=== PATIENT | female | born 1995 | race Caucasian/White ===

== ENCOUNTER 2024-06-21 15:13 | Inpatient (IN) | payer MEDICAID, BC, SELFPAY ==
[2024-06-21] VITALS (7 sets, daily range): BP systolic 105–131; BP diastolic 48–69; PULSE 59–72; RESP 13–20; TEMP 36.6–37.1; O2SAT 97–100; BMI 36.5
--- NOTE | ~2024-06-21 | US_ITS ---
EXAMINATION: US OB <= 14 weeks fetus DATE: 06/21/2024 18:09 INDICATION: Abdominal cramping. . TECHNIQUE: Real-time transabdominal pelvic ultrasound was performed. COMPARISON: None. FINDINGS: The uterus measures 10.5 x 7.1 x 9.5 cm. There is an intrauterine gestational sac. A yolk sac is iden tified. The crown rump length measures 3.3 cm, which correlates with an estimated gestational age of 10 weeks and 1 day(s) (+/-) 6 day(s). heart motion is identified measuring 153 beats per minute (bpm) by M-mode Doppler. The right ovary is not visualized. The left ovary measures 4.4 x 3.1 x 2.6 cm. There is a 3.3 cm cyst in left ovary, likely a follicular cyst. There is no free fluid in the pelvis. IMPRESSION: 1. Single living intrauterine gestation with estimated date of delivery of 01/16/2025. 2. 3.3 cm cyst in left ovary, likely a follicular cyst. Reviewed, dictated and finalized at location A. [employer] SERVICE AND SALES CONSULTANT IMPRESSION: 1. Single living intrauterine gestation with estimated date of delivery of 01/01. 2. 3.3 cm cyst in left ovary, likely a follicular cyst.
--- NOTE | ~2024-06-21 | US_ITS ---
EXAMINATION: US abdomen limited DATE: 06/21/2024 18:09 INDICATION: Right upper quadrant abdominal pain. Nausea and vomiting. TECHNIQUE: Multiple grayscale and Doppler ultrasound images of the abdomen were obtained. COMPARISON: None FINDINGS: The visualized portions of the head and body of the pancreas are normal. The liver is dwain l without focal lesion. There is normal flow in main portal vein. The gallbladder is distended and co ntains stones. No gallbladder wall thickening. There is a positive sonographic Dobson sign. The commo n duct is normal and measures 5 mm. IMPRESSION: 1. Distended gallbladder with gallstones and positive sonographic Dobson's sign suspicious for acute cholecystitis. Reviewed, dictated and finalized at location A. CY OWNER
--- NOTE | 2024-06-21 15:28 | ED.ABDPAIN ---
HPI - Abdominal Pain General Chief Complaint: Abdominal Pain Stated Complaint: abdominal pain, n/v Time Seen by Provider: 06/21/24 15:19 Source: patient Mode of arrival: ambulatory Limitations: no limitations History of Present Illness HPI narrative: This is a 29-year-old female who is approximately 11 weeks presents to the ED for chief complaint of right upper quadrant/right flank pain beginning just prior to arrival. Patient reports associated nausea and vomiting as well. States that yesterday she was feeling fine. Denies urinary symptoms, vaginal bleeding, diarrhea. Does endorse some generalized abdominal cramping. Denies fevers, chills. Related Data Home Medications Medication Instructions Recorded Confirmed vit no.95-ferrous 1 tablet PO DAILY 06/21/24 06/21/24 fumarate 28 mg-folic acid 800 mcg tablet ( Multivitamins) Allergies Allergy/AdvReac Type Severity Reaction Status Date / Time latex Allergy Rash Verified 06/21/24 19:08 Review of Systems Review of Systems: All systems as dictated in HPI Exam Narrative: GENERAL: Well-appearing, well-nourished, and in no acute distress. HEAD: Normocephalic, atraumatic. EYES: PERRLA and EOMI. ENT: Nares clear, no rhinorrhea or epistaxis. Mucous membranes moist. Oropharynx without tonsillar hypertrophy exudate or other lesions. NECK: Supple. No adenopathy or masses. CHEST: No respiratory distress. Clear to auscultation. No wheezes rales or rhonchi HEART: Regular rate and rhythm. No murmur heard. Normal peripheral pulses. ABDOMEN: Right flank is tender. Negative left flank tenderness. Soft, otherwise nontender, nondistended, normal active bowel sounds. MSK: Normal range of motion. No edema. SKIN: Warm, dry, no rash. NEURO: Alert and oriented x4. No focal deficits. PSYCH: Normal mood and affect. Course Vital Signs Vital signs: Vital Signs Pulse Rate 60 06/21/24 15:15 Respiratory Rate 15 06/21/24 15:15 Blood Pressure 118/66 06/21/24 15:15 Pulse Oximetry 100 06/21/24 15:15 Oxygen Delivery Room Air 06/21/24 15:15 Temperature 97.9 F 06/21/24 17:01 Pulse Rate 64 06/21/24 17:01 Respiratory Rate 15 06/21/24 17:01 Blood Pressure 119/69 06/21/24 17:01 Pulse Oximetry 100 06/21/24 17:01 Oxygen Delivery Room Air 06/21/24 15:15 MDM - Abdominal Pain MDM Narrative Medical decision making narrative: 29-year-old female who is 11 weeks presents to the ED after acute onset of right upper quadrant/right flank abdominal pain with N/V. Vitals are normal. Exam remarkable for the above. Lab work shows normal white count on the CBC. CMP is unremarkable. Beta quant is [id number]. Urinalysis remarkable for nitrite positive urine with 21-50 whites, 4+ bacteria. Culture pending. Rocephin started for this. Right upper quadrant ultrasound remarkable for distended gallbladder with gallstones and positive sonographic Dobson sign suspicious for acute cholecystitis. ultrasound: IMPRESSION: 1. Single living intrauterine gestation with estimated date of delivery of 01/16/2025. 2. 3.3 cm cyst in left ovary, likely a follicular cyst.. Discussed the case with general surgeon, Dr. Elias will consult on the patient. Discussed with hospitalist STERILIZER OPERATOR, Pietro. We will bring her into the hospital for IV rehydration, antibiotics for UTI and for pain control. Patient is understanding and agreeable with plan for admission. Lab Data 06/21/24 15:34 06/21/24 15:34 Labs: Lab Results 06/21/24 06/21/24 Range/Units 15:34 15:38 WBC 9.3 (4.5-10.0) K/mm3 RBC 3.98 L (4.2-5.4) M/mm3 Hgb 12.4 (12.0-15.0) g/dL Hct 36.8 L (37.0-47.0) % MCV 92.5 (80-100) fl MCH 31.2 (26-34) pg MCHC 33.7 (32-36) g/dl RDW 13.7 (11.5-14.5) % Plt Count 229 (150-375) k/mm3 MPV 12.0 H (7.4-10.4) fl Immature Gran % (Auto) 0.6 H (0-0.5) % Neut % (Auto) 69.7 (45.5-73.1) % Lymph % (Auto) 23.5 (18.3-44.2) % [place] % (Auto) 5.0 (2.6-8.5) % Eos % (Auto) 0.9 (0-4.4) % Baso % (Auto) 0.3 (0.2-1.2) % Lymph # (Auto) 2.19 (0.9-3.2) K/mm3 [place] # (Auto) 0.5 (0.1-0.6) K/mm3 Eos # (Auto) 0.1 (0-0.3) K/mm3 Baso # (Auto) 0.0 (0.0-0.1) K/mm3 Abs Immat Gran (auto) 0.06 H (0.00-0.031) K/mm3 Absolute Neuts (auto) 6.5 (1.3-6.7) K/mm3 Absolute Nucleated RBC 0.000 (0.0-0.012) K/mm3 Nucleated RBC % 0.0 (0.0-0.2) % PT 14.0 (11.1-14.7) Seconds INR 1.0 APTT 29.5 (22.3-36.8) Seconds Sodium 137 (137-145) mmol/L Potassium 4.1 (3.4-5.0) mmol/L Chloride 104 (98-107) mmol/L Carbon Dioxide 26 (22-30) mmol/L Anion Gap 7 (4-12) mmol/L BUN 12 (7-17) mg/dL Creatinine 0.50 L (0.7-1.0) mg/dL Estim Creat Clear Calc 142 ml/min Estimated GFR > 60 (59 - ) Glucose 77 (65-110) mg/dL Lactic Acid 1.0 (0.7-2.0) mmol/L Calcium 9.0 (8.4-10.2) mg/dL Total Bilirubin 0.2 (0.2-1.3) mg/dL Direct Bilirubin 0.0 (0-0.3) mg/dL AST 19 (14-36) U/L ALT 10 (6-35) U/L Alkaline Phosphatase 49 (38-126) U/L Total Protein 7.0 (6.3-8.2) g/dL Albumin 3.8 (3.5-5.1) g/dL Lipase 71 (23-300) U/L Beta HCG, Quant 964705.00 mIU/ML Urine Color Yellow (Yellow) Urine Appearance Cloudy H (Clear) Urine pH 5.5 (5.0-9.0) Ur Specific [place] 1.028 (1.001-1.035) Urine Protein Negative (Negative) mg/dL Urine Glucose (UA) Negative (Negative) mg/dL Urine Ketones Trace H (Negative) mg/dL Ur Blood (Man) Negative (Negative) Urine Nitrate Positive H (Negative) Urine Bilirubin Negative (Negative) Urine Urobilinogen 1.0 (<2.0) mg/dL Leukocyte Esterase Rfl 2+ H (Negative) SHASHI/UL Urine RBC 3-5 H (0-2) /hpf Urine WBC 21-50 H (0-3) /hpf Ur Squamous Epith Cells Moderate (Few) /hpf Urine Bacteria 4+ H /hpf Urine Casts 0-2 Imaging Data Radiologist's impression: ITS Impressions Ultrasound 06/21/24 18:17 IMPRESSION: 1. Single living intrauterine gestation with estimated date of delivery of 01/16/2025. 2. 3.3 cm cyst in left ovary, likely a follicular cyst. Abdomen Ultrasound 06/21/24 18:19 IMPRESSION: 1. Distended gallbladder with gallstones and positive sonographic Dobson's sign suspicious for acute cholecystitis. Discharge Plan Discharge Clinical Impression: UTI (urinary tract infection), Currently , Acute cholecystitis Patient Disposition: Still a Patient Condition: Stable Instructions: Antibiotic Form Prescriptions: No Action PNV cmb#95-ferrous fumarate-FA [ Multivitamins] 28 mg iron- 800 mcg Tablet 1 tablet PO DAILY Follow-up/Referrals: PHYSICIAN NOT ON STAFF,NONSTAFF [Non-Staff] -
[2024-06-21 15:49] LABS: Add Urine Microscopic? YES; Appearance Urine Cloudy (Clear); Bacteria Urine 4+ /hpf; Bilirubin Urine Negative (Negative); Blood Urine Negative (Negative); Color Urine Yellow (Yellow); Glucose Urine UA Negative (Negative); Ketones Urine Trace mg/dL (Negative); Leukocyte Esterase Ur 2+ LEU/UL (Negative); Nitrate Urine Positive (Negative); Non Pathogenic Casts 0-2; Protein Urine Negative (Negative); Specific Grav Ur 1.028 (1.001-1.035); Squamous Epithelial Cell Urine Moderate /hpf (Few); WBC Urine 21-50 /hpf (0-3); pH Urine 5.5 (5.0-9.0)
[2024-06-21 15:57] LABS: Partial Thromboplastin Time 29.5 Seconds (22.3-36.8)
[2024-06-21] MEDS: SODIUM CHLORIDE 0.9% IV 1,000 ML 999 ML IV CONT (16:22)
[2024-06-21] MEDS: ONDANSETRON INJ 4 MG/2 ML VIAL IV PUSH (16:22)
[2024-06-21] MEDS: MORPHINE SULFATE (*CRX) 4 MG/ML INJ IV PUSH ×3 (16:22→23:34)
[2024-06-21 16:39] LABS: Alanine Aminotransferase 10 U/L (6-35); Albumin Level 3.8 g/dL (3.5-5.1); Alkaline Phosphatase 49 U/L (38-126); Anion Gap 7 mmol/L (4-12); Aspartate Amino Transferase 19 U/L (14-36); Bilirubin,Total 0.2 mg/dL (0.2-1.3); Blood Urea Nitrogen 12 mg/dL (7-17); Carbon Dioxide 26 mmol/L (22-30); Chloride 104 mmol/L (98-107); Estimated CRCL calculation 142 ml/min; Estimated Glomerular Filt Rate > 60; Glucose 77 mg/dL (65-110); Lipase 71 U/L (23-300); Potassium 4.1 mmol/L (3.4-5.0); Sodium 137 mmol/L (137-145)
--- NOTE | 2024-06-21 17:31 | PC.NURSE ---
lab notified CBC ordered, lavender top specimen tube sent to lab
[2024-06-21 17:33] LABS: Basophils Percent Auto 0.3 % (0.2-1.2); Eosinophils Absolute Auto 0.1 K/mm3 (0-0.3); Eosinophils Percent Auto 0.9 % (0-4.4); Hematocrit 36.8 % (37.0-47.0); Hemoglobin 12.4 g/dL (12.0-15.0); Immature Granulocyte Absolute 0.06 K/mm3 (0.00-0.031); Immature Granulocyte Percent A 0.6 % (0-0.5); Lymphocytes Absolute Auto 2.19 K/mm3 (0.9-3.2); Lymphocytes Percent Auto 23.5 % (18.3-44.2); Mean Corpuscular HGB Conc 33.7 g/dl (32-36); Mean Corpuscular Hemoglobin 31.2 pg (26-34); Mean Corpuscular Volume 92.5 fl (80-100); Monocytes Absolute Auto 0.5 K/mm3 (0.1-0.6); Neutrophils Absolute Auto 6.5 K/mm3 (1.3-6.7); Neutrophils Percent Auto 69.7 % (45.5-73.1); Platelet Count Result 229 k/mm3 (150-375); Red Blood Count 3.98 M/mm3 (4.2-5.4); Red Cell Distribution Width 13.7 % (11.5-14.5); White Blood Count 9.3 K/mm3 (4.5-10.0)
--- NOTE | 2024-06-21 19:39 | PM.IMHP ---
H&P: HPI History of Present Illness Date/Time: 06/21/24 19:39 Chief Complaint: abdominal pain Narrative: This is a 29-year-old female with no significant past medical history patient presented to the emergency room due to right upper quadrant pain with radiation to epigastric area and scapula, back pain. Patient denies fevers rigors or chills had episode of diarrhea. Preliminary workup was significant for right upper quadrant ultrasound with cholecystitis is currently 14 week . Patient has been admitted for further evaluation management and treatment. EXAMINATION: US OB <= 14 weeks fetus DATE: 06/21/2024 18:09 INDICATION: Abdominal cramping. . TECHNIQUE: Real-time transabdominal pelvic ultrasound was performed. COMPARISON: None. FINDINGS: The uterus measures 10.5 x 7.1 x 9.5 cm. There is an intrauterine gestational sac. A yolk sac is identified. The crown rump length measures 3.3 cm, which correlates with an estimated gestational age of 10 weeks and 1 day(s) (+/-) 6 day(s). heart motion is identified measuring 153 beats per minute (bpm) by M-mode Doppler. The right ovary is not visualized. The left ovary measures 4.4 x 3.1 x 2.6 cm. There is a 3.3 cm cyst in left ovary, likely a follicular cyst. There is no free fluid in the pelvis. IMPRESSION: 1. Single living intrauterine gestation with estimated date of delivery of 01/16/2025. 2. 3.3 cm cyst in left ovary, likely a follicular cyst. EXAMINATION: US abdomen limited DATE: 06/21/2024 18:09 INDICATION: Right upper quadrant abdominal pain. Nausea and vomiting. TECHNIQUE: Multiple grayscale and Doppler ultrasound images of the abdomen were obtained. COMPARISON: None FINDINGS: The visualized portions of the head and body of the pancreas are normal. The liver is normal without focal lesion. There is normal flow in main portal vein. The gallbladder is distended and contains stones. No gallbladder wall thickening. There is a positive sonographic Dobson sign. The common duct is normal and measures 5 mm. IMPRESSION: 1. Distended gallbladder with gallstones and positive sonographic Dobson's sign suspicious for acute cholecystitis. Review of Systems Review of Systems: right upper quadrant pain with radiation to epigastric area diarrhea PMFSH Family History Family History (Updated 06/21/24 @ 19:41 by Alem Stevens RN) Mother Breast cancer Uterine cancer Ovarian cancer Grandparent Breast cancer Uterine cancer Ovarian cancer Other Ovarian cancer Uterine cancer Breast cancer Social History Social History Years smoked: 10 Smoking status: Former smoker Do You Feel Safe in your Home?: Yes Lack of Transportation: No Lack of Food: Never True Current Housing: I Have Housing Concerned About Future Housing: No Difficulty Paying Gas/Electric Bills: No Difficulty Paying for Meds: No Currently Unemployed: No Education: High School Diploma/GED Difficulty w/ Childcare or Family Care: No Spiritual care concerns: No Meds Home Medications and Allergies Home Medications Medication Instructions Recorded Confirmed Type vit no.95-ferrous 1 tablet PO DAILY 06/21/24 06/21/24 History fumarate 28 mg-folic acid 800 mcg tablet ( Multivitamins) Allergies Allergy/AdvReac Type Severity Reaction Status Date / Time latex Allergy Rash Verified 06/21/24 19:08 Vital Signs Vital Signs - 24 hr 06/21/24 15:15 06/21/24 15:19 06/21/24 16:29 Temperature 97.8 F Pulse Rate 60 60 Respiratory Rate 15 20 Blood Pressure 118/66 124/67 Pulse Oximetry 100 100 Oxygen Delivery Room Air 06/21/24 16:30 06/21/24 17:01 06/21/24 19:31 Temperature 97.9 F 97.9 F Pulse Rate 59 L 64 68 Respiratory Rate 13 15 18 Blood Pressure 124/67 119/69 105/48 L Pulse Oximetry 100 100 100 Oxygen Delivery Exam Narrative: laying in bed Const: General: comfortable, no acute distress, well developed, alert, awake and average body habitus Nutritional Appearance: average body habitus Orientation/consciousness: patient oriented x3 HENMT: Head: normal to inspection, normocephalic and atraumatic Ears: hearing grossly normal bilaterally Face/Nose/Sinus: normal facial exam Face and sinus: normal facial exam Eyes: General: appearance normal, both eyes and all related structures Pupils: Equal, round and reactive pupils present EOM: EOMs intact bilaterally Neck: Neck: full ROM, no lymphadenopathy and no JVD Thyroid: thyroid normal Lymphatic: no lymphadenopathy noted Resp: Effort & Inspection: normal respiratory effort and able to speak in complete sentences Auscultation: clear to auscultation bilaterally Cardio: Jugular venous distension: no JVD Rate: regular rate Rhythm: regular rhythm Heart sounds: S1 normal heart sound present and S2 normal heart sound present GI: GI Palp: Yes Soft to palpation and Yes No hepatosplenomegaly present : General: Yes deferred Skin: Rashes: no rashes Wounds: no wounds Neuro: General: patient oriented x3 and CN's II-XI intact bilaterally Cranial nerves: Yes CN's II-XII intact bilaterally and Yes Equal, round and reactive pupils present Cognition (Neuro): normal cognition Speech: normal speech Gait exam (Neuro): Normal gait present Motor exam (neuro): 5/5 motor strength present throughout Extrem: General: normal to inspection, full ROM, no joint enlargement and no pedal edema H&P: Results Labs Labs: Short CBC 06/21/24 Range/Units 15:34 WBC 9.3 (4.5-10.0) K/mm3 Hgb 12.4 (12.0-15.0) g/dL Hct 36.8 L (37.0-47.0) % Plt Count 229 (150-375) k/mm3 BMP 06/21/24 15:34 Sodium 137 Potassium 4.1 Chloride 104 Carbon Dioxide 26 BUN 12 Creatinine 0.50 L Glucose 77 Calcium 9.0 Liver Function 06/21/24 Range/Units 15:34 Total Bilirubin 0.2 (0.2-1.3) mg/dL Direct Bilirubin 0.0 (0-0.3) mg/dL AST 19 (14-36) U/L ALT 10 (6-35) U/L Alkaline Phosphatase 49 (38-126) U/L Albumin 3.8 (3.5-5.1) g/dL Urine 06/21/24 Range/Units 15:34 Urine Color Yellow (Yellow) Urine Appearance Cloudy H (Clear) Urine pH 5.5 (5.0-9.0) Ur Specific [place] 1.028 (1.001-1.035) Urine Protein Negative (Negative) mg/dL Urine Glucose (UA) Negative (Negative) mg/dL Assessment and Plan Assessment and plan (1) UTI (urinary tract infection): Code(s): N39.0 - Urinary tract infection, site not specified Status: Acute Assessment and Plan: On Rocephin await cultures supportive care (2) Currently : Code(s): Z34.90 - Encounter for supervision of normal , unspecified, unspecified trimester Status: Acute Assessment and Plan: follow-up in outpatient setting (3) Acute cholecystitis: Code(s): K81.0 - Acute cholecystitis Status: Acute Assessment and Plan: general surgery consult supportive care Hospitalist MIPS Advance Care Plan I have confirmed that the patient's Advanced Care Plan is present, code status is documented, or surrogate decision maker is listed in patient medical record.: Yes Medication Reconciliation I have utilized all available resources to obtain, update and review the patients current medications (includes all prescriptions, OTC, herbals, cannabis, and nutritional supplements).: Yes
--- NOTE | 2024-06-21 22:34 | ADMGEN ---
This patient, Morenita Burdick, was admitted to Medical Room 340-01. Patient/family oriented to hospital policies and general routines including ID bracelet, bed and alarms, visiting hours, pain management, procedures, bathroom and other care routines, personal items, smoking policy, room service/diet, and visiting hours. Information on how to activate the Rapid Response Team has been discussed. Patient/Family are encouraged to report perceived risks to care and to ask questions if they do not understand what they are told or what they should do.
[2024-06-22] MEDS: MORPHINE SULFATE (*CRX) 4 MG/ML INJ IV PUSH ×2 (06:40→20:19)
[2024-06-22] MEDS: ONDANSETRON INJ 4 MG/2 ML VIAL IV PUSH (06:40)
--- NOTE | 2024-06-22 08:20 | P.PNIM_ITS ---
Progress Note: A&P Assessment and Plan (1) UTI (urinary tract infection): Code(s): N39.0 - Urinary tract infection, site not specified Status: Acute Assessment and Plan: On Rocephin blood cultures supportive care (2) Currently : Code(s): Z34.90 - Encounter for supervision of normal , unspecified, unspecified trimester Status: Acute Assessment and Plan: follow-up in outpatient setting (3) Acute cholecystitis: Code(s): K81.0 - Acute cholecystitis Status: Acute Assessment and Plan: general surgery consult supportive care Time Spent With Patient Time with patient: Greater than 35 minutes Subjective Date/time seen: 06/22/24 08:20 Interval history: Abdominal pain Narrative retrieved from H/P: This is a 29-year-old female with no significant past medical history patient presented to the emergency room due to right upper quadrant pain with radiation to epigastric area and scapula, back pain. Patient denies fevers rigors or chills had episode of diarrhea. Preliminary workup was significant for right upper quadrant ultrasound with cholecystitis is currently 14 week . Patient has been admitted for further evaluation management and treatment. 06/22- pt is seen and examined. awaiting surgery consult Review of Systems Review of Systems: right upper quadrant pain with radiation to epigastric area diarrhea Exam Narrative: laying in bed Const: General: comfortable, no acute distress, well developed, alert, awake and average body habitus Nutritional Appearance: average body habitus Orientation/consciousness: patient oriented x3 HENMT: Head: normal to inspection, normocephalic and atraumatic Ears: hearing grossly normal bilaterally Face/Nose/Sinus: normal facial exam Face and sinus: normal facial exam Eyes: General: appearance normal, both eyes and all related structures Pupils: Equal, round and reactive pupils present EOM: EOMs intact bilaterally Neck: Neck: full ROM, no lymphadenopathy and no JVD Thyroid: thyroid normal Lymphatic: no lymphadenopathy noted Resp: Effort & Inspection: normal respiratory effort and able to speak in complete sentences Auscultation: clear to auscultation bilaterally Cardio: Jugular venous distension: no JVD Rate: regular rate Rhythm: regular rhythm Heart sounds: S1 normal heart sound present and S2 normal heart sound present : General: Yes deferred Skin: Rashes: no rashes Wounds: no wounds Neuro: General: patient oriented x3 and CN's II-XI intact bilaterally Cranial nerves: Yes CN's II-XII intact bilaterally and Yes Equal, round and reactive pupils present Cognition (Neuro): normal cognition Speech: normal speech Gait exam (Neuro): Normal gait present Motor exam (neuro): 5/5 motor strength present throughout Extrem: General: normal to inspection, full ROM, no joint enlargement and no pedal edema Objective Data Vital Signs Vital Signs: Vital Signs - 24 hr 06/21/24 15:15 06/21/24 15:19 06/21/24 16:29 Temperature 97.8 F Pulse Rate 60 60 Respiratory Rate 15 20 Blood Pressure 118/66 124/67 Pulse Oximetry 100 100 Oxygen Delivery Room Air 06/21/24 16:30 06/21/24 17:01 06/21/24 19:31 Temperature 97.9 F 97.9 F Pulse Rate 59 L 64 68 Respiratory Rate 13 15 18 Blood Pressure 124/67 119/69 105/48 L Pulse Oximetry 100 100 100 Oxygen Delivery 06/21/24 20:51 Temperature 98.8 F Pulse Rate 72 Respiratory Rate 16 Blood Pressure 131/48 L Pulse Oximetry 97 Oxygen Delivery Intake/Output Intake/Output: Intake & Output 06/19/24 06/20/24 06/21/24 06/22/24 23:59 23:59 23:59 23:59 Intake Total 1050 Output Total 200 Balance 850 Meds/Results Medications: Active Medications Generic Name Dose Route Start Last Admin Trade Name Freq PRN Reason Stop Dose Admin Ceftriaxone Sodium 2 gm in 100 mls @ 200 mls/hr 06/22/24 19:00 Rocephin 2 Gm/Ns 100 Ml IVPB Q24H [facility] Morphine Sulfate 4 mg 06/21/24 18:55 06/22/24 06:40 Morphine Sulfate (*Crx) 4 Mg/Ml Inj IV PUSH 4 mg Q4H PRN Administration Pain Rated 7-10 Ondansetron HCl 4 mg 06/21/24 18:55 06/22/24 06:40 Ondansetron Inj 4 Mg/2 Ml Vial IV PUSH 4 mg Q4H PRN Administration Nausea Radiology Results: ITS Impressions Ultrasound 06/21/24 18:17 IMPRESSION: 1. Single living intrauterine gestation with estimated date of delivery of 01/16/2025. 2. 3.3 cm cyst in left ovary, likely a follicular cyst. Abdomen Ultrasound 06/21/24 18:19 IMPRESSION: 1. Distended gallbladder with gallstones and positive sonographic Dobson's sign suspicious for acute cholecystitis. Labs Labs: Laboratory Results - last 24 hr 06/21/24 06/21/24 15:34 15:38 WBC 9.3 RBC 3.98 L Hgb 12.4 Hct 36.8 L MCV 92.5 MCH 31.2 MCHC 33.7 RDW 13.7 Plt Count 229 MPV 12.0 H Immature Gran % (Auto) 0.6 H Neut % (Auto) 69.7 Lymph % (Auto) 23.5 [place] % (Auto) 5.0 Eos % (Auto) 0.9 Baso % (Auto) 0.3 Lymph # (Auto) 2.19 [place] # (Auto) 0.5 Eos # (Auto) 0.1 Baso # (Auto) 0.0 Abs Immat Gran (auto) 0.06 H Absolute Neuts (auto) 6.5 Absolute Nucleated RBC 0.000 Nucleated RBC % 0.0 PT 14.0 INR 1.0 APTT 29.5 Sodium 137 Potassium 4.1 Chloride 104 Carbon Dioxide 26 Anion Gap 7 BUN 12 Creatinine 0.50 L Estim Creat Clear Calc 142 Estimated GFR > 60 Glucose 77 Lactic Acid 1.0 Calcium 9.0 Total Bilirubin 0.2 Direct Bilirubin 0.0 AST 19 ALT 10 Alkaline Phosphatase 49 Total Protein 7.0 Albumin 3.8 Lipase 71 Beta HCG, Quant 215825.00 Urine Color Yellow Urine Appearance Cloudy H Urine pH 5.5 Ur Specific [place] 1.028 Urine Protein Negative Urine Glucose (UA) Negative Urine Ketones Trace H Ur Blood (Man) Negative Urine Nitrate Positive H Urine Bilirubin Negative Urine Urobilinogen 1.0 Leukocyte Esterase Rfl 2+ H Urine RBC 3-5 H Urine WBC 21-50 H Ur Squamous Epith Cells Moderate Urine Bacteria 4+ H Urine Casts 0-2 Quality VTE Prophylaxis VTE prophylaxis: mechanical ordered
--- NOTE | 2024-06-22 12:02 | PM.CNGS ---
Assessment and Plan Assessment and plan (1) Acute cholecystitis: Code(s): K81.0 - Acute cholecystitis Status: Acute Assessment and Plan: RUQ ultrasound shows evidence of acute calculous cholecystitis, which is consistent with her presentation and exam. Her abdominal pain has persisted but with slight improvement since admission. With her being in the first trimester of her , we will try treating this conservatively and let her try a clear liquid diet today. Although it is ideal to be in the 2nd trimester when considering cholecystectomy, intervention may be unavoidable given her persistent symptoms. We discussed other treatment options as well, including the possibility of proceeding with a laparoscopic cholecystectomy under general anesthesia and the increased risks of delivery or miscarriage with her . We also discussed the option of attempting percutaneous cholecystostomy tube placement, which would be less invasive, and could potentially help decompress the gallbladder and allow her to get into her second trimester prior to having an interval cholecystectomy. All of her questions were answered. She is agreeable to trying a diet today and monitoring her closely. We will repeat labs again tomorrow and reassess. I will make her NPO after midnight in case intervention is needed. (2) UTI (urinary tract infection): Code(s): N39.0 - Urinary tract infection, site not specified Status: Acute Assessment and Plan: UA suggests UTI. Urine cx pending. Currently on IV Rocephin. This could have been contributing to her recent pelvic cramping. She denies any other urinary complaints. Management per Hospitalist. (3) Currently : Code(s): Z34.90 - Encounter for supervision of normal , unspecified, unspecified trimester Status: Acute Assessment and Plan: ultrasound estimates gestational age of 10 weeks, 1 day. Plan I have discussed the patient's case and plan of care with Dr. Elias. History of Present Illness Consult details Consult date: 06/22/24 Reason for consult: other (Acute cholecystitis) Requesting physician: Drew Hernandez PA-C Narrative: This is a 29-year-old woman who we have been asked to see in surgical consultation for acute cholecystitis. She reports being 11 weeks with her third . She has a history of gestational diabetes and cholestasis with her last , but has not been evaluated by her OBGYN yet for this . She reports having cramping pelvic abdominal pain intermittently over the past few weeks that she related to her . She has also had some mild nausea that she attributed to morning sickness. Yesterday, she ate a croissant sandwich and potato chips for lunch. Shortly after eating, she developed RUQ abdominal pain that radiated across her entire upper abdomen in a band-like pain and also into her mid back. She reports associated nausea and vomiting. The pain was persistent and eventually she went to the ER for evaluation. Labs were unremarkable with a normal WBC count and normal LFTs. UA suggests UTI. RUQ abdominal ultrasound showed cholelithiasis with gallbladder distention and positive sonographic Dobson's sign consistent with acute cholecystitis. Her pain persisted despite analgesics in the ER and she was admitted in this setting for surgical evaluation. She is now seen with her at the bedside. Her ultrasound estimates gestational age of 10 weeks and 1 day. She does endorse a similar episode of pain that occurred a few weeks ago and she went to [facility] for evaluation. She waited in the ED for 5 hours and left without being seen due to the long wait time. She also reports a history of laparoscopic gastric sleeve last year with approximately a 100 lb weight loss. Review of Systems Review of Systems: All systems reviewed & are unremarkable except as noted in HPI and below PMFSH Past Medical History Medical History Cholestasis during Gestational diabetes Surgical History Surgical History History of sleeve gastrectomy Family History Family History Mother Breast cancer Uterine cancer Ovarian cancer Grandparent Breast cancer Uterine cancer Ovarian cancer Other Ovarian cancer Uterine cancer Breast cancer Social History Social History Years smoked: 10 Smoking status: Former smoker Do You Feel Safe in your Home?: Yes Lack of Transportation: No Lack of Food: Never True Current Housing: I Have Housing Concerned About Future Housing: No Difficulty Paying Gas/Electric Bills: No Difficulty Paying for Meds: No Currently Unemployed: No Education: High School Diploma/GED Difficulty w/ Childcare or Family Care: No Spiritual care concerns: No Meds Home Medications and Allergies Home Medications Medication Instructions Recorded Confirmed Type vit no.95-ferrous 1 tablet PO DAILY 06/21/24 06/21/24 History fumarate 28 mg-folic acid 800 mcg tablet ( Multivitamins) Allergies Allergy/AdvReac Type Severity Reaction Status Date / Time latex Allergy Rash Verified 06/21/24 19:08 Vital Signs Vital Signs - 24 hr 06/21/24 15:15 06/21/24 15:19 06/21/24 16:29 Temperature 97.8 F Pulse Rate 60 60 Respiratory Rate 15 20 Blood Pressure 118/66 124/67 Pulse Oximetry 100 100 Oxygen Delivery Room Air 06/21/24 16:30 06/21/24 17:01 06/21/24 19:31 Temperature 97.9 F 97.9 F Pulse Rate 59 L 64 68 Respiratory Rate 13 15 18 Blood Pressure 124/67 119/69 105/48 L Pulse Oximetry 100 100 100 Oxygen Delivery 06/21/24 20:51 06/22/24 09:00 Temperature 98.8 F Pulse Rate 72 Respiratory Rate 16 Blood Pressure 131/48 L Pulse Oximetry 97 Oxygen Delivery Room Air Exam Const: General: comfortable and no acute distress Nutritional Appearance: average body habitus Orientation/consciousness: patient oriented x3 HENMT: Head: normocephalic and atraumatic Ears: hearing grossly normal bilaterally Mouth: Yes moist mucous membranes Eyes: General: appearance normal, both eyes and all related structures Pupils: Equal, round and reactive pupils present Neck: Neck: normal visual inspection and full ROM Resp: Effort & Inspection: no respiratory distress Auscultation: clear to auscultation bilaterally Cardio: Rate: regular rate Rhythm: regular rhythm Heart sounds: S1 normal heart sound present and S2 normal heart sound present Peripheral pulses: Peripheral pulses 2+ throughout GI: Inspection: non-distended, striae and no visible herniation GI Palp: Yes Soft to palpation, Yes Tenderness to palpation present (GI) (tenderness in the upper abdomen most focally in RUQ), No Guarding due to palpation present (GI), Yes No hepatosplenomegaly present, No Rebound tenderness present and Yes Other GI palpation findings present (+Dobson's on inspiration) Auscultation: normal bowel sounds Skin: General skin exam: normal color Neuro: General: moves all extremities and no focal motor deficits Speech: normal speech Motor exam (neuro): 5/5 motor strength present throughout Extrem: General: normal to inspection and no edema Psych: Mental Status: mental status grossly normal Attitude: cooperative Insight: Good insight present (Psych) Judgement: Good judgement present (Psych) Results Labs 06/21/24 15:34 06/21/24 15:34 Labs: Abnormal lab results 06/21/24 Range/Units 15:34 RBC 3.98 L (4.2-5.4) M/mm3 Hct 36.8 L (37.0-47.0) % MPV 12.0 H (7.4-10.4) fl Immature Gran % (Auto) 0.6 H (0-0.5) % Abs Immat Gran (auto) 0.06 H (0.00-0.031) K/mm3 Creatinine 0.50 L (0.7-1.0) mg/dL Urine Appearance Cloudy H (Clear) Urine Ketones Trace H (Negative) mg/dL Urine Nitrate Positive H (Negative) Leukocyte Esterase Rfl 2+ H (Negative) SHASHI/UL Urine RBC 3-5 H (0-2) /hpf Urine WBC 21-50 H (0-3) /hpf Urine Bacteria 4+ H /hpf Diabetes panel 06/21/24 Range/Units 15:34 Sodium 137 (137-145) mmol/L Potassium 4.1 (3.4-5.0) mmol/L Chloride 104 (98-107) mmol/L Carbon Dioxide 26 (22-30) mmol/L BUN 12 (7-17) mg/dL Creatinine 0.50 L (0.7-1.0) mg/dL Glucose 77 (65-110) mg/dL Calcium 9.0 (8.4-10.2) mg/dL AST 19 (14-36) U/L ALT 10 (6-35) U/L Alkaline Phosphatase 49 (38-126) U/L Total Protein 7.0 (6.3-8.2) g/dL Albumin 3.8 (3.5-5.1) g/dL Calcium panel 06/21/24 Range/Units 15:34 Calcium 9.0 (8.4-10.2) mg/dL Albumin 3.8 (3.5-5.1) g/dL Pituitary panel 06/21/24 Range/Units 15:34 Sodium 137 (137-145) mmol/L Potassium 4.1 (3.4-5.0) mmol/L Chloride 104 (98-107) mmol/L Carbon Dioxide 26 (22-30) mmol/L BUN 12 (7-17) mg/dL Creatinine 0.50 L (0.7-1.0) mg/dL Glucose 77 (65-110) mg/dL Calcium 9.0 (8.4-10.2) mg/dL Adrenal panel 06/21/24 Range/Units 15:34 Sodium 137 (137-145) mmol/L Potassium 4.1 (3.4-5.0) mmol/L Chloride 104 (98-107) mmol/L Carbon Dioxide 26 (22-30) mmol/L BUN 12 (7-17) mg/dL Creatinine 0.50 L (0.7-1.0) mg/dL Glucose 77 (65-110) mg/dL Calcium 9.0 (8.4-10.2) mg/dL Total Bilirubin 0.2 (0.2-1.3) mg/dL AST 19 (14-36) U/L ALT 10 (6-35) U/L Alkaline Phosphatase 49 (38-126) U/L Total Protein 7.0 (6.3-8.2) g/dL Albumin 3.8 (3.5-5.1) g/dL All other labs normal. Imaging Additional studies: ITS Impressions Ultrasound 06/21/24 18:17 IMPRESSION: 1. Single living intrauterine gestation with estimated date of delivery of 01/16/2025. 2. 3.3 cm cyst in left ovary, likely a follicular cyst. Abdomen Ultrasound 06/21/24 18:19 IMPRESSION: 1. Distended gallbladder with gallstones and positive sonographic Dobson's sign suspicious for acute cholecystitis.
[2024-06-22 14:00] VITALS: BP 130/60; PULSE 78; RESP 16; TEMP 36.6; O2SAT 96
[2024-06-22] MEDS: ACETAMINOPHEN 500 MG TABLET 1000 MG PO (17:45)
[2024-06-22] MEDS: cefTRIAXone 2 GM/NS 100 ML 2 GM/100 ML BAG IVPB (19:28)
[2024-06-22 22:10] VITALS: BP 106/57; PULSE 60; RESP 20; TEMP 36.7; O2SAT 98
[2024-06-23] MEDS: ACETAMINOPHEN 500 MG TABLET 1000 MG PO (01:28)
[2024-06-23 05:51] VITALS: BP 105/56; PULSE 56; RESP 20; TEMP 36.7; O2SAT 99
--- NOTE | 2024-06-23 07:35 | PM.IMPN ---
Progress Note: A&P Assessment and Plan (1) UTI (urinary tract infection): Code(s): N39.0 - Urinary tract infection, site not specified Status: Acute Assessment and Plan: On Rocephin blood cultures supportive care (2) Currently : Code(s): Z34.90 - Encounter for supervision of normal , unspecified, unspecified trimester Status: Acute Assessment and Plan: follow-up in outpatient setting (3) Acute cholecystitis: Code(s): K81.0 - Acute cholecystitis Status: Acute Assessment and Plan: general surgery consult supportive care try diet 06/22 if continues to be symptomatic- possible surgical intervention today, 06/23 Time Spent With Patient Time with patient: Greater than 35 minutes Subjective Date/time seen: 06/23/24 07:35 Interval history: Abdominal pain Narrative retrieved from H/P: This is a 29-year-old female with no significant past medical history patient presented to the emergency room due to right upper quadrant pain with radiation to epigastric area and scapula, back pain. Patient denies fevers rigors or chills had episode of diarrhea. Preliminary workup was significant for right upper quadrant ultrasound with cholecystitis is currently 14 week . Patient has been admitted for further evaluation management and treatment. 06/22- pt is seen and examined. awaiting surgery consult 06/23- surgery saw her yesterday. Ideally interventions are postponed until second trimester but given the severity of her pain could be done sooner. She was going to try diet yesterday and made NPO at midnight in case intervention is needed today. Review of Systems Review of Systems: right upper quadrant pain with radiation to epigastric area Exam Narrative: laying in bed Const: General: comfortable, no acute distress, well developed, alert, awake and average body habitus Nutritional Appearance: average body habitus Orientation/consciousness: patient oriented x3 HENMT: Head: normal to inspection, normocephalic and atraumatic Ears: hearing grossly normal bilaterally Face/Nose/Sinus: normal facial exam Face and sinus: normal facial exam Eyes: General: appearance normal, both eyes and all related structures Pupils: Equal, round and reactive pupils present EOM: EOMs intact bilaterally Neck: Neck: full ROM, no lymphadenopathy and no JVD Thyroid: thyroid normal Lymphatic: no lymphadenopathy noted Resp: Effort & Inspection: normal respiratory effort and able to speak in complete sentences Auscultation: clear to auscultation bilaterally Cardio: Jugular venous distension: no JVD Rate: regular rate Rhythm: regular rhythm Heart sounds: S1 normal heart sound present and S2 normal heart sound present : General: Yes deferred Skin: Rashes: no rashes Wounds: no wounds Neuro: General: patient oriented x3 and CN's II-XI intact bilaterally Cranial nerves: Yes CN's II-XII intact bilaterally and Yes Equal, round and reactive pupils present Cognition (Neuro): normal cognition Speech: normal speech Gait exam (Neuro): Normal gait present Motor exam (neuro): 5/5 motor strength present throughout Extrem: General: normal to inspection, full ROM, no joint enlargement and no pedal edema Objective Data Vital Signs Vital Signs: Vital Signs - 24 hr 06/22/24 09:00 06/22/24 14:00 06/22/24 22:10 Temperature 97.9 F 98.1 F Pulse Rate 78 60 Respiratory Rate 16 20 Blood Pressure 130/60 106/57 L Pulse Oximetry 96 98 Oxygen Delivery Room Air 06/23/24 05:51 Temperature 98.0 F Pulse Rate 56 L Respiratory Rate 20 Blood Pressure 105/56 L Pulse Oximetry 99 Oxygen Delivery Intake/Output Intake/Output: Intake & Output 06/20/24 06/21/24 06/22/24 06/23/24 23:59 23:59 23:59 23:59 Intake Total 1050 637 Output Total 200 850 300 Balance 850 -213 -300 Meds/Results Medications: Active Medications Generic Name Dose Route Start Last Admin Trade Name Freq PRN Reason Stop Dose Admin Acetaminophen 1,000 mg 06/22/24 16:22 06/23/24 01:28 Acetaminophen 500 Mg Tablet PO 1,000 mg Q6H PRN Administration Mild Pain (1-6) Or Fever Ceftriaxone Sodium 2 gm in 100 mls @ 200 mls/hr 06/22/24 19:00 06/22/24 19:58 Rocephin 2 Gm/Ns 100 Ml IVPB Infused Q24H PERFECTO Infusion Morphine Sulfate 4 mg 06/21/24 18:55 06/22/24 20:19 Morphine Sulfate (*Crx) 4 Mg/Ml Inj IV PUSH 4 mg Q4H PRN Administration Pain Rated 7-10 Ondansetron HCl 4 mg 06/21/24 18:55 06/22/24 06:40 Ondansetron Inj 4 Mg/2 Ml Vial IV PUSH 4 mg Q4H PRN Administration Nausea Radiology Results: ITS Impressions Ultrasound 06/21/24 18:17 IMPRESSION: 1. Single living intrauterine gestation with estimated date of delivery of 01/16/2025. 2. 3.3 cm cyst in left ovary, likely a follicular cyst. Abdomen Ultrasound 06/21/24 18:19 IMPRESSION: 1. Distended gallbladder with gallstones and positive sonographic Dobson's sign suspicious for acute cholecystitis. Quality VTE Prophylaxis VTE prophylaxis: mechanical ordered
[2024-06-23 09:49] LABS: Hematocrit 34.6 % (37.0-47.0); Hemoglobin 11.4 g/dL (12.0-15.0); Mean Corpuscular HGB Conc 32.9 g/dl (32-36); Mean Corpuscular Hemoglobin 30.9 pg (26-34); Mean Corpuscular Volume 93.8 fl (80-100); Mean Platelet Volume 11.6 fl (7.4-10.4); Platelet Count Result 191 k/mm3 (150-375); Red Blood Count 3.69 M/mm3 (4.2-5.4); Red Cell Distribution Width 13.6 % (11.5-14.5); White Blood Count 8.1 K/mm3 (4.5-10.0)
[2024-06-23 09:59] LABS: Alanine Aminotransferase 81 U/L (6-35); Albumin Level 3.7 g/dL (3.5-5.1); Alkaline Phosphatase 69 U/L (38-126); Anion Gap 6 mmol/L (4-12); Aspartate Amino Transferase 47 U/L (14-36); Bilirubin,Total 0.6 mg/dL (0.2-1.3); Blood Urea Nitrogen 7 mg/dL (7-17); Calcium 8.9 mg/dL (8.4-10.2); Carbon Dioxide 24 mmol/L (22-30); Chloride 106 mmol/L (98-107); Estimated CRCL calculation 147 ml/min; Estimated Glomerular Filt Rate > 60; Glucose 82 mg/dL (65-110); Potassium 4.3 mmol/L (3.4-5.0); Sodium 136 mmol/L (137-145)
[2024-06-23] MEDS: MICONAZOLE NITRATE 2% VAGINAL CREAM 45 GM TUBE 1 APPFUL VAGINAL (11:14)
--- NOTE | 2024-06-23 12:41 | PM.PNGS ---
Progress Note: A&P Assessment and Plan (1) Acute cholecystitis: Code(s): K81.0 - Acute cholecystitis Status: Acute Assessment and Plan: Abdominal pain has significantly improved. WBC remains normal and only slight bump in AST/ALT. She was able to tolerate a low fat diet with only mild RUQ pain. Options were again discussed this morning regarding dietary modifications/monitoring vs surgical intervention. The patient wishes to discharge home and monitor. Okay to d/c on low fat diet. Will have her f/u with Dr. Elias in 1-2 weeks in our office. Would recommend another 5-7 days of oral antibiotics that would cover for both cholecystitis and the UTI on discharge. (2) UTI (urinary tract infection): Code(s): N39.0 - Urinary tract infection, site not specified Status: Acute Assessment and Plan: Plan discussed with Hospitalist, who is going to get recommendations for antibiotics from ID pharmacist (3) Currently : Code(s): Z34.90 - Encounter for supervision of normal , unspecified, unspecified trimester Status: Acute Plan I have discussed the patient's case and plan of care with Dr. Elias. Subjective Subjective Date/Time Seen: 06/23/24 12:41 Patient reports: no new complaints and feels better Interval history: patient was having no pain this morning. She had significant improvement night. No nausea or vomiting. She still has a mild headache, but better. She did try a low-fat diet with very mild recurrent RUQ pain. No other complaints at this time. Exam Const: General: comfortable and no acute distress GI: Inspection: non-distended GI Palp: Yes Soft to palpation, Yes Tenderness to palpation present (GI) ( Right upper quadrant, improved), No Guarding due to palpation present (GI) and No Rebound tenderness present Auscultation: normal bowel sounds Objective Data Vital Signs Vital Signs: Vital Signs - 24 hr 06/22/24 14:00 06/22/24 22:10 06/23/24 05:51 Temperature 97.9 F 98.1 F 98.0 F Pulse Rate 78 60 56 L Respiratory Rate 16 20 20 Blood Pressure 130/60 106/57 L 105/56 L Pulse Oximetry 96 98 99 Intake/Output Intake/Output: Intake & Output 06/20/24 06/21/24 06/22/24 06/23/24 23:59 23:59 23:59 23:59 Intake Total 1050 637 240 Output Total 200 850 300 Balance 793 -213 -60 Meds/Results Medications: Active Medications Generic Name Dose Route Start Last Admin Trade Name Freq PRN Reason Stop Dose Admin Acetaminophen 1,000 mg 06/22/24 16:22 06/23/24 01:28 Acetaminophen 500 Mg Tablet PO 1,000 mg Q6H PRN Administration Mild Pain (1-6) Or Fever Ceftriaxone Sodium 2 gm in 100 mls @ 200 mls/hr 06/22/24 19:00 06/22/24 19:58 Rocephin 2 Gm/Ns 100 Ml IVPB Infused Q24H PERFECTO Infusion Sodium Chloride 1,000 mls @ 150 mls/hr 06/23/24 11:25 Normal Saline Iv IV CONT .Q6H40M PERFECTO Miconazole Nitrate 1 appful 06/23/24 10:20 06/23/24 11:14 Miconazole Nitrate 2% Vaginal Cream 45 Gm Tube VAGINAL 1 appful HS PERFECTO Administration Morphine Sulfate 4 mg 06/21/24 18:55 06/22/24 20:19 Morphine Sulfate (*Crx) 4 Mg/Ml Inj IV PUSH 4 mg Q4H PRN Administration Pain Rated 7-10 Ondansetron HCl 4 mg 06/21/24 18:55 06/22/24 06:40 Ondansetron Inj 4 Mg/2 Ml Vial IV PUSH 4 mg Q4H PRN Administration Nausea Radiology Results: ITS Impressions Ultrasound 06/21/24 18:17 IMPRESSION: 1. Single living intrauterine gestation with estimated date of delivery of 01/16/2025. 2. 3.3 cm cyst in left ovary, likely a follicular cyst. Abdomen Ultrasound 06/21/24 18:19 IMPRESSION: 1. Distended gallbladder with gallstones and positive sonographic Dobson's sign suspicious for acute cholecystitis. Labs Labs: Laboratory Results - last 24 hr 06/23/24 09:41 WBC 8.1 RBC 3.69 L Hgb 11.4 L Hct 34.6 L MCV 93.8 MCH 30.9 MCHC 32.9 RDW 13.6 Plt Count 191 MPV 11.6 H Sodium 136 L Potassium 4.3 Chloride 106 Carbon Dioxide 24 Anion Gap 6 BUN 7 D Creatinine 0.50 L Estim Creat Clear Calc 147 Estimated GFR > 60 Glucose 82 Calcium 8.9 Total Bilirubin 0.6 AST 47 H ALT 81 H Alkaline Phosphatase 69 Total Protein 7.0 Albumin 3.7
--- NOTE | 2024-06-23 13:40 | P.DS_ITS ---
DS: Admitting Diagnosis Discharge Date 06/23 Admitting Diagnosis abd pain DS: Discharge Diagnosis Discharge Diagnosis (1) UTI (urinary tract infection): Code(s): N39.0 - Urinary tract infection, site not specified Status: Acute Assessment and Plan: (2) Currently : Code(s): Z34.90 - Encounter for supervision of normal , unspecified, unspecified trimester Status: Acute Assessment and Plan: (3) Acute cholecystitis: Code(s): K81.0 - Acute cholecystitis Status: Acute DS: Summary Hospital Course Hospital Course: This is a 29-year-old female with no significant past medical history patient presented to the emergency room due to right upper quadrant pain with radiation to epigastric area and scapula, back pain. Patient denies fevers rigors or chills had episode of diarrhea. Preliminary workup was significant for right upper quadrant ultrasound with cholecystitis is currently 14 week . Patient has been admitted for further evaluation management and treatment. # Acute cholecystitis * Abdominal pain has significantly improved. WBC remains normal and only slight bump in AST/ALT. She was able to tolerate a low fat diet with only mild RUQ pain. Options were again discussed this morning regarding dietary modifications/monitoring vs surgical intervention. The patient wishes to discharge home and monitor. * Okay to d/c on low fat diet. Will have her f/u with Dr. Elias in 1-2 weeks in our office. Would recommend another 5-7 days of oral antibiotics that would cover for both cholecystitis and the UTI on discharge. # UTI - was on iv rocephin - will be discharged on Augmentin -ua culture is not back- will be monitoring for culture results and if there is any antibiotics adjustments needed, will reach out to pt # yeast infection -please continue monistat vag cream -f/u with OBGYN if symptoms do not get better Status at Discharge Functional status at discharge: independent ambulation Overall status at discharge: patient is progressing back to baseline Time Spent with Patient Time attestation: Total time spent providing and/or coordinating discharge services: Exam Const: General: comfortable, no acute distress, well developed, alert, awake and average body habitus Nutritional Appearance: average body habitus Orientation/consciousness: patient oriented x3 HENMT: Head: normal to inspection, normocephalic and atraumatic Ears: hearing grossly normal bilaterally Face/Nose/Sinus: normal facial exam Face and sinus: normal facial exam Eyes: General: appearance normal, both eyes and all related structures Pupils: Equal, round and reactive pupils present EOM: EOMs intact bilaterally Neck: Neck: full ROM, no lymphadenopathy and no JVD Thyroid: thyroid normal Lymphatic: no lymphadenopathy noted Resp: Effort & Inspection: normal respiratory effort and able to speak in complete sentences Auscultation: clear to auscultation bilaterally Cardio: Jugular venous distension: no JVD Rate: regular rate Rhythm: regular rhythm Heart sounds: S1 normal heart sound present and S2 normal heart sound present : General: Yes deferred Skin: Rashes: no rashes Wounds: no wounds Neuro: General: patient oriented x3 and CN's II-XI intact bilaterally Cranial nerves: Yes CN's II-XII intact bilaterally and Yes Equal, round and reactive pupils present Cognition (Neuro): normal cognition Speech: normal speech Gait exam (Neuro): Normal gait present Motor exam (neuro): 5/5 motor strength present throughout Extrem: General: normal to inspection, full ROM, no joint enlargement and no pedal edema DS: Data Data Completed and Pending Labs on day of discharge: Labs from last 24 hours 06/23/24 09:41 WBC 8.1 RBC 3.69 L Hgb 11.4 L Hct 34.6 L MCV 93.8 MCH 30.9 MCHC 32.9 RDW 13.6 Plt Count 191 MPV 11.6 H Sodium 136 L Potassium 4.3 Chloride 106 Carbon Dioxide 24 Anion Gap 6 BUN 7 D Creatinine 0.50 L Estim Creat Clear Calc 147 Estimated GFR > 60 Glucose 82 Calcium 8.9 Total Bilirubin 0.6 AST 47 H ALT 81 H Alkaline Phosphatase 69 Total Protein 7.0 Albumin 3.7 Preliminary micro results at discharge 06/21/24 15:34 Urine Culture - Preliminary Unspecified Gram negative bacilli isolated Discharge Plan Discharge Attending physician on discharge: Pierre Garcia Consulting providers: Yandel Elias Discharging Clinician: Venessa Ashley Patient Disposition: Home, Self-Care Activity: may shower Diet: low fat Discharge Instructions: * Continue a low fat diet to avoid gallbladder issues * Follow-up with Dr. Elias in our office in 1-2 weeks. We will schedule an appointment and let you know the time and date. * If you have abdominal pain, fevers, or vomiting, return to the ER. * We will send you home with Augmentin. We are limited with antibiotics choices due to . IT will cover cholecystitis and the UTI. WE will be watching urine culture and if it results in some bacteria growth that augmenti doesnot cover- we will call you and let you know. Patient Instructions: Antibiotic Form, Cholecystitis (GEN), Urinary Tract Infection in Women (DC), Pain Management (DC) Stand Alone Forms: General Discharge Information Follow-up/Referrals: Yandel Elias DO [Physician] - 2 Weeks Discharge Medications: New miconazole nitrate [Monistat 7] 2 % cream 1 appful vaginal HS 7 Days Qty: 45 0RF amoxicillin-pot clavulanate 875-125 mg tablet 1 tablet PO Q12H Qty: 14 0RF Continued PNV cmb#95-ferrous fumarate-FA [ Multivitamins] 28 mg iron- 800 mcg Tablet 1 tablet PO DAILY Date of admission: 06/22/24 09:32 Primary Care Provider: UNKNOWN,DOCTOR Admitting Provider: Evelia Muro Attending physician on admission: Evelia Muro Condition: Stable Quality VTE Prophylaxis VTE prophylaxis: mechanical ordered Hospitalist MIPS Heart Failure (Exclusion) Patient has history of Heart Transplant or Left Ventricular Assistive Device?: No IF YES, STOP HERE Heart Failure (Qualifier) Patient has current or prior documentation of LVEF less than or equal to 40%, or mod/servere depressed LVSF?: No IF NO, STOP HERE
--- NOTE | 2024-06-24 08:55 | PC.NURSE ---
Spoke with pt regarding antibiotic need for her UTI. Concetta Ashley NP sent order for Phosphamycin into [facility] in [place]. PT will take one pill today to complete treatment. Results of Ureince cx faxed to Dr. Maida Deng, OB. Pt to see her OB next week to have repeat urine. Pt. states understanding and agreement.
== END 2024-06-23 14:39 | disposition home or self-care (01) | DRG 566 ==
LOC: ANHED 19:21 → ANH3MED 19:35
PROVIDERS: Surgery; Admitting Provider Family Medicine; Emergency Provider Physician Assistant; Visit Provider Nurse Practitioner
DX: O99.612 Diseases of the digestive system complicating pregnancy, second trimester (principal); K80.00 Calculus of gallbladder with acute cholecystitis without obstruction; O24.419 Gestational diabetes mellitus in pregnancy, unspecified control; O98.812 Other maternal infectious and parasitic diseases complicating pregnancy, second trimester; O23.42 Unspecified infection of urinary tract in pregnancy, second trimester; N39.0 Urinary tract infection, site not specified; B37.9 Candidiasis, unspecified; B96.1 Klebsiella pneumoniae [K. pneumoniae] as the cause of diseases classified elsewhere; O99.842 Bariatric surgery status complicating pregnancy, second trimester; Z3A.14 14 weeks gestation of pregnancy; Z87.891 Personal history of nicotine dependence
CPT/HCPCS: 36415; 76705; 76801; 80053; 81001; 82248; 83605; 83690; 84702; 85025; 85027; 85610; 85730; 87086; 87186; 96365; 96374; 96375; 96376; 99285; A9270; G0378; G0379; J0696; J2270; J2405; J7030

== ENCOUNTER 2024-07-02 19:35 | Inpatient (IN) | payer MEDICAID, SELFPAY ==
--- NOTE | ~2024-07-02 | US_ITS ---
EXAMINATION: US OB <= 14 weeks fetus DATE: 07/03/2024 01:19 INDICATION: Suprapubic pain. . TECHNIQUE: Real-time transabdominal pelvic ultrasound was performed. COMPARISON: Ultrasound 06/21/2024 FINDINGS: The uterus measures 13.1 x 8.6 x 9.1 cm. There is an intrauterine gestational sac. The crown ru mp length measures 5.2 cm, which correlates with an estimated gestational age of 11 weeks and 6 day(s ) (+/-) 1 week(s) and 0 day(s). heart motion is identified measuring 156 beats per minute (bpm) by M-mode Doppler. The right ovary is not visualized. The left ovary measures 4.2 x 2.8 x 3.3 cm. Th ere is no free fluid in the pelvis. IMPRESSION: 1. Single living intrauterine gestation with estimated date of delivery of 01/16/2025 based on the ul trasound from 06/21/2024. Reviewed, dictated and finalized at location A. [employer] IMPRESSION: 1. Single living intrauterine gestation with estimated date of delivery of 01/01 based on the ultrasound from 06/21/2024.
[2024-07-02 19:36] VITALS: BP 107/75; PULSE 83; RESP 16; TEMP 36.3; O2SAT 99
[2024-07-02 21:13] LABS: BEDSIDEPREGUCG Positive (Negative)
--- NOTE | 2024-07-02 21:17 | ED_ITS ---
HPI - Abdominal Pain General Chief Complaint: Abdominal Pain <Ute Thompson PA-C - Last Filed: 07/03/24 03:04> Stated Complaint: with lower abd pain - admitted here last <Ute Thompson PA-C - Last Filed: 07/03/24 03:04> Time Seen by Provider: 07/02/24 21:08 <Ute Thompson PA-C - Last Filed: 07/03/24 03:04> History of Present Illness HPI narrative: 29-year-old G 7, P 2, A 4 with history of cholestasis during and gestational diabetes presents to the ED for suprapubic abdominal pain. Patient presented to our emergency department on 06/21/2024 for right upper quadrant and right flank pain with associated nausea and vomiting. Patient was found to have pyelonephritis and ultrasound findings concerning for acute cholecystitis. She was admitted to hospital for further evaluation and was discharged home after a few days of IV antibiotics with improvement. She was discharged home with Augmentin her urine culture sensitivities. The patient admits to not taking the Augmentin because she was developing yeast infections f rom IV antibiotics on admission. She states she has been using topical antifungals and her yeast infection has resolved. She states that she was discharged she has had persistent suprapubic cramping and right flank pain. She states the right upper quadrant abdominal pain is significantly improved. She denies fever, nausea vomiting, dysuria hematuria, vaginal discharge or concern for STDs, vaginal bleeding. States she has been listening to heart tones at home, however today she was having difficulty finding heart tones which concerned her. Her OBGYN is Jazzy Deng at [facility]. LMP April 15, 2024. <Ute Thompson PA-C - Last Filed: 07/03/24 03:04> Related Data Home Medications: Home Medications Medication Instructions Recorded Confirmed vit no.95-ferrous 1 tablet PO DAILY 06/21/24 07/03/24 fumarate 28 mg-folic acid 800 mcg tablet ( Multivitamins) <Ute Thompson PA-C - Last Filed: 07/03/24 03:04> Allergies/Adverse Reactions: Allergies Allergy/AdvReac Type Severity Reaction Status Date / Time latex Allergy Rash Verified 07/03/24 04:01 <Ute Thompson PA-C - Last Filed: 07/03/24 03:04> Review of Systems Review of Systems: All systems reviewed & are unremarkable except as noted in HPI and below <CRUZITO Ortega Last Filed: 07/03/24 03:04> PMFSH Past Medical History Medical History: Medical History Cholestasis during Gestational diabetes <CRUZITO Ortega Last Filed: 07/03/24 03:04> Surgical History Surgical History: Surgical History History of sleeve gastrectomy <CRUZITO Ortega Last Filed: 07/03/24 03:04> Family History Family History: Family History Mother Breast cancer Uterine cancer Ovarian cancer Grandparent Breast cancer Uterine cancer Ovarian cancer Other Ovarian cancer Uterine cancer Breast cancer <CRUZITO Ortega Last Filed: 07/03/24 03:04> Social History Social History: Social History Smoking packs per day: 0.2 Smoking cigarettes per day: 4.0 Years smoked: 10 Smoking pack-years: 2.00 Smoking status: Former smoker Tobacco type: cigarettes Smoking end date: 04/03/24 Alcohol intake: former Substance use: never Do You Feel Safe in your Home?: Yes Lack of Transportation: No Lack of Food: Never True Current Housing: I Have Housing Concerned About Future Housing: No Difficulty Paying Gas/Electric Bills: No Difficulty Paying for Meds: No Currently Unemployed: No Education: High School Diploma/GED Difficulty w/ Childcare or Family Care: No Spiritual care concerns: No <CRUZITO Ortega Last Filed: 07/03/24 03:04> Exam Narrative: GENERAL: Well-appearing, well-nourished, and in no acute distress. HEAD: Normocephalic, atraumatic. EYES: EOMI. ENT: Nares clear, no rhinorrhea or epistaxis. Mucous membranes moist. NECK: Supple. CHEST: Clear to auscultation. No respiratory distress. HEART: Regular rate and rhythm. No murmur heard. Normal peripheral pulses. ABDOMEN: Normoactive bowel sounds. Abdomen soft with tenderness and guarding in the suprapubic region. Minimal tenderness to the right upper quadrant with negative Dobson sign. Right-sided CVA tenderness. No rebound or rigidity EXTREMITIES: Normal range of motion. No edema. SKIN: Warm, dry, no rash. NEURO: No focal deficits. Alert and oriented x3 <Ute Thompson PA-C - Last Filed: 07/03/24 03:04> Procedures Other Procedure Procedure 1: Other Procedure: Bedside ultrasound: Patient is approximately 13 weeks by last ultrasonography dating. Patient is here for suprapubic pain and tenderness as well as urinary complaints. Bedside transabdominal ultrasound conducted to evaluate for heart tones. M-mode Doppler was used to identify heart tones and fetus has a heart rate of approximately 160 beats per minute on my interpretation. Fetus is moving appropriately and no appreciable free fluid in the pelvis. Appears appropriate size for estimated gestational age. <Baljinder Rivera MD - Last Filed: 07/03/24 07:23> Course COMPLIANCE PROFESSIONAL/PA Physician Supervision I agree with midlevel documentation; I performed the majority of the m edical decision making component of this evaluation. I had independent [id number] time with the patient and performed my own independent evaluation and assessment. I independently performed patient's bedside ultrasound to confirm the live IUP with good heart tones of 160. Patient remained hemodynamically stable here in the emergency department but given her continued symptoms and previous admission here and lack of outpatient compliance with antibiotics I believe he does need admission for IV antibiotics at this time. Patient agreeable with this plan of care. Please refer to [facility] dictation for remaining care here in the ED and admission. <Baljinder Rivera MD - Last Filed: 07/03/24 07:23> Vital Signs Vital signs: Vital Signs Temperature 36.3 C L 07/02/24 19:36 Pulse Rate 83 07/02/24 19:36 Respiratory Rate 16 07/02/24 19:36 Blood Pressure 107/75 07/02/24 19:36 Pulse Oximetry 99 07/02/24 19:36 Oxygen Delivery Room Air 07/02/24 19:36 Temperature 37.0 C 07/03/24 03:54 Pulse Rate 67 07/03/24 05:38 Respiratory Rate 18 07/03/24 05:38 Blood Pressure 102/68 07/03/24 05:38 Pulse Oximetry 100 07/03/24 05:38 Oxygen Delivery Room Air 07/03/24 04:36 <Ute Thompson PA-C - Last Filed: 07/03/24 03:04> Vital Signs Temperature 36.3 C L 07/02/24 19:36 Pulse Rate 83 07/02/24 19:36 Respiratory Rate 16 07/02/24 19:36 Blood Pressure 107/75 07/02/24 19:36 Pulse Oximetry 99 07/02/24 19:36 Oxygen Delivery Room Air 07/02/24 19:36 Temperature 37.0 C 07/03/24 03:54 Pulse Rate 67 07/03/24 05:38 Respiratory Rate 18 07/03/24 05:38 Blood Pressure 102/68 07/03/24 05:38 Pulse Oximetry 100 07/03/24 05:38 Oxygen Delivery Room Air 07/03/24 04:36 <Baljinder Rivera MD - Last Filed: 07/03/24 07:23> MDM - Abdominal Pain MDM Narrative Medical decision making narrative: 29-year-old female who is G7, P2, A5 currently 13 weeks presents to the emergency department for suprapubic abdominal pain and right flank pain for 11 days. Patient admitted to hospital and discharged home several days ago for the same symptoms. Unfortunately she did not complete the course of antibiotics that were given to her at discharge due to concerns for worsening yeast vaginitis. Her vitals are stable. She is afebrile nontoxic appearing. Exam is significant for tenderness to the suprapubic region and right flank. Patient also notes concern with inability to identify heart tones today at home. Bedside ultrasound reveals good activity and heart rate at 160 beats per minute. lab work shows no leukocytosis and stable hemoglobin. Chemistries with an elevated BUN of 18 and normal creatinine of 0.5. Patient was given a L of fluids for dehydration. UA reveals trace ketonuria, 1+ leuk esterase, 11-20 wbc's and 2+ bacteria. Urine culture pending. Lipase is normal. Beta hCG today is that 77,311. eleven days ago was at 121,630. Given this, will obtain official OB ultrasound. Ultrasound shows a single live intrauterine gestation with estimated gestational age of 11 weeks and 6 days. There are no acute findings. There is a suspected left corpus luteal cyst. No torsion left ovary. Right ovary visualized. Patient updated on workup. Suspect symptoms are secondary to persistent pyelonephritis. Prior culture and sensitivities reviewed. Patient was given a dose of IV Rocephin in the ED, fluids and Tylenol. I discussed the case with OBGYN on-call, Dr. Tolbert, who agrees for admission for continuation of IV antibiotics. Patient is amenable to this. <Ute Thompson PA-C - Last Filed: 07/03/24 03:04> Lab Data Result diagrams: 07/02/24 21:12 07/02/24 21:11 <Ute Thompson PA-C - Last Filed: 07/03/24 03:04> Labs: Lab Results 07/02/24 07/02/24 07/02/24 Range/Units 21:11 21:12 21:13 WBC 9.0 (4.5-10.0) K/mm3 RBC 3.79 L (4.2-5.4) M/mm3 Hgb 11.7 L (12.0-15.0) g/dL Hct 35.3 L (37.0-47.0) % MCV 93.1 (80-100) fl MCH 30.9 (26-34) pg MCHC 33.1 (32-36) g/dl RDW 13.7 (11.5-14.5) % Plt Count 214 (150-375) k/mm3 MPV 11.4 H (7.4-10.4) fl Immature Gran % (Auto) 0.4 (0-0.5) % Neut % (Auto) 64.0 (45.5-73.1) % Lymph % (Auto) 29.2 (18.3-44.2) % [place] % (Auto) 5.1 (2.6-8.5) % Eos % (Auto) 0.9 (0-4.4) % Baso % (Auto) 0.4 (0.2-1.2) % Lymph # (Auto) 2.62 (0.9-3.2) K/mm3 [place] # (Auto) 0.5 (0.1-0.6) K/mm3 Eos # (Auto) 0.1 (0-0.3) K/mm3 Baso # (Auto) 0.0 (0.0-0.1) K/mm3 Abs Immat Gran (auto) 0.04 H (0.00-0.031) K/mm3 Absolute Neuts (auto) 5.7 (1.3-6.7) K/mm3 Absolute Nucleated RBC 0.000 (0.0-0.012) K/mm3 Nucleated RBC % 0.0 (0.0-0.2) % Sodium 134 L (137-145) mmol/L Potassium 3.5 (3.4-5.0) mmol/L Chloride 106 (98-107) mmol/L Carbon Dioxide 22 (22-30) mmol/L Anion Gap 6 (4-12) mmol/L BUN 18 H D (7-17) mg/dL Creatinine 0.50 L (0.7-1.0) mg/dL Estim Creat Clear Calc 143 ml/min Estimated GFR > 60 (59 - ) Glucose 79 (65-110) mg/dL Calcium 9.0 (8.4-10.2) mg/dL Total Bilirubin 0.3 (0.2-1.3) mg/dL AST 17 (14-36) U/L ALT 13 (6-35) U/L Alkaline Phosphatase 61 (38-126) U/L Total Protein 6.0 L (6.3-8.2) g/dL Albumin 3.8 (3.5-5.1) g/dL Lipase 107 (23-300) U/L Beta HCG, Quant 19447.00 mIU/ML Urine Color Yellow (Yellow) Urine Appearance Cloudy H (Clear) Urine pH 6.0 (5.0-9.0) Ur Specific [place] 1.029 (1.001-1.035) Urine Protein Negative (Negative) mg/dL Urine Glucose (UA) Negative (Negative) mg/dL Urine Ketones Trace H (Negative) mg/dL Ur Blood (Man) Negative (Negative) Urine Nitrate Negative (Negative) Urine Bilirubin Negative (Negative) Urine Urobilinogen 1.0 (<2.0) mg/dL Leukocyte Esterase Rfl 1+ H (Negative) SHASHI/UL Urine RBC 0-2 (0-2) /hpf Urine WBC 11-20 H (0-3) /hpf Ur Squamous Epith Cells Moderate (Few) /hpf Urine Bacteria 2+ H /hpf Urine Casts 0-2 POC Urine HCG, Qual Positive (Negative) <Ute Thompson PA-C - Last Filed: 07/03/24 03:04> Lab Results 07/02/24 07/02/24 07/02/24 Range/Units 21:11 21:12 21:13 WBC 9.0 (4.5-10.0) K/mm3 RBC 3.79 L (4.2-5.4) M/mm3 Hgb 11.7 L (12.0-15.0) g/dL Hct 35.3 L (37.0-47.0) % MCV 93.1 (80-100) fl MCH 30.9 (26-34) pg MCHC 33.1 (32-36) g/dl RDW 13.7 (11.5-14.5) % Plt Count 214 (150-375) k/mm3 MPV 11.4 H (7.4-10.4) fl Immature Gran % (Auto) 0.4 (0-0.5) % Neut % (Auto) 64.0 (45.5-73.1) % Lymph % (Auto) 29.2 (18.3-44.2) % [place] % (Auto) 5.1 (2.6-8.5) % Eos % (Auto) 0.9 (0-4.4) % Baso % (Auto) 0.4 (0.2-1.2) % Lymph # (Auto) 2.62 (0.9-3.2) K/mm3 [place] # (Auto) 0.5 (0.1-0.6) K/mm3 Eos # (Auto) 0.1 (0-0.3) K/mm3 Baso # (Auto) 0.0 (0.0-0.1) K/mm3 Abs Immat Gran (auto) 0.04 H (0.00-0.031) K/mm3 Absolute Neuts (auto) 5.7 (1.3-6.7) K/mm3 Absolute Nucleated RBC 0.000 (0.0-0.012) K/mm3 Nucleated RBC % 0.0 (0.0-0.2) % Sodium 134 L (137-145) mmol/L Potassium 3.5 (3.4-5.0) mmol/L Chloride 106 (98-107) mmol/L Carbon Dioxide 22 (22-30) mmol/L Anion Gap 6 (4-12) mmol/L BUN 18 H D (7-17) mg/dL Creatinine 0.50 L (0.7-1.0) mg/dL Estim Creat Clear Calc 143 ml/min Estimated GFR > 60 (59 - ) Glucose 79 (65-110) mg/dL Calcium 9.0 (8.4-10.2) mg/dL Total Bilirubin 0.3 (0.2-1.3) mg/dL AST 17 (14-36) U/L ALT 13 (6-35) U/L Alkaline Phosphatase 61 (38-126) U/L Total Protein 6.0 L (6.3-8.2) g/dL Albumin 3.8 (3.5-5.1) g/dL Lipase 107 (23-300) U/L Beta HCG, Quant 90506.00 mIU/ML Urine Color Yellow (Yellow) Urine Appearance Cloudy H (Clear) Urine pH 6.0 (5.0-9.0) Ur Specific [place] 1.029 (1.001-1.035) Urine Protein Negative (Negative) mg/dL Urine Glucose (UA) Negative (Negative) mg/dL Urine Ketones Trace H (Negative) mg/dL Ur Blood (Man) Negative (Negative) Urine Nitrate Negative (Negative) Urine Bilirubin Negative (Negative) Urine Urobilinogen 1.0 (<2.0) mg/dL Leukocyte Esterase Rfl 1+ H (Negative) SHASHI/UL Urine RBC 0-2 (0-2) /hpf Urine WBC 11-20 H (0-3) /hpf Ur Squamous Epith Cells Moderate (Few) /hpf Urine Bacteria 2+ H /hpf Urine Casts 0-2 POC Urine HCG, Qual Positive (Negative) <Baljinder Rivera MD - Last Filed: 07/03/24 07:23> Discharge Plan Discharge Clinical Impression: Pyelonephritis during <Ute Thompson PA-C - Last Filed: 07/03/24 03:04> Patient Disposition: Still a Patient <CRUZITO Ortega Last Filed: 07/03/24 03:04> Condition: Stable <Ute Thompson PA-C - Last Filed: 07/03/24 03:04>
[2024-07-02 21:21] LABS: Basophils Percent Auto 0.4 % (0.2-1.2); Eosinophils Absolute Auto 0.1 K/mm3 (0-0.3); Eosinophils Percent Auto 0.9 % (0-4.4); Hematocrit 35.3 % (37.0-47.0); Hemoglobin 11.7 g/dL (12.0-15.0); Immature Granulocyte Absolute 0.04 K/mm3 (0.00-0.031); Immature Granulocyte Percent A 0.4 % (0-0.5); Lymphocytes Absolute Auto 2.62 K/mm3 (0.9-3.2); Lymphocytes Percent Auto 29.2 % (18.3-44.2); Mean Corpuscular HGB Conc 33.1 g/dl (32-36); Mean Corpuscular Hemoglobin 30.9 pg (26-34); Mean Corpuscular Volume 93.1 fl (80-100); Mean Platelet Volume 11.4 fl (7.4-10.4); Monocytes Absolute Auto 0.5 K/mm3 (0.1-0.6); Monocytes Percent Auto 5.1 % (2.6-8.5); Neutrophils Absolute Auto 5.7 K/mm3 (1.3-6.7); Platelet Count Result 214 k/mm3 (150-375); Red Blood Count 3.79 M/mm3 (4.2-5.4); Red Cell Distribution Width 13.7 % (11.5-14.5)
[2024-07-02 21:26] LABS: Add Urine Microscopic? YES; Appearance Urine Cloudy (Clear); Bacteria Urine 2+ /hpf; Bilirubin Urine Negative (Negative); Blood Urine Negative (Negative); Color Urine Yellow (Yellow); Glucose Urine UA Negative (Negative); Ketones Urine Trace mg/dL (Negative); Leukocyte Esterase Ur 1+ LEU/UL (Negative); Nitrate Urine Negative (Negative); Non Pathogenic Casts 0-2; Protein Urine Negative (Negative); RBC Urine 0-2 /hpf (0-2); Specific Grav Ur 1.029 (1.001-1.035); Squamous Epithelial Cell Urine Moderate /hpf (Few)
[2024-07-02 21:30] LABS: Alanine Aminotransferase 13 U/L (6-35); Albumin Level 3.8 g/dL (3.5-5.1); Alkaline Phosphatase 61 U/L (38-126); Anion Gap 6 mmol/L (4-12); Aspartate Amino Transferase 17 U/L (14-36); Bilirubin,Total 0.3 mg/dL (0.2-1.3); Blood Urea Nitrogen 18 mg/dL (7-17); Carbon Dioxide 22 mmol/L (22-30); Chloride 106 mmol/L (98-107); Estimated CRCL calculation 143 ml/min; Estimated Glomerular Filt Rate > 60; Glucose 79 mg/dL (65-110); Lipase 107 U/L (23-300); Potassium 3.5 mmol/L (3.4-5.0); Sodium 134 mmol/L (137-145)
[2024-07-02] MEDS: ACETAMINOPHEN 325 MG TABLET 650 MG PO (21:53)
[2024-07-02] MEDS: SODIUM CHLORIDE 0.9% IV 1,000 ML 999 ML IV CONT (21:54)
[2024-07-02 21:58] VITALS: BP 114/73; PULSE 82; RESP 16; O2SAT 100
--- NOTE | 2024-07-02 22:31 | PC.NURSE ---
this rn was unable to obtain heart tones on patient. this rn notified regi castro.
--- NOTE | 2024-07-02 22:35 | PC.NURSE ---
bedside ultrasound obtained by pac- matthew with heart tones between 160-172
[2024-07-03 03:54] VITALS: BP 103/77; PULSE 71; RESP 16; TEMP 37; O2SAT 100
[2024-07-03 03:59] VITALS: BMI 38.9
[2024-07-03 05:38] VITALS: BP 102/68; PULSE 67; RESP 18; O2SAT 100
--- NOTE | 2024-07-03 06:52 | PM.IMHP ---
H&P: HPI History of Present Illness Date/Time: 07/03/24 06:52 Chief Complaint: Pelvic pain in early with pyelonephritis Narrative: 29-year-old 7 para 2 but 11 weeks gestation with pyelonephritis. She was seen a couple weeks ago with similar complaints and had cholecystitis and lb fragments which showed resolved. The bacteria that grew out was complicated and she did not take all of her medicine. She is admitted for IV antibiotics Review of Systems Review of Systems: All systems reviewed & are unremarkable except as noted in HPI and below PMFSH Past Medical History Medical History Cholestasis during Gestational diabetes Surgical History Surgical History History of sleeve gastrectomy Family History Family History Mother Breast cancer Uterine cancer Ovarian cancer Grandparent Breast cancer Uterine cancer Ovarian cancer Other Ovarian cancer Uterine cancer Breast cancer Social History Social History Smoking packs per day: 0.2 Smoking cigarettes per day: 4.0 Years smoked: 10 Smoking pack-years: 2.00 Smoking status: Former smoker Tobacco type: cigarettes Smoking end date: 04/03/24 Alcohol intake: former Substance use: never Do You Feel Safe in your Home?: Yes Lack of Transportation: No Lack of Food: Never True Current Housing: I Have Housing Concerned About Future Housing: No Difficulty Paying Gas/Electric Bills: No Difficulty Paying for Meds: No Currently Unemployed: No Education: High School Diploma/GED Difficulty w/ Childcare or Family Care: No Spiritual care concerns: No Meds Home Medications and Allergies Home Medications Medication Instructions Recorded Confirmed Type vit no.95-ferrous 1 tablet PO DAILY 06/21/24 07/03/24 History fumarate 28 mg-folic acid 800 mcg tablet ( Multivitamins) miconazole nitrate 2 % vaginal 1 appful vaginal HS 7 days #45 06/23/24 07/03/24 Rx cream (Monistat 7) grams Allergies Allergy/AdvReac Type Severity Reaction Status Date / Time latex Allergy Rash Verified 07/03/24 04:01 Vital Signs Vital Signs - 24 hr 07/02/24 19:36 07/02/24 21:58 07/03/24 03:54 Temperature 97.3 F L 98.6 F Pulse Rate 83 82 71 Respiratory Rate 16 16 16 Blood Pressure 107/75 114/73 103/77 Pulse Oximetry 99 100 100 Oxygen Delivery Room Air 07/03/24 04:36 07/03/24 05:38 Temperature Pulse Rate 67 Respiratory Rate 18 Blood Pressure 102/68 Pulse Oximetry 100 Oxygen Delivery Room Air Exam Const: General: cooperative, healthy appearing and comfortable Nutritional Appearance: average body habitus Orientation/consciousness: oriented to person, oriented to place and oriented to time HENMT: Head: normal to inspection Resp: Effort & Inspection: normal respiratory effort Cardio: Rate: regular rate Rhythm: regular rhythm Heart sounds: S1 normal heart sound present and S2 normal heart sound present GI: Inspection: normal to inspection : External Female Exam: normal external appearance Speculum Exam - Vagina: normal appearance of the vagina H&P: Results Labs Labs: Short CBC 07/02/24 Range/Units 21:12 WBC 9.0 (4.5-10.0) K/mm3 Hgb 11.7 L (12.0-15.0) g/dL Hct 35.3 L (37.0-47.0) % Plt Count 214 (150-375) k/mm3 BMP 07/02/24 21:11 Sodium 134 L Potassium 3.5 Chloride 106 Carbon Dioxide 22 BUN 18 H D Creatinine 0.50 L Glucose 79 Calcium 9.0 Liver Function 07/02/24 Range/Units 21:11 Total Bilirubin 0.3 (0.2-1.3) mg/dL AST 17 (14-36) U/L ALT 13 (6-35) U/L Alkaline Phosphatase 61 (38-126) U/L Albumin 3.8 (3.5-5.1) g/dL Urine 07/02/24 Range/Units 21:11 Urine Color Yellow (Yellow) Urine Appearance Cloudy H (Clear) Urine pH 6.0 (5.0-9.0) Ur Specific [place] 1.029 (1.001-1.035) Urine Protein Negative (Negative) mg/dL Urine Glucose (UA) Negative (Negative) mg/dL Assessment and Plan Assessment and plan (1) Pyelonephritis during : Code(s): O23.00 - Infections of kidney in , unspecified trimester Status: Acute (2) Currently : Code(s): Z34.90 - Encounter for supervision of normal , unspecified, unspecified trimester Status: Acute Plan admitted for IV antibiotics and fluids
[2024-07-03] MEDS: FLUCONAZOLE 150 MG TABLET PO (08:47)
[2024-07-03] MEDS: BETAMETHASONE/CLOTRIMAZOLE CREAM 45 GM TUBE 1 APPLIC TOPICAL (08:48)
[2024-07-03 14:57] VITALS: BP 110/53; PULSE 81; RESP 17; TEMP 36.6; O2SAT 100
[2024-07-03 22:51] VITALS: BP 113/56; PULSE 73; RESP 20; TEMP 36.9; O2SAT 100
[2024-07-04 06:00] VITALS: BP 113/52; PULSE 63; RESP 20; TEMP 36.3; O2SAT 100
--- NOTE | 2024-07-04 07:07 | P.PNOB_ITS ---
OB - PN: Subj Subjective Date/time seen: 07/04/24 07:07 Interval history: feeling much better Patient comments: pain well controlled OB - PN: Obj Data Labs 07/02/24 21:12 07/02/24 21:11 Imaging Radiologist's impression: Impressions Ultrasound 07/03/24 08:12 IMPRESSION: 1. Single living intrauterine gestation with estimated date of delivery of 01/16/2025 based on the ultrasound from 06/21/2024. OB - PN A/P Assessment and Plan (1) Pyelonephritis during : Code(s): O23.00 - Infections of kidney in , unspecified trimester Status: Acute (2) Currently : Code(s): Z34.90 - Encounter for supervision of normal , unspecified, unspecified trimester Status: Acute Plan await urine culture . get next hernandez rocephin. iraheta to po when bug identifiedw Plan Plan: routine care Time Spent With Patient Time: Total time spent is greater than 50% in coordination of care (as documented) at patient's floor/unit and/or counseling patient: Time with patient: less than 15 minutes Review of Systems Review of Systems: All systems reviewed & are unremarkable except as noted in HPI and below Exam Const: General: cooperative, healthy appearing and comfortable Orientation/consciousness: oriented to person, oriented to place and oriented to time Resp: Effort & Inspection: normal respiratory effort Cardio: Rate: regular rate Rhythm: regular rhythm Heart sounds: S1 n ormal heart sound present and S2 normal heart sound present GI: Inspection: normal to inspection
[2024-07-04 09:45] VITALS: O2SAT 100
[2024-07-04] MEDS: FLUCONAZOLE 150 MG TABLET PO (10:04)
[2024-07-04] MEDS: BETAMETHASONE/CLOTRIMAZOLE CREAM 45 GM TUBE 1 APPLIC TOPICAL (10:05)
--- NOTE | 2024-07-04 11:59 | PC.NURSE ---
RN called Dr. Riya Lott and updated him that OB RN could not find heart tones during her assessment. Dr. Riya Lott stated he would come up to unit and check himself. RN put doppler and ultrasound on counter.
[2024-07-04 14:00] VITALS: BP 120/72; PULSE 79; RESP 18; TEMP 36.8; O2SAT 99
[2024-07-04] MEDS: ACETAMINOPHEN 325 MG TABLET 650 MG PO (20:33)
[2024-07-04 22:17] VITALS: BP 111/47; PULSE 73; RESP 20; TEMP 36.5; O2SAT 99
[2024-07-05 06:00] VITALS: BP 101/47; PULSE 58; RESP 20; TEMP 37.1; O2SAT 99
--- NOTE | 2024-07-05 07:12 | PM.DS ---
DS: Admitting Diagnosis Discharge Date 07/05/2024 Admitting Diagnosis Pyelonephritis DS: Discharge Diagnosis Discharge Diagnosis (1) Pyelonephritis during : Code(s): O23.00 - Infections of kidney in , unspecified trimester Status: Acute (2) Currently : Code(s): Z34.90 - Encounter for supervision of normal , unspecified, unspecified trimester Status: Acute DS: Summary Hospital Course Reason for hospitalization: Patient was admitted through the for a 2nd pyelonephritis. She was seen 2 weeks before her OB is and all 10 she has decided to come here twice. She received IV antibiotics for pyelonephritis Hospital Course: Hospital course. White count normalized. She remained afebrile. She was up, voiding without difficulty, eating regular diet, ambulating, and heart tones were present reassuring. Time Spent with Patient Time attestation: Total time spent providing and/or coordinating discharge services: Exam Const: General: cooperative, healthy appearing, comfortable and overweight Orientation/consciousness: oriented to person, oriented to place and oriented to time Resp: Effort & Inspection: normal respiratory effort Cardio: Rate: regular rate Rhythm: regular rhythm Heart sounds: S1 normal heart sound present and S2 normal heart sound present GI: Inspection: normal to inspection Discharge Plan Discharge Attending physician on discharge: Chencho Poe Discharging Clinician: Chencho Poe Patient Disposition: Home, Self-Care Activity: may shower, no straining and pelvic rest Diet: heart healthy Patient Instructions: Antibiotic Form, How to Stop Smoking (DC) Stand Alone Forms: General Discharge Information Follow-up/Referrals: UNKNOWN,DOCTOR [Primary Care Provider] - 1 Week (dr tyler) Discharge Medications: New cephalexin 500 mg tablet 500 mg PO Q8H Qty: 30 0RF Continued PNV cmb#95-ferrous fumarate-FA [ Multivitamins] 28 mg iron- 800 mcg Tablet 1 tablet PO DAILY miconazole nitrate [Monistat 7] 2 % cream 1 appful vaginal HS 7 Days Qty: 45 0RF Date of admission: 07/03/24 07:06 Primary Care Provider: UNKNOWN,DOCTOR Admitting Provider: Dion Ansari Attending physician on admission: Dion Ansari Condition: Stable
--- NOTE | 2024-07-05 07:31 | PM.GYNPNOP ---
SHOWER SCREEN INSTALLER - A/P Postoperative Postoperative day: 2 Postoperative status: doing well Postoperative plan: see orders Time Spent With Patient Time: Total time spent is greater than 50% in coordination of care (as documented) at patient's floor/unit and/or counseling patient: Time with patient: less than 15 minutes SHOWER SCREEN INSTALLER- PN:Subj Post-Op Subjective Date/time seen: 07/05/24 07:31 Interval history: feeling much better Review of Systems Review of Systems: feeling well All systems reviewed & are unremarkable except as noted in HPI and below Exam Const: General: cooperative, healthy appearing and comfortable Nutritional Appearance: overweight Orientation/consciousness: oriented to person, oriented to place and oriented to time Resp: Effort & Inspection: normal respiratory effort Cardio: Rate: regular rate Rhythm: regular rhythm Heart sounds: S1 normal heart sound present and S2 normal heart sound present GI: Inspection: normal to inspection SHOWER SCREEN INSTALLER - PN: Obj Data Vital Signs Vital Signs: Vital Signs - 24 hr 07/04/24 09:45 07/04/24 10:04 07/04/24 14:00 Temperature 98.2 F Pulse Rate 79 Respiratory Rate 18 Blood Pressure 120/72 Pulse Oximetry 100 99 Oxygen Delivery Room Air Room Air Fraction of Inspired Oxygen 21 07/04/24 20:00 07/04/24 22:17 Temperature 97.7 F Pulse Rate 73 Respiratory Rate 20 Blood Pressure 111/47 L Pulse Oximetry 99 Oxygen Delivery Room Air Fraction of Inspired Oxygen Intake/Output Intake/Output: Intake & Output 07/02/24 07/03/24 07/04/24 07/05/24 23:59 23:59 23:59 23:59 Intake Total 1000 1440 1580 Output Total 350 Balance 1000 1090 1580 Meds/Results Medications: Active Medications Generic Name Dose Route Start Last Admin Trade Name Freq PRN Reason Stop Dose Admin Acetaminophen 650 mg 07/03/24 02:53 07/04/24 20:33 Acetaminophen 325 Mg Tablet PO 650 mg Q4H PRN Administration Mild Pain (1-3) or Fever Clotrimazole 1 applic 07/03/24 09:00 07/04/24 20:29 Betamethasone/Clotrimazole Cream 45 Gm Tube TOPICAL Not Given Q12HR PERFECTO Ceftriaxone Sodium 1 gm in 50 mls @ 100 mls/hr 07/03/24 22:00 07/04/24 20:29 Rocephin 1 Gm/Ns 50 Ml IVPB 100 mls/hr Q24H PERFECTO Administration Radiology Results: ITS Impressions Ultrasound 07/03/24 08:12 IMPRESSION: 1. Single living intrauterine gestation with estimated date of delivery of 01/16/2025 based on the ultrasound from 06/21/2024. Labs 07/02/24 21:12 07/02/24 21:11
[2024-07-05] MEDS: BETAMETHASONE/CLOTRIMAZOLE CREAM 45 GM TUBE 1 APPLIC TOPICAL (08:56)
[2024-07-05] MEDS: ONDANSETRON INJ 4 MG/2 ML VIAL IV PUSH (10:44)
== END 2024-07-05 12:10 | disposition home or self-care (01) | DRG 566 ==
LOC: ANHED 07-03 02:53 → ANH3MED 07-03 03:41
PROVIDERS: Student in an Organized Health Care Education/Training Program; Admitting Provider Obstetrics & Gynecology; Emergency Provider Physician Assistant; Visit Provider Obstetrics & Gynecology
DX: O23.01 Infections of kidney in pregnancy, first trimester (principal); O99.611 Diseases of the digestive system complicating pregnancy, first trimester; K81.9 Cholecystitis, unspecified; Z87.891 Personal history of nicotine dependence; Z3A.13 13 weeks gestation of pregnancy
CPT/HCPCS: 36415; 76801; 80053; 81001; 81025; 83690; 84702; 85025; 87086; 96365; 99285; A9270; G0378; J0696; J2405; J7030

== ENCOUNTER 2024-07-29 00:20 | Day surgery (SDC) | payer MEDICAID, SELFPAY ==
[2024-07-20 12:46] VITALS: BMI 36.6
--- NOTE | 2024-07-20 13:05 | PC.NURSE ---
Report to the Outpatient Waiting Room, entrance under the green pavilion located off [facility], at time __11:00am on date __07/29/24 . Planned Procedure Time: ___1:00pm .? Time changes happen often and if your time is changed the preop area will call you the afternoon before. - You and your visitor will be asked to self-screen and do not enter if you have any COVID symptoms. Please call surgeon if you need to reschedule. - A mask is optional within the hospital at this time. Patients may have clear liquids (water, carbonated beverages, clear teas, apple juice) until 3 hours prior to surgery with a maximum of 20 ounces. - No food from midnight until time of surgery and no smoking. This includes no chewing gum, candy or mints. (1000am) Take only the following medications with a SIP of water on the morning of surgery: None DO NOT STOP ANY OF YOUR OTHER PRESCRIPTION MEDICATIONS PRIOR TO SURGERY EXCEPT THE FOLLOWING Medications to discontinue per physician Hold all vitamins and supplements for 3 days prior per Anesthesia Date to take last dose___07/25/24 Please no make-up, nail [place], hairspray, perfume, deodorant, or body powder the day of surgery.? No jewelry (including any body piercings) or valuables the day of surgery, leave them at home.? Please take a shower or bath the night before, or the morning of, surgery with an antibacterial soap.? Wear comfortable, loose fitting clothing.? Children are encouraged to wear pajamas. - Jewelry must be removed prior to entering the operating room.? Rings and piercings that are not removed may be cut off. - The hospital will not accept responsibility for valuables.? - Please leave all valuables, including medications, at home the day of surgery. If you are going home after surgery, a licensed tractor trailer driver must drive you home.? - NO public transportation without another adult if you receive anesthesia. - We recommend that an adult stay with you for 24 hours following discharge. - We also recommend that you do not drive, make important decision, drink alcoholic beverages, or take any drugs that were not prescribed by your health care provider for at least 24 hours after your discharge time. Follow any additional instructions given to you from your surgeon. Telephone instructions given to _Patient and asked if any additional questions and then verbalized understanding. Patient advised to call surgeon office or pre surgery nurse liaison [phone] if any additional questions.
[2024-07-29] VITALS (9 sets, daily range): BP systolic 101–131; BP diastolic 50–63; PULSE 53–73; RESP 14–18; TEMP 35.7–36.6; O2SAT 95–100
--- NOTE | 2024-07-29 11:24 | WPDHPUPDATE1 ---
History and Physical Update Update Date/Time: 07/29/24 11:24 History and Physical has been reviewed, including an updated exam of the patient. There are NO changes in the patient's condition. Risks, benefits, and alternatives have been discussed and questions answered. Patient agrees to proceed with procedure.
[2024-07-29] MEDS: KETOROLAC 15 MG/ML VIAL (*BKC) IV PUSH (11:55)
[2024-07-29] MEDS: ACETAMINOPHEN 500 MG TABLET 1000 MG PO (11:55)
[2024-07-29] MEDS: LACTATED RINGERS 1,000 ML 30 ML IV CONT (11:55)
--- NOTE | 2024-07-29 11:55 | WPDANESEPPF ---
Anes - Initial Pre Proc Eval Procedure: Operation Date: 07/29/24 13:00 Proposed Procedures p Laparoscopic Cholecystectomy Possible Open - Yandel Elias DO Date/Time: 07/29/24 11:55 Surgeon: Yandel Elias DO Pre Op Diagnosis: acute cholecystitis Patient Data Age: 29 Gender: F Height: 1.57 m Weight: 91 kg Allergies Allergy/AdvReac Type Severity Reaction Status Date / Time latex Allergy Rash Verified 07/20/24 12:44 Home Medications ?Medication ?Instructions ?Recorded ?Confirmed ?Type vit no.95-ferrous 1 tablet PO DAILY 06/21/24 07/20/24 History fumarate 28 mg-folic acid 800 mcg tablet ( Multivitamins) cholecalciferol (vitamin D3) 50 50 mcg PO DAILY 07/20/24 07/20/24 History mcg (2,000 unit) capsule (Vitamin D3) Patient hx anesthesia problems: post op nausea/vomiting Family hx anesthesia problems: none Results Review: All pre-operative results and documents have been reviewed as part of the pre-operative evaluation. [facility] Past Medical History Medical History Cholestasis during Gestational diabetes Surgical History Surgical History History of sleeve gastrectomy Family History Family History Mother Breast cancer Uterine cancer Ovarian cancer Grandparent Breast cancer Uterine cancer Ovarian cancer Other Ovarian cancer Uterine cancer Breast cancer Social History Social History Smoking packs per day: 4 Smoking cigarettes per day: 80.0 Years smoked: 10 Smoking pack-years: 40.00 Smoking status: Former smoker Tobacco type: cigarettes Smoking end date: 04/03/24 Additional smoking assessment comments: Denies nicotine Alcohol intake: never Substance use: never Do You Feel Safe in your Home?: Yes Lack of Transportation: No Lack of Food: Never True Current Housing: I Have Housing Concerned About Future Housing: No Difficulty Paying Gas/Electric Bills: No Difficulty Paying for Meds: No Currently Unemployed: No Education: High School Diploma/GED Difficulty w/ Childcare or Family Care: No Living arrangements: with family Additional living arrangements comments: Spiritual care concerns: No Anes - Eval Final PreProcedure Day of Procedure 07/29/24 11:55 Patient weight: obese Heart: regular rate and rhythm Lungs: clear to auscultation Airway: Mallampati scale class II Neurological: alert and oriented Last oral intake: >/= 8 hours ASA classification: III Emergent: no Anesthetic plan: proceed Anesthesia type and monitoring: general ETT and standard monitoring Results Review: All pre-operative results and documents have been reviewed as part of the pre-operative evaluation. Informed Consent: The patient's anesthetic plan and its attendant risks and benefits were discussed with the patient/family/POA. Questions were solicited and answers provided to the satisfaction of the patient/family/POA.
[2024-07-29 12:12] LABS: Amylase 49 U/L (30-110)
[2024-07-29] MEDS: ceFAZolin 2 GM/D5W 50 ML 2 GM/50 ML BAG IVPB (12:24)
[2024-07-29] MEDS: BUPIVACAINE/EPINEPHRINE 0.5% 30 ML VIAL INFILTRATE (12:45)
--- NOTE | 2024-07-29 13:05 | P.OP_ITS ---
Procedure Note - Detailed Date of Procedure 07/29/24 Pre-op Diagnosis acute cholecystitis, 16 weeks Post-op Diagnosis Same Procedure Performed Laparoscopic cholecystectomy Surgeon Yandel Elias DO Anesthesia General and Local (0.5% bupivacaine) Indications This is a 29-year-old woman who had recently presented to the emergency department with right upper quadrant pain with nausea and vomiting. She was about 10 weeks at that time. Her imaging in the hospital showed evidence of acute calculous cholecystitis. She was able to be treated with low- fat diet and pain meds. The patient continued to have intermittent abdominal pain and was concerned about another severe attack of pain. She followed up in the office after her 1st trimester and decision was made to proceed with laparoscopic cholecystectomy, possible open. Findings Laparoscopic cholecystectomy was performed. The patient had a few pericholecystic adhesions but no further signs of acute cholecystitis. She did have several gallstones and gallbladder. The cystic duct appeared normal in size. No other abnormalities were noted. The gallbladder was removed sent to lab for pathology. Description of Procedure Procedure as well as risks, benefits, and alternatives were discussed with patient. Written consent was obtained and placed in chart prior to procedure. The patient was brought back to surgical suite. Patient was placed in supine position on operating table. Time-out was done to confirm patient and procedure. Patient was then intubated by the anesthesia department. Abdomen was prepped and draped in sterile fashion using chlorhexidine prep. 0.5% bupivacaine with epinephrine was infiltrated at each site of incision. A 5 millimeter incision was made near the umbilicus, and a 5 millimeter Optiview trocar was advanced through the abdominal layers under direct visualization. Once inside the abdominal cavity, carbon dioxide was insufflated to create a pneumoperitoneum. The camera was inserted and the abdomen was inspected. No immediate abnormalities were identified. The patient was placed in reverse Trendelenburg position and rotated slightly to the left. An 11 millimeter incision was made in the subxiphoid region, and an 11 millimeter trocar was inserted under direct visualization. Two 5 millimeter incisions were made in the right upper quadrant, and two 5 millimeter trocars were inserted under direct visualization. The gallbladder was identified and grasped at the fundus and retracted superiorly. It was then grasped at the infundibulum retracted laterally. Careful dissection around the neck of the gallbladder was performed using blunt dissection with a [place] grasper and hook electrocautery. The cystic duct was identified, and a window was created behind it. The cystic artery was also identified and a window was created behind it. The critical view of safety was identified, visualizing the cystic duct running directly into the neck of the gallbladder, and the cystic artery running directly into the wall of the gallbladder. A 5 millimeter clip bottom hoop driver was then used to place 2 clips proximally and 1 clip distally on both the cystic duct and cystic artery. They were then both transected using endoscopic scissors. Once safely away from the anai hepatitis, the gallbladder was dissected free from the liver bed using hook electrocautery. Hemostasis was achieved along the way. The gallbladder was removed completely and then removed through the subxiphoid port. The liver bed was then inspected. Hemostasis appeared adequate, and our clips appeared secure. The area was gently irrigated with sterile saline. No other abnormalities were seen. The patient was flattened out in bed, and 1 final inspection was made around the abdominal cavity. The subxiphoid port was removed, and a Javier Mitali cone was used to approximate the fascia with an 0-Vicryl simple interrupted suture. The remaining ports were then removed under direct visualization, the camera was removed, and the pneumoperitoneum was released. The skin of the incisions was approximated using 4-0 Monocryl subcuticular sutures. Exofin glue was applied on top. The patient was then awakened from anesthesia, extubated, and transferred to recovery. Estimated Blood Loss 5 Pathology Yes (Gallbladder) Complications No immediate complications Condition Stable Disposition Same day [facility] Billing Surgery - Charge Forward: Surgery Billing
[2024-07-29] MEDS: ONDANSETRON INJ 4 MG/2 ML VIAL IV PUSH (14:03)
[2024-07-29] MEDS: oxyCODONE HCL (*CRX) 5 MG TAB IR PO (15:08)
--- OUTSIDE RECORDS SUMMARY | 2024-08-05 00:57 | XMS_ITS | Referral Summary ---
Author Organization [facility] Address [address] [place] [address] Care Team Providers Care Stiff Leg Operator Name Role Phone Leonard Hunter MD Unavailable Graciela Antoine Primary Care Provider Encounters Date Type Department Care Team Description 07/12/2024 2:46 PM CASE BRIEFER - 07/12/2024 11:59 PM CASE BRIEFER Hospital Encounter [place] [phone] Encounter for supervision of other normal in first trimester Discharge Disposition: Discharge to home or self care 07/12/2024 2:46 PM CASE BRIEFER - 07/12/2024 11:59 PM CASE BRIEFER Hospital Encounter [address] [address] Encounter for supervision of other normal in first trimester; Vaginal discharge Discharge Disposition: Discharge to home or self care 07/12/2024 2:45 PM CASE BRIEFER Lab [address] Encounter for supervision of other normal in first trimester 07/12/2024 1:00 PM CASE BRIEFER [facility] [address], [place] [address] Jazzy Deng MD Encounter for supervision of other normal in first trimester (Primary Dx); Acute cystitis without hematuria; Cholecystitis; Mild intermittent asthma without complication; Family history of cancer; Vaginal discharge; Pyelonephritis affecting in first trimester 07/07/2024 Telephone [facility] [address] [place] [address] [address], [place] [address] Jazzy Deng MD 06/23/2024 Telephone [facility] [address] [facility] [address] [place] [address] Jazzy Deng MD Test Results 06/17/2024 1:22 PM CASE BRIEFER - 06/17/2024 11:59 PM CASE BRIEFER Hospital Encounter [address] [address] Dizziness Discharge Disposition: Discharge to home or self care 06/17/2024 9:45 AM CASE BRIEFER Lab [facility] at [address] [phone] Morbid obesity (HCC) (Primary Dx); Bipolar II disorder (CMS/HCC) (HCC) 06/17/2024 10:00 AM CASE BRIEFER Clinical Support [facility] at [address] [address] Encounter for supervision of other normal in first trimester (Primary Dx) 06/14/2024 Telephone [facility] [address] [facility] [address] [place] [address] Jazyz Deng MD 05/31/2024 8:30 AM CDT Ancillary Procedure [facility] [address] [place] [address] Encounter to establish gestational age using ultrasound 05/23/2024 Telephone [facility] [address] [place] [address] Litzy Moser NP Test Results 05/20/2024 2:06 PM CDT - 05/20/2024 11:59 PM CDT Hospital Encounter [address] [address] Vaginal discharge; Vaginal itching Discharge Disposition: Discharge to home or self care 05/20/2024 1:00 PM CDT Office Visit [facility] at [address] [phone] Litzy Moser NP Vaginal discharge (Primary Dx); Vaginal itching 05/19/2024 Telephone [facility] [address] [facility] [address], [place] [phone] Jazzy Deng MD Vaginal Discharge 05/16/2024 Telephone [facility] at [address] [address] Jazzy Deng MD Test Results 05/14/2024 11:50 AM CDT Lab [facility] [address] [place] [address] Missed period 05/12/2024 Telephone [facility] [address] [place] [address] [address], [place] [phone] Jazzy Deng MD Test Results 05/12/2024 9:30 AM CDT Lab [address] Missed period 05/12/2024 9:00 AM CDT Clinical Support [facility], [place] [phone] Missed period (Primary Dx) 05/11/2024 Telephone [facility] [phone] Mena Sullivan, RN [place] Orders from Last 3 Months Allergies Active Allergy Reactions Criticality Noted Date Comments Latex Swelling,Hives Medium 07/11/2019 Medications vit 05-[id number]-dh a 27mg iron- 800 mcg-250 mg capsule Take by mouth Active cephalexin (KEFTAB) 500 mg tablet Take 1 tablet (500 mg total) by mouth every 8 (eight) hours 4 Active albuterol HFA (PROVENTIL HFA,VENTOLIN HFA,PROAIR HFA) 90 mcg/actuation inhaler INHALE 2 PUFFS VIA SPACER EVERY 6 HRS FOR 1 WEEK, NEEDED UNTIL SYMPTOMS IMPROVE 3 07/12/20 24 Discontinu ed(Therapy completed) Advair Diskus 100-50 mcg/dose diskus inhaler Inhale 1 puff 2 (two) times a day 3 07/12/20 24 Discontinu ed(Therapy completed) docusate sodium (COLACE) 100 mg capsuleIndicatio ns:constipation Take 1 capsule (100 mg total) by mouth 2 (two) times a day for 14 days 28 capsule 3 07/12/20 Discontinu ed(Therapy completed) hyoscyamine (OSCIMIN) 0.125 mgIndications:Ur inary Incontinence Take 1 tablet (125 mcg total) by mouth every 6 (six) hours as needed (hiccups. stomach spasm) for up to 7 days 25 tablet 3 07/12/20 24 Discontinu ed(Therapy completed) famotidine (PEPCID) 20 mg tablet Take 1 tablet (20 mg total) by mouth 2 (two) times a day 60 tablet 3 07/12/20 Discontinu ed(Therapy completed) calcium carbonate (CALCIUM 500 ORAL) Take by mouth 07/12/20 Discontinu ed(Therapy completed) cholecalciferol (Vitamin D3) 1,000 unit capsule Take 1 capsule (1,000 Units total) by mouth daily 07/12/20 Discontinu ed(Therapy completed) progesterone (PROMETRIUM) 200 mg capsule Take 1 capsule (200 mg total) by mouth daily 30 capsule 11 4 07/12/20 Discontinu ed(Therapy completed) clindamycin (CLEOCIN) 300 mg capsule Take 1 capsule (300 mg total) by mouth 2 (two) times a day 14 capsule 4 07/12/20 Discontinu ed(Therapy completed) Active Problems Problem Noted Date Diagnosed Date Pyelonephritis affecting in first trim luis alberto 07/22/2024 Overview (07/22/2024): 7 weeks Treated with iv antibotics at [place]-fosfomycin as she was resistant to ampicillin, Augmentin and intermediate to Macrobid Assessment & Plan (07/22/2024 3:43 PM CASE BRIEFER): Will need to stay on prophylactic antibiotics throughout her once her urine culture is clear Acute cystitis 07/12/2024 Assessment & Plan (07/12/2024 1:38 PM CASE BRIEFER): Will need ruba when she finishes her antibiotics Cholecystitis 07/12/2024 Overview (07/22/2024): She was told she needs gall bladder out When she was at [facility] she was diagnosed with cholecystitis. 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 Will arrange. RTO 6 weeks for the results. We discussed that she will get the results through email prior to this, but we will wait to discuss them at her scheduled appointment. The limitations and implications of the test reviewed. She voices understanding and would like to proceed. Pricing and instructions for declining if it cost too much were reviewed by the staff. Asthma 03/31/2023 Assessment & Plan (07/12/2024 1:45 PM CASE BRIEFER): Better since she lost weight. No inhaler now. We discussed that asthma improves in 1/3 of pregnancies and worsens in 1/3. To let me know if she is needing to use her rescue inhaler more than prescribed. Bipolar II disorder ([facility]) 03/26/2016 Overview (07/12/2024): She was dx at age 17 in a psych rivera Off meds since her first Assessment & Plan (07/12/2024 1:46 PM CASE BRIEFER): She does not take meds. Attention deficit disorder without hyperactivity 09/06/2011 Overview (05/20/2021): Note: Unchanged Estimated Date of Delivery Comme nts Yes 01/16/2025 Based on Ultraso und Resolved Problems Problem Noted Date Diagnosed Date Resolved Date S/P gastrectomy 04/29/2023 07/12/2024 Assessment & Plan (06/04/2023 10:58 AM CDT): The patient continues to really do well after surgery. She is really focusing on her fluid intake. Patient can return to activities unrestricted. Continue small frequent meals. Continue to work with the dietitian and attend the monthly support groups. We will see her back next month. She will call sooner if anything changes in her postoperative course Assessment & Plan (05/07/2023 10:34 AM CDT): Continue to advance diet as laid out in post bariatric handout. Avoid heavy lifting for another few weeks. Encourage protein and fluid intake. Bowel regimen as needed to avoid straining. We will see her back at 1 month. She will call sooner if anything changes Morbid obesity 04/14/2023 07/12/2024 Heartburn 02/25/2023 07/12/2024 PCOS (polycystic ovarian syndrome) 01/28/2017 07/12/2024 Infertility, anovulation 01/28/201705/2024 Mild persistent asthma with acute exacerbation 01/11/2017 07/12/2024 Chronic tension headache 03/29/201605/2024 BMI 45.0-49.9, adult 11/01/2015 024 Overview (11/06/2016): BMI 40+ severely obese Assessment & Plan (04/10/2023 12:47 PM CDT): Continue small frequent meals. Continue exercise as tolerates. The patient has an upcoming EGD as well as pulmonary function testing given her asthma in preparation for surgery. We will see her back next month for hopefully her final visit. Until that time she should continue cardiovascular exercise 3 times a week shooting for 30 minutes. Continue small frequent meals with goal calorie intake of around 1600. Continue to work with the dietitian and attend the monthly support group meetings. Prior to surgery will also counselor aide her on avoiding in the 18 months to follow surgery. Assessment & Plan (10/30/2022 9:52 AM CDT): Given their past success the patient would be a good candidate for weight loss surgery. We have gone over options such as the bypass and sleeve gastrectomy. We have also discussed risks and benefits such as blood clots, staple line leak as well as new or worsening reflux symptoms. They are in understanding. During this time will have them seen by the dietitian and psych. As we get closer to the time of surgery we will set him up for an EGD to look for hiatal hernia, H pylori or other gastric pathology. We will see them back in 4 weeks. They are in understanding of the plan. We have gone over small frequent meals shooting for a goal calorie intake of around 1600 spread throughout 4-5 meals. We have discussed not eating late at night. We have discussed cardiovascular exercise. Greater than 15 minutes was spent in counseling the patient on diet and exercise with regards to her morbid obesity. Immunizations Name Administration Dates Next Due DTaP 5 Pertussis 04/20/2003, 3,01/17/1999,04/19,1997,1997 HPV, Quadrivalent 08/14/2011,06/05/2011 Hep A, Pediatric 06/05/2011 Hep B, Adolescent or Pediatric 04/19/1998,1997,1997 Hib (PRP-OMP) 01/17/1999,1997,1997 IPV 04/20/2003, 3,1997,06/08 Influenza LAIV (Nasal) 06/05/2011 Influenza, Quadrivalent, Spl it, Preservative Free, Intramuscular 09/20/2018 MMR 09/20/2018, 3,04/13/2003,04/19 OPV 01/17/1999 PPD TEST 04/19/1998 Tdap 04/20/2012 Social History Tobacco Use Types Packs/Day Years Used Date Smoking Tobacco: Some Days Vaping Smokeless Tobacco: Never Tobacco Cessation:Ready to Q uit: Not Asked; Counseling Given: Not Answered Comments:Smoking History Packs/day: 0.25 Packs Alcohol Use Standard Drinks/Week Comments Yes 0 (1 standard drink = 0.6 oz pur e alcohol) rarely Humiliation, Afraid, Rape, and Kick questionnair e Answer Date Recorded Within the last year, have y ou been afraid of your partner or ex-partner? No 07/12/2024 Within the last year, have y ou been humiliated or emotionally abused in other ways by your partner or ex-partner? No Within the last year, have y ou been kicked, hit, slapped, or otherwise physically hurt by your partner or ex-partner? No 07/12/2024 Within the last year, have y ou been raped or forced to have any kind of sexual activity by your partner or ex-partner? No 07/12/2024 AUDIT-C Answer Date Recorded Q1: How often do you have a drink containing alcohol? Never 05/20/2024 Q2: How many drinks containi ng alcohol do you have on a typical day when you are drinking? Patient does not drink Q3: How often do you have si x or more drinks on one occasion? Never 05/20/2024 PHQ-2 Answer Date Recorded PHQ-2 Total Score (If total score is 3 or more points, staff should administer the PHQ-9) 0 04/29/2023 Personal Safety Answer Date Recorded Have you ever been in or are you currently in a harmful physical or emotional relationship or is someone making you feel afraid or unsafe? 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 on file Not on file Not on file Last Filed Vital Signs Vital Sign Reading Time Taken Comments Blood Pressure 104/64 07/12/2024 1:10 PM CASE BRIEFER Pulse 67 04/25/2024 8:10 PM CDT Temperature 36.9 ??C (98.4 ??F) 04/25/2024 8:07 PM CD T Respiratory Rate 22 04/25/2024 8:10 PM CDT Oxygen Saturation 100% 04/25/2024 8:10 PM CDT Inhaled Oxygen Concentration - - Weight 89.8 kg (198 lb) 07/12/2024 1:10 PM CASE BRIEFER Height 154.9 cm (5' 1 ) 07/12/2024 1:10 PM CASE BRIEFER Body Mass Index 37.41 07/12/2024 1:10 PM CASE BRIEFER Plan of Treatment Not on file Procedures Procedure Name Priority Date/Time Associated Diagnosis Comments DIFFERENTIAL AUTO Routine 07/12/2024 2:4 1 PM CASE BRIEFER Encounter for supervision of other normal in first trimester ANTIBODY SCREEN Routine 07/12/2024 2:41 PM CASE BRIEFER Encounter for supervision of other normal in first trimester ABO/RH Routine 07/12/2024 2:41 PM CASE BRIEFER Encounter for supervision of other normal in first trimester VITAMIN D 25 HYDROXY Routine 07/12/2024 2:41 PM CASE BRIEFER Encounter for supervision of other normal in first trimester TYPE AND SCREEN Routine 07/12/2024 2:41 PM CASE BRIEFER Encounter for supervision of other normal in first trimester DRUGS OF ABUSE SCREEN, URINE WITHOUT CONFIRMATION Routine 07/12/2024 2:41 PM CASE BRIEFER Encounter for supervision of other normal in first trimester CBC WITH AUTO DIFFERENTIAL Routine 07/12/2024 2:41 PM CASE BRIEFER Encounter for supervision of other normal in first trimester HEMOGLOBIN A1C Routine 07/12/2024 2:41 PM CASE BRIEFER Encounter for supervision of other normal in first trimester URINE CULTURE Routine 07/12/2024 2:41 PM CASE BRIEFER Encounter for supervision of other normal in first trimester VARICELLA ZOSTER ANTIBODY, IGG Routine 07/12/2024 2:41 PM CASE BRIEFER Encounter for supervision of other normal in first trimester RUBELLA IGG Routine 07/12/2024 2:41 PM CASE BRIEFER Encounter for supervision of other normal in first trimester RPR Routine 07/12/2024 2:41 PM CASE BRIEFER Encounter for supervision of other normal in first trimester HIV 1/2 ANTIBODY PLUS P24 ANTIGEN Routine 07/12/2024 2:41 PM CASE BRIEFER Encounter for supervision of other normal in first trimester HEPATITIS C ANTIBODY Routine 07/12/2024 2:41 PM CASE BRIEFER Encounter for supervision of other normal in first trimester HEPATITIS B SURFACE ANTIGEN Routine 07/12/2024 2:41 PM CASE BRIEFER Encounter for supervision of other normal in first trimester PAP WITH REFLEX TO HIGH RISK HPV Routine 07/12/2024 10:07 AM CASE BRIEFER Encounter for supervision of other normal in first trimester THINPREP PROCESSING (MOLECULAR COMPONENT) Routine 07/12/2024 10:00 AM CASE BRIEFER Encounter for supervision of other normal in first trimester N. GONORRHOEAE/C. TRACHOMATIS AMPLIFICATION Routine 07/12/2024 10:00 AM CASE BRIEFER Encounter for supervision of other normal in first trimester VAGINITIS PANEL Routine 07/12/2024 10:00 AM CASE BRIEFER Encounter for supervision of other normal in first trimester Vaginal discharge POCT OB URINE SHORT DIP (GLUCOSE, PROTEIN, KETONES) Routine 06/17/2024 10:31 AM CASE BRIEFER Encounter for supervision of other normal in first trimester HEMOGLOBIN A1C Routine 06/17/2024 9:40 AM CASE BRIEFER Dizziness PROGESTERONE Routine 06/17/2024 9:40 AM CASE BRIEFER Dizziness US OB UNDER 14 WEEKS Schedule Routine, Read Routine (OP Routine) 05/31/2024 8:34 AM CDT Encounter to establish gestational age using ultrasound VAGINITIS PANEL Routine 05/20/2024 2:06 PM CDT Vaginal discharge Vaginal itching HCG, BLOOD, QUANTITATIVE Routine 05/14/2024 11:54 AM CDT Missed period POCT HCG, URINE Routine 05/12/2024 9:31 AM CDT Missed period HCG, BLOOD, QUANTITATIVE Routine 05/12/2024 9:29 AM CDT Missed period PROGESTERONE Routine 05/12/2024 9:29 AM CDT Missed period from Last 3 Months Results * Differential, auto (07/12/2024 2:41 PM CASE BRIEFER) Neutrophil abs 3.4 1.5 - 6.5 K/cumm Imm gran abs 0.0 0.0 - 0.1 K/cumm [facility] ([facility]) Lymphocyte abs 1.4 0.8 - 3.3 K/cumm [facility] ([facility]) Monocyte abs 0.5 0.2 - 0.8 K/cumm [facility] ([facility]) Eosinophil abs 0.0 0.0 - 0.5 K/cumm [facility] ([place]) Basophil abs 0.0 0.0 - 0.1 K/cumm [facility] ([facility]) Neutrophil pct 63.2 % [facility] ([facility]) Comment: Interpretive Data Percent cell count reference ranges are not reported, since discordance with absolute values may lead to misinterpretation of CBC data. Current Interpretive Data was last revised on 2017. Imm gran pct 0.6 % [facility] ([facility]) Comment: Interpretive Data Percent cell count reference ranges are not reported, since discordance with absolute values may lead to misinterpretation of CBC data. Current Interpretive Data was last revised on 2017. Lymphocyte pct 26.5 % [facility] ([facility]) Comment: Interpretive Data Percent cell count reference ranges are not reported, since discordance with absolute values may lead to misinterpretation of CBC data. Current Interpretive Data was last revised on 2017. Monocyte pct 8.6 % [facility] ([facility]) Comment: Interpretive Data Percent cell count reference ranges are not reported, since discordance with absolute values may lead to misinterpretation of CBC data. Current Interpretive Data was last revised on 2017. Eosinophil pct 0.7 % [facility] ([facility]) Comment: Interpretive Data Percent cell count reference ranges are not reported, since discordance with absolute values may lead to misinterpretation of CBC data. Current Interpretive Data was last revised on 2017. Basophil pct 0.4 % [facility] ([place]) Comment: Interpretive Data Percent cell count reference ranges are not reported, since discordance with absolute values may lead to misinterpretation of CBC data. Current Interpretive Data was last revised on 2017. Blood 07/12/2024 2:41 PM CASE BRIEFER 07/12/2024 3:53 PM CASE BRIEFER us Jazzy Deng MD LAB BLOOD ORDERABLE S Final Result Performing Organization Address City/[facility]/ZIP Co de Phone Number [facility] ([place]) [address] [facility] [place] [place] [address] * HIV 1/2 Antibody plus p24 Antigen Blood (07/12/2024 2:41 PM CASE BRIEFER) Pathologist [facility] HIV 1/2 ab + p24 ag Nonreactive Nonreactive Comment: Nonreactive for HIV-1 antigen and HIV-1/HIV-2 antibodies. No laboratory evidence of HIV infection. If acute HIV infection is suspected, consider testing for HIV-1 RNA. Testing performed by: [facility], [address] [place] [address]., [id number] Blood 07/12/2024 2:41 PM CASE BRIEFER 07/12/2024 9:22 PM CASE BRIEFER us Jazzy Deng MD LAB MICROBIOLOGY - GENERAL ORDERABLES Final Result [facility] ([place]) 1 [facility] [place] [place] [address] * CBC with auto differential (07/12/2024 2:41 PM CASE BRIEFER) Pathologist [facility] WBC 5.4 3.8 - 9.9 K/cumm Hgb 12.3 11.9 - 15.5 g/dL [facility] ([place]) Hct 36.8 35.6 - 45.5 % [facility] ([place]) Plt 205 150 - 400 K/cumm [facility] ([place]) MPV 11.7 9.1 - 12.3 fL [facility] ([place]) RBC 4.01 3.90 - 5.20 M/cumm [facility] ([place]) MCV 91.8 81.3 - 96.4 fL [facility] ([place]) MCH 30.7 27.1 - 33.3 pg [facility] ([place]) MCHC 33.4 32.3 - 35.7 g/dL [facility] ([place]) RDW CV 13.6 11.1 - 14.9 % [facility] ([place]) RDW SD 45.9 35.7 - 48.1 fL [facility] ([place]) NRBC abs 0.00 0.00 - 0.01 K/cumm [facility] ([place]) Blood 07/12/2024 2:41 PM CASE BRIEFER 07/12/2024 3:53 PM CASE BRIEFER us Jazzy Deng MD LAB BLOOD ORDERABLE S Final Result [facility] ([place]) 1 [facility] [place] [address] * Hepatitis C antibody Blood (07/12/2024 2:41 PM CASE BRIEFER) Hep C Ab Nonreactive Nonreactive Comment: Interpretive Data Nonreactive: Antibodies to HCV not detected. Does NOT exclude the possibility of recent exposure to HCV. Equivocal: Equivocal for HCV antibodies. Supplemental molecular testing will be automatically performed to determine infection status in accordance with current CDC screening recommendations. ?? Reactive: Positive for HCV antibodies. ??This may represent current or past HCV infection. Supplemental molecular testing will be automatically performed to determine ??current infection status in accordance with current CDC screening recommendations. Interpretive data was last revised on 2019. Testing performed by: [facility], [address] [place] [address], [place]., [address] Blood 07/12/2024 2:41 PM CASE BRIEFER 07/12/2024 9:22 PM CASE BRIEFER us Jazzy Deng MD LAB MICROBIOLOGY - GENERAL ORDERABLES Final Result [facility] ([place]) 1 [facility] [place] [address] * Drugs of Abuse Screen, Urine without Confirmation (07/12/2024 2:41 PM CASE BRIEFER) Pathologist [facility] Amphetamine, ur Not Detected CutOff 500ng/mL Comment: Interpretive Data - Amphetamines: ??Samples containing greater than 500 ng/mL d-methamphetamine ??or other cross-reacting amphetamine compounds are reported as positive. ??Amphetamine immunoassays are subject to significant false positive rates due to cross-reactivity of non-amphetamine drugs. Confirmatory testing required for definitive results. Current Interpretive Data was last reviewed 2023. Barbiturates, ur Not Detected CutOff 200ng/mL [facility] ([facility]) Comment: Interpretive Data - Barbiturates: ??Samples containing greater than 200 ng/mL secobarbital or other cross-reacting barbiturate compounds are reported as positive. ??False positive and false negative results are possible. Confirmatory testing required for definitive results. Current Interpretive Data was last reviewed 2023. Benzodiazepines, ur Not Detected CutOff 100ng/mL [facility] ([place]) Comment: Interpretive Data - Benzodiazepines: ??Samples containing greater than 100 ng/mL nordiazepam or other cross-reacting compounds are reported as positive. False positive and false negative results are possible. Confirmatory testing required for definitive results. Current Interpretive Data was last reviewed 2023. Cannabinoids, ur Not Detected CutOff 50 ng/mL [facility] ([place]) Comment: Interpretive Data - Cannabinoids: ??Samples containing greater than 50 ng/mL delta-9 THC -COOH or other cross-reacting compounds are reported as positive. ??False positive and false negative results are possible. ??Confirmatory testing required for definitive results. Current Interpretive Data was last reviewed 2023. Cocaine, ur Not Detected CutOff 150ng/mL [facility] ([facility]) Comment: Interpretive Data - Cocaine: ??Samples containing greater than 150 ng/mL benzoylecgonine or other cross-reacting compounds are reported as positive. False positive and false negative results are possible. Confirmatory testing required for definitive results. Current Interpretive Data was last reviewed 2023. Fentanyl, Ur Not Detected CutOff 5 ng/mL [facility] ([facility]) Comment: Interpretive Data - Fentanyl: ??Samples containing greater than 5 ng/mL norfentanyl, fentanyl, or other cross-reacting fentanyl compounds are reported as positive. False positive and false negative results are possible. Confirmatory testing required for definitive results. Current Interpretive Data was last reviewed 2023. Methadone, ur Not Detected CutOff 300ng/mL [facility] ([place]) Comment: Interpretive Data - Methadone: ??Samples containing greater than 300 ng/mL d,l-methadone or other cross-reacting compounds are reported as positive. ??False positive and false negative results are possible. Confirmatory testing required for definitive results. Current Interpretive Data was last reviewed 2023. Opiates, ur Not Detected CutOff 300ng/mL [facility] ([place]) Comment: Interpretive Data - Opiates: ??Samples containing greater than 300 ng/mL morphine or other cross-reacting compounds are reported as positive. ??False positive and false negative results are possible. Confirmatory testing required for definitive results. Current Interpretive Data was last reviewed 2023. Oxycodone, ur Not Detected CutOff 100ng/mL [facility] ([place]) Comment: Interpretive Data - Oxycodone: ??Samples containing greater than 100 ng/mL oxycodone or other cross-reacting compounds are reported as ??positive. ??False positive and false negative results are possible. Confirmatory testing required for definitive results. Current Interpretive Data was last reviewed 2023. Phencyclidine, ur Not Detected CutOff 25 ng/mL [facility] ([place]) Comment: Interpretive Data - Phencyclidine: ??Samples containing greater than 25 ng/mL phencyclidine or other cross-reacting compounds are reported as positive. ??False positive and false negative results are possible. Confirmatory testing required for definitive results. Current Interpretive Data was last reviewed 2023. Urine Creatinine 252 mg/dL [facility] ([facility]) Comment: Interpretive Data Urine Creatinine: < 10 mg/dL is extremely dilute = or > 10 but < 20 mg/dL is dilute = or > 20 mg/dL is normal Current Interpretive Data was last revised on 2017. Urine 07/12/2024 2:41 PM CASE BRIEFER 07/12/2024 3:54 PM CASE BRIEFER Narrative ATA FERNÁNDEZ ([place]) - 07/12/2024 4:35 PM CASE BRIEFER Drug of Abuse screening is performed by immunoassay for medical purposes only. ??This is not to be used for Pain Management purposes. us Jazzy Deng MD LAB URINE ORDERABLE S Final Result Performing Organization Address City/[facility]/ZIP Co de Phone Number ATA FERNÁNDEZ ([place]) 1 [facility] [place] [address] * ABO/Rh (07/12/2024 2:41 PM CASE BRIEFER) ABO/Rh O Positive Blood 07/12/2024 2:41 PM CASE BRIEFER 07/12/2024 3:53 PM CASE BRIEFER Narrative ATA FERNÁNDEZ ([place]) - 07/12/2024 4:42 PM CASE BRIEFER Has the patient had Daratumumab or Isatuximab in the past 6 months?->Unknown us Jazzy Deng MD LAB BLOOD BANK TEST ORDERABLES Final Result Performing Organization Address [facility] Co de Phone Number ATA FERNÁNDEZ ([place]) 1 [facility] [place] [address] * (ABNORMAL) Vitamin D 25 hydroxy (07/12/2024 2:41 PM CASE BRIEFER) Vitamin D 25-OH 23(L) 30 - 80 ng/mL Blood 07/12/2024 2:41 PM CASE BRIEFER 07/12/2024 3:53 PM CASE BRIEFER Jazzy Deng MD LAB BLOOD ORDERABLE S Final Result Performing Organization Address City/[facility] Co de Phone Number ATA FERNÁNDEZ ([place]) 1 [facility] [place] [address] * Rubella IgG antibody Blood (07/12/2024 2:41 PM CASE BRIEFER) Rubella IgG Reactive Comment: Reactive: Results suggest response to immunization or prior exposure to the virus. Testing performed by: [facility], [address] [place]., [address] Blood 07/12/2024 2:41 PM CASE BRIEFER 07/12/2024 6:23 PM CASE BRIEFER us Jazzy Deng MD LAB MICROBIOLOGY - GENERAL ORDERABLES Final Result ATA FERNÁNDEZ ([place]) 1 [facility] [place] [address] * RPR Blood (07/12/2024 2:41 PM CASE BRIEFER) Pathologist [facility] RPR Nonreactive Nonreactive Comment:Testing performed by : [facility], [address] [place] [address], [id number] Blood 07/12/2024 2:41 PM CASE BRIEFER 07/12/2024 9:22 PM CASE BRIEFER us Jazzy Deng MD LAB MICROBIOLOGY - GENERAL ORDERABLES Final Result Performing Organization Address City/[facility]/ZIP Co de Phone Number ATA FERNÁNDEZ ([place]) 1 [facility] [place] [address] * Hepatitis B Surface Antigen Blood (07/12/2024 2:41 PM CASE BRIEFER) Pathologist [facility] HepBsAg Nonreactive Nonreactive Comment:Testing performed by : [facility], [address] [place] [address]., [id number] Blood 07/12/2024 2:41 PM CASE BRIEFER 07/12/2024 9:22 PM CASE BRIEFER us Jazzy Deng MD LAB MICROBIOLOGY - GENERAL ORDERABLES Final Result ATA FERNÁNDEZ ([place]) 1 [facility] [place] [address] * Antibody screen (07/12/2024 2:41 PM CASE BRIEFER) William, indirect, Gel Interpretation Negative ABSC Blood 07/12/2024 2:41 PM CASE BRIEFER 07/12/2024 3:53 PM CASE BRIEFER Narrative ATA LENZ) - 07/12/2024 4:42 PM CASE BRIEFER Has the patient had Daratumumab or Isatuximab in the past 6 months?->Unknown Jazzy Deng MD LAB BLOOD BANK TEST ORDERABLES Final Result ATA LENZ) 1 [facility] [place] [address] * Urine culture Urine, clean voided (07/12/2024 2:41 PM CASE BRIEFER) Report Final Report: Less than 100,000 colonies/mL (clinically insignificant growth based on current clinical standards) Comment:Testing performed by : [facility], [address] [place] [address]., [id number] Organism (CLINICALLY INSIGNIFICANT GROWTH ATA FERNÁNDEZ ([place]) Urine, clean voided 07/12/2024 2:41 PM CASE BRIEFER 07/12/2024 6:39 PM CASE BRIEFER Narrative ATA LENZ) - 07/14/2024 7:49 AM CASE BRIEFER Testing performed by [facility] Laboratory ([phone]) Jazzy Deng MD LAB MICROBIOLOGY - GENERAL ORDERABLES Final Result ATA LENZ) 1 [facility] [place] [address] * Varicella Zoster IgG antibody Blood (07/12/2024 2:41 PM CASE BRIEFER) VZV IgG Reactive Reactive Comment: Reactive: Results suggest response to immunization or prior exposure to the virus. Testing performed by: [facility], [address] [place] [address]., [id number] Blood 07/12/2024 2:41 PM CASE BRIEFER 07/12/2024 6:23 PM CASE BRIEFER Jazzy Deng MD LAB MICROBIOLOGY - GENERAL ORDERABLES Final Result Performing Organization Address City/[facility] Co de Phone Number ATA FERNÁNDEZ [place]) 1 [facility] [place] [address] * Hemoglobin A1c (07/12/2024 2:41 PM CASE BRIEFER) Hgb A1C 4.4 4.0 - 5.6 % Estimated Average Glucose 80 mg/dL ATA FERNÁNDEZ ([place]) Comment: The ADA recommends reporting an estimated Average Glucose (eAG) with all Hemoglobin A1c results using the equation derived from a study of 507 normal and diabetic adults. ??Minority populations were underrepresented and children were not included. ?? (Diabetes Care 31:8320-2618, 2008). ??The eAG is not equivalent to a fasting glucose. Blood 07/12/2024 2:41 PM CASE BRIEFER 07/12/2024 3:53 PM CASE BRIEFER Jazzy Deng MD LAB BLOOD ORDERABLE S Final Result Performing Organization Address [facility] Co de Phone Number ATA FERNÁNDEZ [place]) 1 [facility] [place] [address] * Pap with reflex to High Risk HPV and Genotyping (Cytology Component) (07/12/2024 10:07 AM CASE BRIEFER) Thin prep (Pap test) 07/12/2024 10:07 AM CASE BRIEFER 07/13/2024 10:07 AM CASE BRIEFER Narrative PATHOLOGY CH - 07/15/2024 1:43 PM CASE BRIEFER [facility] Department of Pathology [address] [place] [address] Final Report Note to Patients: This report may contain a detailed description of human tissue sent by a health care provider to the laboratory for pathologic evaluation. The content of this report is essential for diagnosis and may provide important critical findings. This information may be unfamiliar to patients to review without a medical professional present. It is advised that the patient review this report in the presence of a health care provider who can answer questions and explain the details. Patient Name: ??REED HENDERSON Address: ??[address] [facility], ?? [place], [place] ??[address] Gender: ??F : ??1995 (Age: 29) Service: ?? Location: ?? Hospital #: ??[id number] Patient Type: ?? SPECIMEN Taken: ??07/12/2024 Received: ??07/13/2024 Accessioned:: ??07/14/2024 Reported: ??07/15/2024 Physician(s): Shirley Staples M.D. Diagnosis: SOURCE OF SPECIMEN ? Imaged Thinprep Pap Test w/ Reflex HPV - Gaming Investigator Cytologic Material: STATEMENT OF ADEQUACY ?- Specimen satisfactory for interpretation; endocervical/transformation zone component absent or ?insufficient ? GENERAL CATEGORIZATION: ?- Negative for intraepithelial lesion or malignancy ? PRIETO Duffy(ASCP) Report Electronically Reviewed and Signed Out By ??PRIETO Duffy(ASCP) ??07/15/2024 13:43:31Specimen(s) Received: A: Imaged Thinprep Pap Test w/ Reflex HPV - Gaming Investigator Cytologic Material Clinical History: Last Menstrual Period: 04/15/2024 Menstrual History: The Pap test is a screening test used to aid in the detection of cervical cancer and its precursors. ??It should not be the sole means by which malignant and premalignant lesions are diagnosed. ??Both false negative and false positive results may occur. ?? It also has poor sensitivity for the detection of endometrial lesions and should not be used to evaluate suspected endometrial abnormalities. ??For these reasons it is most important to obtain Pap tests at regular intervals. The performance characteristics of some immunohistochemical stains, fluorescence in-situ hybridization tests and immunophenotyping by flow cytometry cited in this report (if any) were determined by the Surgical Pathology Department at [facility] as part of an ongoing supervisor type disk quality control program and in compliance with federally mandated regulations drawn from the Clinical Laboratory Improvement Act of 1988 (CLIA '88). ??Some of these tests rely on the use of analyte specific reagents and are subject to specific labeling requirements by the US Food and Drug Administration. ??Such diagnostic tests may only be performed in a facility that is certified by the Department of Health and Human Services as a high complexity laboratory under CLIA '88. The FDA has determined that such clearance or approval is not necessary. ??This test is used for clinical purposes. ??It should not be regarded as investigational or for research. ??Nevertheless, federal rules concerning the medical use of analyte specific reagents require that the following disclaimer be attached to the report: This test was developed and its performance characteristics determined by the Surgical Pathology Department [facility]. ??It has not been cleared or approved by the U. S. Food and Drug Administration. Jazzy Deng MD LAB CYTOLOGY ORDERA BLES Final Result Performing Organization Address City/[facility] Co de Phone Number [facility] [address] [place] [address] * ThinPrep processing (Molecular component) (07/12/2024 10:00 AM CASE BRIEFER) Pathologist [facility] ThinPrep processing (Molecular component) Specimen received for processing. [facility] Comment: Collection date/time has been modified to: 10:00:00. ??Previous collection date/time: 10:00:00. Testing performed by: [facility], [address] [place]., [address] Endocervical 07/12/2024 10:0 0 AM CASE BRIEFER 07/14/2024 2:41 PM CASE BRIEFER Jazzy Deng MD LAB BODY FL UIDS AND STOOLS ORDERABLES Edited Result - Final CERNER [address] Department [place] [address] [facility] * N. gonorrhoeae/C. trachomatis Amplification Thin prep-Endocervical (07/12/2024 10:00 AM CASE BRIEFER) C. trachomatis Not Detected [facility] Comment: Collection date/time has been modified to: 10:00:00. ??Previous collection date/time: 10:00:00. Testing performed by: [facility], [address] [place] [address]., [id number] N. gonorrhoeae Not Detected ATA BURRELL Comment: Collection date/time has been modified to: 10:00:00. ??Previous collection date/time: 10:00:00. Interpretive Data This assay detects Chlamydia trachomatis and Neisseria gonorrhoeae by nucleic acid amplification testing (NAAT). This assay has been cleared by the [place] Food and Drug administration. The performance characteristics of this test have been verified by the [facility] Molecular Infectious Disease laboratory. The performance characteristics of this test have not been evaluated in individuals less than 14 years of age. Current Interpretive Data was last revised on 2023. Testing performed by: [facility], [address] [place] [address]., [id number] Thin prep-Endocervica l (None) 07/12/2024 10:00 AM CASE BRIEFER 07/14/2024 2:41 PM CASE BRIEFER us aJzzy Deng MD LAB MICROBI OLOGY - GENERAL ORDERABLES Edited Result - Final ATA BURRELL [address] Department [place] [address] [facility] * Vaginitis panel Vaginal (07/12/2024 10:00 AM CASE BRIEFER) Mitali DNA probe Not Detected Not Detected Comment: Collection date/time has been modified to: 10:00:00. ??Previous collection date/time: 14:46:00. Testing performed by: [facility], [facility], [place]., [address] Gardnerella DNA probe Not Detected Not Detected ATA BURRELL Comment: Collection date/time has been modified to: 10:00:00. ??Previous collection date/time: 14:46:00. Testing performed by: [facility], [address] [place] [address]., [id number] Trichomonas DNA probe Not Detected Not Detected ATA BURRELL Comment: Collection date/time has been modified to: 10:00:00. ??Previous collection date/time: 14:46:00. Interpretive Data Testing performed by [facility] via Affirm VPIII Microbial Identification Test, a DNA probe test for use in the detection and identification of Mitali species, Gardnerella vaginalis and Trichomonas vaginalis nucleic acid in vaginal fluid specimens from patients with symptoms of vaginitis/vaginosis. Negative results for these tests suggest the patient does not have candidiasis, bacterial vaginosis and/or trichomoniasis when consistent with clinical signs and symptoms. Current interpretive data was last revised on 2020. Testing performed by: [facility], [address] [place] [address]., [id number] Vaginal 07/12/2024 10:0 0 AM CASE BRIEFER 07/14/2024 2:33 PM CASE BRIEFER Jazzy Deng MD LAB MICROBI OLOGY - GENERAL ORDERABLES Edited Result - Final ATA BURRELL [address] [address] Department [place] [address] * POCT OB urine short dip (glucose, protein, ketones) (06/17/2024 10:31 AM CASE BRIEFER) Glucose, ur, POC Negative Negative MG/DL Protein, ur, POC Negative Negative Ketones, ur, POC Negative Negative Lot Number 0 Urine 06/17/2024 10:3 1 AM CASE BRIEFER Jazzy Deng MD POINT OF CARE TEST ORDERABLES Final Result * Progesterone (06/17/2024 9:40 AM CASE BRIEFER) Progesterone 14.60 ng/mL Comment: Interpretive Data Males: ?<0.15 ng/mL Females: ??Follicular ?<0.20 ng/mL ??Ovulation ? <4.1 ng/mL ??Luteal ?4.1 - ??14.5 ng/mL ??1st Trimester ?? 11.0 - ??44.0 ng/mL ??2nd Trimester ?? 25.0 - ??83.0 ng/mL ??3rd Trimester ?? 59.0 - 214.0 ng/mL ??Postmenopausal ??<0.13 ng/mL Current interpretive data was last revised 2021. Testing performed by: [facility], [address] [place]., [address] Blood 06/17/2024 9:40 AM CASE BRIEFER 06/20/2024 9:32 AM CASE BRIEFER Jazzy Deng MD LAB BLOOD ORDERABLE S Final Result Performing Organization Address City/State/[facility] Phone Number ATA [address] Department [place] [address] * Hemoglobin A1c (06/17/2024 9:40 AM CASE BRIEFER) Hgb A1C 5.0 4.0 - 5.6 % Estimated Average Glucose 97 mg/dL ATA BURRELL Comment: The ADA recommends reporting an estimated Average Glucose (eAG) with all Hemoglobin A1c results using the equation derived from a study of 507 normal and diabetic adults. ??Minority populations were underrepresented and children were not included. ?? (Diabetes Care 31:5529-7049, 2008). ??The eAG is not equivalent to a fasting glucose. Blood 06/17/2024 9:40 AM CASE BRIEFER 06/17/2024 7:18 PM CASE BRIEFER Jazzy Deng MD LAB BLOOD ORDERABLE S Final Result ATA [address] Department [place] [address] * US Ob Under 14 Weeks (05/31/2024 8:34 AM CDT) Anatomical Region Laterality Modality Abdomen N/A Ultrasound 05/31/2024 8:40 AM CDT Impressions 06/06/2024 4:57 PM CASE BRIEFER 1. ?? There is a single intrauterine gestation at 7 weeks 1 day with EDC of 01/16/25.2. Normal pelvic anatomy. Narrative Procedure Note Jazzy Deng MD - 06/06/2024 IMPRESSION: 1. There is a single intrauterine gestation at 7 weeks 1 day with EDC of01/16/25.2. Normal pelvic anatomy. us Rogelio Cornelius MD IMG OB US PROCEDURES Final Result * (ABNORMAL) Vaginitis panel Vaginal (05/20/2024 2:06 PM CDT) Mitali DNA probe Detected(A) Not Detected Comment:Testing performed by : [facility], [address] [place] [address]., [id number] Gardnerella DNA probe Detected(A) Not Detected ATA BURRELL Comment:Testing performed by : [facility], [address] [place] [address]., [id number] Trichomonas DNA probe Not Detected Not Detected ATA BURRELL Comment: Interpretive Data Testing performed by [facility] via Affirm VPIII Microbial Identification Test, a DNA probe test for use in the detection and identification of Mitali species, Gardnerella vaginalis and Trichomonas vaginalis nucleic acid in vaginal fluid specimens from patients with symptoms of vaginitis/vaginosis. Negative results for these tests suggest the patient does not have candidiasis, bacterial vaginosis and/or trichomoniasis when consistent with clinical signs and symptoms. Current interpretive data was last revised on 2020. Testing performed by: [facility], [address] [place] [address]., [address] Vaginal 05/20/2024 2:06 PM CDT 05/21/2024 1:55 PM CDT us Litzy Moser PUBLIC SAFETY TEACHER LAB MICROBIOLOGY - GENERAL ORDERABLES Final Result Performing Organization Address [facility] Co de Phone Number ATA BURRELL [address] [facility] Department [place] [address] * (ABNORMAL) hCG, blood, quantitative (05/14/2024 11:54 AM CDT) hCG, quant 431.0(H) 0.0 - 5.0 IUnits/L Comment: Interpretive Data Male: < 5 IU/L Non- premenopausal Female: <5 IU/L The [employer] hCG Beta Quant assay procedure was used. Results from different manufacturers or methods may not be comparable. ??Serial testing should be performed using the same method. Interpretive Data was last revised on 2023 Blood 05/14/2024 11:5 4 AM CDT 05/14/2024 11:58 AM CDT us Jazzy Deng MD LAB BLOOD ORDERABLE S Edited Result - Final Performing Organization Address City/[facility] Co de Phone Number [facility] ([place]) 1 [facility] [place] [address] * POCT hCG, urine (05/12/2024 9:31 AM CDT) HCG, ur, POC Negative Negative Lot Number [id number] QC Backgroud Clear Acceptable QC Control Line Acceptable Urine 05/12/2024 9:31 AM CDT us Jazzy Deng MD POINT OF CARE TEST ORDERABLES Final Result * Progesterone (05/12/2024 9:29 AM CDT) Progesterone 7.34 ng/mL Comment: Interpretive Data Males: ?<0.15 ng/mL Females: ??Follicular ?<0.20 ng/mL ??Ovulation ? <4.1 ng/mL ??Luteal ?4.1 - ??14.5 ng/mL ??1st Trimester ?? 11.0 - ??44.0 ng/mL ??2nd Trimester ?? 25.0 - ??83.0 ng/mL ??3rd Trimester ?? 59.0 - 214.0 ng/mL ??Postmenopausal ??<0.13 ng/mL Current interpretive data was last revised 2021. Testing performed by: [facility], [address] [place]., [address] Blood 05/12/2024 9:29 AM CDT 05/12/2024 2:11 PM CDT Jazzy Deng MD LAB BLOOD ORDERABLE S Final Result Performing Organization Address City/[facility] Co de Phone Number [facility] ([place]) 1 [facility] [place] [address] * (ABNORMAL) hCG, blood, quantitative (05/12/2024 9:29 AM CDT) [facility] Signature hCG, quant 150.0(H) 0.0 - 5.0 IUnits/L Comment: Interpretive Data Male: < 5 IU/L Non- premenopausal Female: <5 IU/L The [place] hCG Beta Quant assay procedure was used. Results from different manufacturers or methods may not be comparable. ??Serial testing should be performed using the same method. Interpretive Data was last revised on 2023 Blood 05/12/2024 9:29 AM CDT 05/12/2024 10:38 AM CDT Jazzy Deng MD LAB BLOOD ORDERABLE S Edited Result - Final [facility] ([place]) 1 [facility] [place] [address] from Last 3 Months Insurance [employer] [facility] [employer] [facility] [employer] Advance Directives For more information, please contact: [phone] * Full Code (Latest Code Status on File) Date Activated Date Inactivated Comments 04/29/2023 5:31 PM 04/30/2023 8:07 PM * Full Code Date Activated Date Inactivated Comments 03/24/2023 12:36 PM 03/24/2023 7:18 PM * Full Code Date Activated Date Inactivated Comments 09/18/2018 6:58 AM 09/20/2018 6:43 PM * Full Code Date Activated Date Inactivated Comments 09/17/2018 2:44 PM 09/18/2018 6:58 AM Full CPR in case of cardiopulmonary arrest Care Teams Stiff Leg Operator Relationship Specialty Start Date End Date Graciela Antoine PA [address] [place] [address] PCP - General Physician Cotton Grader 11/07/22 Leonard Hunter MD [address] [facility] [address] DO B [address] [address] Software Specialist Obstetrics and Gynecology 01/12/20
--- OUTSIDE RECORDS SUMMARY | 2024-08-05 00:57 | XMS_ITS | Clinical Summary ---
Author Organization [facility] Address [address] [place] [address] Care Team Providers Care Formal Waiter/Waitress Name Role Phone Leonard Hunter MD Unavailable [phone] Graciela Antoine Primary Care Provider Allergies Active Allergy Reactions Criticality Noted Date Comments Latex Swelling,Hives Medium 07/11/2019 Medications vit [id number]-[id number]-dh a 27mg iron- 800 mcg-250 mg capsule [...] for 14 days 28 capsule 3 07/12/20 24 Discontinu ed(Therapy completed) hyoscyamine (OSCIMIN) 0.125 mgIndications:Ur [...] times a day 14 capsule 4 07/12/20 24 Discontinu ed(Therapy completed) Active Problems Problem Noted Date Diagnosed Date Pyelonephritis affecting in first trim luis alberto 07/22/2024 Overview (07/22/2024): 7 weeks Treated with iv antibotics at [facility] as she was resistant to ampicillin, Augmentin and intermediate to Macrobid Assessment & Plan (07/22/2024 3:43 PM PROBLEM MANAGER): Will need to stay on prophylactic antibiotics throughout her once her urine culture is clear Acute cystitis 07/12/2024 Assessment & Plan (07/12/2024 1:38 PM PROBLEM MANAGER): Will need ruba when she finishes her antibiotics Cholecystitis 07/12/2024 Overview (07/22/2024): She was told she needs gall bladder out When she was at [facility] she was diagnosed with cholecystitis. 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 Will arrange. [...] 03/31/2023 Assessment & Plan (07/12/2024 1:45 PM PROBLEM MANAGER): Better since she lost weight. No inhaler now. We discussed that asthma improves in 1/3 of pregnancies and worsens in 1/3. To let me know if she is needing to use her rescue inhaler more than prescribed. Bipolar II disorder ([facility] 03/26/2016 Overview (07/12/2024): She was dx at age 17 in a psych rivera Off meds since her first Assessment & Plan (07/12/2024 1:46 PM PROBLEM MANAGER): She does not take meds. Attention deficit [...] group meetings. Prior to surgery will also public relations counselor her on avoiding in the 18 months [...] exercise with regards to her morbid obesity. Encounters Date Type Department Care Team Description 07/12/2024 2:46 PM PROBLEM MANAGER - 07/12/2024 11:59 PM PROBLEM MANAGER Hospital Encounter [address] [address] Encounter for supervision of other normal in first trimester Discharge Disposition: Discharge to home or self care 07/12/2024 2:46 PM PROBLEM MANAGER - 07/12/2024 11:59 PM PROBLEM MANAGER Hospital Encounter [address] [address] Encounter for supervision of other normal in first trimester; Vaginal discharge Discharge Disposition: Discharge to home or self care 07/12/2024 2:45 PM PROBLEM MANAGER Lab [address] Encounter for supervision of other normal in first trimester 07/12/2024 1:00 PM PROBLEM MANAGER Office Visit [facility] [address] [phone] Jazzy Deng MD Encounter for supervision of other normal in first trimester (Primary Dx); Acute cystitis without hematuria; Cholecystitis; Mild intermittent asthma without complication; Family history of cancer; Vaginal discharge; Pyelonephritis affecting in first trimester 07/07/2024 Telephone [place] [address] [place] [phone] Jazzy Deng MD 06/23/2024 Telephone [facility] [address] [phone] Jazzy Deng MD Test Results 06/17/2024 1:22 PM PROBLEM MANAGER - 06/17/2024 11:59 PM PROBLEM MANAGER Hospital Encounter [address] [address] Dizziness Discharge Disposition: Discharge to home or self care 06/17/2024 10:00 AM PROBLEM MANAGER Clinical Support [facility] at [address] [phone] Encounter for supervision of other normal in first trimester (Primary Dx) 06/17/2024 9:45 AM PROBLEM MANAGER Lab [facility] at [address] [phone] Morbid obesity (HCC) (Primary Dx); Bipolar II disorder (CMS/HCC) (HCC) 06/14/2024 Telephone [place] [facility] [address] [place] [address] [address] [place] [address] Jazzy Deng MD 05/31/2024 8:30 AM CDT Ancillary Procedure [place] [facility] [address] [place] [phone] Encounter to establish gestational age using ultrasound 05/23/2024 Telephone [place] [facility] [address] [place] [address] Litzy Moser NP Test Results 05/20/2024 2:06 PM CDT - 05/20/2024 11:59 PM CDT Hospital Encounter [address] [address] Vaginal discharge; Vaginal itching Discharge Disposition: Discharge to home or self care 05/20/2024 1:00 PM CDT Office Visit [facility] at [address] [phone] Litzy Moser BLACKSMITH HAMMER OPERATOR Vaginal discharge (Primary Dx); Vaginal itching 05/19/2024 Telephone [place] [facility] [employer] [address] [place] [address] [address] [place] [phone] Jazzy Deng MD Vaginal Discharge 05/16/2024 Telephone [facility] at [address] [phone] Jazzy Deng MD Test Results 05/14/2024 11:50 AM CDT Lab [facility] [address] [place] [address] Missed period 05/12/2024 9:30 AM CDT Lab [facility] [address] [place], [place] Missed period 05/12/2024 9:00 AM CDT Clinical Support [address], [place] [address] Missed period (Primary Dx) 05/12/[address] [phone] Jazzy Deng MD Test Results 05/11/[address] [phone] Mena Sullivan, ABHI US Orders from Last 3 Months Immunizations Name Administration Dates Next Due DTaP 5 Pertussis 04/20/2003, 3,01/17/1999,04/19,1997,1997 HPV, Quadrivalent 08/14/2011,06/05/2011 Hep A, Pediatric 06/05/2011 Hep B, Adolescent or Pediatric 04/19/1998,1997,1997 Hib (PRP-OMP) 01/17/1999,1997,1997 IPV 04/20/2003, 3,1997,06/08 Influenza LAIV (Nasal) 06/05/2011 Influenza, Quadrivalent, Spl it, Preservative Free, Intramuscular 09/20/2018 MMR 09/20/2018, 3,04/13/2003,04/19 OPV 01/17/1999 PPD TEST 04/19/1998 Tdap 04/20/2012 Surgical History Surgery Date Site/Laterality Comments COLONOSCOPY 08/03/2014 - 08/02/2015 OTHER SURGICAL HISTORY removal of cyst from buttocks in December DILATION AND CURETTAGE OF UTERUS 08/03/2020 - 08/02/2021 SLEEVE GASTROPLASTY 04/29/2023 Medical History Medical History Date Comments Depression Female infertility Polycystic ovary syndrome Motion sickness History of adverse effect of anesthesia freaking out pulling at IV, crying, anxious, scared GERD (gastroesophageal reflux disease) ADHD (attention deficit hype ractivity disorder) Anemia Obesity Miscarriage Asthma Urinary tract infection Chronic tension headache 03/29/2016 S/P gastrectomy 04/29/2023 Family History Medical History Relation Name Comments Hypertension Father Hypertension; Heart disease Maternal Grandfather Heart disease; Hyperlipidemia Maternal Grandfather Hyper lipidemia; Hypertension Maternal Grandfather Hyperte nsion; Breast cancer Maternal Grandmother her mo m also Hyperlipidemia Maternal Grandmother Hyper lipidemia; Hypertension Maternal Grandmother Hyperte nsion; Asthma Mother Asthma; Breast cancer Mother Cancer, breast ; /Cancer, breast; Diabetes type II Mother Diabetes me llitus type 2; Uterine cancer Mother Cancer, uteri ne; Cancer Neg Hx no colon cmt Relation Name Status Comments Father Maternal Grandfather Maternal Grandmother Mother Alive Social History Tobacco Use Types Packs/Day Years [...] on file Legal Sex Female 3:31 AM PROBLEM MANAGER Gender Identity Not on file Sexual Orientation Not on file 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 Not on file Not on file Not on file Obstetrics History Para Term AB IAB SAB Ectopic Multiple Livin g Live Births 7 2 2 0 4 4 0 1 1 Date Outcome GA Total Labor Labor/2nd/3rd Weight Sex Type Anes PTL Moni A1 A5 Name Clin SAB SAB SAB 2018 Term 37w 2d 5h 57m 3h 31m/2h 15m/0h 11m 3.037 kg (6 lb 11.1 oz) F Vag-Sp ont Epidur al,Loc al N Livin g 8 9 KLAAS ,GIRL BOBBI NAH Jackelyn Negro MD Complications:Premature Rupt ure of Membranes Delivery Location:This Facil ity ([facility]) 2021 Term 38w 1d M Vagina l Epidur al N Complications:Cholestasis du ring ,White classification A2 gestational diabetes mellitus Delivery Location:[facility] Comments:9lbs 6 oz 2022 SAB Current Comments No htn or dm with the first. Summary Episode Dates Number of Fetuses Estimated Date of Delivery 07/12/2024 - Present (08/05/2024) 1 01/16/2025 (set by Jazzy Deng MD on 07/12/2024 based on Ultrasound on 05/31/2024) Dating Summary Based On JUNIOR GA Diff Last Menstrual Period on 04/15/2024 (Approximate ) 01/20/2025 -4d Ultrasound on 05/31/2024 01/16/2025 Working GA:7w1d Ultrasound on 06/21/2024 01/16/2025 Same GA:10w1d Overview and Plan :Wang Support person:Gennaro Klaas Delivery Plans Post-Delivery Plans Planned delivery method:Vaginal Feeding intentions:Breast Milk Acceptable blood products:All Overview ACP- Gennaro Gennaro The pt was asked if she had her Advance Care Planning in place as she is at the beginning of her . She does not. She is here today with She wants to make decisions for her. She was encouraged to go to the My Chart portal and find the ACP site. She was encouraged to appoint the person she would want to make decisions for her if she can not. She was asked to appoint a second person in case the first is not available. We discussed that there are questions that they can go through to make sure the person knows what her wishes would be. I spent <15 minutes in this conversation with her. Jazzy Deng MD 07/12/24 Vitals Pregravid Weight Height TWG (As of 08/05/2024) Pregrav id BMI 154.9 cm (5' 1 ) Notes Progress Notes - Office Visi t - 07/12/2024 - GA:13w1d 07/12/2024 - w - Jazzy Deng MD Images from the original note were not included. Initial OB Visit Initial Visit (12.4 weeks/Hx. Of miscarriages x 3/Records are in chart from [facility] admissions for UTI's and gallbladder issues. Patient started cephalexin 3 times a day on 07/06 and is for 10 days. Patient was to go see a doctor for the gallbladder removal. Patient didn't go due to diarrhea,but better now. Patient now will go this Thursday) Subjective: Reed Henderson is a 29 y.o., at 13 w 1 day , based on 1st trimester U/S and who presents for initial visit. Morning sickness is gone. She is worried about her recurring yeast as she is tired of using the cream. She stated that she has had diflucan all while she was in the hospital. She saw a surgeon at [place] who says she needs to have her gall bladder out. She missed her appt yesterday as she was sick and will go back on Thursday. She is not sure if she had stones on her usg. Menstrual History: Patient's last menstrual period was 04/15/2024 (approximate). Sexual History: OB History 7 Para 2 Term 2 0 AB 4 Living 1 SAB 4 IAB Ectopic Multiple 0 Live Births 1 # Outcome Date GA Labor/2nd Weight Sex Type Anes PTL Lv A1 A5 1 SAB 2 SAB 3 SAB 4 Term 09/18/18 37w2d 3h 31m / 2h 15m 3.037 kg (6 lb 11.1 oz) F Vag-Spont Epidural, Local N Living 8 9 Name: DANIELITO HENDERSON Complications: Premature Rupture of Membranes Location: This Facility Delivering Clinician: Shawna Kapoor MD 5 Term 08/18/21 38w1d M Vaginal Epidural N Complications: Cholestasis during , White classification A2 gestational diabetes mellitus 6 SAB 01/01/23 7 Current Obstetric Comments No htn or dm with the first. Objective: BP 104/64 (BP Location: Left arm, Patient Position: Sitting) Ht 154.9 cm (5' 1 ) Wt 198 lb (89.8 kg) LMP 04/15/2024 (Approximate) BMI 37.41 kg/m?? Physical OB Exam: Last filed by Jazzy Deng MD on 07/22/2024 3:47 PM General Physical Exam HEENT: normal Heart: normal Skin: normal Thyroid: normal Lungs: normal Extremities: normal Lymph Nodes: normal Breasts: normal Neurological: normal Grossly Abdomen: normal Pelvic Exam Vulva: normal Vagina: normal Cervix: normal Uterus: 12-14 weeks Adnexa: normal Rectum: normal Spines: average Subpubic Arch: normal See flow sheet for gestation -specific examination and vitals. Assessment: Patient is a 29 y.o., at 12w4d, size = dates. Diagnoses and all orders for this visit: Encounter for supervision of other normal in first trimester (Primary) - Pap with reflex to High Risk HPV and Genotyping (Cytology Component); Future - Urine culture Urine, clean voided; Future - Vitamin D 25 hydroxy; Future - Varicella Zoster IgG antibody Blood; Future - Type and screen; Future - Rubella IgG antibody Blood; Future - RPR Blood; Future - HIV 1/2 Antibody plus p24 Antigen Blood; Future - Hepatitis C antibody Blood; Future - Hepatitis B Surface Antigen Blood; Future - Drugs of Abuse Screen, Urine without Confirmation; Future - CBC with auto differential; Future - Hemoglobin A1c; Future - Vaginitis panel Vaginal; Future - ThinPrep processing (Molecular component); Future - N. gonorrhoeae/C. trachomatis Amplification Thin prep-Endocervical; Future Acute cystitis without hematuria Assessment & Plan: Will need ruba when she finishes her antibiotics Cholecystitis Assessment & Plan: Has an appt with surgeon at [place] for Thursday to discuss removal Mild intermittent asthma without complication Assessment & Plan: Better since she lost weight. No inhaler now. We discussed that asthma improves in 1/3 of pregnancies and worsens in 1/3. To let me know if she is needing to use her rescue inhaler more than prescribed. Family history of cancer Assessment & Plan: She qualifies for genetic testing. Will arrange. [...] too much were reviewed by the staff. Vaginal discharge - Vaginitis panel Vaginal; Future Pyelonephritis affecting in first trimester Assessment & Plan: Will need to stay on prophylactic antibiotics throughout her once her urine culture is clear Plan: -dating US completed previously -PNL ordered. We will discuss at her next visit. -To start BASA- she doesn't take NSAIDS -pap and std testing done today. The results will go to the portal. If she doesn't see them in a week, to call the office. -NOB packet reviewed with the pt and her questions were answered. They would like to do cell free dna testing and carrier screening. To gain between 10-15 pounds for the Diet and exercise discussed. Call schedule reviewed. Visits with Litzy discussed. Follow up in 4 weeks. Jazzy Deng MD 07/12/2024 LEM MANAGER Last Filed Vital Signs Vital Sign Reading Time Taken Comments Blood Pressure 104/64 07/12/2024 1:10 PM PROBLEM MANAGER Pulse 67 04/25/2024 8:10 PM CDT Temperature 36.9 ??C (98.4 ??F) 04/25/2024 8:07 PM CD T Respiratory Rate 22 04/25/2024 8:10 PM CDT Oxygen Saturation 100% 04/25/2024 8:10 PM CDT Inhaled Oxygen Concentration - - Weight 89.8 kg (198 lb) 07/12/2024 1:10 PM PROBLEM MANAGER Height 154.9 cm (5' 1 ) 07/12/2024 1:10 PM PROBLEM MANAGER Body Mass Index 37.41 07/12/2024 1:10 PM PROBLEM MANAGER Plan of Treatment Health Maintenance Due Date Last Done Comments Pneumococcal vaccine <65 (1 of 2 - PCV) 2003 Varicella Vaccines (1 of 2 - 13+ 2-dose series) 07/03/2011 HPV Vaccines (3 - 2-dose series) 12/04/2011 08/14/19 12, 06/05/2011 Regular Well Visit/Exam 18-64 2015 DTaP/Tdap/Td Vaccine (7 - Td or Tdap) 04/20/2022 04/20/2012, 04/20/2003, 04/13/2003, Additional history exists Covid-19 Vaccine (3 - 2023-2 5 season) 2024 04/24/2021, 04/03/2021 Influenza Vaccine (#1) 2024 09/20/2018, 2010 Depression Screening 04/14/2024 04/14/2023 Cervical Cancer Screening 07/12/2025 07/12/2024 Hepatitis C Screening Completed 07/12/2024, 016 Procedures Procedure Name Priority Date/Time Associated Diagnosis Comments DIFFERENTIAL AUTO Routine 07/12/2024 2:4 1 PM PROBLEM MANAGER Encounter for supervision of other normal in first trimester ANTIBODY SCREEN Routine 07/12/2024 2:41 PM PROBLEM MANAGER Encounter for supervision of other normal in first trimester ABO/RH Routine 07/12/2024 2:41 PM PROBLEM MANAGER Encounter for supervision of other normal in first trimester VITAMIN D 25 HYDROXY Routine 07/12/2024 2:41 PM PROBLEM MANAGER Encounter for supervision of other normal in first trimester TYPE AND SCREEN Routine 07/12/2024 2:41 PM PROBLEM MANAGER Encounter for supervision of other normal in first trimester DRUGS OF ABUSE SCREEN, URINE WITHOUT CONFIRMATION Routine 07/12/2024 2:41 PM PROBLEM MANAGER Encounter for supervision of other normal in first trimester CBC WITH AUTO DIFFERENTIAL Routine 07/12/2024 2:41 PM PROBLEM MANAGER Encounter for supervision of other normal in first trimester HEMOGLOBIN A1C Routine 07/12/2024 2:41 PM PROBLEM MANAGER Encounter for supervision of other normal in first trimester URINE CULTURE Routine 07/12/2024 2:41 PM PROBLEM MANAGER Encounter for supervision of other normal in first trimester VARICELLA ZOSTER ANTIBODY, IGG Routine 07/12/2024 2:41 PM PROBLEM MANAGER Encounter for supervision of other normal in first trimester RUBELLA IGG Routine 07/12/2024 2:41 PM PROBLEM MANAGER Encounter for supervision of other normal in first trimester RPR Routine 07/12/2024 2:41 PM PROBLEM MANAGER Encounter for supervision of other normal in first trimester HIV 1/2 ANTIBODY PLUS P24 ANTIGEN Routine 07/12/2024 2:41 PM PROBLEM MANAGER Encounter for supervision of other normal in first trimester HEPATITIS C ANTIBODY Routine 07/12/2024 2:41 PM PROBLEM MANAGER Encounter for supervision of other normal in first trimester HEPATITIS B SURFACE ANTIGEN Routine 07/12/2024 2:41 PM PROBLEM MANAGER Encounter for supervision of other normal in first trimester PAP WITH REFLEX TO HIGH RISK HPV Routine 07/12/2024 10:07 AM PROBLEM MANAGER Encounter for supervision of other normal in first trimester THINPREP PROCESSING (MOLECULAR COMPONENT) Routine 07/12/2024 10:00 AM PROBLEM MANAGER Encounter for supervision of other normal in first trimester N. GONORRHOEAE/C. TRACHOMATIS AMPLIFICATION Routine 07/12/2024 10:00 AM PROBLEM MANAGER Encounter for supervision of other normal in first trimester VAGINITIS PANEL Routine 07/12/2024 10:00 AM PROBLEM MANAGER Encounter for supervision of other normal in first trimester Vaginal discharge POCT OB URINE SHORT DIP (GLUCOSE, PROTEIN, KETONES) Routine 06/17/2024 10:31 AM PROBLEM MANAGER Encounter for supervision of other normal in first trimester HEMOGLOBIN A1C Routine 06/17/2024 9:40 AM PROBLEM MANAGER Dizziness PROGESTERONE Routine 06/17/2024 9:40 AM PROBLEM MANAGER Dizziness US OB UNDER 14 WEEKS Schedule [...] Results * Differential, auto (07/12/2024 2:41 PM PROBLEM MANAGER) Neutrophil abs 3.4 1.5 - 6.5 K/cumm [...] revised on 2017. Basophil pct 0.4 % [facility] ([facility]) Comment: Interpretive Data Percent cell count reference ranges are not reported, since discordance with absolute values may lead to misinterpretation of CBC data. Current Interpretive Data was last revised on 2017. Blood 07/12/2024 2:41 PM PROBLEM MANAGER 07/12/2024 3:53 PM PROBLEM MANAGER us Jazzy Deng MD LAB BLOOD ORDERABLE S Final Result [facility] ([place]) 1 [facility] Department [place] [address] * HIV 1/2 Antibody plus p24 Antigen Blood (07/12/2024 2:41 PM PROBLEM MANAGER) Pathologist [facility] HIV 1/2 ab + p24 ag Nonreactive Nonreactive Comment: Nonreactive for HIV-1 antigen and HIV-1/HIV-2 antibodies. No laboratory evidence of HIV infection. If acute HIV infection is suspected, consider testing for HIV-1 RNA. Testing performed by: [facility], [address] [place] [address]., [id number] Blood 07/12/2024 2:41 PM PROBLEM MANAGER 07/12/2024 9:22 PM PROBLEM MANAGER us Jazzy Deng MD LAB MICROBIOLOGY - GENERAL ORDERABLES Final Result [facility] ([facility]) 1 [facility] Department [place] [address] * CBC with auto differential (07/12/2024 2:41 PM PROBLEM MANAGER) Pathologist [facility] WBC 5.4 3.8 - 9.9 K/cumm Hgb 12.3 11.9 - 15.5 g/dL [facility] ([facility]) Hct 36.8 35.6 - 45.5 % [facility] ([facility]) Plt 205 150 - 400 K/cumm [facility] ([facility]) MPV 11.7 9.1 - 12.3 [facility]L [facility] RBC 4.01 3.90 - 5.20 M/cumm [facility] ([facility]) MCV 91.8 81.3 - 96.4 fL [facility] ([facility]) MCH 30.7 27.1 - 33.3 pg [facility] ([facility]) MCHC 33.4 32.3 - 35.7 g/dL [facility] ([facility]) RDW CV 13.6 11.1 - 14.9 % [facility] ([facility]) RDW SD 45.9 35.7 - 48.1 fL [facility] ([facility]) NRBC abs 0.00 0.00 - 0.01 K/cumm [facility] Blood 07/12/2024 2:41 PM PROBLEM MANAGER 07/12/2024 3:53 PM PROBLEM MANAGER us Jazzy Deng MD LAB BLOOD ORDERABLE S Final Result Performing Organization Address City/[facility]/ZIP Co de Phone Number [facility] ([place]) [address] [place] [address] * Hepatitis C antibody Blood (07/12/2024 2:41 PM PROBLEM MANAGER) Hep C Ab Nonreactive Nonreactive Comment: Interpretive [...] last revised on 2019. Testing performed by: [facility], [address] [place] [address]., [id number] Blood 07/12/2024 2:41 PM PROBLEM MANAGER 07/12/2024 9:22 PM PROBLEM MANAGER Jazzy Deng MD LAB MICROBIOLOGY - GENERAL ORDERABLES Final Result Performing Organization Address [facility] Co de Phone Number [facility] ([place]) 1 [facility] [place] [address] * Drugs of Abuse Screen, Urine without Confirmation (07/12/2024 2:41 PM PROBLEM MANAGER) Amphetamine, ur Not Detected CutOff 500ng/mL Comment: Interpretive Data - Amphetamines: ??Samples containing greater than 500 ng/mL d-methamphetamine ??or other cross-reacting amphetamine compounds are reported as positive. ??Amphetamine immunoassays are subject to significant false positive rates due to cross-reactivity of non-amphetamine drugs. Confirmatory testing required for definitive results. Current Interpretive Data was last reviewed 2023. Barbiturates, ur Not Detected CutOff 200ng/mL [facility] ([place]) Comment: Interpretive Data - Barbiturates: ??Samples containing greater than 200 ng/mL secobarbital or other cross-reacting barbiturate compounds are reported as positive. ??False positive and false negative results are possible. Confirmatory testing required for definitive results. Current Interpretive Data was last reviewed 2023. Benzodiazepines, ur Not Detected CutOff 100ng/mL [facility] ([facility]) Comment: Interpretive Data - Benzodiazepines: ??Samples containing greater than 100 ng/mL nordiazepam or other cross-reacting compounds are reported as positive. False positive and false negative results are possible. Confirmatory testing required for definitive results. Current Interpretive Data was last reviewed 2023. Cannabinoids, ur Not Detected CutOff 50 ng/mL [facility] ([facility]) Comment: Interpretive Data - Cannabinoids: ??Samples containing greater than 50 ng/mL delta-9 THC -COOH or other cross-reacting compounds are reported as positive. ??False positive and false negative results are possible. ??Confirmatory testing required for definitive results. Current Interpretive Data was last reviewed 2023. Cocaine, ur Not Detected CutOff 150ng/mL [facility] ([facility]) Comment: Interpretive Data - Cocaine: [...] 2023. Oxycodone, ur Not Detected CutOff 100ng/mL [facility] ([place]) Comment: Interpretive Data - Oxycodone: ??Samples containing greater than 100 ng/mL oxycodone or other cross-reacting compounds are reported as ??positive. ??False positive and false negative results are possible. Confirmatory testing required for definitive results. Current Interpretive Data was last reviewed 2023. Phencyclidine, ur Not Detected CutOff 25 ng/mL [facility] ([facility]) Comment: Interpretive Data - Phencyclidine: ??Samples containing greater than 25 ng/mL phencyclidine or other cross-reacting compounds are reported as positive. ??False positive and false negative results are possible. Confirmatory testing required for definitive results. Current Interpretive Data was last reviewed 2023. Urine Creatinine 252 mg/dL RAQUEL FERNÁNDEZ (FRANCIS) Comment: Interpretive Data Urine Creatinine: < 10 mg/dL is extremely dilute = or > 10 but < 20 mg/dL is dilute = or > 20 mg/dL is normal Current Interpretive Data was last revised on 2017. Urine 07/12/2024 2:41 PM PROBLEM MANAGER 07/12/2024 3:54 PM PROBLEM MANAGER Narrative ATA FERNÁNDEZ ([place]) - 07/12/2024 4:35 PM PROBLEM MANAGER Drug of Abuse screening is performed by immunoassay for medical purposes only. ??This is not to be used for Pain Management purposes. us Jazzy Deng MD LAB URINE ORDERABLE S Final Result ATA FERNÁNDEZ ([place]) 1 [facility] Department of Laboratories [place], [place] [address] * ABO/Rh (07/12/2024 2:41 PM PROBLEM MANAGER) ABO/Rh O Positive Blood 07/12/2024 2:41 PM PROBLEM MANAGER 07/12/2024 3:53 PM PROBLEM MANAGER Narrative ATA FERNÁNDEZ ([place]) - 07/12/2024 4:42 PM PROBLEM MANAGER Has the patient had Daratumumab or Isatuximab in the past 6 months?->Unknown Jazzy Deng MD LAB BLOOD BANK TEST ORDERABLES Final Result ATA FERNÁNDEZ ([place]) 1 [place] [address] * (ABNORMAL) Vitamin D 25 hydroxy (07/12/2024 2:41 PM PROBLEM MANAGER) Vitamin D 25-OH 23(L) 30 - 80 ng/mL Blood 07/12/2024 2:41 PM PROBLEM MANAGER 07/12/2024 3:53 PM PROBLEM MANAGER us Jazzy Deng MD LAB BLOOD ORDERABLE S Final Result Performing Organization Address [facility]/ZIP Co de Phone Number ATA FERNÁNDEZ ([place]) 1 [place] [address] * Rubella IgG antibody Blood (07/12/2024 2:41 PM PROBLEM MANAGER) Pathologist [facility] Rubella IgG Reactive Comment: Reactive: Results suggest response to immunization or prior exposure to the virus. Testing performed by: [facility], [address] [place] [address], [place]., [address] Blood 07/12/2024 2:41 PM PROBLEM MANAGER 07/12/2024 6:23 PM PROBLEM MANAGER us Jazzy Deng MD LAB MICROBIOLOGY - GENERAL ORDERABLES Final Result ATA FERNÁNDEZ ([place]) 1 [place] [address] * RPR Blood (07/12/2024 2:41 PM PROBLEM MANAGER) Pathologist [facility] RPR Nonreactive Nonreactive Comment:Testing performed by : [facility], [address] [place] [address], [place]., [address] Blood 07/12/2024 2:41 PM PROBLEM MANAGER 07/12/2024 9:22 PM PROBLEM MANAGER us Jazzy Deng MD LAB MICROBIOLOGY - GENERAL ORDERABLES Final Result ATA FERNÁNDEZ ([place]) 1 [place] [address] * Hepatitis B Surface Antigen Blood (07/12/2024 2:41 PM PROBLEM MANAGER) HepBsAg Nonreactive Nonreactive Comment:Testing performed by : [facility], [address] [place] [address], [place]., [address] Blood 07/12/2024 2:41 PM PROBLEM MANAGER 07/12/2024 9:22 PM PROBLEM MANAGER us Jazzy Deng MD LAB MICROBIOLOGY - GENERAL ORDERABLES Final Result Performing Organization Address [facility]/ZIP Co de Phone Number ATA FERNÁNDEZ ([place]) 1 [facility] [place] [address] * Antibody screen (07/12/2024 2:41 PM PROBLEM MANAGER) William, indirect, Gel Interpretation Negative ABSC Blood 07/12/2024 2:41 PM PROBLEM MANAGER 07/12/2024 3:53 PM PROBLEM MANAGER Narrative ATA PRADEEP ([place]) - 07/12/2024 4:42 PM PROBLEM MANAGER Has the patient had Daratumumab or Isatuximab in the past 6 months?->Unknown us Jazzy Deng MD LAB BLOOD BANK TEST ORDERABLES Final Result ATA FERNÁNDEZ ([place]) 1 [facility] [place] [address] * Urine culture Urine, clean voided (07/12/2024 2:41 PM PROBLEM MANAGER) Report Final Report: Less than 100,000 colonies/mL (clinically insignificant growth based on current clinical standards) Comment:Testing performed by : [facility], [address] [place]., [address] Organism (CLINICALLY INSIGNIFICANT GROWTH ATA [facility] (FRANCIS) Urine, clean voided 07/12/2024 2:41 PM PROBLEM MANAGER 07/12/2024 6:39 PM PROBLEM MANAGER Narrative ATA FERNÁNDEZ ([place]IS) - 07/14/2024 7:49 AM PROBLEM MANAGER Testing performed by [facility] Microbiology Laboratory ([phone]) Jazzy Deng MD LAB MICROBIOLOGY - GENERAL ORDERABLES Final Result Performing Organization Address City/[facility]/ZIP Co de Phone Number [facility] ([place]ANCIS) 1 [facility] [place] [address] * Varicella Zoster IgG antibody Blood (07/12/2024 2:41 PM PROBLEM MANAGER) Pathologist [facility] VZV IgG Reactive Reactive Comment: Reactive: Results suggest response to immunization or prior exposure to the virus. Testing performed by: [facility], [address] [place]., [address] Blood 07/12/2024 2:41 PM PROBLEM MANAGER 07/12/2024 6:23 PM PROBLEM MANAGER Jazzy Deng MD LAB MICROBIOLOGY - GENERAL ORDERABLES Final Result Performing Organization Address City/[facility] Co de Phone Number [facility] ([place]IS) 1 [facility] [place] [address] * Hemoglobin A1c (07/12/2024 2:41 PM PROBLEM MANAGER) Pathologist [facility] Hgb A1C 4.4 4.0 - 5.6 % Estimated Average Glucose 80 mg/dL ATA [facility] ([place]IS) Comment: The ADA recommends reporting an estimated Average Glucose (eAG) with all Hemoglobin A1c results using the equation derived from a study of 507 normal and diabetic adults. ??Minority populations were underrepresented and children were not included. ?? (Diabetes Care 31:5602-2991, 2008). ??The eAG is not equivalent to a fasting glucose. Blood 07/12/2024 2:41 PM PROBLEM MANAGER 07/12/2024 3:53 PM PROBLEM MANAGER us Jazzy Deng MD LAB BLOOD ORDERABLE S Final Result ATA FERNÁNDEZ ([place]) 1 [facility] Department [place] [address] * Pap with reflex to High Risk HPV and Genotyping (Cytology Component) (07/12/2024 10:07 AM PROBLEM MANAGER) Thin prep (Pap test) 07/12/2024 10:07 AM PROBLEM MANAGER 07/13/2024 10:07 AM PROBLEM MANAGER Narrative PATHOLOGY CH - 07/15/2024 1:43 PM PROBLEM MANAGER [facility] Department of Pathology [address] [place] [address] Final Report Note to Patients: This report [...] the details. Patient Name: ??REED HENDERSON Address: ??[address] [place] [address], ?? [place], [place] ??[address] Gender: ??F : ??1995 (Age: 29) Service: ?? Location: ?? Hospital #: ??[id number] Patient Type: ?? SPECIMEN Taken: ??07/12/2024 Received: ??07/13/2024 Accessioned:: ??07/14/2024 Reported: ??07/15/2024 Physician(s): Jazzy Deng M.D. Jazzy Deng M.D. Diagnosis: SOURCE OF SPECIMEN ? Imaged Thinprep Pap Test w/ Reflex HPV - Health Education Coordinator Cytologic Material: STATEMENT OF ADEQUACY ?- Specimen satisfactory for interpretation; endocervical/transformation zone component absent or ?insufficient ? GENERAL CATEGORIZATION: ?- Negative for intraepithelial lesion or malignancy ? PRIETO Duffy(ASCP) Report Electronically Reviewed and Signed Out By ??PRIETO Duffy(ASCP) ??07/15/2024 13:43:31Specimen(s) Received: A: Imaged Thinprep Pap Test w/ Reflex HPV - Health Education Coordinator Cytologic Material Clinical History: Last Menstrual Period: [...] determined by the Surgical Pathology Department at [facility] as part of an ongoing quality engineering manager program and in compliance with federally mandated [...] characteristics determined by the Surgical Pathology Department [facility]. ??It has not been cleared or approved by the U. [place]. Food and Drug Administration. Jazzy Deng MD LAB CYTOLOGY ORDERA LIANET Final Result PATHOLOGY [address] [place] [address] * ThinPrep processing (Molecular component) (07/12/2024 10:00 AM PROBLEM MANAGER) Pathologist [facility] ThinPrep processing (Molecular component) Specimen received for processing. [facility] Comment: Collection date/time has been modified to: 10:00:00. ??Previous collection date/time: 10:00:00. Testing performed by: [facility], [address] [place]., [address] Endocervical 07/12/2024 10:0 0 AM PROBLEM MANAGER 07/14/2024 2:41 PM PROBLEM MANAGER Jazzy Deng MD LAB BODY FL UIDS AND STOOLS ORDERABLES Edited Result - Final [facility] [address] Department [place] [address] [facility] * N. gonorrhoeae/C. trachomatis Amplification Thin prep-Endocervical (07/12/2024 10:00 AM PROBLEM MANAGER) Pathologist [facility] C. trachomatis Not Detected [facility] Comment: Collection date/time has been modified to: 10:00:00. ??Previous collection date/time: 10:00:00. Testing performed by: [facility], [address] [place]., [address] N. gonorrhoeae Not Detected ATA BURRELL Comment: Collection date/time has been modified to: 10:00:00. ??Previous collection date/time: 10:00:00. Interpretive Data This assay detects Chlamydia trachomatis and Neisseria gonorrhoeae by nucleic acid amplification testing (NAAT). This assay has been cleared by the [place] Food and Drug administration. The performance characteristics of this test have been verified by the [facility] Molecular Infectious Disease laboratory. The performance characteristics of this test have not been evaluated in individuals less than 14 years of age. Current Interpretive Data was last revised on 2023. Testing performed by: [facility], [address] [place]., [address] Thin prep-Endocervica l (None) 07/12/2024 10:00 AM PROBLEM MANAGER 07/14/2024 2:41 PM PROBLEM MANAGER us Jazzy Deng MD LAB MICROBI OLOGY - GENERAL ORDERABLES Edited Result - Final ATA BURRELL [address] Department [place] [address] [facility] * Vaginitis panel Vaginal (07/12/2024 10:00 AM PROBLEM MANAGER) Mitali DNA probe Not Detected Not Detected Comment: Collection date/time has been modified to: 10:00:00. ??Previous collection date/time: 14:46:00. Testing performed by: [facility], [address] [place] [address]., [address] Gardnerella DNA probe Not Detected Not Detected ATA BURRELL Comment: Collection date/time has been modified to: 10:00:00. ??Previous collection date/time: 14:46:00. Testing performed by: [facility], [address] [place] [address]., [address] Trichomonas DNA probe Not Detected Not Detected ATA BURRELL Comment: Collection date/time has been modified to: 10:00:00. ??Previous collection date/time: 14:46:00. Interpretive Data Testing performed by [facility] via Affirm VPIII Microbial Identification Test, a [...] last revised on 2020. Testing performed by: [facility], [address] [facility], [place]., [address] Vaginal 07/12/2024 10:0 0 AM PROBLEM MANAGER 07/14/2024 2:33 PM PROBLEM MANAGER Jazzy Deng MD LAB MICROBI OLOGY - GENERAL ORDERABLES Edited Result - Final ATA BURRELL [address] Department [place] [address] * POCT OB urine short dip (glucose, protein, ketones) (06/17/2024 10:31 AM PROBLEM MANAGER) Glucose, ur, POC Negative Negative MG/DL Protein, ur, POC Negative Negative Ketones, ur, POC Negative Negative Lot Number 0 Urine 06/17/2024 10:3 1 AM PROBLEM MANAGER us Jazzy Deng MD POINT OF CARE TEST ORDERABLES Final Result * Progesterone (06/17/2024 9:40 AM PROBLEM MANAGER) Progesterone 14.60 ng/mL Comment: Interpretive Data Males: ?<0.15 ng/mL Females: ??Follicular ?<0.20 ng/mL ??Ovulation ? <4.1 ng/mL ??Luteal ?4.1 - ??14.5 ng/mL ??1st Trimester ?? 11.0 - ??44.0 ng/mL ??2nd Trimester ?? 25.0 - ??83.0 ng/mL ??3rd Trimester ?? 59.0 - 214.0 ng/mL ??Postmenopausal ??<0.13 ng/mL Current interpretive data was last revised 2021. Testing performed by: [facility], [address] [place]., [address] Blood 06/17/2024 9:40 AM PROBLEM MANAGER 06/20/2024 9:32 AM PROBLEM MANAGER Result [facility] Jazzy Deng MD LAB BLOOD ORDERABLE S Final Result Performing Organization Address [facility] Co de Phone Number ATA BURRELL [address] [facility] [place] [address] * Hemoglobin A1c (06/17/2024 9:40 AM PROBLEM MANAGER) Hgb A1C 5.0 4.0 - 5.6 % Estimated Average Glucose 97 mg/dL ATA BURRELL Comment: The ADA recommends reporting an estimated Average Glucose (eAG) with all Hemoglobin A1c results using the equation derived from a study of 507 normal and diabetic adults. ??Minority populations were underrepresented and children were not included. ?? (Diabetes Care 31:9810-5599, 2008). ??The eAG is not equivalent to a fasting glucose. Blood 06/17/2024 9:40 AM PROBLEM MANAGER 06/17/2024 7:18 PM PROBLEM MANAGER Result [facility] Jazzy Deng MD LAB BLOOD ORDERABLE S Final Result Performing Organization Address [facility] Co de Phone Number ATA BURRELL [address] [facility] [place] [address] * US Ob Under 14 Weeks (05/31/2024 8:34 AM CDT) Anatomical Region Laterality Modality Abdomen N/A Ultrasound 05/31/2024 8:40 AM CDT Impressions 06/06/2024 4:57 PM PROBLEM MANAGER 1. ?? There is a single intrauterine gestation at 7 weeks 1 day with EDC of 01/16/25.2. Normal pelvic anatomy. Narrative Procedure Note Jazzy Deng MD - 06/06/2024 IMPRESSION: 1. There is a single intrauterine gestation at 7 weeks 1 day with EDC of01/16/25.2. Normal pelvic anatomy. Rogelio Cornelius MD IMG OB US PROCEDURES Final Result * (ABNORMAL) Vaginitis panel Vaginal (05/20/2024 2:06 PM CDT) [facility] Mitali DNA probe Detected(A) Not Detected Comment:Testing performed by : [facility], [address] [place] [address]., [address] Gardnerella DNA probe Detected(A) Not Detected ATA BURRELL Comment:Testing performed by : [facility], [address] [place] [address]., [address] Trichomonas DNA probe Not Detected Not Detected ATA BURRELL Comment: Interpretive Data Testing performed by [facility] via Affirm VPIII Microbial Identification Test, a [...] last revised on 2020. Testing performed by: [facility], [address] [place] [address]., [address] Vaginal 05/20/2024 2:06 PM CDT 05/21/2024 1:55 PM CDT Litzy Moser NP LAB MICROBIOLOGY - GENERAL ORDERABLES Final Result ATA [address] Department [place] [address] * (ABNORMAL) hCG, blood, quantitative (05/14/2024 11:54 AM CDT) [facility] hCG, quant 431.0(H) 0.0 - 5.0 IUnits/L [...] 4 AM CDT 05/14/2024 11:58 AM CDT Jazzy Deng MD LAB BLOOD ORDERABLE S Edited Result - Final ATA FERNÁNDEZ ([place]) 1 [facility] Department [place] [address] * POCT hCG, urine (05/12/2024 9:31 AM CDT) HCG, ur, POC Negative Negative Lot Number [id number] QC Backgroud Clear Acceptable QC Control Line Acceptable Urine 05/12/2024 9:31 AM CDT Jazzy Deng MD POINT OF CARE TEST [...] was last revised 2021. Testing performed by: [facility], [address] [place]., [address] Blood 05/12/2024 9:29 AM CDT 05/12/2024 2:11 PM CDT Jazzy Deng MD LAB BLOOD ORDERABLE S Final Result Performing Organization Address City/[facility] Co de Phone Number [facility] ([place]) 1 [facility] [place] [address] * (ABNORMAL) hCG, blood, quantitative (05/12/2024 9:29 AM CDT) hCG, quant 150.0(H) 0.0 - 5.0 IUnits/L [...] Edited Result - Final Performing Organization Address [facility] Co de Phone Number [facility]A [facility] (FRANCIS) 1 [facility] [place] [address] from Last 3 Months Insurance [employer] [facility] [place] [employer] ID[place] Advance Directives For more information, please contact: [phone] * Full Code (Latest Code Status on [...] in case of cardiopulmonary arrest Care Teams Formal Waiter/Waitress Relationship Specialty Start Date End Date Graciela Antoine PA [address] [place] [id number] PCP - General Physician [employer] Crewmember 11/07/22 Leonard Hunter MD [address] [place] [address] DR DO [address] [address] Horse Riding Coach Or Instructor Obstetrics and Gynecology 01/12/20
--- OUTSIDE RECORDS SUMMARY | 2024-08-05 00:57 | XMS_ITS | Encounter Summary ---
Author Organization [facility] Healthcare Address [address] [place] [address] Care Team Providers Care Packaging Design Engineer Name Role Phone Leonard Hunter MD Unavailable + [phone] Graciela Antoine Primary Care Provider Reason for Visit * Reason Onset Date Comments Vaginal Discharge 05/19/2024 Encounter Details Date Type Department Care Team (Late st Contact Info) Description 05/19/2024 Telephone [employer] [address] [place] [address] [address] [place] [address] Jazzy Deng MD [address] [place] [address] Vaginal Discharge Social History Tobacco Use Types Packs/Day Years Used Date Smoking Tobacco: Some Days Cigarettes 0.5 9.5 Started: 2013; Last attempted to quit: 02/05/2023 Vaping Smokeless Tobacco: Never Comments:Smoking History Pac ks/day: 0.25 Packs Alcohol Use Standard Drinks/Week Comments Yes 0 (1 standard drink = 0.6 oz pur e alcohol) rarely AUDIT-C Answer Date Recorded Q1: How often [...] you feel afraid or unsafe? 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 Patient is newly , with LMP 04/23/24 per patient. confirmed with Beta HCG and new OB appt. Scheduled with CT 07/12/24. Dr. Deng started patient on progesterone 200 mg daily at bedtime for history of miscarriage. Patient states today she started noticing vaginal itching and discharge. Patient will come for appointment Tomorrow at 1 pm at the [place] office to see MALCOLM Mcghee for a vaginal swab. Ok to schedule per MALCOLM Mcghee. Patient is aware that this appointment is for the swab only and will then see Dr. Deng is July. DAVONTE Berg, RN documented in this encounter Plan of Treatment Not on file documented as of this encounter Visit Diagnoses Not on filedocumented in this encounter Care Teams Packaging Design Engineer Relationship Specialty Start Date End Date Graciela Antoine PA [address] [place] [address] PCP - General Physician Emergency Veterinary Assistant 11/07/22 Leonard Hunter MD [address] [place] [address] DR ERNESTINA Jose [address] [address] Livestock Brands Inspector Obstetrics and Gynecology 01/12/20 documented as of this encounter
--- OUTSIDE RECORDS SUMMARY | 2024-08-05 00:57 | XMS_ITS | Encounter Summary ---
Author Organization [facility] Healthcare Address [address] [place] [address] Care Team Providers Care General Farmer Name Role Phone Leonard Hunter MD Unavailable + [phone] Graciela Antoine Primary Care Provider Reason for Visit * Reason Comments Vaginal complaints Encounter Details Date Type Department Care Team (Late st Contact Info) Description 05/20/2024 1:00 PM CDT Office Visit [facility] at [address] [phone] Litzy Moser NP [address] [place] [id number] Vaginal discharge (Primary Dx); Vaginal itching Social History Tobacco Use Types Packs/Day Years [...] on file Legal Sex Female 3:31 AM THREAD WINDER AUTOMATIC Gender Identity Not on file Sexual Orientation Not on file 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 file Not on file Not on file documented as of this encounter Last Filed Vital Signs Vital Sign Reading Time Taken Comments Blood Pressure 112/60 05/20/2024 1:06 PM CDT Pulse - - Temperature - - Respiratory Rate - - Oxygen Saturation - - Inhaled Oxygen Concentration - - Weight 86.2 kg (190 lb) 05/20/2024 1:06 PM CDT Height 154.9 cm (5' 1 ) 05/20/2024 1:06 PM CDT Body Mass Index 35.9 05/20/2024 1:06 PM CDT documented in this encounter Ordered Prescriptions Prescription Sig Dispense Quantity Refills Last Filled Start Date End Date terconazole (TERAZOL 3) 0.8 % vaginal creamIndications:V ulvovaginal Candidiasis Insert 1 applicator into the vagina nightly for 3 days 20 g 05/20/2024 4 documented in this encounter Progress Notes * Litzy Moser, CDL FLATBED TRUCK DRIVER - 05/20/2024 1:00 PM CDT Images from the original note were not included. CUSTOMS CONSULTANT visit History of Presenting Illness Pateint presents for: Vaginal complaints Morenita Burdick is a 29 y.o. year old female who presents for evaluation of vaginal burning and clumpy white discharge. She is approximately 4 weeks . Contraception:None. Menstrual History: Menarche Age: 10 years Patient's last menstrual period was 04/15/2024 (approximate). Period Duration (Days): 5 Period Pattern: Regular Sexual History: OB History 5 Para 1 Term 1 0 AB 3 Living 1 SAB 3 IAB Ectopic Multiple 0 Live Births 1 # Outcome Date GA Labor/2nd Weight Sex Type Anes PTL Lv A1 A5 1 SAB 2 SAB 3 SAB 4 Term 09/18/18 37w2d 3h 31m / 2h 15m 3.037 kg (6 lb 11.1 oz) F Vag-Spont Epidural, Local N Living 8 9 Name: DANIELITO BURDICK Complications: Premature Rupture of Membranes Location: This Facility Delivering Clinician: Shawna Kapoor MD 5 ROS Review of Systems Genitourinary: Positive for vaginal discharge and vaginal pain. Negative for dyspareunia, pelvic pain and vaginal bleeding. Objective BP 112/60 (BP Location: Right arm, Patient Position: Sitting) Ht 154.9 cm (5' 1 ) Wt 190 lb (86.2 kg) LMP 04/15/2024 (Approximate) BMI 35.90 kg/m?? Physical Exam Genitourinary: Vaginal discharge present. Genitourinary Comments: Copious amount of thick, white, vaginal discharge clinically consistent with yeast Bilateral labia erythremic Assessment and Plan Diagnoses and all orders for this visit: Vaginal discharge (Primary) Comments: Plan to treat clinically for yeast. Call if symptoms do not improve. Orders: - Vaginitis panel Vaginal; Future Vaginal itching - Vaginitis panel Vaginal; Future Other orders - terconazole (TERAZOL 3) 0.8 % vaginal cream; Insert 1 applicator into the vagina nightly for 3 days Recommended screenings and preventive care discussed: Breast cancer: Breast Self Exam encouraged. Pap deferred. MVI daily recommended Return for NOB as scheduled. . Litzy Moser NP 05/20/2024 documented in this encounter Plan of Treatment Not on file documented as of this encounter Results * (ABNORMAL) Vaginitis panel Vaginal (05/20/2024 2:06 PM CDT) Mitali DNA probe Detected(A) Not Detected Comment:Testing performed by : [facility], [address] [place] [address], [place]., [address] Gardnerella DNA probe Detected(A) Not Detected CERNER CH Comment:Testing performed by : [facility], [address] [place] [address]., [id number] Trichomonas DNA probe Not Detected Not Detected CERNER CH Comment: Interpretive Data Testing performed by [facility] via Affirm VPIII Microbial Identification Test, a [...] last revised on 2020. Testing performed by: [facility], [facility], [place]., [address] Vaginal 05/20/2024 2:06 PM CDT 05/21/2024 1:55 PM CDT us Litzy Moser NP LAB MICROBIOLOGY - GENERAL ORDERABLES Final Result [facility] [address] [address] Department [place] [address] documented in this encounter Visit Diagnoses Diagnosis Vaginal discharge- Primary Leukorrhea, not specified as infective Vaginal itching Pruritus of genital organs documented in this encounter Historical Medications * This list may reflect changes made after this encounter. vit 32-nmum-lajcp-dha 27mg iron- 800 mcg-250 mg capsule Take by mouth added in this encounter Care Teams General Farmer Relationship Specialty Start Date End Date Graciela Antoine PA [address] [place] [address] PCP - General Physician Ramp Jockey 11/07/22 Leonard Hunter MD [address] [place] [address] DR DO [address] [address] Loan Adviser Obstetrics and Gynecology 01/12/20 documented as of this encounter
--- OUTSIDE RECORDS SUMMARY | 2024-08-05 00:57 | XMS_ITS | Encounter Summary ---
Author Organization [facility] Healthcare Address [address] [place] [address] Care Team Providers Care Emissions Testing And Repair Technician Name Role Phone Leonard Hunter MD Unavailable + [phone] Graciela Antoine Primary Care Provider Reason for Visit * Reason Onset Date Comments Test Results 05/12/2024 Encounter Details Date Type Department Care Team (Late st Contact Info) Description 05/12/2024 [address] [place] [address] [address] [place] [address] Jazzy Deng MD [address] [place] [address] Test Results Social History Tobacco Use Types Packs/Day Years [...] you have a drink containing alcohol? Never 04/29/2023 Q2: How many drinks containi ng alcohol do you have on a typical day when you are drinking? Patient does not drink Q3: How often do you have si x or more drinks on one occasion? 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 Dr. Deng reviewed and wants to repeat the level on Thursday. I made patient aware that I will place and order online for that repeat blood work and that she will need to go to the [facility] lab by noon on Thursday for that. I stated once that is back, Dr. Deng will review and we will notify her with that on Thursday. Patient verbalized understanding. documented in this encounter Plan of Treatment Not on file documented as of this encounter Results * (ABNORMAL) hCG, blood, quantitative (05/14/2024 11:54 [...] BLOOD ORDERABLE S Edited Result - Final [facility] ([facility]) [facility] Department [place] [address] documented in this encounter Visit Diagnoses Diagnosis Missed period- Primary documented in this encounter Care Teams Emissions Testing And Repair Technician Relationship Specialty Start Date End Date Graciela Antoine PA [address] [place] [address] PCP - General Physician Inside Sales Account Executive 11/07/22 Leonard Hunter MD [address] [place] [address] DR DO B MICHAEL [address] [place] [address] Accounting Machine Operator Obstetrics and Gynecology 01/12/20 documented as of this encounter
--- OUTSIDE RECORDS SUMMARY | 2024-08-05 00:57 | XMS_ITS | Encounter Summary ---
Author Organization [facility] Healthcare Address [address] [place] [address] Care Team Providers Care Nightman Name Role Phone Leonard Hunter MD Unavailable + [phone] Garciela Antoine Primary Care Provider Encounter Details Date Type Department Care Team (Latest Contact Info) Description 05/20/2024 2:06 PM CDT - 05/20/2024 11:59 PM CDT Hospital Encounter [facility] [address] [place] [address] Vaginal discharge; Vaginal itching Discharge Disposition: Discharge to home or self care Social History Tobacco Use Types Packs/Day Years Used Date Smoking Tobacco: Some Days Vaping Smokeless Tobacco: Never Comments:Smoking History Pac [...] on file Legal Sex Female 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 Gender Identity Not on file Sexual Orientation Not on file 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 Not on file Not on file documented as of this encounter Medications at Time of Discharge vit 90-yuol-vvnxj-dha 27mg iron- 800 mcg-250 mg capsule Take by mouth terconazole (TERAZOL 3) 0.8 % vaginal creamIndications:V ulvovaginal Candidiasis Insert 1 applicator into the vagina nightly for 3 days 20 g 05/20/2024 4 Advair Diskus 100-50 mcg/dose diskus inhaler Inhale 1 puff 2 (two) times a day 11/07/2022 4 albuterol HFA (PROVENTIL HFA,VENTOLIN HFA,PROAIR HFA) 90 mcg/actuation inhaler INHALE 2 PUFFS VIA SPACER EVERY 6 HRS FOR 1 WEEK, NEEDED UNTIL SYMPTOMS IMPROVE 10/15/2022 4 calcium carbonate (CALCIUM 500 ORAL) Take by mouth 4 cholecalciferol (Vitamin D3) 1,000 unit capsule Take 1 capsule (1,000 Units total) by mouth daily 4 docusate sodium (COLACE) 100 mg capsuleIndications :constipation Take 1 capsule (100 mg total) by mouth 2 (two) times a day for 14 days 28 capsule 04/30/2023 4 famotidine (PEPCID) 20 mg tablet Take 1 tablet (20 mg total) by mouth 2 (two) times a day 60 tablet 04/30/2023 4 hyoscyamine (OSCIMIN) 0.125 mgIndications:Urin olga Incontinence Take 1 tablet (125 mcg total) by mouth every 6 (six) hours as needed (hiccups. stomach spasm) for up to 7 days 25 tablet 04/30/2023 4 progesterone (PROMETRIUM) 200 mg capsule Take 1 capsule (200 mg total) by mouth daily 30 capsule 11 05/16/2024 4 documented as of this encounter Discharge Disposition Disposition Code Departure Means Destination Discharge to home or self care documented in this encounter Plan of Treatment Not on file documented as of this encounter Procedures Procedure Name Priority Date/Time Associated Diagnosis Comments VAGINITIS PANEL Routine 05/20/2024 2:06 PM CDT Vaginal discharge Vaginal itching documented in this encounter Results * (ABNORMAL) Vaginitis panel Vaginal (05/20/2024 2:06 PM CDT) Mitali DNA probe Detected(A) Not Detected Comment:Testing performed by : [facility], [address] [place] [address]., [id number] Gardnerella DNA probe Detected(A) Not Detected ATA [facility]RELL Comment:Testing performed by : [facility], [address] [place] [address]., [id number] Trichomonas DNA probe Not Detected Not Detected AT[facility]RE[facility] Comment: Interpretive Data Testing performed by [facility] via Affirm VPIII Microbial Identification Test, a [...] last revised on 2020. Testing performed by: [facility], [address] [place] [address]., [id number] Vaginal 05/20/2024 2:06 PM CDT 05/21/2024 1:55 PM CDT us Litzy Moser JANITOR LAB MICROBIOLOGY - GENERAL ORDERABLES Final Result [facility] [address] [address] Department of Laboratories [place], [place] [id number] documented in this encounter Visit Diagnoses Diagnosis Vaginal discharge Leukorrhea, not specified as infective Vaginal itching Pruritus of genital organs documented in this encounter Care Teams Nightman Relationship Specialty Start Date End Date Graciela Antoine PA [address] [place] [address] PCP - General Physician Report Programmer 11/07/22 Leonard Hunter MD [address] [place] [address] [address] [address] Assisted Living Administrator Obstetrics and Gynecology 01/12/20 documented as of this encounter
--- OUTSIDE RECORDS SUMMARY | 2024-08-05 00:57 | XMS_ITS | Encounter Summary ---
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 Not on file Not on file documented as of this encounter Plan of Treatment Not on file documented as of this encounter Procedures Procedure Name Priority Date/Time Associated Diagnosis Comments DIFFERENTIAL AUTO Routine 07/12/2024 2:4 1 PM FLORIST DESIGNER Encounter for supervision of other normal in first trimester HIV 1/2 ANTIBODY PLUS P24 ANTIGEN Routine 07/12/2024 2:41 PM FLORIST DESIGNER Encounter for supervision of other normal in first trimester CBC WITH AUTO DIFFERENTIAL Routine 07/12/2024 2:41 PM FLORIST DESIGNER Encounter for supervision of other normal in first trimester HEPATITIS C ANTIBODY Routine 07/12/2024 2:41 PM FLORIST DESIGNER Encounter for supervision of other normal in first trimester DRUGS OF ABUSE SCREEN, URINE WITHOUT CONFIRMATION Routine 07/12/2024 2:41 PM FLORIST DESIGNER Encounter for supervision of other normal in first trimester ABO/RH Routine 07/12/2024 2:41 PM FLORIST DESIGNER Encounter for supervision of other normal in first trimester VITAMIN D 25 HYDROXY Routine 07/12/2024 2:41 PM FLORIST DESIGNER Encounter for supervision of other normal in first trimester RUBELLA IGG Routine 07/12/2024 2:41 PM FLORIST DESIGNER Encounter for supervision of other normal in first trimester RPR Routine 07/12/2024 2:41 PM FLORIST DESIGNER Encounter for supervision of other normal in first trimester HEPATITIS B SURFACE ANTIGEN Routine 07/12/2024 2:41 PM FLORIST DESIGNER Encounter for supervision of other normal in first trimester ANTIBODY SCREEN Routine 07/12/2024 2:41 PM FLORIST DESIGNER Encounter for supervision of other normal in first trimester TYPE AND SCREEN Routine 07/12/2024 2:41 PM FLORIST DESIGNER Encounter for supervision of other normal in first trimester URINE CULTURE Routine 07/12/2024 2:41 PM FLORIST DESIGNER Encounter for supervision of other normal in first trimester VARICELLA ZOSTER ANTIBODY, IGG Routine 07/12/2024 2:41 PM FLORIST DESIGNER Encounter for supervision of other normal in first trimester HEMOGLOBIN A1C Routine 07/12/2024 2:41 PM FLORIST DESIGNER Encounter for supervision of other normal in first trimester documented in this encounter Results * Differential, auto (07/12/2024 2:41 PM FLORIST DESIGNER) Neutrophil abs 3.4 1.5 - 6.5 K/cumm [...] revised on 2017. Blood 07/12/2024 2:41 PM FLORIST DESIGNER 07/12/2024 3:53 PM FLORIST DESIGNER us Jazzy Deng MD LAB BLOOD ORDERABLE S Final Result [facility] ([place]) 1 [facility] Department [place] [address] * Antibody screen (07/12/2024 2:41 PM FLORIST DESIGNER) William, indirect, Gel Interpretation Negative ABSC Blood 07/12/2024 2:41 PM FLORIST DESIGNER 07/12/2024 3:53 PM FLORIST DESIGNER Narrative [facility] ([place]) - 07/12/2024 4:42 PM FLORIST DESIGNER Has the patient had Daratumumab or Isatuximab in the past 6 months?->Unknown us Jazzy Deng MD LAB BLOOD BANK TEST ORDERABLES Final Result [facility] ([place]) 1 [facility] [employer] [place] [address] * ABO/Rh (07/12/2024 2:41 PM FLORIST DESIGNER) ABO/Rh O Positive Blood 07/12/2024 2:41 PM FLORIST DESIGNER 07/12/2024 3:53 PM FLORIST DESIGNER Narrative [facility] ([place]) - 07/12/2024 4:42 PM FLORIST DESIGNER Has the patient had Daratumumab or Isatuximab in the past 6 months?->Unknown us Jazzy Deng MD LAB BLOOD BANK TEST ORDERABLES Final Result Performing Organization Address [facility] Co de Phone Number [facility] ([place]) 1 [facility] [place] [address] * Urine culture Urine, clean voided (07/12/2024 2:41 PM FLORIST DESIGNER) Report Final Report: Less than 100,000 colonies/mL (clinically insignificant growth based on current clinical standards) Comment:Testing performed by : [facility], [address] [facility] [place]., [address] Organism (CLINICALLY INSIGNIFICANT GROWTH RAQUELBESSY PRADEEP ([place]) Urine, clean voided 07/12/2024 2:41 PM FLORIST DESIGNER 07/12/2024 6:39 PM FLORIST DESIGNER Narrative [facility] ([place]) - 07/14/2024 7:49 AM FLORIST DESIGNER Testing performed by [facility] Microbiology Laboratory ([phone]) Jazzy Deng MD LAB MICROBIOLOGY - GENERAL ORDERABLES Final Result [facility] ([place]) 1 [facility] Department [place] [address] * (ABNORMAL) Vitamin D 25 hydroxy (07/12/2024 2:41 PM FLORIST DESIGNER) Vitamin D 25-OH 23(L) 30 - 80 ng/mL Blood 07/12/2024 2:41 PM FLORIST DESIGNER 07/12/2024 3:53 PM FLORIST DESIGNER Jazzy Deng MD LAB BLOOD ORDERABLE S Final Result Performing Organization Address City/[facility]/ZIP Co de Phone Number [facility] ([place]) 1 [facility] [place] [address] * Varicella Zoster IgG antibody Blood (07/12/2024 2:41 PM FLORIST DESIGNER) Pathologist [facility] VZV IgG Reactive Reactive Comment: Reactive: Results suggest response to immunization or prior exposure to the virus. Testing performed by: [facility], [address] [place] [address]., [address] Blood 07/12/2024 2:41 PM FLORIST DESIGNER 07/12/2024 6:23 PM FLORIST DESIGNER Result [facility] Jazzy Deng MD LAB MICROBIOLOGY - GENERAL ORDERABLES Final Result Performing Organization Address [facility] Co de Phone Number [facility] ([place]) 1 [facility] [place] [address] * Rubella IgG antibody Blood (07/12/2024 2:41 PM FLORIST DESIGNER) Pathologist [facility] Rubella IgG Reactive Comment: Reactive: Results suggest response to immunization or prior exposure to the virus. Testing performed by: [facility], [address] [place] [address]., [id number] Blood 07/12/2024 2:41 PM FLORIST DESIGNER 07/12/2024 6:23 PM FLORIST DESIGNER Jazzy Deng MD LAB MICROBIOLOGY - GENERAL ORDERABLES Final Result [facility] ([place]) 1 [facility] [place] [address] * RPR Blood (07/12/2024 2:41 PM FLORIST DESIGNER) RPR Nonreactive Nonreactive Comment:Testing performed by : [facility], [address] [place] [address]., [id number] Blood 07/12/2024 2:41 PM FLORIST DESIGNER 07/12/2024 9:22 PM FLORIST DESIGNER Jazzy Deng MD LAB MICROBIOLOGY - GENERAL ORDERABLES Final Result Performing Organization Address [facility] Co de Phone Number [facility] ([place]) 1 [facility] [place] [address] * HIV 1/2 Antibody plus p24 Antigen Blood (07/12/2024 2:41 PM FLORIST DESIGNER) HIV 1/2 ab + p24 ag Nonreactive Nonreactive Comment: Nonreactive for HIV-1 antigen and HIV-1/HIV-2 antibodies. No laboratory evidence of HIV infection. If acute HIV infection is suspected, consider testing for HIV-1 RNA. Testing performed by: [facility], [address] [place] [address]., [id number] Blood 07/12/2024 2:41 PM FLORIST DESIGNER 07/12/2024 9:22 PM FLORIST DESIGNER us Jazzy Deng MD LAB MICROBIOLOGY - GENERAL ORDERABLES Final Result Performing Organization Address [facility] Co de Phone Number [facility] ([place]) 1 [facility] [place] [address] * Hepatitis C antibody Blood (07/12/2024 2:41 PM FLORIST DESIGNER) Hep C Ab Nonreactive Nonreactive Comment: Interpretive [...] last revised on 2019. Testing performed by: [facility], [address] [place] [address]., [id number] Blood 07/12/2024 2:41 PM FLORIST DESIGNER 07/12/2024 9:22 PM FLORIST DESIGNER Jazzy Deng MD LAB MICROBIOLOGY - GENERAL ORDERABLES Final Result Performing Organization Address City/[facility]/ZIP Co de Phone Number [facility] ([place]) 1 [facility] [place] [address] * Hepatitis B Surface Antigen Blood (07/12/2024 2:41 PM FLORIST DESIGNER) HepBsAg Nonreactive Nonreactive Comment:Testing performed by : [facility], [address] [place] [address]., [address] Blood 07/12/2024 2:41 PM FLORIST DESIGNER 07/12/2024 9:22 PM FLORIST DESIGNER Jazzy Deng MD LAB MICROBIOLOGY - GENERAL ORDERABLES Final Result Performing Organization Address City/[facility] de Phone Number [facility] ([place]) 1 [facility] [place] [address] * Drugs of Abuse Screen, Urine without Confirmation (07/12/2024 2:41 PM FLORIST DESIGNER) Amphetamine, ur Not Detected CutOff 500ng/mL Comment: Interpretive Data - Amphetamines: ??Samples containing greater than 500 ng/mL d-methamphetamine ??or other cross-reacting amphetamine compounds are reported as positive. ??Amphetamine immunoassays are subject to significant false positive rates due to cross-reactivity of non-amphetamine drugs. Confirmatory testing required for definitive results. Current Interpretive Data was last reviewed 2023. Barbiturates, ur Not Detected CutOff 200ng/mL [facility] ([place]) Comment: Interpretive Data - Barbiturates: ??Samples [...] Oxycodone, ur Not Detected CutOff 100ng/mL [facility] ([place]) Comment: Interpretive Data - Oxycodone: ??Samples containing greater than 100 ng/mL oxycodone or other cross-reacting compounds are reported as ??positive. ??False positive and false negative results are possible. Confirmatory testing required for definitive results. Current Interpretive Data was last reviewed 2023. Phencyclidine, ur Not Detected CutOff 25 ng/mL [facility] ([place]) Comment: Interpretive Data - Phencyclidine: ??Samples containing greater than 25 ng/mL phencyclidine or other cross-reacting compounds are reported as positive. ??False positive and false negative results are possible. Confirmatory testing required for definitive results. Current Interpretive Data was last reviewed 2023. Urine Creatinine 252 mg/dL [facility] ([place]) Comment: Interpretive Data Urine Creatinine: < 10 mg/dL is extremely dilute = or > 10 but < 20 mg/dL is dilute = or > 20 mg/dL is normal Current Interpretive Data was last revised on 2017. Urine 07/12/2024 2:41 PM FLORIST DESIGNER 07/12/2024 3:54 PM FLORIST DESIGNER Narrative [facility] ([place]) - 07/12/2024 4:35 PM FLORIST DESIGNER Drug of Abuse screening is performed by immunoassay for medical purposes only. ??This is not to be used for Pain Management purposes. us Jazzy Deng MD LAB URINE ORDERABLE S Final Result [facility] ([place]) 1 [facility] Department [place] [address] * CBC with auto differential (07/12/2024 2:41 PM FLORIST DESIGNER) WBC 5.4 3.8 - 9.9 K/cumm Hgb 12.3 11.9 - 15.5 g/dL [facility] ([place]) Hct 36.8 35.6 - 45.5 % [facility] ([place]) Plt 205 150 - 400 K/cumm [facility] ([place]) MPV 11.7 9.1 - 12.3 fL [facility] ([place]) RBC 4.01 3.90 - 5.20 M/cumm [facility] ([place]) MCV 91.8 81.3 - 96.4 fL [facility] ([place]) MCH 30.7 27.1 - 33.3 pg [facility] ([place]) MCHC 33.4 32.3 - 35.7 g/dL [facility] ([place]) RDW CV 13.6 11.1 - 14.9 % [facility] ([place]) RDW SD 45.9 35.7 - 48.1 fL [facility] ([place]) NRBC abs 0.00 0.00 - 0.01 K/cumm [facility] ([place]) Blood 07/12/2024 2:41 PM FLORIST DESIGNER 07/12/2024 3:53 PM FLORIST DESIGNER Jazzy Deng MD LAB BLOOD ORDERABLE S Final Result Performing Organization Address City/[facility]/ZIP Co de Phone Number [facility] ([place]) 1 [facility] [place] [address] * Hemoglobin A1c (07/12/2024 2:41 PM FLORIST DESIGNER) Hgb A1C 4.4 4.0 - 5.6 % Estimated Average Glucose 80 mg/dL [facility] ([place]) Comment: The ADA recommends reporting an estimated Average Glucose (eAG) with all Hemoglobin A1c results using the equation derived from a study of 507 normal and diabetic adults. ??Minority populations were underrepresented and children were not included. ?? (Diabetes Care 31:2506-7378, 2008). ??The eAG is not equivalent to a fasting glucose. Blood 07/12/2024 2:41 PM FLORIST DESIGNER 07/12/2024 3:53 PM FLORIST DESIGNER Jazzy Deng MD LAB BLOOD ORDERABLE S Final Result Performing Organization Address City/[facility]/ZIP Co de Phone Number [facility] ([place]) 1 [facility] [place] [address] documented in this encounter Visit Diagnoses Diagnosis Encounter for supervision of other normal in first trimester documented in this encounter Care Teams Roll Line Operator Relationship Specialty Start Date End Date Graciela Antoine PA [address] [place] [address] PCP - General Physician Food Beverage Attendant 11/07/22 Leonard Hunter MD [address] [place] [address] DR DO [address] [address] Electronics Scale Tester Obstetrics and Gynecology 01/12/20 documented as of this encounter
--- OUTSIDE RECORDS SUMMARY | 2024-08-05 00:57 | XMS_ITS | Encounter Summary ---
Author Organization [facility] Healthcare Address [address] [place] [address] Care Team Providers Care Digital Director Name Role Phone Leonard Hunter MD Unavailable [phone] Graciela Antoine Primary Care Provider Encounter Details Date Type Department Care Team (Late st Contact Info) Description 06/17/2024 9:45 AM RN FACULTY Lab [facility] Medical Group Outpatient Lab at [address] [address] Morbid obesity (HCC) (Primary Dx); Bipolar II disorder (CMS/HCC) (HCC) Social History Tobacco Use Types Packs/Day Years [...] on file Legal Sex Female 3:31 AM RN FACULTY Gender Identity Not on file Sexual Orientation Not on file 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 Not on file Not on file documented as of this encounter Plan of Treatment Not on file documented as of this encounter Visit Diagnoses Diagnosis Morbid obesity (HCC)- Primary Morbid obesity Bipolar II disorder (CMS/HCC) (HCC) Other bipolar disorders documented in this encounter Care Teams Digital Director Relationship Specialty Start Date End Date Graciela Antoine PA [address] [place] [address] PCP - General Physician Income Tax Consultant 11/07/22 Leonard Hunter MD [address] [place] [address] [address] [address] Hose Mender Obstetrics and Gynecology 01/12/20 documented as of this encounter
--- OUTSIDE RECORDS SUMMARY | 2024-08-05 00:57 | XMS_ITS | Encounter Summary ---
Author Organization [facility] Healthcare Address [address] [place] [address] Care Team Providers Care Residential Door Installer Name Role Phone Leonard Hunter MD Unavailable + [phone] Graciela Antoine Primary Care Provider Reason for Visit * Reason Onset Date Comments Test Results 05/16/2024 Encounter Details Date Type Department Care Team (Late st Contact Info) Description 05/16/2024 Telephone [facility] Medical Group [facility] Care at [address] [address] Jazzy Deng MD [address] [place] [address] Test Results Social History Tobacco Use [...] on file Legal Sex Female 3:31 AM GRAIN TRADER Gender Identity Not on file Sexual Orientation Not on file 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 Deng will have her start taking Prometrium 200 mg tablet daily at night til 12 weeks. That has been called into patient pharmacy. Patient verbalized understanding. * Telephone Encounter - Rebecca Uirbe RN - 05/16/2024 2:02 PM CDT [phone] Spoke with patient making her aware that her blood work is looking good and that Dr. Deng is wanting to get an ultrasound in 2 weeks. I stated we would get her set up for that as well as her initial OB appt. With Dr. Deng. Patient did ask on her progesterone level and did make me aware that she has had 4 SAB's in the past. 2 of those were before 6 weeks and the other 2 were around 8 weeks . Patient states that with one of the losses around 8 weeks she did need to have a D&C. Patient has 2 living children at home and states one of them was conceived naturally and one was conceived with clomid and metformin. With the clomid she was on IM progesterone til 15 weeks per patient.With the other , where she naturally conceived, she took progesterone pills until 9 weeks . Patient states she is nervous with this as well, because she did have weight loss surgery back in Apr 2023 and isn't sure how that could affect her . She is not on any meds currently, but also is wondering if there is a specific vitamin she should be taking. I stated I thought any would be fine, but that I would send all of this to Dr. Deng for her to review. DAVONTE Berg RN * Telephone Encounter - Rebecca Uribe RN - 05/16/2024 2:02 PM CDT ----- Message from Jazzy Deng MD sent at 05/16/2024 7:32 AM CDT ----- These numbers are looking good. What is her history? I think she needs to have ultrasoundin 2 weeks to given of time for us to see a baby. * Telephone Encounter - Rebecca Uribe RN - 05/16/2024 12:01 PM CDT [phone] Called and left voicemail for patient making her aware that I was calling to review a lab result. Asked patient to call back at her convenience. ABHI Fernandez * Telephone Encounter - Rebecca Uribe RN - 05/16/2024 12:01 PM CDT ----- Message from Jazzy Deng MD sent at 05/16/2024 7:32 AM CDT ----- These numbers are looking good. What is her history? I think she needs to have ultrasoundin 2 weeks to given of time for us to see a baby. documented in this encounter Plan of Treatment Not on file documented as of this encounter Visit Diagnoses Not on filedocumented in this encounter Discontinued Medications Medication Sig Discontinue Reason Start Date End Da te levonorgestreL (MIRENA) IUD 1 each by intrauterine route once Patient Reported 05/16/2024 documented as of this encounter Care Teams Residential Door Installer Relationship Specialty Start Date End Date Graciela Antoine PA [address] [place] [address] PCP - General Physician Chemical Economist 11/07/22 Leonard Hunter MD [address] [place] [address] DR DO [address] [address] Regional Account Executive Obstetrics and Gynecology 01/12/20 documented as of this encounter
--- OUTSIDE RECORDS SUMMARY | 2024-08-05 00:57 | XMS_ITS | Encounter Summary ---
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 Not on file Not on file documented as of this encounter Plan of Treatment Not on file documented as of this encounter Procedures Procedure Name Priority Date/Time Associated Diagnosis Comments HCG, BLOOD, QUANTITATIVE Routine 05/14/2024 11:54 AM CDT Missed period documented in this encounter Results * (ABNORMAL) hCG, blood, [...] S Edited Result - Final [facility] ([place]) 1 [facility] Department [place] [address] documented in this encounter Visit Diagnoses Diagnosis Missed period documented in this encounter Care Teams Box Gluer Relationship Specialty Start Date End Date Graciela Antoine PA [address] [place] [address] PCP - General Physician Nicu Rn 11/07/22 Leonard Hunter MD [address] [place] [address] DR ERNESTINA Jose MICHAEL [address] [place] [address] Top Steep Tender Obstetrics and Gynecology 01/12/20 documented as of this encounter
--- OUTSIDE RECORDS SUMMARY | 2024-08-05 00:57 | XMS_ITS | Encounter Summary ---
Author Organization [facility] Healthcare Address [address] [place] [address] Care Team Providers Care Chief Digital Media Officer Name Role Phone Leonard Hunter MD Unavailable + [phone] Graciela Antoine Primary Care Provider Reason for Visit * Reason Comments Ultrasound * Diagnostic Imaging (Routine) - Closed Specialty Diagnoses / Procedures Referred By Amada ro Referred To Contact Diagnoses Encounter to establish gestational age using ultrasound Procedures US Ob Under 14 Weeks Rogelio Cornelius MD [address] [place] [address] [address], [place] [address] Phone: tel: fax: Ancelmo PATEL [address], [place] [address] Phone: tel: fax: Referral ID Status Reason Start Date Expiration Date Visits Re quested Visits Authorized [id number] Closed 05/11/2024 06/10/2025 1 1 Encounter Details Date Type Department Care Team (Latest Contact Info) Description 05/31/2024 8:30 AM CDT Ancillary Procedure Ancelmo Lopez [address] [place] [address], [place] [address] Encounter to establish gestational age using ultrasound Social History Tobacco Use Types Packs/Day Years [...] on file Legal 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 Gender Identity Not on file Sexual Orientation Not on file Occupation Industry Job Start Date Job End Date [employer] Not on file Not on file Not on file documented as of this encounter Plan of Treatment Not on file documented as of this encounter Procedures Procedure Name Priority Date/Time Associated Diagnosis Comments US OB UNDER 14 WEEKS Schedule Routine, Read Routine (OP Routine) 05/31/2024 8:34 AM CDT Encounter to establish gestational age using ultrasound documented in this encounter Results * US Ob Under 14 Weeks (05/31/2024 8:34 AM CDT) Anatomical Region Laterality Modality Abdomen N/A Ultrasound 05/31/2024 8:40 AM CDT Impressions 06/06/2024 4:57 PM WHEEL MILL OPERATOR 1. ?? There is a single intrauterine gestation at 7 weeks 1 day with EDC of 01/16/25.2. Normal pelvic anatomy. Narrative Procedure Note Jazzy Deng MD - 06/06/2024 IMPRESSION: 1. There is a single intrauterine gestation at 7 weeks 1 day with EDC of01/16/25.2. Normal pelvic anatomy. us Rogelio Cornelius MD IMG OB US PROCEDURES Final Result documented in this encounter Visit Diagnoses Diagnosis Encounter to establish gestational age using ultrasound Encounter for routine screening for malformation using ultrasonics documented in this encounter Care Teams Chief Digital Media Officer Relationship Specialty Start Date End Date Graciela Antoine PA [address] [place] [address] PCP - General Physician Physician Vice President 11/07/22 Leonard Hunter MD [address] [place] [address] DR DO [address] [address] Recycle Worker Obstetrics and Gynecology 01/12/20 documented as of this encounter
--- OUTSIDE RECORDS SUMMARY | 2024-08-05 00:57 | XMS_ITS | Encounter Summary ---
Author Organization [facility] Healthcare Address [address] [place] [address] Care Team Providers Care Soils Technician Name Role Phone Leonard Hunter MD Unavailable + [phone] Graciela Antoine Primary Care Provider Encounter Details Date Type Department Care Team (Late st Contact Info) Description 06/14/2024 Telephone [employer] [address] [place] [address] [address] [place] [address] Jazzy Deng MD [address] [place] [address] Social History Tobacco Use Types Packs/Day Years [...] on file Legal Sex Female 3:31 AM RESTAURANT TEAM MEMBER Gender Identity Not on file Sexual Orientation Not on file 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 - 06/17/2024 9:40 AM CSTAddended by: KATERINE CASIANO on: 06/17/2024 09:40 AM Modules accepted: Orders AURANT TEAM MEMBER * Telephone Encounter - Rebecca Uribe RN - 06/14/2024 1:22 PM RESTAURANT TEAM MEMBER Called and spoke with patient making her aware that Dr. Deng would like to send her for a progesterone and Hem A1C level. She will go Karen to the [place] office for the labs and then will have a nurse visit for ketones to be dipped. ABHI Fernandez AURANT TEAM MEMBER * Telephone Encounter - Rebecca Uribe RN - 06/14/2024 12:38 PM RESTAURANT TEAM MEMBER Called and spoke with patient again and she said she has been eating well and having snacks. Patient says her urine is dark even with drinking well. Patient says she has a 40 oz tumbler and drinks 2.5 of those a day,with ice. She says if she is just sitting or laying down she doesn't get dizzy, it is more of a motion sickness feeling when she sits down, getting up or even if she turns her head. I stated that for the prometrium that Dr. Deng advised she can do it vaginally instead or orally. Patient states that she doesn't really want to do it vaginally as she doesn't like that, but wants toknow if the progesterone injection is an option for her. She states she did that with a in the past and had no issues. I stated I would send all of this back to Dr. Deng and then let her know. DAVONTE Berg AURANT TEAM MEMBER * Telephone Encounter - Rebecca Uribe RN - 06/14/2024 11:32 AM RESTAURANT TEAM MEMBER [phone] Patient called and stated for the last 3 days she has been feeling dizzy constantly and has had stomach cramps like she is going to start her period but no bleeding. Patient was on Prometrium daily, but states she stopped that on because of the way it was making her feel. She said it wouldmake her feel car sick. Patient was started on that due to loss history. She says sometimes when she is laying flat or standing up, she will get a sharp pain. Patient says she is drinking and eating well. Patient is 9.1 weeks today. 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 She also stated she had gestational diabetes with her last and wanted us to be aware. I stated we would check that again with this . Patient is scheduled to come for new OB appointment 07/12/2024. I stated I would forward to Dr. Deng to get her thoughts and then get back with her. DAVONTE Berg RN AURANT TEAM MEMBER documented in this encounter Plan of Treatment Not on file documented as of this encounter Results * Progesterone (06/17/2024 9:40 AM RESTAURANT TEAM MEMBER) [facility] Progesterone 14.60 ng/mL Comment: Interpretive Data Males: ?<0.15 ng/mL Females: ??Follicular ?<0.20 ng/mL ??Ovulation ? <4.1 ng/mL ??Luteal ?4.1 - ??14.5 ng/mL ??1st Trimester ?? 11.0 - ??44.0 ng/mL ??2nd Trimester ?? 25.0 - ??83.0 ng/mL ??3rd Trimester ?? 59.0 - 214.0 ng/mL ??Postmenopausal ??<0.13 ng/mL Current interpretive data was last revised 2021. Testing performed by: [facility], [address] [place]., [address] Blood 06/17/2024 9:40 AM RESTAURANT TEAM MEMBER 06/20/2024 9:32 AM RESTAURANT TEAM MEMBER Jazzy Deng MD LAB BLOOD ORDERABLE S Final Result Performing Organization Address [facility] de Phone Number ATA [address] [address] Department [employer] [place], [place] [id number] * Hemoglobin A1c (06/17/2024 9:40 AM RESTAURANT TEAM MEMBER) Hgb A1C 5.0 4.0 - 5.6 % Estimated Average Glucose 97 mg/dL ATA BURRELL Comment: The ADA recommends reporting an estimated Average Glucose (eAG) with all Hemoglobin A1c results using the equation derived from a study of 507 normal and diabetic adults. ??Minority populations were underrepresented and children were not included. ?? (Diabetes Care 31:4818-7225, 2008). ??The eAG is not equivalent to a fasting glucose. Blood 06/17/2024 9:40 AM RESTAURANT TEAM MEMBER 06/17/2024 7:18 PM RESTAURANT TEAM MEMBER Jazzy Deng MD LAB BLOOD ORDERABLE S Final Result Performing Organization Address [facility] de Phone Number RAQUELBESSY [address] [address] Department [employer] [place] [address] documented in this encounter Visit Diagnoses Diagnosis Dizziness- Primary Dizziness and giddiness documented in this encounter Care Teams Soils Technician Relationship Specialty Start Date End Date Graciela Antoine PA [address] [place] [id number] PCP - General Physician Tribunal Member 11/07/22 Leonard Hunter MD [address] [facility] [address] DO B MICHAEL [address] [place] [address] Dialysis Equipment Technician Obstetrics and Gynecology 01/12/20 documented as of this encounter
--- OUTSIDE RECORDS SUMMARY | 2024-08-05 00:57 | XMS_ITS | Encounter Summary ---
Author Organization [facility] Healthcare Address [address] [place] [address] Care Team Providers Care Automatic Paint Sprayer Operator Name Role Phone Leonard Hunter MD Unavailable + [phone] Graciela Antoine Primary Care Provider Reason for Visit * Reason Onset Date Comments Test Results 06/23/2024 Encounter Details Date Type Department Care Team (Late st Contact Info) Description 06/23/2024 Telephone [facility] [address] [place] [address] [address] [place] [address] Jazzy Deng MD [address] [place] [address] Test Results Social History Tobacco Use [...] on file Legal 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 Deng reviewed her progesterone level and thinks it looks good. I assked patient how she was doing and patient states she was admitted to [facility] on Thursday with a kidney infection and they now think something is going on with her gallbladder and are deciding if she will need surgery or not with being early . Patient statedshe would keep us posted on what was decided and I stated I would update Dr. Deng. DAVONTE Berg, RN IS CAMP INSTRUCTOR documented in this encounter Plan of Treatment Not on file documented as of this encounter Visit Diagnoses Not on filedocumented in this encounter Care Teams Automatic Paint Sprayer Operator Relationship Specialty Start Date End Date Graciela Antoine PA [address] [place] [address] PCP - General Physician Security Project Manager 11/07/22 Leonard Hunter MD [address] [place] [address] DR DO B [address] [address] Lead Press Operator Obstetrics and Gynecology 01/12/20 documented as of this encounter
--- OUTSIDE RECORDS SUMMARY | 2024-08-05 00:57 | XMS_ITS | Encounter Summary ---
Author Organization [facility] Healthcare Address [address] [place] [address] Care Team Providers Care Towboat Engineer Name Role Phone Leonard Hunter MD Unavailable + [phone] Graciela Antoine Primary Care Provider Encounter Details Date Type Department Care Team (Latest Contact Info) Description 07/12/2024 2:46 PM STAMPING PRESS OPERATOR - 07/12/2024 11:59 PM STAMPING PRESS OPERATOR Hospital Encounter [address] [address] Encounter for supervision of other normal in [...] on file Legal Sex Female 3:31 AM STAMPING PRESS OPERATOR Gender Identity Not on file Sexual Orientation Not on file 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 Not on file Not on file documented as of this encounter Medications at Time of Discharge cephalexin (KEFTAB) 500 mg tablet Take 1 tablet (500 mg total) by mouth every 8 (eight) hours 07/05/2024 vit [id number] 27mg iron- 800 mcg-250 mg capsule Take by mouth documented as of this encounter Discharge Disposition Disposition Code Departure Means Destination Discharge to home or self care documented in this encounter Plan of Treatment Not on file documented as of this encounter Procedures Procedure Name Priority Date/Time Associated Diagnosis Comments VAGINITIS PANEL Routine 07/12/2024 10:00 AM STAMPING PRESS OPERATOR Encounter for supervision of other normal in first trimester Vaginal discharge documented in this encounter Results * Vaginitis panel Vaginal (07/12/2024 10:00 AM STAMPING PRESS OPERATOR) Mitali DNA probe Not Detected Not Detected Comment: Collection date/time has been modified to: 10:00:00. ??Previous collection date/time: 14:46:00. Testing performed by: [facility], [address] [place] [address]., [id number] Gardnerella DNA probe Not Detected Not Detected ATA BURRELL Comment: Collection date/time has been modified to: 10:00:00. ??Previous collection date/time: 14:46:00. Testing performed by: [facility], [address] [place] [address]., [id number] Trichomonas DNA probe Not Detected Not Detected ATA BURRELL Comment: Collection date/time has been modified to: 10:00:00. ??Previous collection date/time: 14:46:00. Interpretive Data Testing performed by [facility] via [facility] VPIII Microbial Identification Test, a [...] last revised on 2020. Testing performed by: [facility], [address] [place] [address]., [id number] Vaginal 07/12/2024 10:0 0 AM STAMPING PRESS OPERATOR 07/14/2024 2:33 PM STAMPING PRESS OPERATOR us Jazzy Deng MD LAB MICROBI OLOGY - GENERAL ORDERABLES Edited Result - Final ATA [address] [address] Department [place] [address] documented in this encounter Visit Diagnoses Diagnosis Encounter for supervision of other normal in first trimester Vaginal discharge Leukorrhea, not specified as infective documented in this encounter Care Teams Towboat Engineer Relationship Specialty Start Date End Date Graciela Antoine PA [address] [place] [address] PCP - General Physician Nurse Practitioner Adult 11/07/22 Leonard Hunter MD [address] DO B [address] [address] Industrial Illuminating Engineer Obstetrics and Gynecology 01/12/20 documented as of this encounter
--- OUTSIDE RECORDS SUMMARY | 2024-08-05 00:57 | XMS_ITS | Encounter Summary ---
Author Organization [facility] Healthcare Address [address] [place] [address] Care Team Providers Care Traffic Maintenance Officer Name Role Phone Leonard Hunter MD Unavailable + [phone] Graciela Antoine Primary Care Provider Reason for Visit * Reason Comments Initial Visit 12.4 weeksHx. Of miscarriages x 3Records are in chart from [facility] admissions for UTI's and gallbladder issues. Patient started cephalexin 3 times a day on 07/06 and is for 10 days. Patient was to go see a doctor for the gallbladder removal. Patient didn't go due to diarrhea,but better now. Patient now will go this Thursday Encounter Details Date Type Department Care Team (Late st Contact Info) Description 07/12/2024 1:00 PM YARD MOTOR OPERATOR Office Visit [address] [place] [address] Jazzy Deng MD [address] [place] [address] Encounter for supervision of other normal in first trimester (Primary Dx); Acute cystitis without hematuria; Cholecystitis; Mild intermittent asthma without complication; Family history of cancer; Vaginal discharge; Pyelonephritis affecting in first trimester Social History Tobacco Use [...] on file Legal Sex Female 3:31 AM YARD MOTOR OPERATOR Gender Identity Not on file Sexual Orientation Not on file 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 Not on file Not on file Not on file documented as of this encounter Last Filed Vital Signs Vital Sign Reading Time Taken Comments Blood Pressure 104/64 07/12/2024 1:10 PM YARD MOTOR OPERATOR Pulse - - Temperature - - Respiratory Rate - - Oxygen Saturation - - Inhaled Oxygen Concentration - - Weight 89.8 kg (198 lb) 07/12/2024 1:10 PM YARD MOTOR OPERATOR Height 154.9 cm (5' 1 ) 07/12/2024 1:10 PM YARD MOTOR OPERATOR Body Mass Index 37.41 07/12/2024 1:10 PM YARD MOTOR OPERATOR documented in this encounter Progress Notes * Jazzy Deng MD - 07/12/2024 1:00 PM CST Images from the original note were not included. Initial OB Visit Initial Visit (12.4 weeks/Hx. Of miscarriages x 3/Records are in chart from [facility] admissions for UTI's and gallbladder issues. Patient started cephalexin 3 times a day on 07/06 and is for 10 days. Patient was to go see a doctor for the gallbladder removal. Patient didn't go due to diarrhea,but better now. Patient now will go this Thursday) Subjective: Reed Burdick is a 29 y.o., at 13 w 1 day , based on 1st trimester U/S and who presents for initial visit. Morning sickness is gone. She is worried about her recurring yeast as she is tired of using the cream. She stated that she has had diflucan all while she was in the hospital. She saw a surgeon at [place] who says she needs to have her [...] Plan: Has an appt with surgeon at [place] for Thursday to discuss removal Mild intermittent [...] to this, but we will wait to discussthem at her scheduled appointment. The limitations and [...] in 4 weeks. Jazzy Deng MD 07/12/2024 MOTOR OPERATOR documented in this encounter Miscellaneous Notes * Assessment & Plan Note - Jazzy Deng MD - 07/22/2024 3:43 PM CSTAssociated Problem(s): Pyelonephritis affecting in first trimester Will need to stay on prophylactic antibiotics throughout her once her urine culture is clear MOTOR OPERATOR * Assessment & Plan Note - Jazzy Deng MD - 07/12/2024 1:49 PM CSTAssociated Problem(s): Family history of cancer She qualifies for genetic testing. Will arrange. RTO 6 weeks for the results. We discussed that she will get the results through email prior to this, but we will wait to discussthem at her scheduled appointment. The limitations and implications of the test reviewed. She voices understanding and would like to proceed. Pricing and instructions for declining if it cost too much were reviewed by the staff. MOTOR OPERATOR * Assessment & Plan Note - Jazzy Deng MD - 07/12/2024 1:46 PM CSTAssociated Problem(s): Bipolar II disorder (CMS/HCC) (HCC) She does not take meds. MOTOR OPERATOR * Assessment & Plan Note - Jazzy Deng MD - 07/12/2024 1:45 PM CSTAssociated Problem(s): Asthma Better since she lost weight. No inhaler now. We discussed that asthma improves in 1/3 of pregnancies and worsens in 1/3. To let me know if she is needing to use her rescue inhaler more than prescribed. MOTOR OPERATOR * Assessment & Plan Note - Jazzy Deng MD - 07/12/2024 1:40 PM CSTAssociated Problem(s): Cholecystitis Has an appt with surgeon at [place] for Thursday to discuss removal MOTOR OPERATOR * Assessment & Plan Note - Jazzy Deng MD - 07/12/2024 1:38 PM CSTAssociated Problem(s): Acute cystitis Will need ruba when she finishes her antibiotics MOTOR OPERATOR documented in this encounter Plan of Treatment Not on file documented as of this encounter Results * Hemoglobin A1c (07/12/2024 2:41 PM YARD MOTOR OPERATOR) Hgb A1C 4.4 4.0 - 5.6 % Estimated Average Glucose 80 mg/dL [facility] (FRANCIS) Comment: The ADA recommends reporting an estimated Average Glucose (eAG) with all Hemoglobin A1c results using the equation derived from a study of 507 normal and diabetic adults. ??Minority populations were underrepresented and children were not included. ?? (Diabetes Care 31:4783-2840, 2008). ??The eAG is not equivalent to a fasting glucose. Blood 07/12/2024 2:41 PM YARD MOTOR OPERATOR 07/12/2024 3:53 PM YARD MOTOR OPERATOR us Jazzy Deng MD LAB BLOOD ORDERABLE S Final Result [facility] (FRANCIS) 1 [facility] [employer] [place] [address] * CBC with auto differential (07/12/2024 2:41 PM YARD MOTOR OPERATOR) WBC 5.4 3.8 - 9.9 K/cumm Hgb 12.3 11.9 - 15.5 g/dL [facility] (FRANCIS) Hct 36.8 35.6 - 45.5 % [facility] (FRANCIS) Plt 205 150 - 400 K/cumm [facility] (FRANCIS) MPV 11.7 9.1 - 12.3 fL [facility] (FRANCIS) RBC 4.01 3.90 - 5.20 [...] NRBC abs 0.00 0.00 - 0.01 K/cumm [facility] (FRANCIS) Blood 07/12/2024 2:41 PM YARD MOTOR OPERATOR 07/12/2024 3:53 PM YARD MOTOR OPERATOR us Jazzy Deng MD LAB BLOOD ORDERABLE S Final Result [facility] (FRANCIS) 1 [facility] [place] [address] * Drugs of Abuse Screen, Urine without Confirmation (07/12/2024 2:41 PM YARD MOTOR OPERATOR) Amphetamine, ur Not Detected CutOff 500ng/mL Comment: Interpretive Data - Amphetamines: ??Samples containing greater than 500 ng/mL d-methamphetamine ??or other cross-reacting amphetamine compounds are reported as positive. ??Amphetamine immunoassays are subject to significant false positive rates due to cross-reactivity of non-amphetamine drugs. Confirmatory testing required for definitive results. Current Interpretive Data was last reviewed 2023. Barbiturates, ur Not Detected CutOff 200ng/mL [facility] (FRANCIS) Comment: Interpretive Data - Barbiturates: [...] 2023. Opiates, ur Not Detected CutOff 300ng/mL [facility] (FRANCIS) Comment: Interpretive Data - Opiates: ??Samples [...] revised on 2017. Urine 07/12/2024 2:41 PM YARD MOTOR OPERATOR 07/12/2024 3:54 PM YARD MOTOR OPERATOR Narrative [facility] (FRANCIS) - 07/12/2024 4:35 PM YARD MOTOR OPERATOR Drug of Abuse screening is performed by immunoassay for medical purposes only. ??This is not to be used for Pain Management purposes. us Jazzy Deng MD LAB URINE ORDERABLE S Final Result [facility] (FRANCIS) 1 [facility] Department of [employer] [place] [address] * Hepatitis B Surface Antigen Blood (07/12/2024 2:41 PM YARD MOTOR OPERATOR) [facility] HepBsAg Nonreactive Nonreactive Comment:Testing performed by : [facility], [address] [place] [address]., [id number] Blood 07/12/2024 2:41 PM YARD MOTOR OPERATOR 07/12/2024 9:22 PM YARD MOTOR OPERATOR Jazzy Deng MD LAB MICROBIOLOGY - GENERAL ORDERABLES Final Result Performing Organization Address [facility] Co de Phone Number [facility] (INTERLOCHEN) [address] [facility] [place] [place] [address] * Hepatitis C antibody Blood (07/12/2024 2:41 PM YARD MOTOR OPERATOR) [facility] Hep C Ab Nonreactive Nonreactive Comment: Interpretive [...] last revised on 2019. Testing performed by: [facility], [address] [place] [address]., [id number] Blood 07/12/2024 2:41 PM YARD MOTOR OPERATOR 07/12/2024 9:22 PM YARD MOTOR OPERATOR us Jazzy Deng MD LAB MICROBIOLOGY - GENERAL ORDERABLES Final Result Performing Organization Address City/[facility] Co de Phone Number [facility] (FRANCIS) 1 [facility] [place] [employer] [place] [address] * HIV 1/2 Antibody plus p24 Antigen Blood (07/12/2024 2:41 PM YARD MOTOR OPERATOR) [facility] HIV 1/2 ab + p24 ag Nonreactive Nonreactive Comment: Nonreactive for HIV-1 antigen and HIV-1/HIV-2 antibodies. No laboratory evidence of HIV infection. If acute HIV infection is suspected, consider testing for HIV-1 RNA. Testing performed by: [facility], [address] [place] [address]., [address] Blood 07/12/2024 2:41 PM YARD MOTOR OPERATOR 07/12/2024 9:22 PM YARD MOTOR OPERATOR Jazzy Deng MD LAB MICROBIOLOGY - GENERAL ORDERABLES Final Result [facility] (FRANCIS) [address] [facility] [employer] [place] [address] * RPR Blood (07/12/2024 2:41 PM YARD MOTOR OPERATOR) [facility] RPR Nonreactive Nonreactive Comment:Testing performed by : [facility], [address] [place] [address], [address] Blood 07/12/2024 2:41 PM YARD MOTOR OPERATOR 07/12/2024 9:22 PM YARD MOTOR OPERATOR Jazzy Deng MD LAB MICROBIOLOGY - GENERAL ORDERABLES Final Result Performing Organization Address City/[facility]/ZIP Co de Phone Number [facility] (FRANCIS) 1 [facility] [place] [address] * Rubella IgG antibody Blood (07/12/2024 2:41 PM YARD MOTOR OPERATOR) Pathologist [facility] Rubella IgG Reactive Comment: Reactive: Results suggest response to immunization or prior exposure to the virus. Testing performed by: [facility], [address] [place]., [address] Blood 07/12/2024 2:41 PM YARD MOTOR OPERATOR 07/12/2024 6:23 PM YARD MOTOR OPERATOR Jazzy Deng MD LAB MICROBIOLOGY - GENERAL ORDERABLES Final Result [facility] (FRANCIS) [address] [place] [address] * Varicella Zoster IgG antibody Blood (07/12/2024 2:41 PM YARD MOTOR OPERATOR) VZV IgG Reactive Reactive Comment: Reactive: Results suggest response to immunization or prior exposure to the virus. Testing performed by: [facility], [address] [place]., [address] Blood 07/12/2024 2:41 PM YARD MOTOR OPERATOR 07/12/2024 6:23 PM YARD MOTOR OPERATOR Jazzy Deng MD LAB MICROBIOLOGY - GENERAL ORDERABLES Final Result [facility] (INTERLOCHEN) 1 [place] [address] * (ABNORMAL) Vitamin D 25 hydroxy (07/12/2024 2:41 PM YARD MOTOR OPERATOR) Pathologist [facility] Vitamin D 25-OH 23(L) 30 - 80 ng/mL Blood 07/12/2024 2:41 PM YARD MOTOR OPERATOR 07/12/2024 3:53 PM YARD MOTOR OPERATOR Jazzy Deng MD LAB BLOOD ORDERABLE S Final Result [facility] (INTERLOCHEN) [address] [place] [address] * Urine culture Urine, clean voided (07/12/2024 2:41 PM YARD MOTOR OPERATOR) Pathologist [facility] Report Final Report: Less than 100,000 colonies/mL (clinically insignificant growth based on current clinical standards) Comment:Testing performed by : [facility], [address] [place]., [address] Organism (CLINICALLY INSIGNIFICANT GROWTH [facility] (FRANCIS) Urine, clean voided 07/12/2024 2:41 PM YARD MOTOR OPERATOR 07/12/2024 6:39 PM YARD MOTOR OPERATOR Narrative [facility] (FRANCIS) - 07/14/2024 7:49 AM YARD MOTOR OPERATOR Testing performed by [facility] Microbiology Laboratory ([phone]) Jazzy Deng MD LAB MICROBIOLOGY - GENERAL ORDERABLES Final Result [facility] (INTERLOCHEN) 1 [facility] Department [place] [address] * Pap with reflex to High Risk HPV and Genotyping (Cytology Component) (07/12/2024 10:07 AM YARD MOTOR OPERATOR) Thin prep (Pap test) 07/12/2024 10:07 AM YARD MOTOR OPERATOR 07/13/2024 10:07 AM YARD MOTOR OPERATOR Narrative PATHOLOGY CH - 07/15/2024 1:43 PM YARD MOTOR OPERATOR [facility] Department of Pathology [address] [place] [address] Final Report Note to Patients: This report [...] and explain the details. Patient Name: ??REED BURDICK Address: ??[address] [facility], ?? [place], [place] ??[address] Gender: ??F : ??1995 (Age: 29) Service: ?? Location: ?? Hospital #: ??[id number] Patient Type: ?? SPECIMEN Taken: ??07/12/2024 Received: ??07/13/2024 Accessioned:: ??07/14/2024 Reported: ??07/15/2024 Physician(s): Jazzy Deng M.D. Jazzy Deng M.D. Diagnosis: SOURCE OF SPECIMEN ? Imaged Thinprep Pap Test w/ Reflex HPV - Battery Service Technician Cytologic Material: STATEMENT OF ADEQUACY ?- Specimen satisfactory for interpretation; endocervical/transformation zone component absent or ?insufficient ? GENERAL CATEGORIZATION: ?- Negative for intraepithelial lesion or malignancy ? PRIETO Duffy(ASCP) Report Electronically Reviewed and Signed Out By ??PRIETO Duffy(ASCP) ??07/15/2024 13:43:31Specimen(s) Received: A: Imaged Thinprep Pap Test w/ Reflex HPV - Battery Service Technician Cytologic Material Clinical History: Last Menstrual Period: [...] determined by the Surgical Pathology Department at [facility] as part of an ongoing senior quality assurance engineer program and in compliance with federally mandated [...] characteristics determined by the Surgical Pathology Department [facility]. ??It has not been cleared or approved by the U. S. Food and Drug Administration. Jazzy Deng MD LAB CYTOLOGY [place] [address] [place] [address] * N. gonorrhoeae/C. trachomatis Amplification Thin prep-Endocervical (07/12/2024 10:00 AM YARD MOTOR OPERATOR) C. trachomatis Not Detected [facility] Comment: Collection date/time has been modified to: 10:00:00. ??Previous collection date/time: 10:00:00. Testing performed by: [facility], [address] [place] [address]., [address] N. gonorrhoeae Not Detected [facility] Comment: Collection date/time has been modified to: 10:00:00. ??Previous collection date/time: 10:00:00. Interpretive Data This assay detects Chlamydia trachomatis and Neisseria gonorrhoeae by nucleic acid amplification testing (NAAT). This assay has been cleared by the [place] Food and Drug administration. The performance characteristics of this test have been verified by the [facility] Molecular Infectious Disease laboratory. The performance characteristics of this test have not been evaluated in individuals less than 14 years of age. Current Interpretive Data was last revised on 2023. Testing performed by: [facility], [address] [place] [address]., [address] Thin prep-Endocervica l (None) 07/12/2024 10:00 AM YARD MOTOR OPERATOR 07/14/2024 2:41 PM YARD MOTOR OPERATOR us Jazzy Deng MD LAB MICROBI OLOGY - GENERAL ORDERABLES Edited Result - Final [facility] [address] [address] Department [place] [address] [facility] * ThinPrep processing (Molecular component) (07/12/2024 10:00 AM YARD MOTOR OPERATOR) ThinPrep processing (Molecular component) Specimen received for processing. [facility] Comment: Collection date/time has been modified to: 10:00:00. ??Previous collection date/time: 10:00:00. Testing performed by: [facility], [address] [place]., [address] Endocervical 07/12/2024 10:0 0 AM YARD MOTOR OPERATOR 07/14/2024 2:41 PM YARD MOTOR OPERATOR us Jazzy Deng MD LAB BODY FL UIDS AND STOOLS ORDERABLES Edited Result - Final ATA [address] [address] Department [place] [address] [facility] * Vaginitis panel Vaginal (07/12/2024 10:00 AM YARD MOTOR OPERATOR) Mitali DNA probe Not Detected Not Detected Comment: Collection date/time has been modified to: 10:00:00. ??Previous collection date/time: 14:46:00. Testing performed by: [facility], [address] [place] [address]., [address] Gardnerella DNA probe Not Detected Not Detected [facility] Comment: Collection date/time has been modified to: 10:00:00. ??Previous collection date/time: 14:46:00. Testing performed by: [facility], [address] [place] [address]., [address] Trichomonas DNA probe Not Detected Not Detected [facility] Comment: Collection date/time has been modified to: 10:00:00. ??Previous collection date/time: 14:46:00. Interpretive Data Testing performed by [facility] via Affirm VPIII Microbial Identification Test, a [...] last revised on 2020. Testing performed by: [facility], [address] [facility], [place]., [address] Vaginal 07/12/2024 10:0 0 AM YARD MOTOR OPERATOR 07/14/2024 2:33 PM YARD MOTOR OPERATOR us Jazzy Deng MD LAB MICROBI OLOGY - GENERAL ORDERABLES Edited Result - Final [facility] [address] [address] Department of Laboratories [place], [place] [id number] documented in this encounter Visit Diagnoses Diagnosis Encounter for supervision of other normal in first trimester- Primary Acute cystitis without hematuria Cholecystitis Cholecystitis, unspecified Mild intermittent asthma without complication Family history of cancer Family history of unspecified malignant neoplasm Vaginal discharge Leukorrhea, not specified as infective Pyelonephritis affecting in first trimester Encounter for supervision of other normal in first trimester Encounter for supervision of other normal in first trimester documented in this encounter Discontinued Medications Medication Sig Discontinue Reason Start Date End Da te Advair Diskus 100-50 mcg/dose diskus inhaler Inhale 1 puff 2 (two) times a day Therapy completed 11/07/2022 07/12/2024 albuterol HFA (PROVENTIL HFA,VENTOLIN HFA,PROAIR HFA) 90 mcg/actuation inhaler INHALE 2 PUFFS VIA SPACER EVERY 6 HRS FOR 1 WEEK, NEEDED UNTIL SYMPTOMS IMPROVE Therapy completed 10/15/2022 07/12/2024 calcium carbonate (CALCIUM 500 ORAL) Take by mouth Therapy completed 07/12/2024 cholecalciferol (Vitamin D3) 1,000 unit capsule Take 1 capsule (1,000 Units total) by mouth daily Therapy completed 07/12/2024 clindamycin (CLEOCIN) 300 mg capsule Take 1 capsule (300 mg total) by mouth 2 (two) times a day Therapy completed 05/23/2024 07/12/2024 docusate sodium (COLACE) 100 mg capsuleIndications:const ipation Take 1 capsule (100 mg total) by mouth 2 (two) times a day for 14 days Therapy completed 04/30/2023 07/12/2024 famotidine (PEPCID) 20 mg tablet Take 1 tablet (20 mg total) by mouth 2 (two) times a day Therapy completed 04/30/2023 07/12/2024 hyoscyamine (OSCIMIN) 0.125 mgIndications:Urinary Incontinence Take 1 tablet (125 mcg total) by mouth every 6 (six) hours as needed (hiccups. stomach spasm) for up to 7 days Therapy completed 04/30/2023 07/12/2024 progesterone (PROMETRIUM) 200 mg capsule Take 1 capsule (200 mg total) by mouth daily Therapy completed 05/16/2024 07/12/2024 documented as of this encounter Historical Medications * This list may reflect changes made after this encounter. cephalexin (KEFTAB) 500 mg tablet Take 1 tablet (500 mg total) by mouth every 8 (eight) hours 07/05/2024 added in this encounter Care Teams Traffic Maintenance Officer Relationship Specialty Start Date End Date Graciela Antoine PA [address] [place] [address] PCP - General Physician Document Management Specialist 11/07/22 Leonard Hunter MD [address] [place] [address] DR DO [address] [address] Director Of Marketing Obstetrics and Gynecology 01/12/20 documented as of this encounter
--- OUTSIDE RECORDS SUMMARY | 2024-08-05 00:57 | XMS_ITS | Encounter Summary ---
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 Patient is currently on an oral antibiotic for the UTI and an oral antibiotic that she takes on day 1, 3 and 7 for a yeast infection that is caused from the IV antibiotics she had while in the hospital. Patient states that urinalysis results showed she had a UTI, bu t both urine cultures were negative. She is also being told that she will need to have her gallbladder removed at some point due to gallstones and goes for an appointment 07/11/24 and is told they will tell her when that will need to be at that time. Patient states they did 2 ultrasounds of the baby while there and that everything looked good with the . I asked if patient was still taking the oral progesterone due to her history of loss and she said she stopped that back when the cramping for the UTI started, thinking it was from the progesterone. She stated the Hospital told here her levels looked fine though. Patient's [place] records have been scanned into patients chart and I will make Dr. Deng aware as patient has her initial OB appt. With Dr. Deng on Thursday07/12/2024 at [address] pm[address] Patient prefers tosee Dr. Deng for her initial visit due to her history. DAVONTE Berg, RN S REPRESENTATIVE GAS SERVICE documented in this encounter Plan of Treatment Not on file documented as of this encounter Visit Diagnoses Not on filedocumented in this encounter Care Teams Glass Beveller Relationship Specialty Start Date End Date Graciela Antoine PA [address] [place] [id number] PCP - General Physician Wage And Salary Administrator 11/07/22 Leonard Hunter MD [address] [place] [address] DR DO [address] [address] Airline Lounge Receptionist Obstetrics and Gynecology 01/12/20 documented as of this encounter
--- OUTSIDE RECORDS SUMMARY | 2024-08-05 00:57 | XMS_ITS | Encounter Summary ---
Author Organization [facility] Healthcare Address [address] [place] [address] Care Team Providers Care Banking Services Clerk Name Role Phone Leonard Hunter MD Unavailable + [phone] Graciela Antoine Primary Care Provider Reason for Visit * Reason Comments Ketone check Encounter Details Date Type Department Care Team (Latest Contact Info) Description 06/17/2024 10:00 AM SURGICAL INSTRUMENT MECHANIC Clinical Support [facility] Medical Group [facility]'s [facility] Care at [address] [phone] Encounter for supervision of other normal in first trimester (Primary Dx) Social History Tobacco Use Types Packs/Day Years [...] on file Legal Sex Female 3:31 AM SURGICAL INSTRUMENT MECHANIC Gender Identity Not on file Sexual Orientation Not on file 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 file Not on file Not on file documented as of this encounter Last Filed Vital Signs Vital Sign Reading Time Taken Comments Blood Pressure 110/62 06/17/2024 10:30 AM SURGICAL INSTRUMENT MECHANIC Pulse - - Temperature - - Respiratory Rate - - Oxygen Saturation - - Inhaled Oxygen Concentration - - Weight 90.3 kg (199 lb) 06/17/2024 10:30 AM SURGICAL INSTRUMENT MECHANIC Height 154.9 cm (5' 1 ) 06/17/2024 10:30 AM SURGICAL INSTRUMENT MECHANIC Body Mass Index 37.6 06/17/2024 10:30 AM SURGICAL INSTRUMENT MECHANIC documented in this encounter Progress Notes * Tea Shore MA - 06/17/2024 10:00 AM CST Pt here for urine dip to check ketones-Negative. She states she is feeling fine, but tired. She states she stopped taking her Progesterone last because she thought it was causing dizziness and nausea. ICAL INSTRUMENT MECHANIC documented in this encounter Plan of Treatment Not on file documented as of this encounter Procedures Procedure Name Priority Date/Time Associated Diagnosis Comments POCT OB URINE SHORT DIP (GLUCOSE, PROTEIN, KETONES) Routine 06/17/2024 10:31 AM SURGICAL INSTRUMENT MECHANIC Encounter for supervision of other normal in first trimester documented in this encounter Results * POCT OB urine short dip (glucose, protein, ketones) (06/17/2024 10:31 AM SURGICAL INSTRUMENT MECHANIC) Glucose, ur, POC Negative Negative MG/DL Protein, ur, POC Negative Negative Ketones, ur, POC Negative Negative Lot Number 0 Urine 06/17/2024 10:3 1 AM SURGICAL INSTRUMENT MECHANIC Jazzy Deng MD POINT OF CARE TEST ORDERABLES Final Result documented in this encounter Visit Diagnoses Diagnosis Encounter for supervision of other normal in first trimester- Primary documented in this encounter Care Teams Banking Services Clerk Relationship Specialty Start Date End Date Graciela Antoine PA [address] [place] [address] PCP - General Physician Transfer Agent 11/07/22 Leonard Hunter MD [address] [place] [address] DR DO [address] [address] Carton Stapler Obstetrics and Gynecology 01/12/20 documented as of this encounter
--- OUTSIDE RECORDS SUMMARY | 2024-08-05 00:57 | XMS_ITS | Encounter Summary ---
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 Not on file Not on file documented as of this encounter Medications at Time of Discharge cephalexin (KEFTAB) 500 mg tablet Take 1 tablet (500 mg total) by mouth every 8 (eight) hours 07/05/2024 vit 13-ygnv-wcshx-dha 27mg iron- 800 mcg-250 mg capsule Take by mouth documented as of this encounter Discharge Disposition Disposition Code Departure Means Destination Discharge to home or self care documented in this encounter Plan of Treatment Not on file documented as of this encounter Procedures Procedure Name Priority Date/Time Associated Diagnosis Comments PAP WITH REFLEX TO HIGH RISK HPV Routine 07/12/2024 10:07 AM ROLL SETTER Encounter for supervision of other normal in first trimester THINPREP PROCESSING (MOLECULAR COMPONENT) Routine 07/12/2024 10:00 AM ROLL SETTER Encounter for supervision of other normal in first trimester N. GONORRHOEAE/C. TRACHOMATIS AMPLIFICATION Routine 07/12/2024 10:00 AM ROLL SETTER Encounter for supervision of other normal in first trimester documented in this encounter Results * Pap with reflex to High Risk HPV and Genotyping (Cytology Component) (07/12/2024 10:07 AM ROLL SETTER) Thin prep (Pap test) 07/12/2024 10:07 AM ROLL SETTER 07/13/2024 10:07 AM ROLL SETTER Narrative PATHOLOGY - 07/15/2024 1:43 PM ROLL SETTER [facility] Department of Pathology [address] [place] [address] Final Report Note to Patients: This report [...] the details. Patient Name: ??REED BURDICK Address: ??[address] [place] [address], ?? [place], [place] ??[address] Gender: ??F : ??1995 (Age: 29) Service: ?? Location: ?? Hospital #: ??[id number] Patient Type: ?? SPECIMEN Taken: ??07/12/2024 Received: ??07/13/2024 Accessioned:: ??07/14/2024 Reported: ??07/15/2024 Physician(s): Jazzy Deng M.D. Jazzy Deng M.D. Diagnosis: SOURCE OF SPECIMEN ? Imaged Thinprep Pap Test w/ Reflex HPV - Special Education Classroom Aide Cytologic Material: STATEMENT OF ADEQUACY ?- Specimen satisfactory for interpretation; endocervical/transformation zone component absent or ?insufficient ? GENERAL CATEGORIZATION: ?- Negative for intraepithelial lesion or malignancy ? PRIETO Duffy(ASCP) Report Electronically Reviewed and Signed Out By ??PRIETO Duffy(ASCP) ??07/15/2024 13:43:31Specimen(s) Received: A: Imaged Thinprep Pap Test w/ Reflex HPV - Special Education Classroom Aide Cytologic Material Clinical History: Last Menstrual Period: [...] determined by the Surgical Pathology Department at [facility] as part of an ongoing quality improvement engineer program and in compliance with federally [...] characteristics determined by the Surgical Pathology Department [facility]. ??It has not been cleared or approved by the U. S. Food and Drug Administration. Jazzy Deng MD LAB CYTOLOGY ORDERA LIANET Final Result PATHOLOGY [address] [place] [address] * ThinPrep processing (Molecular component) (07/12/2024 10:00 AM ROLL SETTER) ThinPrep processing (Molecular component) Specimen received for processing. [facility] Comment: Collection date/time has been modified to: 10:00:00. ??Previous collection date/time: 10:00:00. Testing performed by: [facility], [address] [place]., [address] Endocervical 07/12/2024 10:0 0 AM ROLL SETTER 07/14/2024 2:41 PM ROLL SETTER Jazzy Dneg MD LAB BODY FL UIDS AND STOOLS ORDERABLES Edited Result - Final ATA [address] [address] Department [place] [address] [facility] * N. gonorrhoeae/C. trachomatis Amplification Thin prep-Endocervical (07/12/2024 10:00 AM ROLL SETTER) C. trachomatis Not Detected [facility] Comment: Collection date/time has been modified to: 10:00:00. ??Previous collection date/time: 10:00:00. Testing performed by: [facility], [address] [place] [address]., [address] N. gonorrhoeae Not Detected [facility] Comment: Collection date/time has been modified to: 10:00:00. ??Previous collection date/time: 10:00:00. Interpretive Data This assay detects Chlamydia trachomatis and Neisseria gonorrhoeae by nucleic acid amplification testing (NAAT). This assay has been cleared by the [place] Food and Drug administration. The performance characteristics of this test have been verified by the [facility] Molecular Infectious Disease laboratory. The performance characteristics of this test have not been evaluated in individuals less than 14 years of age. Current Interpretive Data was last revised on 2023. Testing performed by: [facility], [address] [place]., [address] Thin prep-Endocervica l (None) 07/12/2024 10:00 AM ROLL SETTER 07/14/2024 2:41 PM ROLL SETTER us Jazzy Deng MD LAB MICROBI OLOGY - GENERAL ORDERABLES Edited Result - Final [facility] [address] [address] Department of Laboratories [place], [place] [id number] [facility] documented in this encounter Visit Diagnoses Diagnosis Encounter for supervision of other normal in first trimester documented in this encounter Care Teams License Inspector Relationship Specialty Start Date End Date Graciela Antoine PA [address] [place] [address] PCP - General Physician Emergency Department Rn 11/07/22 Leonard Hunter MD [address] [place] [address] DR DO [address] [address] Web Consultant Obstetrics and Gynecology 01/12/20 documented as of this encounter
--- OUTSIDE RECORDS SUMMARY | 2024-08-05 00:57 | XMS_ITS | Encounter Summary ---
Author Organization [facility] Healthcare Address [address] [place] [address] Care Team Providers Care Waiter/Waitress Formal Name Role Phone Leonard Hunter MD Unavailable + [phone] Graciela Antoine Primary Care Provider Reason for Visit * Reason Onset Date Comments Test Results 05/23/2024 Encounter Details Date Type Department Care Team (Late st Contact Info) Description 05/23/2024 Telephone [facility] [address] [place] [address] [address] [place] [address] Litzy Moser NP [address] [place] [address] Test Results Social History Tobacco Use [...] on file Legal Sex Female 3:31 AM TRANSPLANTER ORCHID Gender Identity Not on file Sexual Orientation Not on file 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 States she finished the cream last night. RX pend/send. * Telephone Encounter - Tea Shore MA - 05/23/2024 2:15 PM CDT ----- Message from Litzy Moser NP sent at 05/23/2024 1:40 PM CDT ----- Please let Morenita know swab is positive for yeast and bacterial vaginosis. She should be finishing up terazol cream for the yeast. Let's please send in clindamycin 300 po bid x 7 days. Thanks! [facility] documented in this encounter Plan of Treatment Not on file documented as of this encounter Visit Diagnoses Not on filedocumented in this encounter Care Teams Waiter/Waitress Formal Relationship Specialty Start Date End Date Graciela Antoine PA [address] [place] [address] PCP - General Physician Android Software Engineer 11/07/22 Leonard Hunter MD [address] [facility] [address] DO B [facility] [address] [place] [address] Vacuum Worker Obstetrics and Gynecology 01/12/20 documented as of this encounter
--- OUTSIDE RECORDS SUMMARY | 2024-08-05 00:57 | XMS_ITS | Encounter Summary ---
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 Not on file Not on file documented as of this encounter Plan of Treatment Not on file documented as of this encounter Procedures Procedure Name Priority Date/Time Associated Diagnosis Comments PROGESTERONE Routine 05/12/2024 9:29 AM CDT Missed period HCG, BLOOD, QUANTITATIVE Routine 05/12/2024 9:29 AM CDT Missed period documented in this encounter Results * (ABNORMAL) hCG, blood, quantitative (05/12/2024 9:29 [...] 9:29 AM CDT 05/12/2024 10:38 AM CDT us Jazzy Deng MD LAB BLOOD ORDERABLE S Edited Result - Final [facility] [place]) 1 [facility] Department [place] [address] * Progesterone (05/12/2024 9:29 AM CDT) Progesterone 7.34 ng/mL Comment: Interpretive Data Males: ?<0.15 ng/mL Females: ??Follicular ?<0.20 ng/mL ??Ovulation ? <4.1 ng/mL ??Luteal ?4.1 - ??14.5 ng/mL ??1st Trimester ?? 11.0 - ??44.0 ng/mL ??2nd Trimester ?? 25.0 - ??83.0 ng/mL ??3rd Trimester ?? 59.0 - 214.0 ng/mL ??Postmenopausal ??<0.13 ng/mL Current interpretive data was last revised 2021. Testing performed by: [facility], [address] [place] [address] Blood 05/12/2024 9:29 AM CDT 05/12/2024 2:11 PM CDT us Jazzy Deng MD LAB BLOOD ORDERABLE S Final Result [facility] 1 [facility] Department [place] [address] documented in this encounter Visit Diagnoses Diagnosis Missed period documented in this encounter Care Teams Salvage Machine Operator Relationship Specialty Start Date End Date Graciela Antoine PA [address] [place] [address] PCP - General Physician Drop Board Man 11/07/22 Leonard Hunter MD [address] [place] [address] DR DO B [address] [address] Carpenter Mate Obstetrics and Gynecology 01/12/20 documented as of this encounter
--- OUTSIDE RECORDS SUMMARY | 2024-08-05 00:57 | XMS_ITS | Encounter Summary ---
Author Organization [facility] Healthcare Address [address] [place] [address] Care Team Providers Care Electric Range Assembler Name Role Phone Leonard Hunter MD Unavailable + [phone] Graciela Antoine Primary Care Provider Encounter Details Date Type Department Care Team (Latest Contact Info) Description 06/17/2024 1:22 PM PRINTED CIRCUIT BOARD ASSEMBLY REPAIRER - 06/17/2024 11:59 PM PRINTED CIRCUIT BOARD ASSEMBLY REPAIRER Hospital Encounter [facility] [address] [place] [address] Dizziness Discharge Disposition: Discharge to home or [...] on file Legal Sex Female 3:31 AM PRINTED CIRCUIT BOARD ASSEMBLY REPAIRER Gender Identity Not on file Sexual Orientation Not on file 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 Not on file Not on file documented as of this encounter Medications at Time of Discharge vit 38-liqx-ezwkh-dha 27mg iron- 800 mcg-250 mg capsule Take by mouth Advair Diskus 100-50 mcg/dose diskus inhaler Inhale [...] (1,000 Units total) by mouth daily 4 clindamycin (CLEOCIN) 300 mg capsule Take 1 capsule (300 mg total) by mouth 2 (two) times a day 14 capsule 05/23/2024 4 docusate sodium (COLACE) 100 mg capsuleIndications [...] Priority Date/Time Associated Diagnosis Comments PROGESTERONE Routine 06/17/2024 9:40 AM PRINTED CIRCUIT BOARD ASSEMBLY REPAIRER Dizziness HEMOGLOBIN A1C Routine 06/17/2024 9:40 AM PRINTED CIRCUIT BOARD ASSEMBLY REPAIRER Dizziness documented in this encounter Results * Hemoglobin A1c (06/17/2024 9:40 AM PRINTED CIRCUIT BOARD ASSEMBLY REPAIRER) Hgb A1C 5.0 4.0 - 5.6 % Estimated Average Glucose 97 mg/dL [facility] Comment: The ADA recommends reporting an estimated Average Glucose (eAG) with all Hemoglobin A1c results using the equation derived from a study of 507 normal and diabetic adults. ??Minority populations were underrepresented and children were not included. ?? (Diabetes Care 31:2370-5109, 2008). ??The eAG is not equivalent to a fasting glucose. Blood 06/17/2024 9:40 AM PRINTED CIRCUIT BOARD ASSEMBLY REPAIRER 06/17/2024 7:18 PM PRINTED CIRCUIT BOARD ASSEMBLY REPAIRER us Jazzy Deng MD LAB BLOOD ORDERABLE S Final Result [facility] [address] [address] Department [place] [address] * Progesterone (06/17/2024 9:40 AM PRINTED CIRCUIT BOARD ASSEMBLY REPAIRER) Progesterone 14.60 ng/mL Comment: Interpretive Data Males: ?<0.15 ng/mL Females: ??Follicular ?<0.20 ng/mL ??Ovulation ? <4.1 ng/mL ??Luteal ?4.1 - ??14.5 ng/mL ??1st Trimester ?? 11.0 - ??44.0 ng/mL ??2nd Trimester ?? 25.0 - ??83.0 ng/mL ??3rd Trimester ?? 59.0 - 214.0 ng/mL ??Postmenopausal ??<0.13 ng/mL Current interpretive data was last revised 2021. Testing performed by: [facility], 1 [facility], [place]., [address] Blood 06/17/2024 9:4 0 AM PRINTED CIRCUIT BOARD ASSEMBLY REPAIRER 06/20/2024 9:32 AM PRINTED CIRCUIT BOARD ASSEMBLY REPAIRER us Jazzy Deng MD LAB BLOOD ORDERABLE S Final Result Performing Organization Address City/State/[facility] [place] Phone Number ATA [address] [address] Department [place] [address] documented in this encounter Visit Diagnoses Diagnosis Dizziness Dizziness and giddiness documented in this encounter Care Teams Electric Range Assembler Relationship Specialty Start Date End Date Graciela Antoine PA [address] [place] [address] PCP - General Physician Photo Equipment Technician 11/07/22 Leonard Hunter MD [address] [place] [address] [address] [address] Business Services Associate Obstetrics and Gynecology 01/12/20 documented as of this encounter
--- OUTSIDE RECORDS SUMMARY | 2024-08-05 00:58 | XMS_ITS | Encounter Summary ---
Author Organization [facility] Healthcare Address [address] [place] [address] Care Team Providers Care Land Commissioner Name Role Phone Leonard Hunter MD Unavailable + [phone] Graciela Antoine Primary Care Provider Reason for Visit * Reason Comments Nurse Visit Confirmati on Encounter Details Date Type Department Care Team (Latest Contact Info) Description 05/12/2024 9:00 AM CDT Clinical Support [address] [address] Missed period (Primary Dx) Social History Tobacco Use Types [...] on file Legal Sex Female 3:31 AM LEARNING AND DEVELOPMENT DIRECTOR Gender Identity Not on file Sexual Orientation Not on file 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 POCT HCG Negative. Pt has hx is recurrent SAB. Order sent for blood work, HCG and Progesterone levels. Will await results. documented in this encounter Plan of Treatment Not on file documented as of this encounter Procedures Procedure Name Priority Date/Time Associated Diagnosis Comments POCT HCG, URINE Routine 05/12/2024 9:31 AM CDT Missed period documented in this encounter Results * POCT hCG, urine (05/12/2024 9:31 AM [...] was last revised 2021. Testing performed by: [facility], 1 [facility], [place]., [address] Blood 05/12/2024 9:29 AM CDT 05/12/2024 2:11 PM CDT Jazzy Deng MD LAB BLOOD ORDERABLE S Final Result Performing Organization Address [facility] Co [place] Phone Number [facility]) 1 [facility] [place] [address] * (ABNORMAL) hCG, blood, quantitative (05/12/2024 9:29 [...] ORDERABLE S Edited Result - Final [facility] 1 [facility] [place] [address] documented in this encounter Visit Diagnoses Diagnosis Missed period- Primary documented in this encounter Care Teams Land Commissioner Relationship Specialty Start Date End Date Graciela Antoine PA [address] [place] [address] PCP - General Physician Data Sme 11/07/22 Leonard Hunter MD [address] [facility] [place] [address] High School Academic Coach Obstetrics and Gynecology 01/12/20 documented as of this encounter
--- OUTSIDE RECORDS SUMMARY | 2024-08-05 00:58 | XMS_ITS | Encounter Summary ---
Author Organization [facility] Healthcare Address [address] [place] [address] Care Team Providers Care General Internal Medicine Doctor Name Role Phone Leonard Hunter MD Unavailable [phone] Graciela Antoine Primary Care Provider Encounter Details Date Type Department Care Team (Late st Contact Info) Description 04/30/2023 Documentation [facility] Warm Hand Off Program [address] [place], [place] [phone] Zena Gottlieb LCSW Social History Tobacco Use Types Packs/Day Years Used Date Smoking Tobacco: Former Cigarettes 0.5 9.5 2 014 - 02/05/2023 Smokeless Tobacco: Never Comments:Smoking History Pac ks/day: [...] making you feel afraid or unsafe? 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 Pt was sleeping and SW did not want to disturb her. documented in this encounter Plan of Treatment Not on file documented as of this encounter Visit Diagnoses Not on filedocumented in this encounter Care Teams General Internal Medicine Doctor Relationship Specialty Start Date End Date Graciela Antoine PA [address] [place] [address] PCP - General Physician Glycerin Operator 11/07/22 Leonard Hunter MD [address] [place] [address] DR DO [address] [address] Back Sewer Obstetrics and Gynecology 01/12/20 documented as of this encounter
--- OUTSIDE RECORDS SUMMARY | 2024-08-05 00:58 | XMS_ITS | Encounter Summary ---
Author Organization [facility] Healthcare Address [address] [place] [address] Care Team Providers Care Staff Physician Name Role Phone Leonard Hunter MD Unavailable [phone] Graciela Antoine Primary Care Provider Encounter Details Date Type Department Care Team (Late st Contact Info) Description 09/15/2023 Telephone [facility] [address] [facility] [address] [place] [address] Luis Foster, RN Social History Tobacco Use Types Packs/Day Years [...] on file Legal Sex Female 3:31 AM DIRECTOR PRIVATE Gender Identity Not on file Sexual Orientation Not on file 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 So she would be unable to come in at all until October. She states she will call closer to the time to schedule an appointment. CTOR PRIVATE * Telephone Encounter - Luis Foster RN - 09/15/2023 8:29 AM DIRECTOR PRIVATE ----- Message from Tirso Toledo MD sent at 09/14/2023 10:29 AM DIRECTOR PRIVATE ----- Regarding: RE: Issues I will order some labs and see if Susan can maybe swing by on a Thursday ----- Message ----- From: Luis Foster RN Sent: 09/14/2023 9:26 AM DIRECTOR PRIVATE To: Tirso Toledo MD Subject: Issues Pt called today insisting she needs to be seen because she is having issues but states she can onlytake off work on Fridays and that is the only day she can come in. Explained to her that we do not have clinic hours on Fridays but she says she started a [place] and she cannot request leave while she is on her probationary period. She again insists Thursday is the only day she can come in. Probationary period apparently lasts until approx 10/13. She states her hair is falling out, she keeps feeling like she is going to pass out and her visiongoes white . She states her current weight is 224 lb. Her last weight with us in June was 276 lb. She insists she is getting enough fluids and eating all the things she is supposed to eat. What would you like me to tell her? CTOR PRIVATE documented in this encounter Plan of Treatment Not on file documented as of this encounter Visit Diagnoses Not on filedocumented in this encounter Care Teams Staff Physician Relationship Specialty Start Date End Date Graciela Antoine PA [address] [place] [address] PCP - General Physician Irrigation Equipment Remover 11/07/22 Leonard Hunter MD [address] [place] [address] DR DO [address] [address] Respiratory Manager Obstetrics and Gynecology 01/12/20 documented as of this encounter
--- OUTSIDE RECORDS SUMMARY | 2024-08-05 00:58 | XMS_ITS | Encounter Summary ---
Author Organization [facility] Healthcare Address [address] [place] [address] Care Team Providers Care Cook Frozen Dessert Name Role Phone Leonard Hunter MD Unavailable [phone] Graciela Antoine Primary Care Provider Reason for Visit * Reason Comments Post-op PO - Sleeve 04/29 Encounter Details Date Type Department Care Team (Late st Contact Info) Description 05/07/2023 9:50 AM CDT Office Visit [address] [place] [phone] Tirso Toledo MD [address] [place] [address] [address] [place] [address] S/P gastrectomy (Primary Dx) Social History Tobacco Use Types Packs/Day Years Used Date Smoking Tobacco: Former Cigarettes 0.5 9.5 2 014 - 02/05/2023 Smokeless Tobacco: Never Tobacco Cessation:Counseling Given: Not Answered Comments:Smoking History Packs/day: 0.25 [...] on file Legal 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 Gender Identity Not on file Sexual Orientation Not on file 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 file Not on file Not on file documented as of this encounter Last Filed Vital Signs Vital Sign Reading Time Taken Comments Blood Pressure 101/66 05/07/2023 10:14 AM CDT Pulse 95 05/07/2023 10:14 AM CDT Temperature 36.1 ??C (96.9 ??F) 05/07/2023 1 0:14 AM CDT Respiratory Rate - - Oxygen Saturation 97% 05/07/2023 10: 14 AM CDT Inhaled Oxygen Concentration - - Weight 129.8 kg (286 lb 3.2 oz) 023 10:14 AM CDT Height 157.5 cm (5' 2 ) 05/07/2023 10:1 4 AM CDT Body Mass Index 52.35 05/07/2023 10:14 AM CDT documented in this encounter Progress Notes * Tirso Toledo MD - 05/07/2023 9:50 AM CDT Images from the original note were not included. Post Op Note Subjective: Patient Name: Morenita Burdick Date of Visit: 05/07/23 HPI: No complaints since discharge. Denies any significant abdominal pain. Tolerating her diet. Doing well with bowel function Chief Complaint: Post-op (PO - Sleeve 04/29) Objective: Vitals BP 101/66 (BP Location: Right arm, Patient Position: Sitting) Pulse 95 Temp 36.1 ??C (96.9 ??F) Ht 157.5 cm (5' 2 ) Wt 129.8 kg (286 lb 3.2 oz) SpO2 97% BMI 52.35 kg/m?? Physical Exam Incisions clean, dry and intact Assessment/Plan Diagnoses and all orders for this visit: S/P gastrectomy (Primary) Assessment & Plan: Continue to advance diet as laid out in post bariatric handout. Avoid heavy lifting for another fewweeks. Encourage protein and fluid intake. Bowel regimen as needed to avoid straining. We will see her back at 1 month. She will call sooner if anything changes 10:34 AM 05/07/2023 documented in this encounter Miscellaneous Notes * Assessment & Plan Note - Tirso Toledo MD - 05/07/2023 10:34 AM CDTAssociated Problem(s): S/P gastrectomy (Resolved 07/12/2024) Continue to advance diet as laid out in post bariatric handout. Avoid heavy lifting for another fewweeks. Encourage protein and fluid intake. Bowel regimen as needed to avoid straining. We will see her back at 1 month. She will call sooner if anything changes documented in this encounter Plan of Treatment Not on file documented as of this encounter Visit Diagnoses Diagnosis S/P gastrectomy- Primary Other postprocedural status documented in this encounter Care Teams Cook Frozen Dessert Relationship Specialty Start Date End Date Graciela Antoine PA [address] [place] [address] PCP - General Physician Maintenance Job Titles 11/07/22 Leonard Hunter MD [address] [place] [address] DR DO [address] [address] Scientist Engineer Obstetrics and Gynecology 01/12/20 documented as of this encounter
--- OUTSIDE RECORDS SUMMARY | 2024-08-05 00:58 | XMS_ITS | Encounter Summary ---
Author Organization [facility] Address [address] [facility] [address] [place] [address] Care Team Providers Care Assembly Line Upholsterer Name Role Phone Leonard Hunter MD Unavailable [phone] Graciela Antoine Primary Care Provider Encounter Details Date Type Department Care Team (Late st Contact Info) Description 04/22/2023 Telephone [facility] [address] [facility] [address] [place] [address] Tirso Toledo MD [address] [place] [address] [address] [place] [address] Social History Tobacco Use Types Packs/Day Years Used Date Smoking Tobacco: Former Cigarettes 0.5 9.5 2 014 - 02/05/2023 Smokeless Tobacco: Never Comments:Smoking History Pac ks/day: 0.25 Packs Alcohol Use Standard Drinks/Week Comments Yes 0 (1 standard drink = 0.6 oz pur e alcohol) rarely AUDIT-C Answer Date Recorded Q1: How often do you have a drink containing alcohol? Monthly or less 04/21/2023 Q2: How many drinks containi ng alcohol do you have on a typical day when you are drinking? Patient does not drink Q3: How often do you have si x or more drinks on one occasion? 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 She is saying that if the medication is going to delay her surgery she will hold off on taken it but would like to know if she could use oral gel. documented in this encounter Plan of Treatment Not on file documented as of this encounter Visit Diagnoses Not on filedocumented in this encounter Care Teams Assembly Line Upholsterer Relationship Specialty Start Date End Date Graciela Antoine PA [address] [place] [address] PCP - General Physician Lock Master 11/07/22 Leonard Hunter MD [address] [place] [address] DR DO [address] [address] Lightning Rod Erector Obstetrics and Gynecology 01/12/20 documented as of this encounter
--- OUTSIDE RECORDS SUMMARY | 2024-08-05 00:58 | XMS_ITS | Encounter Summary ---
Author Organization [facility] Healthcare Address [address] [place] [address] Care Team Providers Care Race Steward Name Role Phone Leonard Hunter MD Unavailable [phone] Graciela Antoine Primary Care Provider Encounter Details Date Type Department Care Team (Late st Contact Info) Description 04/09/2023 9:40 AM CDT [address] [address] Morbid obesity (HCC) Social History Tobacco Use Types Packs/Day Years Used Date Smoking Tobacco: Former Cigarettes 0.5 9.5 2 014 - 02/05/2023 Smokeless Tobacco: Never Comments:Smoking History Pac ks/day: 0.25 Packs Alcohol Use Standard Drinks/Week Comments Yes 0 (1 standard drink = 0.6 oz pur e alcohol) rarely AUDIT-C Answer Date Recorded Q1: How often do you have a drink containing alc ohol? Monthly or less 03/23/2023 Q2: How many drinks containi ng alcohol do you have on a typical day when you are drinking? 1 or 2 03/23/2023 Q3: How often do you have si x or more drinks on one occasion? 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 Not on file Not on file documented as of this encounter Plan of Treatment Not on file documented as of this encounter Procedures Procedure Name Priority Date/Time Associated Diagnosis Comments THYROID FUNCTION CASCADE Routine 04/09/2023 9:50 AM CDT Morbid obesity (HCC) VITAMIN D 25 HYDROXY Routine 04/09/2023 9:50 AM CDT Morbid obesity (HCC) HEMOGLOBIN A1C Routine 04/09/2023 9:50 AM CDT Morbid obesity (HCC) FOLATE Routine 04/09/2023 9:50 AM CDT Morbid obesity (HCC) FERRITIN Routine 04/09/2023 9:50 AM CDT Morbid obesity (HCC) VITAMIN B12 Routine 04/09/2023 9:50 AM CDT Morbid obesity (HCC) LIPID PANEL Routine 04/09/2023 9:50 AM CDT Morbid obesity (HCC) documented in this encounter Results * Ferritin (04/09/2023 9:50 AM CDT) Ferritin 115 15 - 150 ng/mL [facility] ([place]) Blood 04/09/2023 9:50 AM CDT 04/09/2023 10:24 AM CDT us Tirso Toledo MD LAB BLOOD ORDERA BLES Final Result [facility] ([place]) 1 [facility] Department [place] [address] * TSH reflex to free T4 (04/09/2023 9:50 AM CDT) TSH 2.27 0.30 - 4.20 mcIUnit/mL [facility] ([place]) Blood 04/09/2023 9:50 AM CDT 04/09/2023 10:24 AM CDT Tirso Toledo MD LAB BLOOD ORDERA BLES Final Result Performing Organization Address City/[facility] Co de Phone Number [facility] ([place]) [address] [place] [address] * Folate (04/09/2023 9:50 AM CDT) Folic acid 12.4 >=5.0 ng/mL [facility]) Comment:Slightly Hemolyzed S pecimen. Results may be affected. Blood 04/09/2023 9:50 AM CDT 04/09/2023 10:24 AM CDT Tirso Toledo MD LAB BLOOD ORDERA BLES Final Result Performing Organization Address [facility] de Phone Number [facility] ([place]) [address] [place] [address] * Hemoglobin A1c (04/09/2023 9:50 AM CDT) Pathologist [facility] Hgb A1C 5.2 4.0 - 5.6 % [facility] Estimated Average Glucose 103 mg/dL [facility] ([place]) Comment: The ADA recommends reporting an estimated Average Glucose (eAG) with all Hemoglobin A1c results using the equation derived from a study of 507 normal and diabetic adults. ??Minority populations were underrepresented and children were not included. ?? (Diabetes Care 31:4093-2350, 2008). ??The eAG is not equivalent to a fasting glucose. Blood 04/09/2023 9:50 AM CDT 04/09/2023 10:24 AM CDT Tirso Toledo MD LAB BLOOD ORDERA BLES Final Result Performing Organization Address [facility] Co de Phone Number [facility] ([place]) 1 [place] [address] * (ABNORMAL) Lipid panel (04/09/2023 9:50 AM CDT) Pathologist [facility] Cholesterol 141 30 - 199 mg/dL [facility] ([place]) Comment: Interpretive Data Ages < or = 19 years ??Acceptable: ? <170 mg/dL ??Borderline high: ??170-199 mg/dL ??High: ? >or= 200 mg/dL Ages > or = 20 years ??Desirable: ?<200 mg/dL ??Borderline high: ??200-239 mg/dL ??High: ? >or= 240 mg/dL Literature References: 1. Expert Panel on Integrated Guidelines for Cardiovascular Health and Risk Reduction in Children and Adolescents. Pediatrics 2011;128:S213 2. NCEP Expert Panel. Circulation 2004;110:227 Current Interpretive Data was last revised on 2018. Triglycerides 183(H) <=149 mg/dL [facility] ([place]) Comment: Interpretive Data Ages < or = 9 years ??Acceptable: ? <75 mg/dL ??Borderline high: ??75-99 mg/dL ??High: ? >or= 100 mg/dL Ages 10 to 20 years ??Acceptable: ? <90 mg/dL ??Borderline high: ??90-129 mg/dL ??High: ? >or= 130 mg/dL Ages > or = 20 years ??Desirable: ?<150 mg/dL ??Borderline high: ??150-199 mg/dL ??High: ? 200-499 mg/dL ?Very high: ?? >or= 499 mg/dL Literature References: 1. Expert Panel on Integrated Guidelines for Cardiovascular Health and Risk Reduction in Children and Adolescents. Pediatrics 2011;128:S213 2. NCEP Expert Panel. Circulation 2004;110:227 Current Interpretive Data was last revised on 2018. HDL 35(L) >=40 mg/dL [facility] ([place]) Comment: Interpretive Data Ages < or = 19 years ??Acceptable: ? >45 mg/dL ??Borderline low: ?? 40-45 mg/dL ??Low: ? <40 mg/dL Ages > or = 20 years ??Desirable: ?>or= 60 mg/dL ??Low: ? <40 mg/dL Literature References: 1. Expert Panel on Integrated Guidelines for Cardiovascular Health and Risk Reduction in Children and Adolescents. Pediatrics 2011;128:S213 2. NCEP Expert Panel. Circulation 2004;110:227 Current Interpretive Data was last revised on 2018. LDL, calculated 69 <=129 mg/dL [facility] ([place]) Comment: Interpretive Data Ages < or = 19 years ??Acceptable: ? <110 mg/dL ??Borderline high: ??110-129 mg/dL ??High: ?>or= 130 mg/dL Ages > or = 20 years ??Optimal: ? <100 mg/dL ??Near optimal: ?100-129 mg/dL ??Borderline high: ?? 130-159 mg/dL ??High: ?>160 mg/dL Literature References: 1. Expert Panel on Integrated Guidelines for Cardiovascular Health and Risk Reduction in Children and Adolescents. Pediatrics 2011;128:S213 2. NCEP Expert Panel. Circulation 2004;110:227 Current Interpretive Data was last revised on 2018. Non-HDL Cholesterol 106 mg/dL [facility] ([place]) Comment: Interpretive Data Ages < or = 19 years ??Acceptable: ?<120 mg/dL ??Borderline high: ??120-144 mg/dL ??High: ?>145 mg/dL Ages > or = 20 years ??When triglycerides are >200 mg/dL, Non-HDL cholesterol is a secondary target of ? therapy with treatment goals that are 30 mg/dL greater than the LDL cholesterol target. ? Literature References: 1. Expert Panel on Integrated Guidelines for Cardiovascular Health and Risk Reduction in Children and Adolescents. Pediatrics 2011;128:S213 2. NCEP Expert Panel. Circulation 2004;110:227 Current Interpretive Data was last revised on 2018. Chol/HDL ratio 4 [facility] ([place]) Blood 04/09/2023 9:50 AM CDT 04/09/2023 10:24 AM CDT us Tirso Toledo MD LAB BLOOD ORDERA BLES Final Result [facility] ([place]) 1 [facility] [place] [address] * Vitamin B12 (04/09/2023 9:50 AM CDT) Vitamin B12 341 230 - 1,250 pg/mL [facility] ([place]) Blood 04/09/2023 9:50 AM CDT 04/09/2023 10:24 AM CDT us Tirso Toledo MD LAB BLOOD ORDERA BLES Final Result Performing Organization Address City/[facility]/ZIP Co de Phone Number [facility] ([place]) 1 [facility] [place] [address] * (ABNORMAL) Vitamin D 25 hydroxy (04/09/2023 9:50 AM CDT) Vitamin D 25-OH 26(L) 30 - 80 ng/mL [facility] ([place]) Blood 04/09/2023 9:50 AM CDT 04/09/2023 10:24 AM CDT us Tirso Toledo MD LAB BLOOD ORDERA BLES Final Result [facility] ([place]) 1 [facility] [place] [address] documented in this encounter Visit Diagnoses Diagnosis Morbid obesity (HCC) Morbid obesity documented in this encounter Care Teams Race Steward Relationship Specialty Start Date End Date Graciela Antoine PA [address] [place] [address] PCP - General Physician Emergency Physician 11/07/22 Leonard Hunter MD [address] [place] [address] DR DO [address] [address] Pantograph Machine Set Up Operator Obstetrics and Gynecology 01/12/20 documented as of this encounter
--- OUTSIDE RECORDS SUMMARY | 2024-08-05 00:58 | XMS_ITS | Encounter Summary ---
Author Organization [facility] Address [address] [place] [address] Care Team Providers Care Turkish Rubber Name Role Phone Leonard Hunter MD Unavailable + [phone] Graciela Antoine Primary Care Provider Encounter Details Date Type Department Care Team (Late st Contact Info) Description 03/19/2023 Orders Only [facility] [address] [facility] [address] [place] [phone] Tirso Toledo MD [address] [facility] [address] [place] [address] Morbid obesity (HCC) (Primary Dx) Social History Tobacco Use Types [...] drink containing alc ohol? Monthly or less 10/30/2022 Average Number of Drinks Not on file 023 Q3: How often do you have si x or more drinks on one occasion? 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 Not on file Not on file documented as of this encounter Plan of Treatment Not on file documented as of this encounter Results * Ferritin (04/09/2023 9:50 AM CDT) Ferritin 115 15 - 150 ng/mL [facility] ([place]) Blood 04/09/2023 9:50 AM CDT 04/09/2023 10:24 AM CDT Tirso Toledo MD LAB BLOOD ORDERA BLES Final Result [facility] ([place]) [address] [facility] [place] [address] * TSH reflex to free T4 (04/09/2023 9:50 AM CDT) Pathologist [facility] TSH 2.27 0.30 - 4.20 mcIUnit/mL [facility] ([place]) Blood 04/09/2023 9:50 AM CDT 04/09/2023 10:24 AM CDT Tirso Toledo MD LAB BLOOD ORDERA BLES Final Result Performing Organization Address [facility] Co de Phone Number [facility] ([place]) 1 [facility] [place] [address] * Folate (04/09/2023 9:50 AM CDT) Pathologist [facility] Folic acid 12.4 >=5.0 ng/mL [facility] ([place]) Comment:Slightly Hemolyzed S pecimen. Results may be affected. Blood 04/09/2023 9:50 AM CDT 04/09/2023 10:24 AM CDT Tirso Toledo MD LAB BLOOD ORDERA BLES Final Result [facility] ([place]) [address] [place] [address] * Hemoglobin A1c (04/09/2023 9:50 AM CDT) Hgb A1C 5.2 4.0 - 5.6 % [facility] ([place]) Estimated Average Glucose 103 mg/dL [facility] ([place]) Comment: The ADA recommends reporting an estimated Average Glucose (eAG) with all Hemoglobin A1c results using the equation derived from a study of 507 normal and diabetic adults. ??Minority populations were underrepresented and children were not included. ?? (Diabetes Care 31:5381-6710, 2008). ??The eAG is not equivalent to a fasting glucose. Blood 04/09/2023 9:50 AM CDT 04/09/2023 10:24 AM CDT Tirso Toledo MD LAB BLOOD ORDERA BLES Final Result [facility] ([place]) [address] [facility] Department [place] [address] * (ABNORMAL) Lipid panel (04/09/2023 9:50 AM CDT) Pathologist [facility] Cholesterol 141 30 - 199 mg/dL [facility] ([place]) Comment: Interpretive Data Ages < or = [...] on 2018. Triglycerides 183(H) <=149 mg/dL [facility] ([place]) Comment: Interpretive Data [...] on 2018. HDL 35(L) >=40 mg/dL [facility] ([place]) Comment: Interpretive Data [...] 2018. LDL, calculated 69 <=129 mg/dL [facility] ([place]) Comment: Interpretive Data [...] last revised on 2018. Chol/HDL ratio 4 [facility] ([place]) Blood 04/09/2023 9:50 AM CDT 04/09/2023 10:24 AM CDT us Tirso Toledo MD LAB BLOOD ORDERA BLES Final Result [facility] ([place]) [address] [facility] [place] [address] * Vitamin B12 (04/09/2023 9:50 AM CDT) Vitamin B12 341 230 - 1,250 pg/mL [facility] ([place]) Blood 04/09/2023 9:50 AM CDT 04/09/2023 10:24 AM CDT us Tirso Toledo MD LAB BLOOD ORDERA BLES Final Result [facility] ([place]) 1 [facility] [place] [address] * (ABNORMAL) Vitamin D 25 hydroxy (04/09/2023 9:50 AM CDT) Vitamin D 25-OH 26(L) 30 - 80 ng/mL [facility] ([place]) Blood 04/09/2023 9:50 AM CDT 04/09/2023 10:24 AM CDT Tirso Toledo MD LAB BLOOD ORDERA BLES Final Result Performing Organization Address City/[facility]/ZIP Co de Phone Number [facility] ([place]) 1 [place] [address] documented in this encounter Visit Diagnoses Diagnosis Morbid obesity (HCC)- Primary Morbid obesity documented in this encounter Care Teams Turkish Rubber Relationship Specialty Start Date End Date Graciela Antoine PA [address] [place] [address] PCP - General Physician Acoustic Warfare Analyst 11/07/22 Leonard Hunter MD [address] [place] [address] DR DO [address] [place] [address] Outboard Technician Obstetrics and Gynecology 01/12/20 documented as of this encounter
--- OUTSIDE RECORDS SUMMARY | 2024-08-05 00:58 | XMS_ITS | Encounter Summary ---
Author Organization [facility] Healthcare Address [address] [place] [address] Care Team Providers Care Traveling Sales Executive Name Role Phone Leonard Hunter MD Unavailable [phone] Graciela Antoine Primary Care Provider Reason for Visit * Auth/Cert (Routine) Specialty Diagnoses / Procedures Referred By Amada t Referred To Contact Diagnoses Morbid obesity (HCC) Morbid obesity (HCC) [E66.01] Procedures AR LAPS GSTRC RSTRICTIV PX LONGITUDINAL GASTRECTOMY LAPAROSCOPIC GASTRECTOMY - SLEEVE Referral ID Status Reason Start Date Expiration Date Visits Re quested Visits Authorized [id number] 1 1 Encounter Details Date Type Department Care Team (Late st Contact Info) Description 04/29/2023 2:54 PM CDT Anesthesia Event [facility] Operating Room [address] [place] [address] Sandro Golden MD [address] [place] [address] Mohan Jimé[place] [id number] [address] Anesthesia Record Procedure Summary Procedure Name Responsible Anesthesiologist Anesthesia Start Time Anesthesia Stop Time LAPAROSCOPIC GASTRECTOMY - SLEEVE (Abdomen) Sandro Golden MD 04/29/23 1454 04/29/23 1616 Events Date Time Event Comment 04/29/2023 1228 1454 An Start 1454 In Room 1454 An Start Data 1459 An Induction The patient was reevaluated immediately before moderate or deep sedation use and before anesthesia induction. 1500 An Intubation 1510 Anesthesia Ready 1519 Proc Start 1519 Incision Start 1604 An Extubation 1605 Proc Fin 1610 Out of Room 1610 an stop data 1616 An Stop 1616 Handoff to RN I completed my handoff to the receiving nurse during which we: 1. Patient identified 2. Responsible provider identified 3. Pertinent medical history reviewed 4. Procedure type and surgical course discussed 5. Intraoperative anesthetic management and any significant issues discussed 6. Expectations and concerns for postop period discussed 7. Questions solicited from receiving nurse 8. Patient disposition at the time of handoff: No value filed. Meds Name Total midazolam 2 mg fentaNYL 100 mcg propofol 250 mg lidocaine (cardiac) syringe 2 % 100 mg rocuronium 50 mg succinylcholine 160 mg ondansetron 4 mg dexamethasone 10 mg glycopyrrolate 0.2 mg ceFAZolin (ANCEF) 1 gram/10 mL in steril e water (premix) 3,000 mg 3,000 mg HYDROmorphone 1 mg/mL 1 mg atropine 0.1 mg/ml 0.2 mg esmolol 10 mg sugammadex 200 mg albuterol inhaler 4 puff Lactated Ringer's (LR) infusion 1,000 mL * Agents Name O2 Air Sevoflurane Inspired Sevoflurane * Blood No blood administrations on file. Lines, Drains, and Airways Type Details Placement Removal Intrauterine Pressure Catheter Placement Date: 09/17/18; Placement Time: 1602; Inserted by: Omar Mijares RN 09/17/18 1602 by Tonia Mijares RN Peripheral IV Placement Date: 04/29/23; Placement Time: 1218; Catheter Size: 20 G; Orientation: Posterior, Right; Location: Hand 04/29/23 1218 by Conrado Mike, ABHI RETIRED Surgical Site 01/12/20; 1347; Vagina; 07/05/24 (Retired LDA, Removed/Completed by Maskless Lithography with LDA Utility); 1213 (Retired LDA, Removed/Completed by Maskless Lithography with LDA Utility) 01/12/20 1347 by Farrah Jansen RN 07/05/24 1213 by Discharge Provider, Automatic Peripheral IV Placement Date: 04/29/23; Placement Time: 1215; Catheter Size: 20 G; Orientation: Anterior, Right; Location: Forearm; Removal Date: 04/30/23; Removal Time: 0900; Removal Reason: Occluded 04/29/23 1215 by Conrado Mike RN 04/30/23 0900 by Jennifer Rand RN ETT Placement Date: 04/29/23; Placement Time: 1513 (created via procedure documentation); Mask Ventilation: 0; Technique: Video laryngoscopy; Type: ETT - single; Single Lumen Tube Size: 7.5 mm; Cuffed: Yes; Laryngoscope: Ellyn; Blade Size: 3; Location: Oral; Grade View: Grade I; Insertion Attempts: 1; Placement Verification: Capnometry; Removal Date: 04/29/23; Removal Time: 1604 04/29/23 1513 by Taiwo Langston CRNA 04/29/23 1604 by Taiwo Langston CRNA RETIRED Surgical Site 04/29/23; 1602; Abdomen; 07/05/24 (Retired LDA, Removed/Completed by Maskless Lithography with LDA Utility); 1213 (Retired LDA, Removed/Completed by Maskless Lithography with LDA Utility) 04/29/23 1602 by Galo Meza RN 07/05/24 1213 by Discharge Provider, Automatic documented in this encounter Social History Tobacco Use Types Packs/Day Years [...] on file Legal 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 Gender Identity Not on file Sexual Orientation Not on file 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 Not on file Not on file Not on file documented as of this encounter OR Notes * Anesthesia Postprocedure Evaluation - Sandro Golden MD - 04/29/2023 4:25 PM CDT Patient: Morenita Burdick Procedure Summary Date: 04/29/23 Room / Location: [facility] OR OPERATING ROOM Anesthesia Start: 1454 Anesthesia Stop: 161 Procedure: LAPAROSCOPIC GASTRECTOMY - SLEEVE (Abdomen) Diagnosis: Morbid obesity (HCC) (Morbid obesity (HCC) [E66.01]) Providers: Tirso Toledo MD Responsible Provider: Sandro Golden MD Anesthesia Type: general ASA Status: 3 Anesthesia Type: general Last vitals BP 144/70 (BP Location: Right arm, Patient Position: Lying) Pulse 59 Temp 36.7 ??C (98.1 ??F) (Temporal) Resp 20 SpO2 95% Anesthesia Post Evaluation Patient location during evaluation: PACU Patient participation: complete - patient participated Level of consciousness: fully awake Pain management: adequate Airway patency: adequate Evidence of recall: no Cardiovascular status: acceptable Respiratory status: acceptable Hydration status: acceptable Pt is: normothermic Nausea/Vomiting status: none No notable events documented. * Anesthesia Procedure Notes - Taiwo Langston CRNA - 04/29/2023 3:12 PM CDT Associated Order(s): Airway Airway Indications for airway management: anesthesia Difficult airway: no Staff: Placed by: GLUING MACHINE OPERATOR ELECTRONIC: Taiwo Langston CRNA Emergent airway documentation: Risks and benefits discussed: yes Consent obtained: yes Consent given by: patient Airway prep: Preoxygenated: yes Patient position: sniffing Mask difficulty assessment: 0 - not attempted Spontaneous ventilation during airway: absent Sedation level during airway: GA Final airway details: Final airway type: endotracheal airway Tube type: ETT ETT size: 7.5 mm Cuffed: yes Technique used for successful ETT placement: video laryngoscopy Insertion site: oral Blade type: Ellyn Video blade type: Daly Blade size: 3 Cormack-Lehane (direct): grade I - full view of glottis Cormack-Lehane (video): grade I - full view of glottis Cuff inflated with: air ETT to gums: 19 cm Placement verified by: CO2 detection Airway secured with: silk tape Number of attempts: 1 Planned trial extubation: yes * Anesthesia Preprocedure Evaluation - Sandro Golden MD - 04/27/2023 9:33 AM CDT Images from the original note were not included. Anesthesia Evaluation Morenita Burdick is a 28 y.o. female Procedure(s): LAPAROSCOPIC GASTRECTOMY - SLEEVE Pre-Op Diagnosis Codes: * Morbid obesity (HCC) [E66.01] HISTORY Past Medical History Information obtained from: patient and chart. Neurological + Psychiatric history - bipolar, depression and anxiety Cardiovascular Cardiac system: negative Respiratory + Asthma Dyspnea frequency: never. Rescue inhaler use: never. Pertinent negatives: non-smoker (quit 01/2023) Hepatic / Heme + History of anemia Gastrointestinal GI system: negative Renal / Renal/ system: negative Musculoskeletal/Pain Musculoskeletal/Pain system: negative Endocrine / Other + Obesity (BMI >30)- morbid obesity (BMI>40). Functional Capacity Functional capacity: 4-6 METs Day of Surgery assessments + Possibility of assessed - HCG negative (see labs). Patient Active Problem List Diagnosis BMI 45.0-49.9, adult (HCC) PCOS (polycystic ovarian syndrome) Infertility, anovulation Mild persistent asthma with acute exacerbation Chronic tension headache Bipolar II disorder (CMS/HCC) (HCC) Attention deficit disorder without hyperactivity Heartburn Asthma Morbid obesity ([facility]) Past Medical History: Diagnosis Date ADHD (attention deficit hyperactivity disorder) Anemia Asthma Depression Female infertility GERD (gastroesophageal reflux disease) History of adverse effect of anesthesia freaking out pulling at IV, crying, anxious, scared Miscarriage Motion sickness Obesity Polycystic ovary syndrome Past Surgical History: Procedure Laterality Date COLONOSCOPY 2014 DILATION AND CURETTAGE OF UTERUS 2020 OTHER SURGICAL HISTORY removal of cyst from buttocks in December OB History 5 Para 1 Term 1 0 AB 3 Living 1 SAB 3 IAB Ectopic Multiple 0 Live Births 1 Allergies Allergen Reactions Latex Swelling and Hives Med List Status: Nurse Complete Set By: Taylor Maya RN at 04/21/2023 3:35 PM Taking? Last Dose Start Date End Date Provider Advair Diskus 100-50 mcg/dose diskus inhaler -- 11/07/22 -- ProviderSneha MD albuterol HFA (PROVENTIL HFA,VENTOLIN HFA,PROAIR HFA) 90 mcg/actuation inhaler -- 10/15/22 -- ProviderSneha MD No current facility-administered medications for this encounter. Current Outpatient Medications: Advair Diskus 100-50 mcg/dose diskus inhaler albuterol HFA (PROVENTIL HFA,VENTOLIN HFA,PROAIR HFA) 90 mcg/actuation inhaler Social History Tobacco Use Smoking Status Former Packs/day: 0.50 Years: 6.00 Additional pack years: 0.00 Total pack years: 3.00 Types: Cigarettes Start date: 2013 Quit date: 02/05/2023 Years since quittin.2 Smokeless Tobacco Never Tobacco Comments Smoking History Packs/day: 0.25 Packs Alcohol Use: Not At Risk (04/21/2023) AUDIT-C Frequency of Alcohol Consumption: Monthly or less Average Number of Drinks: Patient does not drink Frequency of Binge Drinking: Never Substance and Sexual Activity Drug Use No Family History Problem Relation Age of Onset Heart disease Maternal Grandfather Heart disease; Hyperlipidemia Maternal Grandfather Hyperlipidemia; Hypertension Maternal Grandfather Hypertension; Hyperlipidemia Maternal Grandmother Hyperlipidemia; Hypertension Maternal Grandmother Hypertension; Breast cancer Mother 35 Cancer, breast; /Cancer, breast; Uterine cancer Mother Cancer, uterine; Asthma Mother Asthma; Diabetes type II Mother Diabetes mellitus type 2; Hypertension Father Hypertension; There were no vitals filed for this visit. PT: No results found for requested labs within last 30 days. INR: No results found for requested labs within last 30 days. APTT: No results found for requested labs within last 30 days. Hgb A1C: 04/09/2023: 5.2 % CBC RBC: No results found for requested labs within last 30 days. RDW: No results found for requested labs within last 30 days. MCHC: No results found for requested labs within last 30 days. MCH: No results found for requested labs within last 30 days. MCV: No results found for requested labs within last 30 days. Hct: No results found for requested labs within last 30 days. Hgb: No results found for requested labs within last 30 days. WBC: No results found for requested labs within last 30 days. MPV: No results found for requested labs within last 30 days. Platelets: No results found for requested labs within last 30 days. RDW CV: No results found for requested labs within last 30 days. RDW Sd: No results found for requested labs within last 30 days. BMP Glucose: No results found for requested labs within last 30 days. Calcium: No results found for requested labs within last 30 days. Sodium: No results found for requested labs within last 30 days. Potassium: No results found for requested labs within last 30 days. CO2: No results found for requested labs within last 30 days. Chloride: No results found for requested labs within last 30 days. BUN: No results found for requested labs within last 30 days. Creatinine: No results found for requested labs within last 30 days. STOP-Bang Total Score: 1 DOS Physical Exam Medical history, medications, and allergies reviewed. Attestation: I endorse the findings of the anesthesia pre-evaluation assessment dated: 04/29/2023. Airway Exam: Mallampati: II Cervical ROM: FROM TM distance: normal Cardiovascular Exam: Rate: regular Rhythm: regular Pulmonary Exam: LCTA, bilat Dental Exam: Appears intact Current state: Patient's current state is cooperative and interactive. Anesthesia Plan ASA 3 My patient is approved for the Anesthesia Controlled Medication protocol when under care of a GLUING MACHINE OPERATOR ELECTRONIC Planned anesthesia: General Team communication plan: oral ET tube Induction: Induction: intravenous. Postoperative Plan: Postoperative administration opioids intended. No postoperative mechanical ventilation intended. Patient's planned disposition post procedure is Floor. Informed Consent: Discussed plan with attending and GLUING MACHINE OPERATOR ELECTRONIC. Anesthesia plan and risks discussed with patient. Consent and Attending signature: I and/or my designee have discussed the anesthesia plan, benefits, possible alternatives, parental presence at time of induction (if indicated), and clinically relevant risks that may include dental injury, unintentional awareness, and/or other complications. The patient and/or parent/legal guardian understand, and agree to proceed. All questions answered. documented in this encounter Plan of Treatment Not on file documented as of this encounter Procedures Procedure Name Priority Date/Time Associated Diagnosis Comments AR AN ELECTIVE ENDOTRACHEAL AIRWAY Routine 04/29/2023 3:12 PM CDT documented in this encounter Results * AR AN ELECTIVE ENDOTRACHEAL AIRWAY (04/29/2023 3:12 PM CDT) Narrative aTiwo Langston CRNA - 04/29/2023 3:12 PM CDT Taiwo Langston CRNA ? 04/29/2023 ??3:13 PM Airway Indications for airway management: anesthesia Difficult airway: no Staff: Placed by: GLUING MACHINE OPERATOR ELECTRONIC: Taiwo Langston CRNA Emergent airway documentation: Risks and benefits discussed: yes Consent obtained: yes Consent given by: patient Airway prep: Preoxygenated: yes Patient position: sniffing Mask difficulty assessment: 0 - not attempted Spontaneous ventilation during airway: absent Sedation level during airway: GA Final airway details: Final airway type: endotracheal airway Tube type: ETT ETT size: 7.5 mm Cuffed: yes Technique used for successful ETT placement: video laryngoscopy Insertion site: oral Blade type: Ellyn Video blade type: Daly Blade size: 3 Cormack-Lehane (direct): grade I - full view of glottis Cormack-Lehane (video): grade I - full view of glottis Cuff inflated with: air ETT to gums: 19 cm Placement verified by: CO2 detection Airway secured with: silk tape Number of attempts: 1 Planned trial extubation: yes us Sandro Golden MD ANESTHESIA ORDERABLES Final Result documented in this encounter Visit Diagnoses Not on filedocumented in this encounter Administered Medications Inactive Administered Medications - up to 3 most recent administrations Medication Order MAR Action Action Date Dose Rate Site albuterol HFA (PROVENTIL HFA,VENTOLIN HFA,PROAIR HFA) 90 mcg/actuation inhaler inhalation, As needed, Starting on Thu04/29/23 at 1601, Anesthesia Intra-op Given 04/29/2023 4:01 PM CDT 4 puffs atropine injection intravenous, Administer over 1 Minutes, As needed, Starting on Thu04/29/23 at 1525, Anesthesia Intra-op Given 04/29/2023 3:25 PM CDT 0.2 mg ceFAZolin (ANCEF) 1 gram/10 mL in sterile water (premix) 3,000 mg 3,000 mg, intravenous, at 600 mL/hr, Administer over 3 Minutes, Once, On Thu04/29/23 at 1315, For 1 dose, Pre-Op, Indications: Prophylaxis, SurgicalIndications:Prophylaxis, Surgical Given 04/29/2023 3:04 PM CDT 3,000 mg dexAMETHasone (DECADRON) 4 mg/mL injection intravenous, Administer over 2 Minutes, As needed, Starting on Thu04/29/23 at 1514, Anesthesia Intra-op Given 04/29/2023 3:14 PM CDT 10 mg esmoloL (BREVIBLOC) injection intravenous, Administer over 1 Minutes, As needed, Starting on Thu04/29/23 at 1547, Anesthesia Intra-op Given 04/29/2023 3:47 PM CDT 10 mg fentaNYL (SUBLIMAZE) preservative free injection intravenous, As needed, Starting on Thu04/29/23 at 1459, Anesthesia Intra-op Given 04/29/2023 2:59 PM CDT 100 mcg glycopyrrolate (ROBINUL) injection intravenous, Administer over 1 Minutes, As needed, Starting on Thu04/29/23 at 1523, Anesthesia Intra-op Given 04/29/2023 3:23 PM CDT 0.2 mg HYDROmorphone (DILAUDID) injection intravenous, Administer over 2 Minutes, As needed, Starting on Thu04/29/23 at 1519, Anesthesia Intra-op Given 04/29/2023 3:19 PM CDT 1 mg Lactated Ringer's (LR) infusion 30 mL/hr, intravenous, Continuous, Starting on Thu04/29/23 at 1245, Pre-Op New Bag 04/29/2023 3:26 PM CDT Rate/Dose Change 04/29/2023 3:06 PM CDT 30 mL/h r Rate/Dose Verify 04/29/2023 2:54 PM CDT 30 mL/h r lidocaine (XYLOCAINE) 20 mg/mL (2 %) preservative free injection intravenous, As needed, Starting on Thu04/29/23 at 1459, Anesthesia Intra-op Given 04/29/2023 2:59 PM CDT 100 mg midazolam (VERSED) 1 mg/mL preservative free injection intravenous, Administer over 2 Minutes, As needed, Starting on Thu04/29/23 at 1454, Anesthesia Intra-op Given 04/29/2023 2:54 PM CDT 2 mg ondansetron (ZOFRAN) injection intravenous, Administer over 2 Minutes, As needed, Starting on Thu04/29/23 at 1557, Anesthesia Intra-op Given 04/29/2023 3:57 PM CDT 4 mg propofoL (DIPRIVAN) 10 mg/mL IV intravenous, As needed, Starting on Thu04/29/23 at 1459, Anesthesia Intra-op Given 04/29/2023 2:59 PM CDT 250 mg rocuronium (ZEMURON) injection intravenous, As needed, Starting on Thu04/29/23 at 1508, Anesthesia Intra-op Given 04/29/2023 3:08 PM CDT 50 mg succinylcholine (ANECTINE) injection intravenous, As needed, Starting on Thu04/29/23 at 1459, Anesthesia Intra-op Given 04/29/2023 2:59 PM CDT 160 mg sugammadex (BRIDION) 100 mg/mL intravenous solution intravenous, As needed, Starting on Thu04/29/23 at 1600, Anesthesia Intra-op Given 04/29/2023 4:00 PM CDT 200 mg documented in this encounter Care Teams Traveling Sales Executive Relationship Specialty Start Date End Date Graciela Antoine PA [address] [place] [id number] PCP - General Physician Fleet Director 11/07/22 Leonard Hunter MD [address] [place] [address] DR DO [address] [address] Casino Supervisor Obstetrics and Gynecology 01/12/20 documented as of this encounter
--- OUTSIDE RECORDS SUMMARY | 2024-08-05 00:58 | XMS_ITS | Encounter Summary ---
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 Gender Identity Not on file Sexual Orientation Not on file 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 Not on file Not on file documented as of this encounter Plan of Treatment Scheduled Orders Name Type Priority Associated Diagnoses Orde r Schedule CBC with auto differential Lab Routine Dehydration Expected: 01/01/2024, Expires: 09/15/2024 Renal function panel Lab Routine Dehydration Expected: 01/01/2024, Expires: 09/15/2024 Magnesium Lab Routine Dehydration Expected: 01/01/2024, Expires: 09/15/2024 Hepatic function panel Lab Routine Dehydration Expected: 01/01/2024, Expires: 09/15/2024 Ferritin Lab Routine Dehydration Expected: 01/01/2024, Expires: 09/15/2024 Folate Lab Routine Dehydration Expected: 01/01/2024, Expires: 09/15/2024 Vitamin B12 Lab Routine Dehydration Expected: 01/01/2024, Expires: 09/15/2024 documented as of this encounter Visit Diagnoses Diagnosis Dehydration- Primary documented in this encounter Care Teams Maintenance Worker House Trailer Relationship Specialty Start Date End Date Graciela Antoine PA [address] [place] [id number] PCP - General Physician Commercial Finance Manager 11/07/22 Leonard Hunter MD [address] [place] [address] DR DO [address] [address] Machine Cementer Obstetrics and Gynecology 01/12/20 documented as of this encounter
--- OUTSIDE RECORDS SUMMARY | 2024-08-05 00:58 | XMS_ITS | Encounter Summary ---
Author Organization [facility] Healthcare Address [address] [place] [address] Care Team Providers Care Ballaster Name Role Phone Leonard Hunter MD Unavailable + [phone] Graciela Antoine Primary Care Provider Reason for Visit * Auth/Cert (Routine) Specialty Diagnoses / Procedures Referred By Amada ro Referred To Contact Diagnoses Heartburn Heartburn [R12] Procedures IA EGD TRANSORAL BIOPSY SINGLE/MULTIPLE ESOPHAGOGASTRODUODENOSCOPY Referral ID Status Reason Start Date Expiration Date Visits Re quested Visits Authorized [id number] 1 1 Encounter Details Date Type Department Care Team (Late st Contact Info) Description 03/24/2023 2:15 PM CDT Anesthesia Event [address] [address] [place] [id number] [facility] [place] [address] Sandro Golden MD [address] [place] [phone] Anesthesia Record Procedure Summary Procedure Name Responsible Anesthesiologist Anesthesia Start Time Anesthesia Stop Time ESOPHAGOGASTRODUODENOSCOPY BIOPSY (Abdomen) Chidi Peng MD 03/24/23 1415 03/24/23 1431 Events Date Time Event Comment 03/24/2023 1357 1415 In Room 1415 An Start 1415 An Start Data 1415 Start Supplemental O2 1415 Patient Positioned Laterally 1424 An Induction The patient was reevaluated immediately before moderate or deep sedation use and before anesthesia induction. 1425 Anesthesia Ready 1429 an stop data 1431 Handoff to RN I completed my handoff [...] the time of handoff: No value filed. 1431 An Stop 1434 Out of Room Meds Name Total lidocaine (cardiac) syringe 2 % 40 mg propofol 220 mg benzocaine (HURRICAINE ONE) mouth spray 20 % 1 spray NS 0.9% 0 mL * Agents Name O2 * Blood No blood administrations on file. Lines, Drains, and Airways Type Details Placement Removal Intrauterine Pressure Catheter Placement Date: 09/17/18; Placement Time: 1602; Inserted by: Omar Mijares RN 09/17/18 1602 by Tonia Mijares RN RETIRED Surgical Site 01/12/20; 1347; Vagina; 07/05/24 (Retired LDA, Removed/Completed by Geelbe with LDA Utility); 1213 (Retired LDA, Removed/Completed by Geelbe with LDA Utility) 01/12/20 1347 by Farrah Jansen RN 07/05/24 1213 by Discharge Provider, Automatic Peripheral IV Placement Date: 03/24/23; Placement Time: 1313; Catheter Size: 22 G; Orientation: Anterior, Right, Upper; Location: Forearm; Site Prep: Chlorhexidine; Technique: Anatomical landmarks; Inserted by: anthony perea rn; Insertion Attempts: 1; Patient Tolerance: Tolerated well; Removal Date: 03/24/23; Removal Time: 1504 03/24/23 1313 by Izabel Perea RN 03/24/23 1504 by Izabel Perea RN documented in this encounter Social History Tobacco [...] on file Legal 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 Gender Identity Not on file Sexual Orientation Not on file 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 Not on file Not on file Not on file documented as of this encounter OR Notes * Anesthesia Postprocedure Evaluation - Iris Rahman CRNA - 03/24/2023 2:31 PM CDT Patient: Morenita Burdick Procedure Summary Date: 03/24/23 Room / Location: [facility] ROOM 2 / [facility] Anesthesia Start: 1414 Anesthesia Stop: 1430 Procedure: ESOPHAGOGASTRODUODENOSCOPY BIOPSY (Abdomen) Diagnosis: Heartburn (Heartburn [R12]) Providers: Tirso Toledo MD Responsible Provider: Chidi Peng MD Anesthesia Type: general TIVA ASA Status: 3 Anesthesia Type: general TIVA Last vitals BP 118/62 Pulse 60 Temp 37.2 ??C (98.9 ??F) (Temporal) Resp 18 SpO2 97% Anesthesia Post Evaluation Patient location during evaluation: PACU Patient participation: complete - patient participated 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 * Anesthesia Preprocedure Evaluation - Chidi Peng MD - 03/24/2023 1:10 PM CDT Images from the original note were not included. Anesthesia Evaluation Morenita Burdick is a 27 y.o. female Procedure(s): ESOPHAGOGASTRODUODENOSCOPY Pre-Op Diagnosis Codes: * Heartburn [R12] HISTORY Past Medical History Neurological + Psychiatric history - bipolar and depression Cardiovascular Cardiac system: negative Respiratory + Asthma Dyspnea frequency: never. Rescue inhaler use: never. Pertinent negatives: non-smoker (quit 01/2023) Hepatic / Heme + History of anemia Gastrointestinal GI system: negative Renal / Renal/ system: negative Musculoskeletal/Pain + Headaches Endocrine / Other + Obesity (BMI >30)- morbid obesity (BMI>40). Functional Capacity Functional capacity: 4-6 METs Day of Surgery assessments + Possibility of assessed - HCG negative (see labs). Patient Active Problem List Diagnosis BMI 45.0-49.9, adult ([facility]) PCOS (polycystic ovarian syndrome) Infertility, anovulation Mild persistent asthma with acute exacerbation Chronic tension headache Bipolar II disorder (CMS/HCC) ([facility]) Attention deficit disorder without hyperactivity Heartburn Past Medical History: Diagnosis Date ADHD (attention deficit hyperactivity disorder) Anemia Asthma Depression Female infertility GERD (gastroesophageal reflux disease) History of adverse effect of anesthesia freaking out pulling at IV, crying, anxious, scared Miscarriage Motion sickness Obesity Polycystic ovary syndrome Past Surgical History: Procedure Laterality Date COLONOSCOPY 2014 OTHER SURGICAL HISTORY removal of cyst from buttocks in December OB History 5 Para 1 Term 1 0 AB 3 Living 1 SAB 3 IAB Ectopic Multiple 0 Live Births 1 Allergies Allergen Reactions Latex Swelling and Hives Taking? Last Dose Start Date End Date Provider Advair Diskus 100-50 mcg/dose diskus inhaler -- 11/07/22 -- Sneha Tee MD albuterol HFA (PROVENTIL HFA,VENTOLIN HFA,PROAIR HFA) 90 mcg/actuation inhaler -- 10/15/22 -- Sneha Tee MD ARIPiprazole (ABILIFY) 10 mg tablet Not Taking 10/27/22 -- Sneha Tee MD Current Facility-Administered Medications: Lactated Ringer's (LR) infusion, 30 mL/hr, intravenous, Continuous ondansetron (ZOFRAN) injection 4 mg, 4 mg, intravenous, Q30 Min PRN sodium chloride 0.9% infusion, 125 mL/hr, intravenous, Continuous Social History Tobacco Use Smoking Status Former Packs/day: 0.50 Years: 6.00 Additional pack years: 0.00 Total pack years: 3.00 Types: Cigarettes Start date: 2013 Quit date: 02/05/2023 Years since quittin.1 Smokeless Tobacco Never Tobacco Comments Smoking History Packs/day: 0.25 Packs Alcohol Use: Not At Risk (03/23/2023) AUDIT-C Frequency of Alcohol Consumption: Monthly or less Average Number of Drinks: 1 or 2 Frequency of Binge Drinking: Never Substance and [...] Diabetes mellitus type 2; Hypertension Father Hypertension; Vitals: 03/24/23 1240 BP: 118/62 Pulse: 60 Resp: 18 Temp: 37.2 ??C (98.9 ??F) SpO2: 97% PT: No results found for requested labs within last 30 days. INR: No results found for requested labs within last 30 days. APTT: No results found for requested labs within last 30 days. Hgb A1C: No results found for requested labs within last 30 days. CBC RBC: No results found for requested [...] findings of the anesthesia pre-evaluation assessment dated: 03/24/2023. Airway Exam: Mallampati: II Cervical ROM: FROM TM distance: normal Cardiovascular Exam: Rate: regular Rhythm: regular Pulmonary Exam: LCTA, bilat EENT Exam: trachea midline Dental Exam: Appears intact Skin Exam: Skin is warm. Current state: Patient's current state is cooperative and interactive. Anesthesia Plan ASA 3 Planned anesthesia: General TIVA Induction: Induction: intravenous. Postoperative Plan: No plan for postoperative opioid use. No postoperative mechanical ventilation intended. Patient's planned disposition post procedure is Outpatient. Informed Consent: Discussed plan with VOCAL PERFORMER and attending. Anesthesia plan and risks discussed with patient. [...] MAR Action Action Date Dose Rate Site benzocaine (HURRICAINE) 20 % mouth spray mouth/throat, As needed, Starting on Thu03/24/23 at 1415, Anesthesia Intra-op Given 03/24/2023 2:15 PM CDT 1 spray lidocaine (XYLOCAINE) 20 mg/mL (2 %) preservative free injection intravenous, As needed, Starting on Thu03/24/23 at 1424, Anesthesia Intra-op Given 03/24/2023 2:24 PM CDT 40 mg propofoL (DIPRIVAN) 10 mg/mL IV intravenous, As needed, Starting on Thu03/24/23 at 1424, Anesthesia Intra-op Given 03/24/2023 2:28 PM CDT 20 mg Given 03/24/2023 2:27 PM CDT 20 mg Given 03/24/2023 2:25 PM CDT 30 mg sodium chloride 0.9% infusion intravenous, Continuous PRN, Starting on Thu03/24/23 at 1415, Anesthesia Intra-op New Bag 03/24/2023 2:15 PM CDT documented in this encounter Care Teams Ballaster Relationship Specialty Start Date End Date Graciela Antoine PA [address] [place] [address] PCP - General Physician Tape Controlled Machine Stitcher 11/07/22 Leonard Hunter MD [address] [place] [address] DR DO [address] [address] Embedded Software Engineer Obstetrics and Gynecology 01/12/20 documented as of this encounter
--- OUTSIDE RECORDS SUMMARY | 2024-08-05 00:58 | XMS_ITS | Encounter Summary ---
Author Organization [facility] Address [address] [place] [address] Care Team Providers Care Reel Film Inspector Name Role Phone Leonard Hunter MD Unavailable + [phone] Graciela Antoine Primary Care Provider Reason for Referral * Procedure (Routine) - Closed Specialty Diagnoses / Procedures Referred By Contjustice t Referred To Contact Diagnoses Asthma, unspecified asthma severity, unspecified whether complicated, unspecified whether persistent Procedures Pulmonary Function Test -[facility]; Complete PFT with 6 Minute Walk Tirso Toledo MD Phone: tel: fax: Referral ID Status Reason Start Date Expiration Date Visits Re quested Visits Authorized [id number] Closed 03/19/2023 04/17/2024 1 1 Encounter Details Date Type Department Care Team (Late st Contact Info) Description 03/19/2023 Orders Only [facility] [address] [facility] [address] [place] [address] Tirso Toledo MD [address] [facility] [address] [place] [address] Asthma, unspecified asthma severity, unspecified whether complicated, unspecified whether persistent (Primary Dx) Social History Tobacco Use Types [...] on file 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; Complete PFT with 6 Minute Walk PFT Routine Asthma, unspecified asthma severity, unspecified whether complicated, unspecified whether persistent 03/31/2023 2:23 PM CDT Scheduled Orders Name Type Priority Associated Diagnoses Orde r Schedule Pulmonary Function Test -[facility]; Complete PFT with 6 Minute Walk PFT Routine Asthma, unspecified asthma severity, unspecified whether complicated, unspecified whether persistent Expected: 03/19/2023, Expires: 03/19/2024 documented as of this encounter Visit Diagnoses Diagnosis Asthma, unspecified asthma severity, unspecified whether complicated, unspecified whether persistent- Primary documented in this encounter Care Teams Reel Film Inspector Relationship Specialty Start Date End Date Graciela Antoine PA [address] [place] [id number] PCP - General Physician Pulmonary Fellow 11/07/22 Leonard Hunter MD [address] [place] [address] DR DO [address] [address] Attendant [place] Obstetrics and Gynecology 01/12/20 documented as of this encounter
--- OUTSIDE RECORDS SUMMARY | 2024-08-05 00:58 | XMS_ITS | Encounter Summary ---
Author Organization [facility] Address [address] [place] [address] Care Team Providers Care Biodiesel Engineering Manager Name Role Phone Leonard Hunter MD Unavailable [phone] Graciela Antoine Primary Care Provider Reason for Visit * Auth/Cert (Routine) Specialty Diagnoses / Procedures Referred By Amada ro Referred To Contact Diagnoses Heartburn Heartburn [R12] Procedures [place] EGD TRANSORAL BIOPSY SINGLE/MULTIPLE ESOPHAGOGASTRODUODENOSCOPY Referral ID Status Reason Start Date Expiration Date Visits Re quested Visits Authorized [id number] 1 1 Encounter Details Date Type Department Care Team (Latest Contact Info) Description 03/24/2023 12:12 PM CDT - 03/24/2023 3:10 PM CDT Hospital Encounter [facility] [address] [place] [address] Tirso Toledo MD [address] [place] [id number] Discharge Disposition: Discharge to home or self [...] on file Legal Sex Female 3:31 AM [employer] Gender Identity Not on file Sexual Orientation Not on file 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 file Not on file Not on file documented as of this encounter Last Filed Vital Signs Vital Sign Reading Time Taken Comments Blood Pressure 108/77 03/24/2023 3:02 PM CDT Pulse 55 03/24/2023 3:02 PM CDT Temperature 36.7 ??C (98 ??F) 03/24/2023 3:02 PM CDT Respiratory Rate 18 03/24/2023 3:02 PM CDT Oxygen Saturation 95% 03/24/2023 3:02 PM CDT Inhaled Oxygen Concentration - - Weight 143.8 kg (317 lb) 03/24/2023 12:40 PM CDT Height 157.5 cm (5' 2 ) 03/24/2023 12:40 PM CDT Body Mass Index 57.98 03/24/2023 12:40 PM CDT documented in this encounter Medications at Time of Discharge Advair Diskus 100-50 mcg/dose diskus inhaler Inhale 1 puff 2 (two) times a day 11/07/2022 07/12/2024 albuterol HFA (PROVENTIL HFA,VENTOLIN HFA,PROAIR HFA) 90 mcg/actuation inhaler INHALE 2 PUFFS VIA SPACER EVERY 6 HRS FOR 1 WEEK, NEEDED UNTIL SYMPTOMS IMPROVE 10/15/2022 07/12/2024 ARIPiprazole (ABILIFY) 10 mg tablet Take 1 tablet (10 mg total) by mouth daily 10/27/2022 04/21/2023 documented as of this encounter Discharge Disposition Disposition Code Departure Means Destination Comment s Discharge to home or self care documented in this encounter H&P Notes * Tirso Toledo MD - 03/24/2023 1:05 PM CDT I have reviewed the H&P, examined the patient, and endorse the findings as written. Plan of Care : Based on the above findings, I consider Morenita Burdcik to be an acceptable risk for : Procedure(s): ESOPHAGOGASTRODUODENOSCOPY Source Note - Tirso Toledo MD - 03/19/2023 10:30 AM CDT Progress Note Subjective: HPI: The patient has done extremely well having lost 7 lb since last visit. She attributes this to in taking more water and doing smaller portion sizes Chief complaint: Morbid obesity Objective: Vitals BP 134/86 (BP Location: Left arm, Patient Position: Sitting) Pulse 55 Temp (!) 35.8 ??C (96.4 ??F) Ht 157.5 cm (5' 2 ) Wt (!) 144.1 kg (317 lb 11.2 oz) SpO2 98% BMI 58.11 kg/m?? Physical Exam Abdomen: Soft, obese Assessment/Plan Diagnoses and all orders for this visit: BMI 45.0-49.9, adult (HCC) (Primary) Assessment & Plan: Continue small frequent meals. Continue exercise as tolerates. The patient has an upcoming EGD as well as pulmonary function testing given her asthma in preparation for surgery. We will see her back next month for hopefully her final visit. Continue to attend the monthly support group meetings. Tirso Toledo MD 10:19 AM 03/19/2023 documented in this encounter Procedure Notes * Tirso Toledo MD - 03/24/2023 1:55 PM CDTAssociated Order(s): EGD [facility] Patient Name: Morenita Burdick Procedure Date: 03/24/2023 1:55 PM Date of : 1995 Admit Type: Outpatient Age: 27 Gender: Female Attending MD: Tirso Toledo M.D. [facility] 2 Note Status: Finalized Patient Profile: Refer to note in patient chart for documentation of history and physical. Procedure: Upper GI endoscopy Indications: Heartburn Referring MD: Providers: Tirso Toledo M.D. Impression: - Z-line regular, 37 cm from the incisors. - Normal examined duodenum. - Normal stomach. Biopsied. Recommendation: - Discharge patient to home. - Resume previous diet. Medicines: Propofol per Anesthesia Complications: No immediate complications. Estimated Blood Loss: Estimated blood loss was minimal. Procedure: Pre-Anesthesia Assessment: - Prior to the procedure, a History and Physical was performed, and patient medications and allergies were reviewed. The patient's tolerance of previous anesthesia was also reviewed. The risks and benefits of the procedure and the sedation options and risks were discussed with the patient. All questions were answered, and informed consent was obtained. Prior Anticoagulants: The patient has taken no anticoagulant or antiplatelet agents. ASA Grade Assessment: III - A patient with severe systemic disease. After reviewing the risks and benefits, the patient was deemed in satisfactory condition to undergo the procedure. The benefits, risks, and alternatives to the procedure and sedation were discussed and informed consent was obtained. The scope was passed under direct vision. The Endoscope GIF-H190 [id number] was introduced through the mouth, and advanced to the second part of duodenum. The upper GI endoscopy was accomplished without difficulty. The patient tolerated the procedure well. Findings: The Z-line was regular and was found 37 cm from the incisors. The examined duodenum was normal. The entire examined stomach was normal. Biopsies were taken with a cold forceps for Helicobacter pylori testing using CLOtest. Verification of patient identification for the specimen was done by the nurse using the patient's name and date. Estimated blood loss was minimal. Tirso Toledo M.D. 03/24/2023 2:41:20 PM Number of Addenda: 0 Note Initiated On: 03/24/2023 1:55 PM Procedure Code(s): --- Professional --- 21629, Esophagogastroduodenoscopy, flexible, transoral; with biopsy, single or multiple --- Technical --- 69249, Esophagogastroduodenoscopy, flexible, transoral; with biopsy, single or multiple Diagnosis Code(s): --- Professional --- R12, Heartburn --- Technical --- R12, Heartburn CPT copyright 2020 [employer]. All rights reserved. The codes documented in this report are preliminary and upon rehab department manager review may be revised to meet current compliance requirements. Recognized by the [employer] for promoting quality in endoscopy documented in this encounter Miscellaneous Notes * Perioperative Nursing Note - Izabel Perea RN - 03/24/2023 3:11 PM CDT 1510 Verbal discharge instructions given to pt. Pt verbalized understanding. Pt to f/u in office asscheduled. * Perioperative Nursing Note - Izabel Perae RN - 03/24/2023 3:02 PM CDT 1450 at bedside to discuss results to pt and spouse. Pt to f/u in office as scheduled. documented in this encounter Plan of Treatment Not on file documented as of this encounter Procedures Procedure Name Priority Date/Time Associated Diagnosis Comments H. PYLORI UREASE SCREEN (NICOLASA TEST) STAT 03/24/2023 2:25 PM CDT ESOPHAGOGASTRODUODENOSCOPY BIOPSY 03/24/2023 2:10 PM CDT Heartburn EGD 03/24/2023 1:55 PM CDT POCT HCG, URINE Routine 03/24/2023 12:49 PM CDT documented in this encounter Results * H. pylori urease screen (NICOLASA test) Tissue (03/24/2023 2:25 PM CDT) H. pylori, rapid (NICOLASA) Negative Negative [facility] Tissue 03/24/2023 2:25 PM CDT 03/24/2023 5:53 PM CDT us Tirso Toledo MD LAB MICROBIOLOGY - GENERAL ORDERABLES Final Result [facility] Department of Laboratories [place], [place] [id number] * EGD (03/24/2023 1:55 PM CDT) Anatomical Region Laterality Modality Other Narrative Procedure Note Tirso Toledo MD - 03/24/2023 1:55 PM CDT [facility] Patient Name: Morenita Burdick Procedure Date: 03/24/2023 1:55 PM Date of : 1995 Admit Type: Outpatient Age: 27 Gender: Female Attending MD: Tirso Toledo M.D. [facility]: [facility] 2 Note Status: Finalized Patient Profile: Refer to note in patient chart for documentation of history and physical. Procedure: Upper GI endoscopy Indications: Heartburn Referring MD: Providers: Tirso Toledo M.D. Impression: - Z-line regular, 37 cm from the incisors. - Normal examined duodenum. - Normal stomach. Biopsied. Recommendation: - Discharge patient to home. - Resume previous diet. Medicines: Propofol per Anesthesia Complications: No immediate complications. Estimated Blood Loss: Estimated blood loss was minimal. Procedure: Pre-Anesthesia Assessment: - Prior to the procedure, a History and Physicalwas performed, and patient medications and allergieswere reviewed. The patient's tolerance of previous anesthesia was also reviewed. The risks andbenefits of the procedure and the sedation options and risks were discussed with the patient. All questions were answered, and informed consent was obtained. Prior Anticoagulants: The patient has taken noanticoagulant or antiplatelet agents. ASA Grade Assessment: III -A patient with severe systemic disease. Afterreviewing the risks and benefits, the patient was deemed in satisfactory condition to undergo the procedure. The benefits, risks, and alternatives to theprocedure and sedation were discussed and informed consentwas obtained. The scope was passed under direct vision. The Endoscope GIF-H190 [id number] was introduced through the mouth, and advanced to the second partof duodenum. The upper GI endoscopy was accomplished without difficulty. The patient tolerated the procedure well. Findings: The Z-line was regular and was found 37 cm from the incisors. The examined duodenum was normal. The entire examined stomach was normal. Biopsies were taken with acold forceps for Helicobacter pylori testing using CLOtest. Verificationof patient identification for the specimen was done by the nurse usingthe patient's name and date. Estimated blood loss was minimal. Tirso Toledo M.D. 03/24/2023 2:41:20 PM Number of Addenda: 0 Note Initiated On: 03/24/2023 1:55 PM Procedure Code(s): --- Professional --- 69821, Esophagogastroduodenoscopy, flexible, transoral; with biopsy, single or multiple --- Technical --- 22770, Esophagogastroduodenoscopy, flexible, transoral; with biopsy, single or multiple Diagnosis Code(s): --- Professional --- R12, Heartburn --- Technical --- R12, Heartburn CPT copyright 2020 [employer]. All rights reserved. The codes documented in this report are preliminary and upon rehab department manager reviewmay be revised to meet current compliance requirements. Recognized by the [employer] for promoting quality in endoscopy Tirso Toledo MD ENDOSCOPY PROCED URES Final Result * POCT hCG, urine (03/24/2023 12:49 PM CDT) HCG, ur, POC Negative Lot Number [id number] QC Backgroud Clear Acceptable QC Control Line Acceptable Urine 03/24/2023 12:4 9 PM CDT Tirso Toledo MD POINT OF CARE TE ST ORDERABLES Final Result documented in this encounter Visit Diagnoses Diagnosis Heartburn- Primary documented in this encounter Admitting Diagnoses Diagnosis Heartburn documented in this encounter Administered Medications Inactive Administered Medications - up to 3 most recent administrations Medication Order MAR Action Action Date Dose Rate Site Lactated Ringer's (LR) infusion 30 mL/hr, intravenous, Continuous, Starting on Thu03/24/23 at 1315, Pre-Op, ondansetron (ZOFRAN) injection 4 mg 4 mg, intravenous, Administer over 2 Minutes, Every 30 min PRN, nausea, vomiting, Starting on Thu03/24/23 at 1236, For 2 doses, Recovery (GI), Indications: Nausea and VomitingIndications:Nausea and Vomiting sodium chloride 0.9% infusion 125 mL/hr, intravenous, Continuous, Starting on Thu03/24/23 at 1315, Recovery (GI) New Bag 03/24/2023 1:13 PM CDT 125 mL/hr 125 mL/hr documented in this encounter Active and Recently Administered Medications Times are shown in CDT. Continuous Medication Order 03/22/2023 03/23/2023 03/24/2023 Lactated Ringer's (LR) infusion 30 mL/hr, intravenous, Continuous, Starting on Thu03/24/23 at 1315, Pre-Op, 1315 (Due) sodium chloride 0.9% infusion 125 mL/hr, intravenous, Continuous, Starting on Thu03/24/23 at 1315, Recovery (GI) 1313 (New Bag - Prov ider: Izabel Perea RN)1913 (Due: Stopped) PRN Medication Order 03/22/2023 03/23/2023 03/24/2023 ondansetron (ZOFRAN) injection 4 mg 4 mg, intravenous, Administer over 2 Minutes, Every 30 min PRN, nausea, vomiting, Starting on Thu03/24/23 at 1236, For 2 doses, Recovery (GI), Indications: Nausea and Vomiting documented in this encounter Orders Medications Ordered That Juan Carlos ht Not Have Been Administered Count Last Ordered Date First Ordered Date Lactated Ringer's (LR) infusion 1 ondansetron (ZOFRAN) injection 4 mg 1 03/24 documented in this encounter Care Teams Biodiesel Engineering Manager Relationship Specialty Start Date End Date Graciela Antoine PA [address] [place], [place] [id number] PCP - General Physician Label Stitcher 11/07/22 Leonard Hunter MD [address] ERNESTINA Jose [address] [address] Electrical Test Technician Obstetrics and Gynecology 01/12/20 documented as of this encounter
--- OUTSIDE RECORDS SUMMARY | 2024-08-05 00:58 | XMS_ITS | Encounter Summary ---
Author Organization [facility] Healthcare Address [address] [place] [address] Care Team Providers Care Regional Engineer Name Role Phone Leonard Hunter MD Unavailable + [phone] Graciela Antoine Primary Care Provider Reason for Visit * Auth/Cert (Routine) Specialty Diagnoses / Procedures Referred By Amada t Referred To Contact Diagnoses Morbid obesity (HCC) Morbid obesity (HCC) [E66.01] Procedures CO LAPS GSTRC RSTRICTIV PX LONGITUDINAL GASTRECTOMY LAPAROSCOPIC GASTRECTOMY - SLEEVE Referral ID Status Reason Start Date Expiration Date Visits Re quested Visits Authorized [id number] 1 1 Encounter Details Date Type Department Care Team (Late st Contact Info) Description 04/29/2023 1:45 PM CDT - 04/29/2023 4:15 PM CDT Surgery [facility] Operating Room [address] [place] [address] Tirso Toledo MD [address] [place] [id number] LAPAROSCOPIC GASTRECTOMY - SLEEVE Surgery Details Date/Time Status Location OR Service Patient Class Case Class Case Type Trauma Case? 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 Not on file Not on file Not on file documented as of this encounter Last Filed Vital Signs Vital Sign Reading Time Taken Comments Blood Pressure 168/81 04/29/2023 4:15 PM CDT Pulse 108 04/29/2023 4:15 PM CDT Temperature 36.4 ??C (97.5 ??F) 04/29/2023 4:15 PM CD T Respiratory Rate 21 04/29/2023 4:15 PM CDT Oxygen Saturation 97% 04/29/2023 4:15 PM CDT Inhaled Oxygen Concentration - - Weight 143.8 kg (317 lb 0.3 oz) 023 11:53 AM CDT Height 157.5 cm (5' 2 ) 04/29/2023 11:5 3 AM CDT Body Mass Index 57.98 04/29/2023 5:30 PM CDT documented in this encounter Discharge Summaries * Susan Ontiveros NP - 04/30/2023 4:01 PM CDT Inpatient Discharge Summary BRIEF OVERVIEW Admitting Provider: Tirso Toledo MD Discharge Provider: No att. providers found Primary Care Physician at Discharge: Graciela Antoine PA [phone] Admission Date: 04/29/2023 Discharge Date: 04/30/2023 Admission Location: [facility] Problems/Diagnoses: Principal Problem: Morbid obesity (HCC) Active Problems: S/P gastrectomy Resolved Problems: No resolved hospital problems. DETAILS OF HOSPITAL STAY Presenting Problem/History of Present Illness: The patient is a 28-year-old female with longstanding history of issues with weight gain. They wentthrough a 6 month process where they did quite well with persistent weight loss during that time. In their preoperative evaluation an upper endoscopy was performed which did not demonstrate any sign of a hiatal hernia. They were set up for sleeve gastrectomy. Hospital Course: Arrived from home on 04/29/23 for laparoscopic sleeve gastrectomy which was performed without complication. She was able to ambulate independently and she was tolerating po and nausea and pain were controlled. Discharged on 04/30/23 POD # 1 Active Issues Requiring Follow-up: Test Results Pending at Discharge: Pending Labs Order Current Status Surgical pathology In process Operative Procedures Performed: Procedure(s): LAPAROSCOPIC GASTRECTOMY - SLEEVE Other Procedures: Pertinent Test Results: Discharge Details Physical Exam at Discharge: Discharge Condition: good Pulse: 55 Resp: 18 BP: 149/75 Temp: 36.6 ??C (97.8 ??F) Weight: (!) 143.8 kg (317 lb) Pertinent Exam Findings at Discharge: Discharge Disposition: Discharge to home or self care Code Status at Discharge: full code Discharge Instructions: Diet Instructions Start Full Liquid diet ( Weight loss surgery ) progression on discharge home. Increase liquid protein shakes. Call [facility] Outpatient Dietitian's office at [phone] for diet questions. Other Instructions Special Instructions Discharge Instructions: 1. No driving while on narcotics 2. No heavy lifting greater than a milk jug until follow up 3. Ice to operative site, on 15 minutes off 15 minutes as needed for pain 4. May shower starting 05/01/23, No tub baths or soaking of incisions 5. Take stool softner while on narcotics to prevent constipation 6. Call for worsening pain, erythema, drainage or any other concerns about your incisions or post operative course 7. Follow up in 1 week, Please call office for appointment [phone] 8. Diet, until follow up: bariatric post op 9. Abdominal Binder as needed for comfort Bariatric discharge instruction 1. No driving while on narcotics 2. No heavy lifting greater than a milk jug until follow up 3. Ice to operative site, on 15 minutes off 15 minutes as needed for pain 4. May shower starting 05/01/23, No tub baths or soaking of incisions 5. Take stool softner while on narcotics to prevent constipation 6. Call for worsening pain, erythema, drainage or any other concerns about your incisions or post operative course 7. Follow up in 1 week, Please call office for appointment [phone] 8. Diet, until follow up: advance diet as laid out in bariatric handout 9. No straws, chewing gum or carbonated beverages 10. Continue pepcid twice daily 11. Continue Multivitamin, calcium and vit D Discharge Medications: Current Medications TAKE these medications Advair Diskus 100-50 mcg/dose diskus inhaler Inhale 1 puff 2 (two) times a day Generic drug: fluticasone propion-salmeteroL albuterol HFA 90 mcg/actuation inhaler INHALE 2 PUFFS VIA SPACER EVERY 6 HRS FOR 1 WEEK, NEEDED UNTIL SYMPTOMS IMPROVE Commonly known as: PROVENTIL HFA,VENTOLIN HFA,PROAIR HFA docusate sodium 100 mg capsule Take 1 capsule (100 mg total) by mouth 2 (two) times a day for 14 days For: constipation Commonly known as: COLACE Notes to patient: Prevent constipation famotidine 20 mg tablet Take 1 tablet (20 mg total) by mouth 2 (two) times a day Commonly known as: PEPCID Notes to patient: Prevent heartburn/indigestion HYDROcodone-acetaminophen 5-325 mg per tablet Take 1 tablet by mouth every 6 (six) hours as needed for pain for up to 7 days For: pain Commonly known as: NORCO Notes to patient: Pain medication hyoscyamine 0.125 mg Take 1 tablet (125 mcg total) by mouth every 6 (six) hours as needed (hiccups. stomach spasm) for up to 7 days For: involuntary leakage of urine Commonly known as: OSCIMIN Notes to patient: Prevent hiccups/stomach spasms Outpatient Follow-Up: Future Appointments Date Time Provider Department Center 05/29/2023 10:[address] [facility] Main Contact Information for Follow-ups Tirso Toledo MD Specialty: General Surgery [address] [place] [address] [place] [address] Next Steps: Follow up in 1 week(s) Instructions: Please call office to make an appointment. Cosigned by Tirso Toledo MD at 05/01/2023 12:07 PM CDT documented in this encounter Discharge Instructions * Discharge Instructions* Andie Gavin RN - 04/30/2023 2:33 PM CDT THANK YOU for choosing our team to provide your health care. Your HEALTH AND SAFETY are important to us. We hope you feel your care on [facility] is ALWAYS EXCELLENT! Please call [facility] at [phone] if you have any questions regarding your care. Wishing you continued improvement during your recovery. Your Surgical Care Unit Team Shana Valle Dana, Denise, Nancy, Arlin, Tabatha Moy Stacy, Debbie, Sheila, Lamika, Judy, Lindsey, Analia, Angelina Gordillo Simona, Bonnie, Angie, Melanie, Kayla, Devin, Cassie. * Discharge Instr - Diet* Sandra Geiger RD - 04/30/2023 3:43 PM CDT Start Full Liquid diet ( Weight loss surgery ) progression on discharge home. Increase liquid protein shakes. Call [facility] Outpatient Dietitian's office at [phone] for diet questions. * Attachments The following attachments cannot be sent through Care Everywhere. * Laxative, Stool Softeners (By mouth) (Swiss) * Famotidine (By mouth) (Swiss) * Hydrocodone/Acetaminophen (By mouth) (Swiss) * Hyoscyamine (By mouth) (Swiss) documented in this encounter Medications at Time of Discharge HYDROcodone-acetam inophen (NORCO) 5-325 mg per tabletIndications: Pain Take 1 tablet by mouth every 6 (six) hours as needed for pain for up to 7 days 20 tablet 04/30/2023 3 Advair Diskus 100-50 mcg/dose diskus inhaler Inhale 1 puff 2 (two) times a day 11/07/2022 4 albuterol HFA (PROVENTIL HFA,VENTOLIN HFA,PROAIR HFA) 90 mcg/actuation inhaler INHALE 2 PUFFS VIA SPACER EVERY 6 HRS FOR 1 WEEK, NEEDED UNTIL SYMPTOMS IMPROVE 10/15/2022 4 docusate sodium (COLACE) 100 mg capsuleIndications [...] to 7 days 25 tablet 04/30/2023 4 documented as of this encounter Ordered Prescriptions Prescription Sig Dispense Quantity Refills Last Filled Start Date End Date famotidine (PEPCID) 20 mg tablet Take 1 tablet (20 mg total) by mouth 2 (two) times a day 60 tablet 04/30/2023 4 HYDROcodone-acetam inophen (NORCO) 5-325 mg per tabletIndications: Pain Take 1 tablet by mouth every 6 (six) hours as needed for pain for up to 7 days 20 tablet 04/30/2023 3 hyoscyamine (OSCIMIN) 0.125 mgIndications:Urin olga Incontinence Take 1 tablet (125 mcg total) by mouth every 6 (six) hours as needed (hiccups. stomach spasm) for up to 7 days 25 tablet 04/30/2023 4 docusate sodium (COLACE) 100 mg capsuleIndications :constipation Take 1 capsule (100 mg total) by mouth 2 (two) times a day for 14 days 28 capsule 04/30/2023 4 documented in this encounter Discharge Disposition Disposition Code Departure Means Destination Comment s Discharge to home or self care documented in this encounter Progress Notes * Sandra Geiger RD - 04/30/2023 3:35 PM CDT Pt was seen today by this RDN and re-educated on Weight loss surgery diet and it's progression overthe next few weeks. Pt had no questions. Pt was given a follow up visit date with this RDN in approximately one month in outpatients. RDN reminded patient to increase walking to help alleviate gas pain and to continue taking sips of water every 15 minutes to help decrease dehydration. Pt to call RDN if needed. Sandra Geiger RDN, LDN * Susan Ontiveros NP - 04/30/2023 9:00 AM CDT Progress Note Subjective: HPI: 28 y.o. POD # 1 S/P Laparoscopic sleeve gastrectomy. Doing well up walking independent. No nausea or vomiting. Some gas pains she feels rising up when she sits. No events overnight. Denies fever,cp,sob,n/v. Pain is well controlled. Objective: Vitals: 04/30/23 0825 BP: Pulse: Resp: Temp: SpO2: 96% Labs: Lab Results Component Value Date WBC 10.9 (H) 04/30/2023 HGB 13.9 04/30/2023 HCT 45.5 04/30/2023 LABPLAT 221 04/30/2023 RBC 4.86 04/30/2023 Lab Results Component Value Date SODIUM 136 04/30/2023 POTASSIUM 4.4 04/30/2023 CHLORIDE 104 04/30/2023 CO2 18 (L) 04/30/2023 ANIONGAP 13 04/30/2023 BUNSER 8 04/30/2023 CREATININE 0.58 (L) 04/30/2023 GLUCOSE 124 04/30/2023 CALCIUM 8.8 04/30/2023 I/O last 2 completed shifts: In: 2406.7 [P.O.:30; I.V.:2376.7] Out: 20 [Blood:20] No intake/output data recorded. Physical Exam Constitutional: Appearance: Normal appearance. HENT: Head: Normocephalic and atraumatic. Nose: Nose normal. Mouth/Throat: Mouth: Mucous membranes are moist. Eyes: Pupils: Pupils are equal, round, and reactive to light. Cardiovascular: Rate and Rhythm: Normal rate and regular rhythm. Pulses: Normal pulses. Heart sounds: Normal heart sounds. Pulmonary: Effort: Pulmonary effort is normal. Breath sounds: Normal breath sounds. Abdominal: Palpations: Abdomen is soft. Tenderness: There is no abdominal tenderness. Musculoskeletal: General: Normal range of motion. Cervical back: Normal range of motion. Skin: General: Skin is warm and dry. Operative sites well approximated, with no erythema,no drainage Neurological: General: No focal deficit present. Mental Status: She is alert and oriented to person, place, and time. Psychiatric: Mood and Affect: Mood normal. Behavior: Behavior normal. Assessment/Plan POD # 1 S/P Laparoscopic sleeve gastrectomy. Clear liquid diet OOB today with PT/OT IS Bowel regimen Pain control Disposition planning for home 04/30/2023 Cosigned by Tirso Toledo MD at 05/01/2023 3:34 PM CDT * Dianne Zuniga PT - 04/30/2023 8:07 AM CDT Physical Therapy 04/30/23 0806 General Chart Reviewed Yes Session Type Discharge (indep w ambulation. up walking in halls w IV pole. DC PT) Safe Environment Arm band checked;Patient found in supine Subjective Agreeable to Therapy Family/Caregiver Present Yes Physical Therapy-Patient Goal return home documented in this encounter H&P Notes * Tirso Toledo MD - 04/29/2023 12:25 PM CDT Patient seen and examined. No change from prior visit. Acceptable risk to proceed with surgery. Tirso Toledo MD 04/29/2023 Surgery H and P Subjective: Patient Name: Reed Henderson Date of Visit: 02/19/2023 HPI: Reed Henderson is a 27 y.o. female presents for obesity and consideration of laparoscopic sleeve gastrectomy. She lost 3 lbs since last visit and completely quit smoking. She is doing very well. She did attend the last support group. She can't make it in person to the next one but plans to log on. She has all of her clearances. She has a few more visits set up with towel stretcher. She is walking for exercise. Chief Complaint: Obesity (Bariatric 4) Allergies as of 02/19/2023 - Reviewed 02/19/2023 Allergen Reaction Noted Latex Swelling and Hives 07/11/2019 Medical History Past Medical History: Diagnosis Date ADHD (attention deficit hyperactivity disorder) Anemia Asthma Depression Female infertility GERD (gastroesophageal reflux disease) History of adverse effect of anesthesia freaking out pulling at IV, crying, anxious, scared Miscarriage Motion sickness Obesity Polycystic ovary syndrome Surgical History Past Surgical History: Procedure Laterality Date COLONOSCOPY 2014 OTHER SURGICAL HISTORY removal of cyst from buttocks in December Family History Problem Relation Age of Onset Heart disease Maternal Grandfather Heart disease; Hyperlipidemia Maternal Grandfather Hyperlipidemia; Hypertension Maternal Grandfather Hypertension; Hyperlipidemia Maternal Grandmother Hyperlipidemia; Hypertension Maternal Grandmother Hypertension; Breast cancer Mother 35 Cancer, breast; /Cancer, breast; Uterine cancer Mother Cancer, uterine; Asthma Mother Asthma; Diabetes type II Mother Diabetes mellitus type 2; Hypertension Father Hypertension; Social History Social History Tobacco Use Smoking status: Former Packs/day: 0.50 Years: 6.00 Pack years: 3.00 Types: Cigarettes Start date: 2013 Smokeless tobacco: Never Tobacco comments: Smoking History Packs/day: 0.25 Packs Substance and Sexual Activity Drug use: No Sexual activity: Defer Partners: Male Alcohol Use: Unknown (10/30/2022) AUDIT-C Frequency of Alcohol Consumption: Monthly or less Average Number of Drinks: Not on file Frequency of Binge Drinking: Less than monthly Review of Systems Constitutional: Negative for activity change. HENT: Negative for hearing loss and sore throat. Eyes: Negative for visual disturbance. Respiratory: Negative for cough and shortness of breath. Cardiovascular: Negative for chest pain. Gastrointestinal: Negative for abdominal pain, constipation, diarrhea, nausea and vomiting. Genitourinary: Negative for dysuria. Musculoskeletal: Negative for back pain. Objective: Vitals BP 137/77 (BP Location: Right arm, Patient Position: Sitting) Pulse 67 Temp 36.2 ??C (97.1 ??F) Ht 157.5 cm (5' 2 ) Wt (!) 147 kg (324 lb) SpO2 96% BMI 59.26 kg/m?? Physical Exam Constitutional: The patient is oriented to person, place, and time. They appear well-nourished. No distress. HENT: Head: Normocephalic and atraumatic. Eyes: Pupils are equal, round, and reactive to light. Neck: No thyromegaly present. Cardiovascular: Normal rate and regular rhythm. Pulmonary/Chest: Effort normal and breath sounds normal. Abdominal: Soft. non distended. There is no tenderness. No hernia. Genitourinary: Rectum normal. Musculoskeletal: Normal range of motion. Neurological: alert and oriented to person, place, and time. Skin: Skin is warm and dry. Psychiatric: normal mood and affect. Assessment/Plan Diagnoses and all orders for this visit: BMI 45.0-49.9, adult (HCC) (Primary) Continue diet and exercise. Continue support group. Discussed scheduling EGD with H pylori testing.RTC in 1 month documented in this encounter Miscellaneous Notes * Initial Assessments - Jessica Leon RN - 04/30/2023 1:54 PM CDT CM Low Risk Discharge Planning Assessment Note Primary Care Provider: Graciela Antoine PA Preferred Pharmacy: [facility]/pharmacy #[id number] [address] Who does the patient or legal guardian want to receive education instruction and discharge plans for after care assistance?: Decline Living Arrangements: Spouse/significant other Does the patient need discharge transport arranged?: No (04/29/23 887) Additional Information and Discharge Plan: DC plan discussed with patient. Goal is to return home-lives with her /kids and her will be her ride home. Independent. No equipment used formobility. Barrier to dc is recovery after lap gastric sleeve surgery. No home needs noted at this time. Jessica Leon RN Phone Number: * Plan of Care - Samara Lafleur RN - 04/30/2023 3:07 AM CDT Goals: Clinical Goals for the Shift: Patients vitals will remain within normal limits and pain will be addressed with prn meds. Summary: Patients vitals are within normal limits and pain has been addressed with prn meds. * Plan of Care - Gertrude Knapp RN - 04/29/2023 6:46 PM CDT Goals: Clinical Goals for the Shift: control pain , VSS Summary: VSS, adequate pain control, free from falls/injury * Op Note - Tirso Toledo MD - 04/29/2023 3:19 PM CDT Images from the original note were not included. NAME: Reed Henderson DATE OF : 1995 SURGEON: Tirso Toledo MD CAR WASH ATTENDANT AUTOMATIC:Stereoptician: Emely Amaral RN Stereoptician Relief: Galo Meza RN Scrub: Nery Fuentes ST; Susan Ontiveros NP HOUSE WRECKER: Jazzy Hallman RN DATE OF SURGERY: 04/29/2023 PREOP DIAGNOSES: Morbid obesity POSTOP DIAGNOSES: Morbid obesity PROCEDURE: Laparoscopic sleeve gastrectomy INDICATIONS OF PROCEDURE: The patient is a 28-year-old female with longstanding history of issues with weight gain. They went through a 6 month process where they did quite well with persistent weight loss during that time. In their preoperative evaluation an upper endoscopy was performed which didnot demonstrate any sign of a hiatal hernia. They were set up for sleeve gastrectomy. DETAILS OF PROCEDURE: After informed consent was obtained the patient was taken to the operating room and placed supine on the operating table. SCD boots were applied to bilateral lower extremities. General endotracheal intubation was achieved. Perioperative antibiotics were administered and a preoperative time-out completed. The patient was then prepped and draped in standard sterile fashion. Attention was directed towards the abdomen where a 1 cm supraumbilical incision was made. Using Optiview technique a 5 mm trocar and 0 degree scope was inserted into the abdominal cavity under direct visualization. No bowel noted to be in the vicinity of this initial trocar entrance. The abdomen was insufflated to 15 mm ofmercury. At this time a 5 mm trocar was placed in the left upper abdomen. At this time a 15 mm trocar was placed the right mid abdomen and a further 5 mm trocar in the right lateral abdomen. A Mayte liver retractor was inserted to assist in exposure. As the liver was exposed no anterior dimple was seen to suggest hiatal hernia. The patient was placed in reverse Trendelenburg position. At thistime the omentum was grasped and with an ultrasonic device the lesser sac was entered. This was carried up along the greater curvature towards the left allyson of the diaphragm. Careful dissection alongthe short gastrics were taken to ensure no injury to the spleen. The fundus was ensured to be completely mobilized off of the left allyson of the diaphragm. Posterior attachments were also taken down. At this time we continued our dissection along the greater curvature towards the pylorus. This was stopped at a distance roughly 4 cm from the pylorus. A 40 Andorran visit G-tube was then inserted under direct visualization and directed towards the pylorus. At this time using a black loaded with Linette Guard, our 1st firing was done. This was in a more horizontal direction. We then continued with purple loads with Linette Guard following the edge of our bougie. Once we got up to the left allyson our last firing was angled out roughly 1 cm to not encroach on the esophagus. At this time our staple line wasinspected. It was found to be hemostatic. The splenic area was also inspected and again found to behemostatic. Our stomach was then grasped and brought up through the 15 mm trocar site. This site was then closed with a suture Passer device with an interrupted 0 Vicryl stitch. The staple line was inspected 1 further time and again found to be hemostatic. At this time the liver retractor was removed under direct visualization. No bleeding was noted. Remaining trocars were removed and pneumoperitoneum evacuated. The skin of all trocar sites were closed with interrupted 4 0 Monocryl subcuticularstitches. Dermabond was then applied. The patient was awoken from anesthesia and transferred to recovery in stable condition. At the end of the procedure all sponge, needle and instrument counts werereported to be correct x2 at the end of the case. ANESTHESIA: General. Plus 10 cc of 0.5% Marcaine COMPLICATIONS: None BLOOD LOSS: 10 cc SPECIMEN: Stomach Tirso Toledo MD 4:16 PM 04/29/2023 * Pre-Procedure Instructions - Taylor Maya RN - 04/21/2023 3:36 PM CDT We are pleased that you and your doctor have chosen [facility] for your surgery. We hope that the following information will help make your visit a pleasant one. Surgery Date: 04/29/2023 Before your surgery: Notify your doctor of ANY change in your health such as a cold, sore throat, fever, any infection or a change in the problem for which you are having your surgery. Follow any instructions given to you by your doctor or surgeon. Check with your doctor if you need to STOP taking: Aspirin (ordered by your doctor) Plavix Coumadin One week before surgery STOP taking: All herbal supplements Aspirin (not ordered by your doctor) Aleve, Advil, Motrin, Ibuprofen, or other similar medications (Tylenol is okay). 24 hours before your surgery: No smoking or alcoholic drinks. Night before your surgery: Do not eat or drink anything after midnight. Follow surgeon's instructions for anti-bacterial shower night before and morning of surgery. Day of surgery: Do not swallow any water when you brush your teeth. ONLY take these pills with a tiny sip of water. Pre-Surgery Instructions: Medication Instructions Advair Diskus 100-50 mcg/dose diskus inhaler Take morning of surgery albuterol HFA (PROVENTIL HFA,VENTOLIN HFA,PROAIR HFA) 90 mcg/actuation inhaler Take morning of surgery Use no make-up, nail chinese, lotions, oils or powders on your skin. Wear comfortable clothes that will not be tight in the area of your surgery. Leave all valuables and jewelry (including all body piercing jewelry) at home. Please bring your a photo ID and insurance cards with you. After your Outpatient Surgery: You must have a responsible adult to drive you home, you will not be allowed to drive or take a cabhome. We recommend you have someone stay with you for 24 hours after your surgery. What to bring if you are spending the night with us: Bring toiletry items such as: robe, slippers, toothbrush, toothpaste, brush or comb. Bring contact lens, hearing aids, glass cases and denture container if you use any of these items. The hospital will provide you with a gown. Questions or concerns: If you have any questions or concerns regarding your procedure, contact your surgeon as soon as possible. If you have questions regarding your Pre-Admission Testing, please call us. We can be reached at the number posted at the top of the page. documented in this encounter Plan of Treatment Not on file documented as of this encounter Procedures Procedure Name Priority Date/Time Associated Diagnosis Comments EGFR Routine 04/30/2023 5:31 AM CDT PHOSPHORUS Routine 04/30/2023 5:31 AM CDT MAGNESIUM Routine 04/30/2023 5:31 AM CDT BASIC METABOLIC PANEL Routine 04/30/2023 5:31 AM CDT CBC WITHOUT DIFFERENTIAL Routine 04/30/2023 3:18 AM CDT LAPAROSCOPIC GASTRECTOMY - SLEEVE 04/29/2023 2:39 PM CDT Morbid obesity (HCC) Case Notes Akash Kaye Conf 04/24 MG SURGICAL PATHOLOGY Routine 04/29/2023 1: 05 PM CDT Morbid obesity (HCC) EGFR STAT 04/29/2023 12:15 PM CDT ABO/RH STAT 04/29/2023 12:15 PM CDT CBC WITHOUT DIFFERENTIAL STAT 04/29/2023 12:15 PM CDT POCT HCG, URINE Routine 04/29/2023 12:15 PM CDT ANTIBODY SCREEN STAT 04/29/2023 12:15 PM CDT HC ANTIBODY SCREEN RBC STAT 04/29/2023 12:15 PM CDT COMPREHENSIVE METABOLIC PANEL STAT 04/29/2023 12:15 PM CDT documented in this encounter Results * eGFR (04/30/2023 5:31 AM CDT) eGFR 128 mL/min/1. 73 m2 [facility] ([facility]) Comment: Interpretive Data Reference Interval Normal ?>/= 90 mL/min/1.73m2 Mildly decreased* ? 60 - 89 mL/min/1.73m2 Mildly to moderately decreased ?45 - 59 mL/min/1.73m2 Moderately to severely decreased ??30 - 44 mL/min/1.73m2 Severely decreased ?15 - 29 mL/min/1.73m2 Kidney Failure ?< 15 ??mL/min/1.73m2 *Relative to young adult level Estimated glomerular filtration rate is determined by the 2020 CKD-EPI equation recommended by the National Kidney Foundation (A Unifying Approach to GFR Estimation: Recommendations of the NKF-ASK Task Force on Reassessing the Inclusion of Race in Diagnosing Kidney Disease, JASN 2020). The CKD-EPI equation should not be used for patients with unstable renal function and has not been validated in children and those over 70. Current interpretive data was last reviewed 2021. Blood 04/30/2023 5:31 AM CDT 04/30/2023 5:35 AM CDT Tirso Toledo MD LAB BLOOD ORDERA BLES Final Result [facility] ([place]) [address] [place] [address] * Phosphorus (04/30/2023 5:31 AM CDT) Phosphorus, pl 2.8 2.3 - 4.5 mg/dL [facility] ([place]) Blood 04/30/2023 5:31 AM CDT 04/30/2023 5:35 AM CDT Tirso Toledo MD LAB BLOOD ORDERA BLES Final Result [facility] ([place]) [address] [facility] [place] [address] * Magnesium (04/30/2023 5:31 AM CDT) Magnesium 2.0 1.4 - 2.5 mg/dL [facility] ([facility]) Blood 04/30/2023 5:3 1 AM CDT 04/30/2023 5:35 AM CDT Tirso Toledo MD LAB BLOOD ORDERA BLES Final Result [facility] ([facility]) [address] [facility] [place] [address] * (ABNORMAL) Basic metabolic panel (04/30/2023 5:31 AM CDT) Sodium 136 135 - 145 mmol/L [facility] ([facility]) Potassium, pl 4.4 3.3 - 4.9 mmol/L [facility] ([facility]) Chloride 104 97 - 110 mmol/L [facility] ([facility]) CO2 18(L) 22 - 32 mmol/L [facility] ([facility]) Anion gap 13 2 - 15 mmol/L [facility] ([facility]) BUN 8 6 - 25 mg/dL [facility] ([facility]) Creatinine 0.58(L) 0.60 - 1.10 mg/dL [facility] ([facility]) Glucose 124 70 - 199 mg/dL [facility] ([facility]) Comment: Interpretive Data Fasting glucose >/= 126 mg/dl is diagnostic for diabetes. ?? Fasting is defined as no caloric intake for at least 8 hours. Fasting glucose between 100 mg/dl to 125 mg/dl is diagnostic of prediabetes. In a patient with classic symptoms of hyperglycemia or hyperglycemic crisis, a random glucose >/= 200 mg/dl is diagnostic for diabetes. In the absence of unequivocal hyperglycemia, results should be confirmed by repeat testing. The classification and Diagnosis of Diabetes Diabetes Care 2021; 46: S19-S40. Current interpretive data was last revised 2022. Calcium 8.8 8.5 - 10.3 mg/dL [facility] ([facility]) Blood 04/30/2023 5:31 AM CDT 04/30/2023 5:35 AM CDT Tirso Toledo MD LAB BLOOD ORDERA BLES Final Result [facility] ([facility]) [address] [facility] [employer] [place] [address] * (ABNORMAL) CBC without differential (04/30/2023 3:18 AM CDT) WBC 10.9(H) 3.8 - 9.9 K/cumm [facility] ([facility]) Hgb 13.9 11.9 - 15.5 g/dL [facility] ([facility]) Hct 45.5 35.6 - 45.5 % [facility] ([facility]) Plt 221 150 - 400 K/cumm [facility] ([facility]) MPV 12.6(H) 9.1 - 12.3 fL [facility] ([facility]) RBC 4.86 3.90 - 5.20 M/cumm [facility] ([facility]) MCV 93.6 81.3 - 96.4 fL [facility] ([facility]) MCH 28.6 27.1 - 33.3 pg [facility] ([facility]) MCHC 30.5(L) 32.3 - 35.7 g/dL [facility] ([facility]) RDW CV 14.0 11.1 - 14.9 % [facility] ([facility]) RDW SD 48.0 35.7 - 48.1 fL [facility] ([facility]) NRBC abs 0.00 0.00 - 0.01 K/cumm [facility] ([facility]) Blood 04/30/2023 3:18 AM CDT 04/30/2023 4:03 AM CDT us Tirso Toledo MD LAB BLOOD ORDERA BLES Final Result [facility] ([facility]) [address] [facility] [place] [address] * Surgical pathology (04/29/2023 1:05 PM CDT) Tissue (Stomach - Subtotal / Total Resection, non-Tumor) 04/29/2023 3:45 PM CDT Narrative [facility] ([facility]) - 05/04/2023 10:57 AM CDT EPIC results best viewed via link to PDF [facility] Department of Pathology [address] [place], [place] [id number] Note to Patients: This report may contain [...] can answer questions and explain the details. Final Report Patient Name: ??REED HENDERSON Address: ??[address], ??[place], [place] ??[address] Gender: ??F : ??1995 (Age: 28) Service: ??Surgery Location: ??[facility] Hospital #: ??[id number] Patient Type: ??[facility] Accession # ?[id number] Taken: ??04/29/2023 Received: ??04/30/2023 Accessioned: ??04/30/2023 Reported: ??05/04/2023 Physician(s):Tirso Toledo MD Diagnosis: Stomach, laparoscopic sleeve gastrectomy: ? - Gastric tissue with no significant histopathologic abnormalities. Alcides Finney MD Report Electronically Reviewed and Signed Out By ??Alcides Finney MD ??05/04/2023 10:57:46 Specimen(s) Received: A: Gastric sleeve stomach specimen Microscopic Description: Microscopic examination shows gastric tissue with no significant histopathologic abnormalities. There is no evidence of intestinal metaplasia, dysplasia, or malignancy. No definitive Helicobacter organisms are seen on routine H&E staining. Clinical History: Morbid obesity. ??Laparoscopic gastrectomy - sleeve. ?? Gross Description: The specimen is submitted in a single container labeled with REED HENDERSON and stomach . ??It is a portion of stomach that measures 20 x 5 x 4 cm. The serosa is smooth, the muscular wall is intact and the mucosal folds are unremarkable. ??There are no mass lesions. ??Represented in two cassettes. T.A. Calloway, R.N., Cassandra/Audrey Gil M.D. REPORT IMAGES AND SCANNED DOCUMENTS, IF INCLUDED, ONLY VIEWABLE IN PDF VERSION OF REPORT The performance characteristics of some immunohistochemical stains, fluorescence in-situ hybridization tests and immunophenotyping by flow cytometry cited in this report (if any) were determined by the Surgical Pathology Department at [facility] as part of an ongoing senior quality analyst program and in compliance with federally mandated [...] characteristics determined by the Surgical Pathology Department [facility]. ??It has not been cleared or approved by the U. S. Food and Drug Administration. Note for decalcified specimens: This assay has not been validated on decalcified tissues. Results should be interpreted with caution given the possibility of false negativity on decalcified specimens Tirso Toledo MD LAB PATHOLOGY OR DERABLES Final Result PATHOLOGY [facility] ([place]) [address] [place] [address] * eGFR (04/29/2023 12:15 PM CDT) eGFR 114 mL/min/1. 73 m2 [facility] ([place]) Comment: Interpretive Data Reference Interval Normal ?>/= 90 mL/min/1.73m2 Mildly decreased* ? 60 - 89 mL/min/1.73m2 Mildly to moderately decreased ?45 - 59 mL/min/1.73m2 Moderately to severely decreased ??30 - 44 mL/min/1.73m2 Severely decreased ?15 - 29 mL/min/1.73m2 Kidney Failure ?< 15 ??mL/min/1.73m2 *Relative to young adult level Estimated glomerular filtration rate is determined by the 2020 CKD-EPI equation recommended by the National Kidney Foundation (A Unifying Approach to GFR Estimation: Recommendations of the NKF-ASK Task Force on Reassessing the Inclusion of Race in Diagnosing Kidney Disease, JASN 2020). The CKD-EPI equation should not be used for patients with unstable renal function and has not been validated in children and those over 70. Current interpretive data was last reviewed 2021. Blood 04/29/2023 12:1 5 PM CDT 04/29/2023 12:20 PM CDT us Tirso Toledo MD LAB BLOOD ORDERA BLES Final Result [facility] ([place]) [address] [facility] Department of Laboratories [place], [place] [id number] * POCT hCG, urine (04/29/2023 12:15 PM CDT) HCG, ur, POC Negative Negative Lot Number [id number] QC Backgroud Clear Acceptable QC Control Line Acceptable Urine 04/29/2023 12:1 5 PM CDT us Mohan Jiménez MD POINT OF CARE TEST ORDERAB LES Final Result * Antibody screen (04/29/2023 12:15 PM CDT) William, indirect, Gel Interpretation Negative ABSC [facility] ([place]) Blood 04/29/2023 12:1 5 PM CDT 04/29/2023 12:20 PM CDT Narrative [facility] ([facility]) - 04/29/2023 12:55 PM CDT Has the patient had Daratumumab or Isatuximab in the past 6 months?->Unknown Tirso Toledo MD LAB BLOOD BANK T EST ORDERABLES Final Result Performing Organization Address City/[facility]/ZIP Co de Phone Number [facility] ([place]) [address] [facility] [place] [address] * ABO/Rh (04/29/2023 12:15 PM CDT) ABO/Rh O Positive [facility] ([facility]) Blood 04/29/2023 12:1 5 PM CDT 04/29/2023 12:20 PM CDT Narrative [facility] ([place]) - 04/29/2023 12:55 PM CDT Has the patient had Daratumumab or Isatuximab in the past 6 months?->Unknown Tirso Toledo MD LAB BLOOD BANK T EST ORDERABLES Final Result Performing Organization Address City/[facility] Co de Phone Number [facility] ([place]) [address] [facility] [place] [address] * (ABNORMAL) CBC without differential (04/29/2023 12:15 PM CDT) WBC 11.0(H) 3.8 - 9.9 K/cumm [facility] ([facility]) Hgb 13.1 11.9 - 15.5 g/dL [facility] ([facility]) Hct 39.0 35.6 - 45.5 % [facility] ([facility]) Plt 241 150 - 400 K/cumm [facility] ([facility]) MPV 12.7(H) 9.1 - 12.3 fL [facility] ([facility]) RBC 4.53 3.90 - 5.20 M/cumm [facility] ([facility]) MCV 86.1 81.3 - 96.4 fL [facility] ([facility]) MCH 28.9 27.1 - 33.3 pg [facility] ([facility]) MCHC 33.6 32.3 - 35.7 g/dL [facility] ([facility]) RDW CV 14.1 11.1 - 14.9 % [facility] ([facility]) RDW SD 44.1 35.7 - 48.1 fL [facility] NRBC abs 0.00 0.00 - 0.01 K/cumm [facility] Blood 04/29/2023 12:1 5 PM CDT 04/29/2023 12:20 PM CDT us Tirso Toledo MD LAB BLOOD ORDERA BLES Final Result [facility] ([facility]) [address] [facility] Department [place] [address] * (ABNORMAL) Comprehensive metabolic panel (04/29/2023 12:15 PM CDT) Sodium 134(L) 135 - 145 mmol/L [facility] ([facility] Potassium, pl 3.9 3.3 - 4.9 mmol/L [facility] Chloride 101 97 - 110 mmol/L [facility] ([facility]) CO2 21(L) 22 - 32 mmol/L [facility] ([facility]) Anion gap 12 2 - 15 mmol/L [facility] BUN 10 6 - 25 mg/dL [facility] Creatinine 0.74 0.60 - 1.10 mg/dL [facility] ([facility]) Glucose 80 70 - 199 mg/dL [facility] ([facility] Comment: Interpretive Data Fasting glucose >/= 126 mg/dl is diagnostic for diabetes. ?? Fasting is defined as no caloric intake for at least 8 hours. Fasting glucose between 100 mg/dl to 125 mg/dl is diagnostic of prediabetes. In a patient with classic symptoms of hyperglycemia or hyperglycemic crisis, a random glucose >/= 200 mg/dl is diagnostic for diabetes. In the absence of unequivocal hyperglycemia, results should be confirmed by repeat testing. The classification and Diagnosis of Diabetes Diabetes Care 2021; 46: S19-S40. Current interpretive data was last revised 2022. Calcium 9.1 8.5 - 10.3 mg/dL [facility] ([facility]) Bilirubin, total 0.4 0.1 - 1.2 mg/dL [facility] ([facility]) Protein, pl 7.2 6.5 - 8.5 g/dL [facility] ([facility]) Albumin 4.1 3.5 - 5.0 g/dL [facility] ([facility]) Alk phos 84 40 - 130 Units/L [facility] ([facility]) ALT 26 7 - 45 Units/L [facility] ([facility]) AST 17 10 - 45 Units/L [facility] ([facility]) Blood 04/29/2023 12:1 5 PM CDT 04/29/2023 12:20 PM CDT us Tirso Toledo MD LAB BLOOD ORDERA BLES Final Result [facility] ([facility]) [address] [facility] [place] [address] documented in this encounter Visit Diagnoses Diagnosis Morbid obesity (HCC)- Primary Morbid obesity Morbid obesity (HCC) Morbid obesity documented in this encounter Admitting Diagnoses Diagnosis Morbid obesity (HCC) Morbid obesity S/P gastrectomy Other postprocedural status documented in this encounter Administered Medications Inactive Administered Medications - up to 3 most recent administrations Medication Order MAR Action Action Date Dose Rate Site acetaminophen (TYLENOL) tablet 650 mg 650 mg, oral, Every 6 hours PRN, fever, headaches, Starting on Thu04/29/23 at 2341 Given 04/29/2023 11:48 PM CDT 650 mg albuterol 2.5 mg /3 mL (0.083 %) nebulizer solution 2.5 mg 2.5 mg, nebulization, Every 6 hours PRN (respiratory therapy aide), wheezing, Starting on Thu04/29/23 at 1738, This therapy was substituted for Albuterol HFA per protocol. budesonide-formoteroL (SYMBICORT) 80-4.5 mcg/actuation inhaler 2 puff 2 puff, inhalation, 2 times daily (respiratory therapy aide), First dose on Thu04/29/23 at 2000, I /authorizing provider attest that the patient meets the approved [facility] Use Criteria: Yes Given 04/30/2023 8:25 AM CDT 2 puffs Given 04/29/2023 7:32 PM CDT 2 puffs BUPivacaine-EPINEPHrine (MARCAINE with EPI) 0.25 %-1:200,000 preservative free injection As needed, Starting on Thu04/29/23 at 1519, Intra-Op Given 04/29/2023 3:19 PM CDT 14 mL Abdominal Tissue docusate sodium (COLACE) capsule 100 mg 100 mg, oral, 2 times daily, First dose on Thu04/29/23 at 2100, Indications: constipationIndications:constip ation Given 04/30/2023 8:40 AM CDT 100 mg Given 04/29/2023 8:55 PM CDT 100 mg enoxaparin (LOVENOX) syringe 40 mg 40 mg, subcutaneous, Every 12 hours scheduled, First dose on Thu04/29/23 at 2100, Indications: Deep Vein Thrombosis PreventionIndications:Deep Vein Thrombosis Prevention Given 04/30/2023 8:39 AM CDT 40 mg Left Lower Abdomen Given 04/29/2023 8:55 PM CDT 40 mg Le ft Lower Abdomen HYDROmorphone (DILAUDID) injection 0.5 mg 0.5 mg, intravenous, Administer over 2 Minutes, Every 2 hours PRN, pain 4-6, Starting on Thu04/29/23 at 1731 Given 04/30/2023 8:39 AM CDT 0.5 mg Given 04/30/2023 5:34 AM CDT 0.5 mg Given 04/29/2023 8:56 PM CDT 0.5 mg Lactated Ringer's (LR) infusion 100 mL/hr, intravenous, Continuous, Starting on Thu04/29/23 at 1815 New Bag 04/30/2023 8:41 AM CDT 100 mL/hr 100 mL/hr Rate/Dose Verify 04/30/2023 5:28 AM CDT 100 mL/hr 100 mL/ hr New Bag 04/29/2023 11:15 PM CDT 100 mL/hr 100 mL/hr metoclopramide (REGLAN) 5 mg/mL injection 5 mg 5 mg, intravenous, Every 8 hours, First dose on Thu04/29/23 at 1815 Given 04/30/2023 8:40 AM CDT 5 mg Given 04/30/2023 1:46 AM CDT 5 mg Given 04/29/2023 7:11 PM CDT 5 mg sodium chloride 0.9% flush 0.5-20 mL 0.5-20 mL, intra-catheter, Every 8 hours scheduled, First dose on Thu04/29/23 at 2200, Flush volume based on line type and size. Given 04/30/2023 1:54 PM CDT 10 mL sodium chloride 0.9% irrigation As needed, Starting on Thu04/29/23 at 1547, Intra-Op Given 04/29/2023 3:47 PM CDT 1,000 mL Surgical Site documented in this encounter Discontinued Medications Medication Sig Discontinue Reason Start Date End Da te ARIPiprazole (ABILIFY) 10 mg tablet Take 1 tablet (10 mg total) by mouth daily Therapy completed 10/27/2022 04/21/2023 documented as of this encounter Active and Recently Administered Medications Times are shown in CDT. Scheduled Medication Order 04/28/2023 04/29/2023 04/30/2023 acetaminophen (TYLENOL) tablet 1,000 mg (COMPLETED) 1,000 mg, oral, Once, On Thu04/29/23 at 1245, For 1 dose, Pre-Op, Indications: Pre-Emptive Analgesia 1219 (Given - Provider: Conrado Mike, RN) budesonide-formoteroL (SYMBICORT) 80-4.5 mcg/actuation inhaler 2 puff 2 puff, inhalation, 2 times daily (respiratory therapy aide), First dose on Thu04/29/23 at 2000, I /authorizing provider attest that the patient meets the approved [facility] Use Criteria: Yes 193 (Given - Provider: Mattie Bhandari, MADDIE) 0825 (Given - Provider: Zena Stewart RRT) ceFAZolin (ANCEF) 1 gram/10 mL in sterile water (premix) 3,000 mg (COMPLETED) 3,000 mg, intravenous, at 600 mL/hr, Administer over 3 Minutes, Once, On Thu04/29/23 at 1315, For 1 dose, Pre-Op, Indications: Prophylaxis, Surgical 1504 (Given - Provider: Taiwo Langston CRNA) docusate sodium (COLACE) capsule 100 mg 100 mg, oral, 2 times daily, First dose on Thu04/29/23 at 2100, Indications: constipation 2054 (Given - Provider: Samara Lafleur RN) 0840 (Given - Provider: Jennifer Downey, ABHI) enoxaparin (LOVENOX) syringe 40 mg (COMPLETED) 40 mg, subcutaneous, Once, On Thu04/29/23 at 1245, For 1 dose, Pre-Op, Indications: VTE Prophylaxis 1220 (Given - Provider: Conrado Mike RN) enoxaparin (LOVENOX) syringe 40 mg 40 mg, subcutaneous, Every 12 hours scheduled, First dose on Thu04/29/23 at 2100, Indications: Deep Vein Thrombosis Prevention 2054 (Given - Provider: Samara Lafleur RN) 0839 (Given - Provider: Jennifer Downey, ABHI) metoclopramide (REGLAN) 5 mg/mL injection 5 mg 5 mg, intravenous, Every 8 hours, First dose on Thu04/29/23 at 1815 1911 (Given - Provider: Gertrude Knapp RN) 0146 (Given - Provider: Samara Lafleur RN)0840 (Given - Provider: Jennifer Downey, ABHI) scopolamine patch 72 hour 1 patch 1 patch, transdermal, Administer over 72 Hours, Once, On Thu04/29/23 at 1300, For 1 dose, Pre-Op 1313 (Medication Applied - Provider: Conrado Mike RN) 1601 (Due: Medication Removed - Provider: Automatic Discharge Provider - Comment: Time automatically adjusted from order being discontinued) sodium chloride 0.9% flush 0.5-20 mL 0.5-20 mL, intra-catheter, Every 8 hours scheduled, First dose on Thu04/29/23 at 2200, Flush volume based on line type and size. 2208 (Not Given - Provider: Samara Lafleur RN - Reason: IV Infusing) 0528 (Not Given - Provider: Samara Lafleur RN - Reason: IV Infusing)1354 (Given - Provider: Jennfier Downey, ABHI) Continuous Medication Order 04/28/2023 04/29/2023 04/30/2023 Lactated Ringer's (LR) infusion (CANCELED) 30 mL/hr, intravenous, Continuous, Starting on Thu04/29/23 at 1245, Pre-Op 1220 (New Bag - Provider: Conrado Mike RN)1454 (Rate/Dose Verify - Provider: Taiwo Langston CRNA)1506 (Rate/Dose Change - Provider: Taiwo Langston CRNA)1525 (Paused - Provider: Taiwo Langston CRNA - Comment: Switch to gravity)1526 (New Bag - Provider: Taiwo Langston CRNA)1742 (Stopped - Provider: Gertrude Knapp, ABHI) Lactated Ringer's (LR) infusion 100 mL/hr, intravenous, Continuous, Starting on Thu04/29/23 at 1815 1742 (New Bag - Provider: Gertrude Knapp RN)2315 (New Bag - Provider: Samara Lafleur RN) 0528 (Rate/Dose Verify - Provider: Samara Lafleur RN)0841 (New Bag - Provider: Jennifer Downey RN)2001 (Due: Stopped) PRN Medication Order 04/28/2023 04/29/2023 04/30/2023 acetaminophen (TYLENOL) tablet 650 mg 650 mg, oral, Every 6 hours PRN, fever, headaches, Starting on Thu04/29/23 at 2341 2348 (Given - Provider: Samaar Lafleur RN) 0838 (Not Given - Provider: Jennifer Downey, ABHI - Reason: Patient/family refused) albuterol 2.5 mg /3 mL (0.083 %) nebulizer solution 2.5 mg 2.5 mg, nebulization, Every 6 hours PRN (respiratory therapy aide), wheezing, Starting on Thu04/29/23 at 1738, This therapy was substituted for Albuterol HFA per protocol. BUPivacaine-EPINEPHrine (MARCAINE with EPI) 0.25 %-1:200,000 preservative free injection (CANCELED) As needed, Starting on Thu04/29/23 at 1519, Intra-Op 1519 (Given - Provider: Tirso Toledo MD) Carrier Fluids for Secondary Infusion - 0.9% Sodium Chloride 30 mL, intravenous, As needed, For priming tubing and/or flushing, Starting on Thu04/29/23 at 1731, 0-250 ml/hr to flush line after IV infusions when no maintenance IV ordered. Infuse 30mL at the same rate as the secondary infusion. Run as primary IV, not intended for KVO. HYDROcodone-acetaminophen (NORCO) 5-325 mg per tablet 1 tablet 1 tablet, oral, Every 4 hours PRN, 1st line for pain, Starting on Sheree 04/30/23 at 0903, Indications: Pain HYDROmorphone (DILAUDID) injection 0.5 mg 0.5 mg, intravenous, Administer over 2 Minutes, Every 2 hours PRN, pain 4-6, Starting on Thu04/29/23 at 1731 2056 (Given - Provider: Samara Lafleur RN) 0534 (Given - Provider: Samara Lafleur RN)0839 (Given - Provider: Jennifer Downey RN) HYDROmorphone (DILAUDID) injection 1 mg 1 mg, intravenous, Administer over 2 Minutes, Every 2 hours PRN, pain 7-10, Starting on Thu04/29/23 at 1731 HYDROmorphone (PF) (DILAUDID) injection 0.2 mg (CANCELED) 0.2 mg, intravenous, Administer over 2 Minutes, Every 10 min PRN, 1st line for pain, Starting on Thu04/29/23 at 1615, Phase I, Switch to 2nd line analgesic order if pain is uncontrolled or increasing after 2 doses. Notify Anesthesiologist if total PACU dose reaches 2 mg and pain score 5/10 or more., Indications: Pain 1658 (Given - Provider: Tonia Royal RN) hyoscyamine (OSCIMIN) disintegrating tablet 125 mcg 125 mcg, sublingual, Every 4 hours PRN, hiccups. stomach spasm, Starting on Thu04/29/23 at 1731, Indications: Urinary Incontinence ondansetron (ZOFRAN) injection 4 mg 4 mg, intravenous, Administer over 2 Minutes, Every 6 hours PRN, nausea, vomiting, Starting on Thu04/29/23 at 1731, Indications: Nausea and Vomiting prochlorperazine (COMPAZINE) injection 5 mg 5 mg, intravenous, Administer over 2 Minutes, Every 6 hours PRN, nausea, vomiting, Starting on Thu04/29/23 at 1731 2054 (Due) sodium chloride 0.9% flush 0.5-20 mL 0.5-20 mL, intra-catheter, As needed, line care, Starting on Thu04/29/23 at 1731, Flush volume based on line type and size. Flush before and after each use. sodium chloride 0.9% irrigation (CANCELED) As needed, Starting on Thu04/29/23 at 1547, Intra-Op 1547 (Given - Provider: Tirso Toledo MD - Comment: on field) documented in this encounter Orders Medications Ordered That Juan Carlos ht Not Have Been Administered Count Last Ordered Date First Ordered Date HYDROcodone-acetaminophen (N ORCO) 5-325 mg per tablet 1 tablet 1 04/30/2023 acetaminophen (TYLENOL) tablet 1,000 mg 1 0 04/29/2023 acetaminophen (TYLENOL) tablet 650 mg 1 albuterol 2.5 mg /3 mL (0.08 3 %) nebulizer solution 2.5 mg 1 04/29/2023 albuterol HFA (PROVENTIL HFA ,VENTOLIN HFA,PROAIR HFA) 90 mcg/actuation inhaler 2 puff 1 04/29/2023 budesonide-formoteroL (SYMBI SHAISTA) 80-4.5 mcg/actuation inhaler 2 puff 1 04/29/2023 Carrier Fluids for Secondary Infusion - 0.9% Sodium Chloride 1 04/29/2023 ceFAZolin (ANCEF) 1 gram/10 mL in sterile water (premix) 3,000 mg 1 04/29/2023 docusate sodium (COLACE) capsule 100 mg 1 0 04/29/2023 enoxaparin (LOVENOX) syringe 40 mg 2 2022 HYDROmorphone (DILAUDID) injection 0.5 mg 1 04/29/2023 HYDROmorphone (DILAUDID) injection 1 mg 1 0 04/29/2023 HYDROmorphone (PF) (DILAUDID ) injection 0.2 mg 1 04/29/2023 HYDROmorphone (PF) (DILAUDID ) injection 0.4 mg 1 04/29/2023 hyoscyamine (OSCIMIN) disint egrating tablet 125 mcg 1 04/29/2023 Lactated Ringer's (LR) infusion 2 3 metoclopramide (REGLAN) 5 mg /mL injection 5 mg 1 04/29/2023 naloxone (NARCAN) 0.4 mg/mL injection 0.04-0.4 mg 1 04/29/2023 ondansetron (ZOFRAN) injection 4 mg 2 04/29 prochlorperazine (COMPAZINE) injection 5 mg 2 04/29/2023 scopolamine patch 72 hour 1 patch 1 023 sodium chloride 0.9% flush 0.5-20 mL 2 04/04 Nursing Count Last Ordered Date First Orde red Date DISCHARGE INSTRUCTIONS 1 04/30/2023 TELEMETRY MONITORING 1 04/29/2023 Admission Count Last Ordered Date First Orde red Date ADMIT TO INPATIENT 2 04/29/2023 Transfer Count Last Ordered Date First Orde red Date TRANSFER PATIENT TO NEW UNIT 1 04/29/2023 Discharge Count Last Ordered Date First Orde red Date DISCHARGE PATIENT 1 04/30/2023 documented in this encounter Care Teams Regional Engineer Relationship Specialty Start Date End Date Graciela Antoine PA [address] [place] [id number] PCP - General Physician Cardiac Monitor Technician 11/07/22 Leonard Hunter MD [address] [place] [address] DR DO [address] [address] Data Librarian Obstetrics and Gynecology 01/12/20 documented as of this encounter
--- OUTSIDE RECORDS SUMMARY | 2024-08-05 00:58 | XMS_ITS | Encounter Summary ---
Author Organization [facility] Healthcare Address [address] [place] [address] Care Team Providers Care Nurse Substance Abuse Name Role Phone Leonard Hunter MD Unavailable [phone] Graciela Antoine Primary Care Provider Reason for Visit * Auth/Cert (Routine) Specialty Diagnoses / Procedures Referred By Amada t Referred To Contact Diagnoses Morbid obesity (HCC) Morbid obesity (HCC) [E66.01] Procedures NH LAPS GSTRC RSTRICTIV PX LONGITUDINAL GASTRECTOMY LAPAROSCOPIC GASTRECTOMY - SLEEVE Referral ID Status Reason Start Date Expiration Date Visits Re quested Visits Authorized [id number] 1 1 Encounter Details Date Type Department Care Team (Latest Contact Info) Description 04/29/2023 11:48 AM CDT - 04/30/2023 4:01 PM CDT Hospital Encounter [facility] [address] [place] [address] Tirso Toledo MD [address] [place] [id number] Morbid obesity (HCC) Discharge Disposition: Discharge to home or self [...] on file 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 Gender Identity Not on file Sexual Orientation Not on file 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 on file Not on file Not on file documented as of this encounter Last Filed Vital Signs Vital Sign Reading Time Taken Comments Blood Pressure 149/75 04/30/2023 10:49 AM CDT Pulse 55 04/30/2023 12:00 PM CDT Temperature 36.6 ??C (97.8 ??F) 04/30/2023 10:49 AM C DT Respiratory Rate 18 04/30/2023 10:49 AM CDT Oxygen Saturation 98% 04/30/2023 10:49 AM CDT Inhaled Oxygen Concentration - - Weight 143.8 kg (317 lb) 04/29/2023 5:30 PM CDT Height 157.5 cm (5' 2 ) 04/29/2023 5:30 PM CDT Body Mass Index 57.98 04/29/2023 5:30 PM CDT documented in this encounter Discharge Summaries * Susan Ontiveros NP - 04/30/2023 4:01 PM CDT Inpatient Discharge Summary BRIEF OVERVIEW Admitting Provider: Tirso Toledo MD Discharge Provider: No att. providers found Primary Care Physician at Discharge: Graciela Antoine PA [phone] Admission Date: 04/29/2023 Discharge Date: 04/30/2023 Admission Location: [facility] Hospital Problems/Diagnoses: Principal Problem: Morbid obesity (HCC) [...] discharge home. Increase liquid protein shakes. Call [facility] Outpatient Dietitian's office at [phone] for diet questions. Other Instructions Special Instructions [...] 1 week, Please call office for appointment [phone] 8. Diet, until follow up: bariatric post [...] 1 week, Please call office for appointment [phone] 8. Diet, until follow up: advance diet [...] Follow-ups Tirso Toledo MD Specialty: General Surgery [address] [place] [address] Next Steps: Follow up in 1 week(s) [...] is ALWAYS EXCELLENT! Please call [facility] at [phone] if you have any questions regarding your care. Wishing you continued improvement during your recovery. Your Surgical Care Unit Team Shana Valle Dana, Denise, Nancy, Peggy, Samantha, Megan, Stacy, Debbie, Sheila, Lamika, Judy, Lindsey, Suzie, Jocelyn, Rochelle, Simona, Bonnie, Angie, Melanie, Lesia, Clotilde Villagran. * Discharge Instr - Diet* Sandra Geiger RD - 04/30/2023 3:43 PM CDT Start Full Liquid diet ( Weight loss surgery ) progression on discharge home. Increase liquid protein shakes. Call [facility] Outpatient Dietitian's office at [phone] for diet questions. * Attachments The following attachments cannot be sent through Care Everywhere. * Laxative, Stool Softeners (By mouth) (Mexican) * Famotidine (By mouth) (Mexican) * Hydrocodone/Acetaminophen (By mouth) (Mexican) * Hyoscyamine (By mouth) (Mexican) documented in this encounter Medications at Time [...] at 05/01/2023 3:34 PM CDT * Dianne Zuniga, PT - 04/30/2023 8:07 AM CDT Physical [...] a few more visits set up with agronomy instructor. She is walking for exercise. Chief Complaint: [...] Care Provider: Graciela Antoine PA Preferred Pharmacy: [facility]/pharmacy #[id number] [address] Who does the patient or legal guardian want to receive education instruction and discharge plans for after care assistance?: Decline Living Arrangements: Spouse/significant other Does the patient need discharge transport arranged?: No (04/29/23 4022) Additional Information and Discharge Plan: DC plan [...] OF : 1995 SURGEON: Tirso Toledo MD FRUIT TESTER:Art Objects Repairer: Emely Amaral RN Art Objects Repairer Relief: Galo Meza RN Scrub: Nery Fuentes ; Susan Ontiveros NP OCCUPATIONAL THERAPY MANAGER: Jazzy Hallman RN DATE OF SURGERY: 04/29/2023 [...] 4 cm from the pylorus. A 40 Tristanian visit G-tube was then inserted under direct [...] that you and your doctor have chosen [facility] for your surgery. We hope that the [...] morning of surgery Use no make-up, nail prydeinig, lotions, oils or powders on your skin. [...] Morbid obesity (HCC) Case Notes Akash Kaye sAhley 04/24 MG SURGICAL PATHOLOGY Routine 04/29/2023 1: [...] ORDERA BLES Final Result Performing Organization Address City/[facility]/ZIP Co de Phone Number [facility] ([place]) [address] [facility] [place] [place] [address] * Phosphorus (04/30/2023 5:31 AM CDT) Phosphorus, pl 2.8 2.3 - 4.5 mg/dL [facility] ([place]) Blood 04/30/2023 5:31 AM CDT 04/30/2023 5:35 AM CDT Tirso Toledo MD LAB BLOOD ORDERA BLES Final Result Performing Organization Address City/[facility]/ZIP Co de Phone Number [facility] ([place]) [address] [facility] [place] [address] * Magnesium (04/30/2023 5:31 AM CDT) Magnesium 2.0 1.4 - 2.5 mg/dL [facility] ([place]) Blood 04/30/2023 5:31 AM CDT 04/30/2023 5:35 AM CDT Tirso Toledo MD LAB BLOOD ORDERA BLES Final Result Performing Organization Address City/[facility]/ZIP Co de Phone Number ATA LEN[facility]) [address] [facility] Department [place] [address] * (ABNORMAL) Basic metabolic panel (04/30/2023 5:31 AM CDT) Sodium 136 135 - 145 mmol/L [facility] ([place]) Potassium, pl 4.4 3.3 - 4.9 mmol/L [facility] ([place]) Chloride 104 97 - 110 mmol/L [facility] ([place]) CO2 18(L) 22 - 32 mmol/L [facility] ([place]) Anion gap 13 2 - 15 mmol/L [facility] ([place]) BUN 8 6 - 25 mg/dL [facility] ([place]) Creatinine 0.58(L) 0.60 - 1.10 mg/dL [facility] ([place]) Glucose 124 70 - 199 mg/dL [facility] ([place]) Comment: Interpretive Data Fasting glucose >/= [...] classification and Diagnosis of Diabetes Diabetes Care 202; 46: S19-S40. Current interpretive data was last revised 2022. Calcium 8.8 8.5 - 10.3 mg/dL [facility] ([place]) Blood 04/30/2023 5:31 AM CDT 04/30/2023 5:35 AM CDT us Tirso Toledo MD LAB BLOOD ORDERA BLES Final Result [facility] ([place]) [address] [facility] Department [place] [address] * (ABNORMAL) CBC without differential (04/30/2023 3:18 [...] MD LAB BLOOD ORDERA BLES Final Result [facility] ([place]) [address] [place] [address] [place] [address] * Surgical pathology (04/29/2023 1:05 PM CDT) Tissue (Stomach - Subtotal / Total Resection, non-Tumor) 04/29/2023 3:45 PM CDT Narrative PATHOLOGY [facility] ([place]) - 05/04/2023 10:57 AM CDT EPIC results best viewed via link to PDF [facility] Department of Pathology [address] [place] [id number] Note to Patients: This report may contain [...] Patient Name: ??REED HENDERSON Address: ??[address] [facility], ??[place], [place] ??[address] Gender: ??F : ??1995 (Age: 28) Service: ??Surgery Location: ??[facility] Hospital #: ??[id number] Patient Type: ??[facility] Accession # ?[id number] Taken: ??04/29/2023 Received: ??04/30/2023 Accessioned: ??04/30/2023 Reported: [...] no mass lesions. ??Represented in two cassettes. Quita Calloway R.N., P.A./Audrey Gil M.D. REPORT IMAGES AND SCANNED DOCUMENTS, IF INCLUDED, ONLY VIEWABLE IN PDF VERSION OF REPORT The performance characteristics of some immunohistochemical stains, fluorescence in-situ hybridization tests and immunophenotyping by flow cytometry cited in this report (if any) were determined by the Surgical Pathology Department at [facility] as part of an ongoing quality system manager program and in compliance with federally [...] characteristics determined by the Surgical Pathology Department [facility]. ??It has not been cleared or approved by the U. S. Food and Drug Administration. Note for decalcified specimens: This assay has not been validated on decalcified tissues. Results should be interpreted with caution given the possibility of false negativity on decalcified specimens Tirso Toledo MD LAB PATHOLOGY OR DERABLES Final Result PATHOLOGY [facility] ([place]) [address] [place] [address] * eGFR (04/29/2023 12:15 PM CDT) eGFR 114 mL/min/1. 73 m2 [facility] ([place]) Comment: Interpretive Data Reference Interval Normal ?>/= [...] 5 PM CDT 04/29/2023 12:20 PM CDT Tirso Toledo MD LAB BLOOD ORDERA BLES Final Result Performing Organization Address City/[facility] Co de Phone Number [facility] ([place]) 1 [facility] Department [place] [address] * POCT hCG, urine (04/29/2023 12:15 PM CDT) HCG, ur, POC Negative Negative Lot Number [id number] QC Backgroud Clear Acceptable QC Control Line Acceptable Urine 04/29/2023 12:1 5 PM CDT Mohan Jiménez MD POINT OF CARE TEST ORDERAB LES Final Result * Antibody screen (04/29/2023 12:15 PM CDT) William, indirect, Gel Interpretation Negative ABSC [facility] ([place]) Blood 04/29/2023 12:1 5 PM CDT 04/29/2023 12:20 PM CDT Narrative [facility] ([place]) - 04/29/2023 12:55 PM CDT Has the patient had Daratumumab or Isatuximab in the past 6 months?->Unknown Tirso Toledo MD LAB BLOOD BANK T EST ORDERABLES Final Result Performing Organization Address [facility]/ZIP Co de Phone Number [facility] ([place]) [address] [facility] Department [place] [address] * ABO/Rh (04/29/2023 12:15 PM CDT) ABO/Rh O Positive [facility] ([place]) Blood 04/29/2023 12:1 5 PM CDT 04/29/2023 12:20 PM CDT Narrative [facility] ([place]) - 04/29/2023 12:55 PM CDT Has the patient had Daratumumab or Isatuximab in the past 6 months?->Unknown us Tirso Toledo MD LAB BLOOD BANK T EST ORDERABLES Final Result Performing Organization Address [facility] Co de Phone Number [facility] ([place]) [address] [facility] Department [place] [address] * (ABNORMAL) CBC without differential (04/29/2023 12:15 PM CDT) WBC 11.0(H) 3.8 - 9.9 K/cumm [facility] ([place]) Hgb 13.1 11.9 - 15.5 g/dL [facility] ([place]) Hct 39.0 35.6 - 45.5 % [facility] ([place]) Plt 241 150 - 400 K/cumm [facility] ([place]) MPV 12.7(H) 9.1 - 12.3 fL [facility] ([place]) RBC 4.53 3.90 - 5.20 M/cumm [facility] ([place]) MCV 86.1 81.3 - 96.4 fL [facility] ([place]) MCH 28.9 27.1 - 33.3 pg [facility] ([place]) MCHC 33.6 32.3 - 35.7 g/dL [facility] ([place]) RDW CV 14.1 11.1 - 14.9 % [facility] ([place]) RDW SD 44.1 35.7 - 48.1 fL [facility] ([place]) NRBC abs 0.00 0.00 - 0.01 K/cumm [facility] ([place]) Blood 04/29/2023 12:1 5 PM CDT 04/29/2023 12:20 PM CDT Tirso Toledo MD LAB BLOOD ORDERA BLES Final Result [facility] ([place]) [address] [facility] Department [place] [address] * (ABNORMAL) Comprehensive metabolic panel (04/29/2023 12:15 PM CDT) Sodium 134(L) 135 - 145 mmol/L [facility] ([place]) Potassium, pl 3.9 3.3 - 4.9 mmol/L [facility] ([place]) Chloride 101 97 - 110 mmol/L [facility] ([place]) CO2 21(L) 22 - 32 mmol/L [facility] ([place]) Anion gap 12 2 - 15 mmol/L [facility] ([place]) BUN 10 6 - 25 mg/dL [facility] ([place]) Creatinine 0.74 0.60 - 1.10 mg/dL [facility] ([place]) Glucose 80 70 - 199 mg/dL [facility] ([place]) [...] BLES Final Result [facility] ([place]) [address] [facility] [place] [address] documented in this encounter Visit Diagnoses Diagnosis Morbid obesity (HCC)- Primary Morbid obesity S/P gastrectomy Other postprocedural status documented in this encounter Admitting Diagnoses Diagnosis Morbid obesity (HCC) Morbid obesity S/P gastrectomy Other postprocedural status documented in this encounter Administered Medications Inactive Administered Medications - up to 3 most recent administrations Medication Order MAR Action Action Date Dose Rate Site acetaminophen (TYLENOL) tablet 1,000 mg 1,000 mg, oral, Once, On Thu04/29/23 at 1245, For 1 dose, Pre-Op, Indications: Pre-Emptive AnalgesiaIndications:Pre-Emptiv e Analgesia Given 04/29/2023 12:19 PM CDT 1,000 mg acetaminophen (TYLENOL) tablet 650 mg 650 mg, oral, Every 6 hours PRN, fever, headaches, Starting on Thu04/29/23 at 2341 Given 04/29/2023 11:48 PM CDT 650 mg albuterol 2.5 mg /3 mL (0.083 %) nebulizer solution 2.5 mg 2.5 mg, nebulization, Every 6 hours PRN (respiratory tech), wheezing, Starting on Thu04/29/23 at 1738, This therapy was substituted for Albuterol HFA per protocol. budesonide-formoteroL (SYMBICORT) 80-4.5 mcg/actuation inhaler 2 puff 2 puff, inhalation, 2 times daily (respiratory tech), First dose on Thu04/29/23 at 2000, I /authorizing provider attest that the patient meets the approved [facility] Use Criteria: Yes Given 04/30/2023 8:25 AM CDT 2 puffs Given 04/29/2023 7:32 PM CDT 2 puffs docusate sodium (COLACE) capsule 100 mg 100 mg, oral, 2 times daily, First dose on Thu04/29/23 at 2100, Indications: constipationIndications:constipation Given 04/30/2023 8:40 AM CDT 100 mg Given 04/29/2023 8:55 PM CDT 100 mg enoxaparin (LOVENOX) syringe 40 mg 40 mg, subcutaneous, Once, On Thu04/29/23 at 1245, For 1 dose, Pre-Op, Indications: VTE ProphylaxisIndications:VTE Prophylaxis Given 04/29/2023 12:20 PM CDT 40 mg Left Lower Abdomen enoxaparin (LOVENOX) syringe 40 mg 40 mg, [...] Given 04/29/2023 8:56 PM CDT 0.5 mg HYDROmorphone (PF) (DILAUDID) injection 0.2 mg 0.2 mg, intravenous, Administer over 2 Minutes, Every 10 min PRN, 1st line for pain, Starting on Thu04/29/23 at 1615, Phase I, Switch to 2nd line analgesic order if pain is uncontrolled or increasing after 2 doses. Notify Anesthesiologist if total PACU dose reaches 2 mg and pain score 5/10 or more., Indications: PainIndications:Pain Given 04/29/2023 4:58 PM C DT 0.2 mg Lactated Ringer's (LR) infusion 30 mL/hr, intravenous, Continuous, Starting on Thu04/29/23 at 1245, Pre-Op New Bag 04/29/2023 3:26 PM CDT Rate/Dose Change 04/29/2023 3:06 PM CDT 30 mL/h r Rate/Dose Verify 04/29/2023 2:54 PM CDT 30 mL/h r Lactated Ringer's (LR) infusion 100 mL/hr, intravenous, [...] Given 04/29/2023 7:11 PM CDT 5 mg scopolamine patch 72 hour 1 patch 1 patch, transdermal, Administer over 72 Hours, Once, On Thu04/29/23 at 1300, For 1 dose, Pre-Op Medication Applied 04/29/2023 1:13 PM CDT 1 patch Behind Right Ear sodium chloride 0.9% flush 0.5-20 mL 0.5-20 mL, intra-catheter, Every 8 hours scheduled, First dose on Thu04/29/23 at 2200, Flush volume based on line type and size. Given 04/30/2023 1:54 PM CDT 10 mL documented in this encounter Discontinued Medications Medication [...] Analgesia 1219 (Given - Provider: Conrado Mike, ABHI) budesonide-formoteroL (SYMBICORT) 80-4.5 mcg/actuation inhaler 2 puff 2 puff, inhalation, 2 times daily (respiratory tech), First dose on Thu04/29/23 at 2000, I /authorizing provider attest that the patient meets the approved [facility] Use Criteria: Yes 1931 (Given - Provider: Mattie Bhandari, TYPEWRITER ASSEMBLER) 08 (Given - Provider: Zena Stewart, MADDIE) ceFAZolin (ANCEF) 1 gram/10 mL in sterile [...] VTE Prophylaxis 1220 (Given - Provider: Conrado Mike, ABHI) enoxaparin (LOVENOX) syringe 40 mg 40 mg, subcutaneous, Every 12 hours scheduled, First dose on Thu04/29/23 at 2100, Indications: Deep Vein Thrombosis Prevention 2054 (Given - Provider: Samara Lafleur RN) 0839 (Given - Provider: Jennifer Downey, ABHI) metoclopramide (REGLAN) 5 mg/mL injection 5 mg 5 mg, intravenous, Every 8 hours, First dose on Thu04/29/23 at 1815 1911 (Given - Provider: Gertrude Knapp, ABHI) 0146 (Given - Provider: Samara Lafleur RN)0840 [...] - Reason: IV Infusing)1354 (Given - Provider: Jennifer Downey, ABHI) Continuous Medication Order 04/28/2023 04/29/2023 [...] Taiwo Langston CRNA)1742 (Stopped - Provider: Gertrude Knapp RN) Lactated Ringer's (LR) infusion 100 mL/hr, intravenous, [...] Thu04/29/23 at 2341 2348 (Given - Provider: Samara Lafleur RN) 0838 (Not Given - Provider: Jennifer Downey, ABHI - Reason: Patient/family refused) albuterol 2.5 mg /3 mL (0.083 %) nebulizer solution 2.5 mg 2.5 mg, nebulization, Every 6 hours PRN (respiratory tech), wheezing, Starting on Thu04/29/23 at 1738, This [...] Samara Lafleur RN)0839 (Given - Provider: Jennifer Downey, ABHI) HYDROmorphone (DILAUDID) injection 1 mg 1 mg, [...] nausea, vomiting, Starting on Thu04/29/23 at 1731 2053 (Due) sodium chloride 0.9% flush 0.5-20 mL [...] mg per tablet 1 tablet 1 04/30/2023 albuterol 2.5 mg /3 mL (0.08 3 %) nebulizer solution 2.5 mg 1 04/29/2023 albuterol HFA (PROVENTIL HFA ,VENTOLIN HFA,PROAIR HFA) 90 mcg/actuation inhaler 2 puff 1 04/29/2023 BUPivacaine-EPINEPHrine (MAR VALERIE with EPI) 0.25 %-1:200,000 preservative free injection 1 04/29/2023 Carrier Fluids for Secondary Infusion - 0.9% Sodium Chloride 1 04/29/2023 ceFAZolin (ANCEF) 1 gram/10 mL in sterile water (premix) 3,000 mg 1 04/29/2023 HYDROmorphone (DILAUDID) injection 1 mg 1 0 04/29/2023 HYDROmorphone (PF) (DILAUDID ) injection 0.4 mg 1 04/29/2023 hyoscyamine (OSCIMIN) disint egrating tablet 125 mcg 1 04/29/2023 naloxone (NARCAN) 0.4 mg/mL injection 0.04-0.4 mg 1 04/29/2023 ondansetron (ZOFRAN) injection 4 mg 2 04/29 prochlorperazine (COMPAZINE) injection 5 mg 2 04/29/2023 sodium chloride 0.9% flush 0.5-20 mL 1 04/04 sodium chloride 0.9% irrigation 1 3 Nursing Count Last Ordered Date First Orde [...] 04/30/2023 documented in this encounter Care Teams Nurse Substance Abuse Relationship Specialty Start Date End Date Graciela Antoine PA [address] [place] [address] PCP - General Physician Parliamentary Counsel 11/07/22 Leonard Hunter MD [address] [place] [address] DR DO B [address] [address] Call Center Director Obstetrics and Gynecology 01/12/20 documented as of this encounter
--- OUTSIDE RECORDS SUMMARY | 2024-08-05 00:58 | XMS_ITS | Encounter Summary ---
Author Organization 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 documented in this encounter Plan of Treatment Not on file documented as of this encounter Visit Diagnoses Not on filedocumented in this encounter Care Teams Broadcast Operations Manager Relationship Specialty Start Date End Date Graciela Antoine PA [address] [place] [address] PCP - General Physician Health Advocate 11/07/22 Leonard Hunter MD [address] [place] [address] DR DO [address] [address] Congressional Assistant Obstetrics and Gynecology 01/12/20 documented as of this encounter
--- OUTSIDE RECORDS SUMMARY | 2024-08-05 00:58 | XMS_ITS | Encounter Summary ---
Author Organization [facility] Healthcare Address [address] [place] [address] Care Team Providers Care Ore Crushing Dust Collector Name Role Phone Leonard Hunter MD Unavailable + [phone] Graciela Antoine Primary Care Provider Reason for Referral * Procedure (Routine) - Closed Specialty Diagnoses / Procedures Referred By Contac t Referred To Contact Diagnoses Asthma, unspecified asthma severity, unspecified whether complicated, unspecified whether persistent Procedures Pulmonary Function Test -[facility]; Complete PFT with 6 Minute Walk Tirso Toledo MD Phone: tel: fax: Referral ID Status Reason Start Date Expiration Date Visits Re quested Visits Authorized [id number] Closed 03/19/2023 04/17/2024 1 1 Reason for Visit * Procedure (Routine) - Closed Specialty Diagnoses / Procedures Referred By Amada ro Referred To Contact Diagnoses Asthma, unspecified asthma severity, unspecified whether complicated, unspecified whether persistent Procedures Pulmonary Function Test -[facility]; Complete PFT with 6 Minute Walk Tirso Toledo MD Phone: tel: fax: Referral ID Status Reason Start Date Expiration Date Visits Re quested Visits Authorized [id number] Closed 03/19/2023 04/17/2024 1 1 Encounter Details Date Type Department Care Team (Latest Contact Info) Description 03/31/2023 1:00 PM CDT - 03/31/2023 11:59 PM CDT Hospital Encounter [facility] Respiratory [address] [place] [address] Asthma, unspecified asthma severity, unspecified whether complicated, unspecified whether persistent Discharge Disposition: Discharge to home or self [...] on file 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 Tirso Toledo. The patient is 5 foot 2, 317 pounds, class 3 morbid obesity. O2 saturation is 100% on room air at rest. The patient's forced vital capacity and other lung function measurements will be dictated separately. The patient walked from 1310 to 1316 hours and did not utilize supplemental oxygen. O2 sat did not fall below 98%. The patient walked 1600 feet,480 meters which is a normal distance. The patient's heart rate remained in the 60's, 66, 67 both recorded, dyspnea increased from 0-0.5 on the Ryne dyspnea scale. Fatigue as well increased from 0-0.5 on the Ryne Fatigue Scale. The patient's oxyhemoglobin saturation fell from 100% to 98% . Thank you for the opportunity to participate in your patient's care. J ID/Internal Job ID: [id number] * Madhu Parker MD - 03/31/2023 12:00 AM CDT Referred by Dr. Tirso Toledo. The patient is 5-foot-2, 350 pounds. Forced vital capacity is 3.54 L, 99% of predicted. FEV1 is 3.12, 101% of predicted. FEV1/FVC ratio is 88.17 which is within normal limits. The patient's data showed total lung capacity 5.29 L, 107% of predicted. Residual volume is mildly increased at 130% of predicted 1.54 L. Thoracic gas volume is 1.69 L, 65% of predicted. The patient's slow vital capacity is3.55 L, 100% of predicted. Gas transfer as measured by DLCO is 26.7, 127% of predicted. Alveolar volume is 4.58 L, 104% of predicted. Hemoglobin is 12.7, which is within the normal range. The patient's airway resistance is not significantly increased. Flow volume loop does not indicate evidence forupper airway limitation. IMPRESSION Normal pulmonary testing despite large degree of obesity. Thank you for the opportunity to participate in the patient's care. Job ID/Internal Job ID: [id number] documented in this encounter Plan of Treatment Pending Results Name Type Priority Associated Diagnoses Date /Time Pulmonary Function Test -[facility]; Complete PFT with 6 Minute Walk PFT Routine Asthma, unspecified asthma severity, unspecified whether complicated, unspecified whether persistent 03/31/2023 2:23 PM CDT Scheduled Orders Name Type Priority Associated Diagnoses Orde r Schedule Pulmonary Function Test -[facility]; Complete PFT with 6 Minute Walk PFT Routine Asthma, unspecified asthma severity, unspecified whether complicated, unspecified whether persistent Once for 1 Occurrences starting 03/31/2023 until 03/31/2023 documented as of this encounter Visit Diagnoses Diagnosis Asthma, unspecified asthma severity, unspecified whether complicated, unspecified whether persistent documented in this encounter Care Teams Ore Crushing Dust Collector Relationship Specialty Start Date End Date Graciela Antoine PA [address] [place] [address] PCP - General Physician Housing Inspectors 11/07/22 Leonard Hunter MD [address] [place] [address] DR DO [address] [address] Rate Supervisor Obstetrics and Gynecology 01/12/20 documented as of this encounter
--- OUTSIDE RECORDS SUMMARY | 2024-08-05 00:58 | XMS_ITS | Encounter Summary ---
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 Called office stating she has not had a bowel movement since before her gastric sleeve surgery 04/29. Spoke with he stated to have patient take milk of magnesia every hour until she goes. I called informed patient to take milk of magnesia every hour until she has bowel movement. Pt. was in understating documented in this encounter Plan of Treatment Not on file documented as of this encounter Visit Diagnoses Not on filedocumented in this encounter Care Teams Slag Skimmer Relationship Specialty Start Date End Date Graciela Antoine PA [address] [place] [address] PCP - General Physician Automatic Lathe Tender 11/07/22 Leonard Hunter MD [address] [place] [address] DR DO [address] [address] Size Changer Obstetrics and Gynecology 01/12/20 documented as of this encounter
--- OUTSIDE RECORDS SUMMARY | 2024-08-05 00:58 | XMS_ITS | Encounter Summary ---
Author Organization [facility] Healthcare Address [address] [place] [address] Care Team Providers Care Phone Manager Name Role Phone Leonard Hunter MD Unavailable [phone] Graciela Antoine Primary Care Provider Reason for Visit * Reason Comments Abdominal Pain Pt here with a sudde n onset of mid lower abdominal pain that started about an hour ago. Pt states she vomited x1. Pt is doubled over and tearful. Pt states there is something wrong . 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 Not on file Not on file documented as of this encounter Last Filed Vital Signs Vital Sign Reading Time Taken Comments Blood Pressure 122/63 04/25/2024 8:10 PM CDT Pulse 67 04/25/2024 8:10 PM CDT Temperature 36.9 ??C (98.4 ??F) 04/25/2024 8:07 PM CD T Respiratory Rate 22 04/25/2024 8:10 PM CDT Oxygen Saturation 100% 04/25/2024 8:10 PM CDT Inhaled Oxygen Concentration - - Weight 83.9 kg (185 lb) 04/25/2024 8:11 PM CDT Height 154.9 cm (5' 1 ) 04/25/2024 8:11 PM CDT Body Mass Index 34.96 04/25/2024 8:11 PM CDT documented in this encounter Medications [...] daily 4 docusate sodium (COLACE) 100 mg capsuleIndication s:constipation Take 1 capsule (100 mg total) by mouth 2 (two) times a day for 14 days 28 capsule 04/30/2023 4 famotidine (PEPCID) 20 mg tablet Take 1 tablet (20 mg total) by mouth 2 (two) times a day 60 tablet 04/30/2023 4 hyoscyamine (OSCIMIN) 0.125 mgIndications:Uri nary Incontinence Take 1 tablet (125 mcg total) by mouth every 6 (six) hours as needed (hiccups. stomach spasm) for up to 7 days 25 tablet 04/30/2023 4 levonorgestreL (MIRENA) IUD 1 each by intrauterine route once 4 documented as of this encounter Discharge Disposition Disposition Code Departure Means Destination Comment s Left without being seen documented in this encounter ED Notes * Hiwot Dawson RN - 04/25/2024 8:06 PM CDT Ab pain starting about 1 hour ago. States she had gastric sleeve surgery 1 year ago documented in this encounter Plan of Treatment Not on file documented as of this encounter Procedures Procedure Name Priority Date/Time Associated Diagnosis Comments ECG 12-LEAD STAT 04/25/2024 8:43 PM CDT documented in this encounter Results * ECG 12 lead (04/25/2024 8:43 PM CDT) 04/25/2024 8:43 PM CDT Narrative [facility] - 04/26/2024 7:24 AM CDT Vent Rate: 64 bpm RR Interval: 936 msec DC Interval: 158 msec QRS Duration: 92 msec QT Interval: 389 msec QTC Interval: 398 msec P-R-T [place]: 3 - 57 - 28 degrees IMPRESSION: SINUS RHYTHM NORMAL ECG Electronically Signed By: Shon Stephenson MD us Clark Michelle NP ECG ORDERABLES Final Resul t [facility] documented in this encounter Visit Diagnoses Not on filedocumented in this encounter Care Teams Phone Manager Relationship Specialty Start Date End Date Graciela Antoine PA [address] [place] [address] PCP - General Physician Veneer Drier 11/07/22 Leonard Hunter MD [address] [place] [address] [address] [address] News Anchor Obstetrics and Gynecology 01/12/20 documented as of this encounter
--- OUTSIDE RECORDS SUMMARY | 2024-08-05 00:58 | XMS_ITS | Encounter Summary ---
Author Organization [facility] Healthcare Address [address] [place] [address] Care Team Providers Care Developer Programmer Name Role Phone Leonard Hunter MD Unavailable [phone] Graciela Antoine Primary Care Provider Reason for Visit * Auth/Cert (Routine) Specialty Diagnoses / Procedures Referred By Amada ro Referred To Contact Diagnoses Heartburn Heartburn [R12] Procedures [place] EGD TRANSORAL BIOPSY SINGLE/MULTIPLE ESOPHAGOGASTRODUODENOSCOPY Referral ID Status Reason Start Date Expiration Date Visits Re quested Visits Authorized [id number] 1 1 Encounter Details Date Type Department Care Team (Latest Contact Info) Description 03/24/2023 12:55 PM CDT - 03/24/2023 1:15 PM CDT Surgery [facility] [address] [place] [address] Tirso Toledo MD [address] [place], [place] [id number] ESOPHAGOGASTRODUODENOSCOPY BIOPSY Surgery Details Date/Time Status Location OR Service Patient Class Case Cl ass Case Type Trauma Case? 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 Not on file Not on file documented as of this encounter Last Filed Vital Signs Vital Sign Reading Time Taken Comments Blood Pressure 118/62 03/24/2023 12:40 PM CDT Pulse 60 03/24/2023 12:40 PM CDT Temperature 37.2 ??C (98.9 ??F) 03/24/2023 12:40 PM C DT Respiratory Rate 18 03/24/2023 12:40 PM CDT Oxygen Saturation 97% 03/24/2023 12:40 PM CDT Inhaled Oxygen Concentration - - [...] on the above findings, I consider Morenita Burdick to be an acceptable risk for : [...] - 03/24/2023 1:55 PM CDTAssociated Order(s): EGD [facility] Patient Name: Morenita Burdick Procedure Date: 03/24/2023 1:55 PM Date of : 1995 Admit Type: Outpatient Age: 27 Gender: Female Attending MD: Tirso Toledo M.D. Room: [facility] ENDOSCOPY ROOM 2 Note Status: Finalized [...] passed under direct vision. The Endoscope GIF-[id number] was introduced through the mouth, and advanced [...] 1:55 PM Procedure Code(s): --- Professional --- 33103, Esophagogastroduodenoscopy, flexible, transoral; with biopsy, single or multiple --- Technical --- 51367, Esophagogastroduodenoscopy, flexible, transoral; with biopsy, single or multiple Diagnosis Code(s): --- Professional --- R12, Heartburn --- Technical --- R12, Heartburn CPT copyright 2020 [employer]. All rights reserved. The codes documented in this report are preliminary and upon java spring developer review may be revised to meet current compliance requirements. Recognized by the [employer] for promoting quality in endoscopy documented in this encounter Miscellaneous Notes * Perioperative Nursing Note - Izabel Perea RN - 03/24/2023 3:11 PM CDT 1510 Verbal discharge instructions given to pt. Pt verbalized understanding. Pt to f/u in office asscheduled. * Perioperative Nursing Note - Izabel Perea RN - 03/24/2023 3:02 PM CDT 1450 [...] pylori, rapid (NICOLASA) Negative Negative ATA FERNÁNDEZ (FRANCIS) Tissue 03/24/2023 2:25 PM CDT 03/24/2023 5:53 PM CDT us Tirso Toledo MD LAB MICROBIOLOGY - GENERAL ORDERABLES Final Result ATA FERNÁNDEZ (FRANCIS) 1 [facility] Department [place] [address] * EGD (03/24/2023 1:55 PM CDT) Anatomical Region Laterality Modality Other Narrative Procedure Note Tirso Toledo MD - 03/24/2023 1:55 PM CDT [facility] Patient Name: Morenita Burdick Procedure Date: 03/24/2023 1:55 PM Date of : 1995 Admit Type: Outpatient Age: 27 Gender: Female Attending MD: Tirso Toledo M.D. Room: [facility] ENDOSCOPY ROOM 2 Note Status: Finalized [...] passed under direct vision. The Endoscope [id number]-[id number] was introduced through the mouth, and advanced [...] 1:55 PM Procedure Code(s): --- Professional --- 88473, Esophagogastroduodenoscopy, flexible, transoral; with biopsy, single or multiple --- Technical --- 15400, Esophagogastroduodenoscopy, flexible, transoral; with biopsy, single or multiple Diagnosis Code(s): --- Professional --- R12, Heartburn --- Technical --- R12, Heartburn CPT copyright 2020 [employer]. All rights reserved. The codes documented in this report are preliminary and upon java spring developer reviewmay be revised to meet current compliance requirements. Recognized by the [employer] for promoting quality in endoscopy us Tirso Toledo MD ENDOSCOPY PROCED URES Final Result * POCT hCG, urine (03/24/2023 12:49 PM CDT) HCG, ur, POC Negative Lot Number [id number] QC Backgroud Clear Acceptable QC Control Line Acceptable Urine 03/24/2023 12:4 9 PM CDT Tiros Toledo MD POINT OF CARE TE ST ORDERABLES Final Result documented in this encounter Visit Diagnoses Diagnosis Heartburn- Primary Heartburn documented in this encounter Admitting Diagnoses Diagnosis Heartburn documented in this encounter Administered Medications Inactive Administered Medications - up to 3 most recent administrations Medication Order MAR Action Action Date Dose Rate Site Lactated Ringer's (LR) infusion 30 mL/hr, intravenous, Continuous, Starting on e 03/24/23 at 1315, Pre-Op, ondansetron (ZOFRAN) injection 4 [...] Ordered Date Lactated Ringer's (LR) infusion 1 3 ondansetron (ZOFRAN) injection 4 mg 1 03/24 documented in this encounter Care Teams Developer Programmer Relationship Specialty Start Date End Date Graciela Antoine PA [address] [place] [address] PCP - General Physician Director Of Clinical Trials 11/07/22 Leonard Hunter MD [address] [place] [address] DR DO [address] [address] Water [employer] Systems Supervisor Obstetrics and Gynecology 01/12/20 documented as of this encounter
--- OUTSIDE RECORDS SUMMARY | 2024-08-05 00:58 | XMS_ITS | Encounter Summary ---
Author Organization [facility] Healthcare Address [address] [place] [address] Care Team Providers Care Clearing Hand Name Role Phone Leonard Hunter MD Unavailable [phone] Graciela Antoine Primary Care Provider Reason for Visit * Reason Comments Follow-up Alyve MANUELA 04/29/23 Encounter Details Date Type Department Care Team (Late st Contact Info) Description 06/04/2023 10:20 AM CDT Office Visit [facility] [address] [place] [address] [address] [place] [address] Tirso Toledo MD [address] [place] [address] [address] [place] [address] S/P gastrectomy (Primary Dx) Social History Tobacco Use Types Packs/Day Years Used Date Smoking Tobacco: Some Days Cigarettes 0.5 9.5 Started: 2013; Last attempted to quit: 02/05/2023 Vaping Smokeless Tobacco: Never Tobacco Cessation:Counseling Given: Not [...] on file 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 Gender Identity Not on file Sexual Orientation Not on file 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 Not on file Not on file documented as of this encounter Last Filed Vital Signs Vital Sign Reading Time Taken Comments Blood Pressure 94/66 06/04/2023 10:37 AM CDT Pulse 79 06/04/2023 10:37 AM CDT Temperature 36.4 ??C (97.5 ??F) 06/04/2023 10:37 AM C DT Respiratory Rate - - Oxygen Saturation 97% 06/04/2023 10:37 AM CDT Inhaled Oxygen Concentration - - Weight 125.2 kg (276 lb) 06/04/2023 10:37 AM CDT Height 157.5 cm (5' 2 ) 06/04/2023 10:37 AM CDT Body Mass Index 50.48 06/04/2023 10:37 AM CDT documented in this encounter Progress Notes * Tirso Toledo MD - 06/04/2023 10:20 AM CDT Progress Note Subjective: HPI: The patient has done extremely well having lost another 10 lb since last visit. Chief complaint: Morbid obesity Objective: Vitals BP 94/66 (BP Location: Right arm, Patient Position: Sitting) Pulse 79 Temp 36.4 ??C (97.5 ??F) Ht 157.5 cm (5' 2 ) Wt 125.2 kg (276 lb) SpO2 97% BMI 50.48 kg/m?? Physical Exam Abdomen: Soft, obese Assessment/Plan Diagnoses and all orders for this visit: S/P gastrectomy (Primary) Assessment & Plan: The patient continues to really do well after surgery. She is really focusing on her fluid intake. Patient can return to activities unrestricted. Continue small frequent meals. Continue to work with the dietitian and attend the monthly support groups. We will see her back next month. She will call sooner if anything changes in her postoperative course Tirso Toledo MD 10:58 AM 06/04/2023 documented in this encounter Miscellaneous Notes * Assessment & Plan Note - Tirso Toledo MD - 06/04/2023 10:58 AM CDTAssociated Problem(s): S/P gastrectomy (Resolved 07/12/2024) The patient continues to really do well after surgery. She is really focusing on her fluid intake. Patient can return to activities unrestricted. Continue small frequent meals. Continue to work with the dietitian and attend the monthly support groups. We will see her back next month. She will call sooner if anything changes in her postoperative course documented in this encounter Plan of Treatment Not on file documented as of this encounter Visit Diagnoses Diagnosis S/P gastrectomy- Primary Other postprocedural status documented in this encounter Historical Medications * This list may reflect changes made after this encounter. levonorgestreL (MIRENA) IUD 1 each by intrauterine route once 4 cholecalciferol (Vitamin D3) 1,000 unit capsule Take 1 capsule (1,000 Units total) by mouth daily 4 calcium carbonate (CALCIUM 500 ORAL) Take by mouth 4 added in this encounter Care Teams Clearing Hand Relationship Specialty Start Date End Date Graciela Antoine PA [address] [place] [address] PCP - General Physician Chopping Machine Operator 11/07/22 Leonard Hunter MD [address] [place] [address] DR DO [address] [address] Library Attendant Obstetrics and Gynecology 01/12/20 documented as of this encounter
--- OUTSIDE RECORDS SUMMARY | 2024-08-05 00:58 | XMS_ITS | Encounter Summary ---
Author Organization [facility] Healthcare Address [address] [place] [address] Care Team Providers Care Construction Crew Member Name Role Phone Leonard Hunter MD Unavailable [phone] Graciela Antoine Primary Care Provider Reason for Referral * Diagnostic Imaging (Routine) - Authorized Specialty Diagnoses / Procedures Referred By Amada ro Referred To Contact Diagnoses Screening, , for anatomic survey Encounter for screening for cervical length Procedures US OB 14 weeks or over with US Transvaginal (C) Rogelio Cornelius MD [address] [place] [address] DR RODR[address]Z [address] [place] [address] Phone: tel: fax: [facility] [address] [place] [phone] Phone: tel: fax: Referral ID Status Reason Start Date Expiration Date V isits Requested Visits Authorized [id number] Authorized 05/11/2024 06/10/2025 1 1 * Diagnostic Imaging (Routine) - Closed Specialty Diagnoses / Procedures Referred By Amada ro Referred To Contact Diagnoses Encounter to establish gestational age using ultrasound Procedures US Ob Under 14 Weeks Rogelio Cornelius MD [address] [place] [address] [address] [place] [address] Phone: tel: fax: [facility] [facility] [address] [facility] [address] [place] [address] Phone: tel: fax: Referral ID Status Reason Start Date Expiration Date Visits Re quested Visits Authorized [id number] Closed 05/11/2024 06/10/2025 1 1 Reason for Visit * Reason Onset Date Comments US Orders 05/11/2024 Encounter Details Date Type Department Care Team (Late st Contact Info) Description 05/11/2024 Telephone [facility] [address] [facility] [address] [place] [address] Mena Sullivan, RN US Orders Social History Tobacco Use Types Packs/Day Years [...] on file Legal Sex Female 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 INSTRUCTOR MODELING Gender Identity Not on file Sexual Orientation Not on file 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 Not on file Not on file documented as of this encounter Miscellaneous Notes * Telephone Encounter - Mena Sullivan RN - 05/11/2024 2:14 PM CDT US orders placed for documented in this encounter Plan of Treatment Scheduled Orders Name Type Priority Associated Diagnoses Orde r Schedule US OB 14 weeks or over with US Transvaginal (C) Imaging Schedule Routine, Read Routine (OP Routine) Screening, , for anatomic survey Encounter for screening for cervical length Expected: 05/11/2024, Expires: 05/11/2025 documented as of this encounter Results * US Ob Under 14 Weeks (05/31/2024 8:34 AM CDT) Anatomical Region Laterality Modality Abdomen N/A Ultrasound 05/31/2024 8:40 AM CDT Impressions 06/06/2024 4:57 PM INSTRUCTOR MODELING 1. ?? There is a single intrauterine [...] Diagnosis Encounter to establish gestational age using ultrasound- Primary Encounter for routine screening for malformation using ultrasonics Screening, , for anatomic survey Encounter for anatomic survey Encounter for screening for cervical length Encounter to establish gestational age using ultrasound Encounter for routine screening for malformation using ultrasonics documented in this encounter Care Teams Construction Crew Member Relationship Specialty Start Date End Date Graciela Antoine PA [address] [place] [id number] PCP - General Physician Machining And Assembly Supervisor 11/07/22 Leonard Hunter MD [address] [place] [address] DR ERNESTINA Jose [address] [address] Patient Safety Tech Obstetrics and Gynecology 01/12/20 documented as of this encounter
--- OUTSIDE RECORDS SUMMARY | 2024-08-05 00:59 | XMS_ITS | Encounter Summary ---
Author Organization [facility] Healthcare Address [address] [place] [address] Care Team Providers Care Service Desk Associate Name Role Phone Leonard Hunter MD Unavailable No, Physician Primary Care Provider [phone] Reason for Visit * Reason Comments Contractions possible ROM, GDM Encounter Details Date Type Department Care Team (Latest Contact Info) Description 08/01/2021 6:29 PM NEIGHBORHOOD CONSERVATION OFFICER - 08/01/2021 8:02 PM NEIGHBORHOOD CONSERVATION OFFICER Hospital Encounter [facility] [address] [place] [address] Leonard Hunter MD [address] [place] [address] DR DO [address] [address] Discharge Disposition: Discharge to home or self care Social History Tobacco Use Types Packs/Day Years Used Date Smoking Tobacco: Former Cigarettes 0.3 11 S tarted: 2013 Smokeless Tobacco: Never Comments:Smoking History Pac ks/day: 0.25 Packs Alcohol Use Standard Drinks/Week Comments Yes 0 (1 standard drink = 0.6 oz pur e alcohol) rarely AUDIT-C Answer Date Recorded Q1: How often do you have a drink containing alc ohol? 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 Not on file Not on file documented as of this encounter Last Filed Vital Signs Vital Sign Reading Time Taken Comments Blood Pressure 128/62 08/01/2021 6:44 PM NEIGHBORHOOD CONSERVATION OFFICER Pulse 91 08/01/2021 6:44 PM NEIGHBORHOOD CONSERVATION OFFICER Temperature 37 ??C (98.6 ??F) 08/01/2021 6:44 PM NEIGHBORHOOD CONSERVATION OFFICER Respiratory Rate 18 08/01/2021 6:44 PM NEIGHBORHOOD CONSERVATION OFFICER Oxygen Saturation - - Inhaled Oxygen Concentration - - Weight 145.6 kg (321 lb) 08/01/2021 6:44 PM NEIGHBORHOOD CONSERVATION OFFICER Height 157.5 cm (5' 2 ) 08/01/2021 6:44 PM NEIGHBORHOOD CONSERVATION OFFICER Body Mass Index 58.71 08/01/2021 6:44 PM NEIGHBORHOOD CONSERVATION OFFICER documented in this encounter Discharge Diagnoses Diagnosis Encounter for supervision of normal , unspecified, unspecified trimester - ENCOUNTER FOR SUPERVISION OF NORMAL , UNSPECIFIED, UNSPECIFIED TRIMESTER documented in this encounter Discharge Instructions * Discharge Instructions* Stephanie Govea RN - 08/01/2021 7:45 PM NEIGHBORHOOD CONSERVATION OFFICER Keep your next scheduled appointment. HBORHOOD CONSERVATION OFFICER * Attachments The following attachments cannot be sent through Care Everywhere. * at 35 to 38 Weeks (Discharge Care) (Micronesian) documented in this encounter Discharge Disposition Disposition Code Departure Means Destination Discharge to home or self care documented in this encounter Progress Notes * Hernán Moreau MD - 08/01/2021 12:00 AM CST NONSTRESS TEST NOTE Patient is a 26-year-old female 5, para 1 who previously delivered at 35 weeks AB 3 whose EDC is 08/31/2021 (35 and 5/7 weeks) who presents for gestational diabetes for nonstress testing. Thepatient also had some concerns of contractions since yesterday and is not sure whether she is leaking. ROM Plus is collected and is negative. Cervix shows 1 cm dilated, 75% effaced and presenting part at -4 station with intact bag of water as the vertex is ballotable. Electronic monitoring is applied showing baseline heart tones 140 beats per minute range, moderate variability and accelerations to 170 beats per minute range associated with patient perceived movement - a reactive nonstress test. Urinalysis shows 21-50 epithelial cells, 2+ bacteria and 1+ protein. The patient last had sex 2 days ago. Impression A 35 and 5/7 week intrauterine with reactive nonstress test due to gestational diabetes that is diet controlled and rupture of membranes not found. Plan Patient will keep her followup visit as scheduled and will do her serial nonstress test for her gestational diabetes. Job ID/VF Job ID: [id number] HBORHOOD CONSERVATION OFFICER documented in this encounter Plan of Treatment Not on file documented as of this encounter Procedures Procedure Name Priority Date/Time Associated Diagnosis Comments DRUG SCREEN, URINE L AND D WITH REFLEX CONFIRMATION Routine 08/01/2021 6:57 PM NEIGHBORHOOD CONSERVATION OFFICER PAMG-1 PROTEIN MARKER (ROM) Routine 08/01/2021 6:57 PM NEIGHBORHOOD CONSERVATION OFFICER URINALYSIS AND REFLEX TO MICROSCOPIC AND CULTURE STAT 08/01/2021 6:57 PM NEIGHBORHOOD CONSERVATION OFFICER URINALYSIS, MICROSCOPIC ONLY STAT 08/01/2021 6:57 PM NEIGHBORHOOD CONSERVATION OFFICER documented in this encounter Results * (ABNORMAL) Urinalysis, microscopic only (08/01/2021 6:57 PM NEIGHBORHOOD CONSERVATION OFFICER) WBC, ur 0-5 0 - 5 /HPF [facility] ([facility]) RBC, ur 0-2 0 - 2 /HPF [facility] ([facility]) Epithelial cells, squamous, ur 21-50(A) 0 - 5 /HPF [facility] ([facility]) Bacteria, ur 2+(A) [facility] ([facility]) Mucous, ur Present(A) [facility] ([facility]) Culture Reflex Comment Reflex conditions for urine culture (WBC >10) not met. [facility] ([facility]) Urine, clean voided 08/01/2021 6:57 PM NEIGHBORHOOD CONSERVATION OFFICER 08/01/2021 7:05 PM NEIGHBORHOOD CONSERVATION OFFICER us Hernán Moreau MD LAB URINE ORDERABLES Final Re sult [facility] ([facility]) 1 [facility] [place] [address] * Drug Screen, Urine L and D with Reflex Confirmation (08/01/2021 6:57 PM NEIGHBORHOOD CONSERVATION OFFICER) Amphetamine, ur Not Detected CutOff 500ng/mL [facility] ([facility]) Comment: Interpretive Data - Amphetamines: ??Samples containing greater than 500 ng/mL d-methamphetamine ??or other cross-reacting amphetamine compounds are reported as positive. ??Amphetamine immunoassays are subject to significant false positive rates due to cross-reactivity of non-amphetamine drugs. Current Interpretive Data was last reviewed 2018. Barbiturates, ur Not Detected CutOff 200ng/mL [facility] ([facility]) Comment: Interpretive Data - Barbiturates: ??Samples containing greater than 200 ng/mL secobarbital or other cross-reacting barbiturate compounds are reported as positive. ??False positive and false negative results are possible. Current Interpretive Data was last reviewed 2018. Benzodiazepines, ur Not Detected CutOff 100ng/mL [facility] ([facility]) Comment: Interpretive Data - Benzodiazepines: ??Samples containing greater than 100 ng/mL nordiazepam or other cross-reacting compounds are reported as positive. ?? False positive and false negative results are possible. ?? Current Interpretive Data was last reviewed 2018. Cannabinoids, ur Not Detected CutOff 50 ng/mL [facility] ([facility]) Comment: Interpretive Data - Cannabinoids: ??Samples containing greater than 50 ng/mL delta-9 THC -COOH or other cross-reacting compounds are reported as positive. ??False positive and false negative results are possible. ?? Current Interpretive Data was last reviewed 2018. Cocaine, ur Not Detected CutOff 150ng/mL [facility] ([facility]) Comment: Interpretive Data - Cocaine: ??Samples containing greater than 150 ng/mL benzoylecgonine or other cross-reacting compounds are reported as positive. False positive and false negative results are possible. Current Interpretive Data was last reviewed 2018. Fentanyl, Ur Not Detected Cutoff 1 ng/mL [facility] ([facility]) Comment: Interpretive Data - Fentanyls: ??Samples containing greater than 1 ng/mL fentanyl or other cross-reacting fentanyl compounds are reported as detected. ??False positive and false negative results are possible. Current Interpretive Data was last reviewed 2019. Methadone, ur Not Detected CutOff 300ng/mL [facility] ([facility]) Comment: Interpretive Data - Methadone: ??Samples containing greater than 300 ng/mL d,l-methadone or other cross-reacting compounds are reported as positive. ??False positive and false negative results are possible. Current Interpretive Data was last reviewed 2018. Opiates, ur Not Detected CutOff 300ng/mL [facility] ([facility]) Comment: Interpretive Data - Opiates: ??Samples containing greater than 300 ng/mL morphine or other cross-reacting compounds are reported as positive. ??False positive and false negative results are possible. Current Interpretive Data was last reviewed 2018. Oxycodone, ur Not Detected CutOff 100ng/mL [facility] ([facility]) Comment: Interpretive Data - Oxycodone: ??Samples containing greater than 100 ng/mL oxycodone or other cross-reacting compounds are reported as positive. ??False positive and false negative results are possible. ?? Current Interpretive Data was last reviewed 2018. Phencyclidine, ur Not Detected CutOff 25 ng/mL [facility] ([facility]) Comment: Interpretive Data - Phencyclidine: ??Samples containing greater than 25 ng/mL phencyclidine or other cross-reacting compounds are reported as positive. ??False positive and false negative results are possible. ?? Current Interpretive Data was last reviewed 2018. Urine Creatinine 175 mg/dL [facility] ([facility]) Comment: Interpretive Data Urine Creatinine: < 10 mg/dL is extremely dilute = or > 10 but < 20 mg/dL is dilute = or > 20 mg/dL is normal Current Interpretive Data was last revised on 2017. Urine 08/01/2021 6:57 PM NEIGHBORHOOD CONSERVATION OFFICER 08/01/2021 7:05 PM NEIGHBORHOOD CONSERVATION OFFICER Narrative [facility] ([facility]) - 08/01/2021 7:51 PM NEIGHBORHOOD CONSERVATION OFFICER Drug of Abuse screening is performed by immunoassay for medical purposes only. ??This is not to be used for Pain Management purposes. ??If Detected, confirmation testing will be performed for Amphetamines, Barbiturates, Benzodiazepines, Cannabinoids, Cocaine, Fentanyl, Methadone, Opiates, Oxycodone or Phencyclidine. Hernán Moreau MD LAB URINE ORDERABLES Final Re sult [facility] ([facility] [place] [address] * (ABNORMAL) Urinalysis reflex to microscopic and culture Urine, clean voided (08/01/2021 6:57 PM NEIGHBORHOOD CONSERVATION OFFICER) Color, ur Yellow Yellow [facility] ([facility]) Clarity, ur Turbid(A) Clear [facility] ([facility]) Specific gravity, ur 1.028 1.003 - 1.030 [facility] ([facility]) pH, urine 6.5 [facility] ([facility]) Protein, ur ql 1+(A) Negative [facility] ([facility]) Glucose, ur ql Negative Negative [facility] ([facility]) Ketones, ur Negative Negative [facility] ([facility]) Bilirubin, ur Negative Negative [facility] ([facility]) Blood, ur Negative Negative [facility] ([facility]) Urobilinogen, ur <2.0 <2.0 mg/dL [facility] ([facility]) Nitrite, ur Negative Negative [facility] ([facility]) Leukocyte esterase, ur Negative Negative [facility] ([facility]) UA reflex comment Reflex to microscopic UA will be performed. [facility] ([facility]) Urine, clean voided 08/01/2021 6:57 PM NEIGHBORHOOD CONSERVATION OFFICER 08/01/2021 7:05 PM NEIGHBORHOOD CONSERVATION OFFICER Narrative [facility] ([facility]) - 08/01/2021 7:10 PM NEIGHBORHOOD CONSERVATION OFFICER ?? Urine pH is affected by diet, medications, systemic acid-base disturbances, and renal tubular function. ??pH may affect urinary stone formation. ??For example, urine pH below 6.0 may help reduce the tendency for calcium phosphate stones and pH greater than 6.0 may reduce the tendency for uric acid stone formation. Source: Feedback-Machine. Last revised 08-13-2017 us Hernán Moreau MD LAB MICROBIOLOGY - GENERAL OR DERABLES Final Result [facility] ([facility]) [address] [place] [address] * ROM Plus (IGFBP-1/AFP) (08/01/2021 6:57 PM NEIGHBORHOOD CONSERVATION OFFICER) IFG Binding Protein-1 / AFP Negative [facility] ([place]) Swab 08/01/2021 6:57 PM NEIGHBORHOOD CONSERVATION OFFICER 08/01/2021 7:05 PM NEIGHBORHOOD CONSERVATION OFFICER us Hernán Moreau MD LAB BODY FLUIDS AND STOOLS OR DERABLES Final Result Performing Organization Address City/[facility] Co de Phone Number [facility] ([place]) [address] [place] [address] documented in this encounter Visit Diagnoses Not on filedocumented in this encounter Care Teams Service Desk Associate Relationship Specialty Start Date End Date No, Physician PCP - General 05/08/21 09/25/22 Leonard Hunter MD [address] [facility] [address] [place] [address] [place] Obstetrics and Gynecology 01/12/20 documented as of this encounter
--- OUTSIDE RECORDS SUMMARY | 2024-08-05 00:59 | XMS_ITS | Encounter Summary ---
Author Organization [facility] Medical Group Address [address] [place] [address] Care Team Providers Care Warehouse Sorter Name Role Phone Leonard Hunter MD Unavailable [phone] Graciela Antoine Primary Care Provider Reason for Visit * Reason Comments Morbid Obesity Bariatric # 3Last we ight 328 lb 11/27/22 Encounter Details Date Type Department Care Team (Late st Contact Info) Description 12/25/2022 10:20 AM CDT Office Visit [facility] [address] [facility] [address] [place] [phone] Susan Ontiveros, PORCELAIN BUILDUP ASSISTANT [address] [facility] [address] [place] [address] BMI 45.0-49.9, adult (HCC) (Primary Dx) Social History Tobacco Use Types Packs/Day Years Used Date Smoking Tobacco: Former Cigarettes 0.5 11 S tarted: 2013 Smokeless Tobacco: Never [...] one occasion? 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 Not on file Not on file documented as of this encounter Last Filed Vital Signs Vital Sign Reading Time Taken Comments Blood Pressure 136/84 12/25/2022 10:28 AM CDT Pulse 82 12/25/2022 10:28 AM CDT Temperature 36.2 ??C (97.1 ??F) 12/25/2022 1 0:28 AM CDT Respiratory Rate - - Oxygen Saturation 94% 12/25/2022 10: 28 AM CDT Inhaled Oxygen Concentration - - Weight 149.4 kg (329 lb 6.4 oz) 023 10:28 AM CDT Height 157.5 cm (5' 2 ) 12/25/2022 10:2 8 AM CDT Body Mass Index 60.25 12/25/2022 10:28 AM CDT documented in this encounter Progress Notes * Susan Ontiveros NP - 12/25/2022 10:20 AM CDT Images from the original note were not included. Progress Note Subjective: Patient Name: Morenita Burdick Date of Visit: 12/25/2022 HPI: Morenita Burdick is a 27 y.o. female with morbid obesity pursing sleeve gastrectomy. She has made changes in her diet such as no sweets and has cut out soda. She had an illness recently a cold and she has not been eating much. Her weight is consistent this month and she has not lost any weight. 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 She needs a day off to go to gym her plan is to exercise more often. She has all of her appointments set up for Psychiatry , PT, and pouncing lathe operator. Plans to attend support group. Chief Complaint: Morbid Obesity (Bariatric # 3//Last weight 328 lb 11/27/22 ) Allergies as of 12/25/2022 - Reviewed 12/25/2022 Allergen Reaction Noted Latex Swelling and Hives 07/11/2019 Past Medical History: Diagnosis Date ADHD (attention [...] type 2; Hypertension Father Hypertension; Social History Tobacco Use Smoking status: Former [...] Negative for back pain. Objective: Vitals BP 136/84 (BP Location: Right arm, Patient Position: Sitting) Pulse 82 Temp 36.2 ??C (97.1 ??F) Ht 157.5 cm (5' 2 ) Wt (!) 149.4 kg (329 lb 6.4 oz) SpO2 94% BMI 60.25 kg/m?? Physical Exam Constitutional: The patient is [...] this visit: BMI 45.0-49.9, adult (HCC) (Primary) Discussed more ways to improve her diet to promote weight loss. She is planning to make more changes for next visit. RTC in 1 month Susan Ontiveros NP documented in this encounter Plan of Treatment Not on file documented as of this encounter Visit Diagnoses Diagnosis BMI 45.0-49.9, adult (HCC)- Primary documented in this encounter Discontinued Medications Medication Sig Discontinue Reason Start Date End Da te acetaminophen 500 mg capsule Take 2 capsules (1,000 mg total) by mouth every 8 (eight) hours as needed 08/20/2021 12/26/2022 hydrocortisone (ANUSOL-HC) 2.5 % rectal cream 2 (two) times a day APPLY TO AFFECTED AREA 10/27/2022 12/26/2022 documented as of this encounter Care Teams Warehouse Sorter Relationship Specialty Start Date End Date Graciela Antoine PA [address] [place] [id number] PCP - General Physician Senior Manager Creative Services 11/07/22 Leonard Hunter MD [address] [place] [address] [address] DO [address] [address] Instrumentation Technologist Obstetrics and Gynecology 01/12/20 documented as of this encounter
--- OUTSIDE RECORDS SUMMARY | 2024-08-05 00:59 | XMS_ITS | Encounter Summary ---
Author Organization [facility] Healthcare Address [address] [place] [address] Care Team Providers Care Wood Dowel Machine Operator Name Role Phone Leonard Hunter MD Unavailable [phone] Graciela Antoine Primary Care Provider Reason for Referral * Consultation (Routine) - Closed Specialty Diagnoses / Procedures Referred By Amada ro Referred To Contact Diabetes and Nutrition Services Diagnoses Encounter for nutrition evaluation prior to bariatric surgery Morbid obesity (HCC) Tirso Toledo MD Phone: tel: fax: [address] [phone] Referral ID Status Reason Start Date Expiration Date V isits Requested Visits Authorized [id number] Closed Specialty Services Required 10/30/2022 11/29/2023 10 10 Question Answer [id number] Initial / Annual Follow-up MNT Please select the performing region: [facility] [[id number]] # of visits: 10 Comments Please schedule initial visit in December Reason for Visit * Consultation (Routine) - Closed Specialty Diagnoses / Procedures Referred By Amada ro Referred To Contact Diabetes and Nutrition Services Diagnoses Encounter for nutrition evaluation prior to bariatric surgery Morbid obesity (HCC) Tirso Toledo MD Phone: tel: fax: [address] [phone] Referral ID Status Reason Start Date Expiration Date V isits Requested Visits Authorized [id number] Closed Specialty Services Required 10/30/2022 11/29/2023 10 10 Encounter Details Date Type Department Care Team (Latest Contact Info) Description 02/25/2023 9:48 AM CDT - 02/25/2023 11:59 PM CDT Hospital Encounter [facility] Nutrition and Diabetic Education [address] [facility] [address] [place] [address] Geiger, Sandra Winter, RD [address] [place] [address] Encounter for nutrition evaluation prior to bariatric surgery; Morbid obesity (HCC) Discharge Disposition: Discharge to [...] on file Legal Sex Female 3:31 AM REGISTERED DENTAL ASSISTANT Gender Identity Not on file Sexual Orientation Not on file Occupation Industry Job Start Date Job End Date [employer] Not on file Not on file Not [...] in this encounter Progress Notes * Sandra Geiger, RD - 02/25/2023 10:00 AM CDT Outpatient Nutrition Counseling Assessment Patient Name: Morenita Burdick : 1995 Sex: female Encounter Date: 02/25/2023 Time Calculation (min): 30 min Visit #: [address] Toledo to nutrition counseling for Morbid Obesity/ Bariatric Surgery Program . She has a past medical history of ADHD (attention deficit hyperactivity disorder), Anemia, Asthma, Depression, Female infertility, GERD (gastroesophageal reflux disease), History of adverse effect ofanesthesia, Miscarriage, Motion sickness, Obesity, and Polycystic ovary syndrome. Assessment: Pt was alone for today's nutritional counseling. Pt is 5'2 and weigh 323 lbs. Wt is up 1 lb/ 6 weeks. Bariatric packet # 2 was given and this patient was allowed to choose vitamin & calcium samples to take home to try. Pt added 5 goals to her weight loss goal sheet. January's support group information was provided but patient did not attend. Diet Recall: Breakfast: Premier protein shake Lunch: Ham n cheese roll Dinner: Grilled chicken with broccoli Snacks: Protein bar. Beverages: Personal Goals: lose weight Support System: Barriers to change: lacks motivation Exercise: walk 3 days /week for 20 minutes each time. Anthropometrics: Ht 157.5 cm (5' 2 ) BMI 59.26 kg/m?? IBW/kg (Calculated) : 49.9 kg. Weight= 323 lbs. Wt Readings from Last 3 Encounters: 02/19/23 (!) 147 kg (324 lb) 01/29/23 (!) 148.6 kg (327 lb 8 oz) 12/25/22 (!) 149.4 kg (329 lb 6.4 oz) No results found for: CALCBMI Relevant Medications and Lab Review: HOME MEDICATIONS : Advair Diskus 100-50 mcg/dose diskus inhaler albuterol HFA (PROVENTIL HFA,VENTOLIN HFA,PROAIR HFA) 90 mcg/actuation inhaler ARIPiprazole (ABILIFY) 10 mg tablet Food/Medication interactions: na MVI use: na No results found for: HGBA1C Lab Results Component Value Date CREATININE 0.46 (L) 09/13/2018 BUNSER 5 (L) 09/13/2018 SODIUM 134 (L) 09/13/2018 POTASSIUM 3.6 09/13/2018 Nutritional Needs and Diagnosis: Careplan 1 Nutrition Diagnosis 1: Overweight/Obesity Related to: Food choices, Lack of adherence, Lack of activity, Lack of education Evidenced by: BMI 40 or more, Patient interview, Physical finding Nutritional Needs: Total Kcal/kg Estimated Needs : 1465.12 Kcal/k Total Protein Estimated Needs (gm): 146.51 Protein Needs Based on g/k.0 Total Daily Carbohydrates Recommended (gm): 150 Total Fat Estimated Needs (gm): 32.56 Fat Needs Based on % of Calories: 20 Total Fluid Estimated Needs: 1465.12 Fluid Needs Based on : 1 ml/kcal Intervention: Educated and counseled pt on basics of health and nutrition, how to read nutrition facts labels, mindfulness, meal planning. Pt provided with sample meal plan, recipes, grocery shopping list, and relevant handouts. Discussed importance of making heart healthy diet choices. Specifically, lowering total fat and saturated fat consumption as well as decreasing sodium in the diet to <2000mg per day. Extensively discussed mindful eating, discussing: Encouraged to slow down meal times by using all of your senses (sight, smell, taste, etc.) avoiding distractions (ex. TV) drinking water between bites Identify hunger cues using smaller plates to decrease portions Placing foods/beverages in pantry instead of counter & keep healthier alternatives available toavoid impulse choices Preplan meals away from home by looking at nutrition information online, ordering kids or lunch meals, and asking server security administrator for to-go box at beginning of meal. Encouraged Morenita Burdick to incorporate physical activity as permitted by MD with overall goal of 150 minutes per week. Patient Center Goals: lose weight Monitoring/Evaluation: Increase timing of exercising Measure portion sizes Keep a food diary Attend our bariatric support group Evaluation of Learning: Pt Morenita Burdick needs further instruction and needs review/assistance . Pt is in Preparation stage of change. Expect adherence to recommendations to be fair. Pt to follow up in March 2023 for support/reinforcement. Communication sent to referring provider with education provided and desired outcomes Sandra Geiger RDN, LDN. documented in this encounter Plan of Treatment Scheduled Referrals Name Type Priority Associated Diagnoses Order Schedule Ambulatory referral to Nutrition Services Outpatient Referral Routine Encounter for nutrition evaluation prior to bariatric surgery Morbid obesity (HCC) Once for 1 Occurrences starting 02/25/2023 until 02/25/2023 documented as of this encounter Visit Diagnoses Diagnosis Encounter for nutrition evaluation prior to bariatric surgery Morbid obesity (HCC) Morbid obesity documented in this encounter Care Teams Wood Dowel Machine Operator Relationship Specialty Start Date End Date Graciela Antoine PA [address] [place] [address] PCP - General Physician Child Caregiver Private Home 11/07/22 Leonard Hunter MD [address] [place] [address] DR DO [address] [address] Territory Sales Representative Obstetrics and Gynecology 01/12/20 documented as of this encounter
--- OUTSIDE RECORDS SUMMARY | 2024-08-05 00:59 | XMS_ITS | Encounter Summary ---
Author Organization [facility] Address [address] [place] [address] Care Team Providers Care Artist Woodblock Name Role Phone Leonard Hunter MD Unavailable [phone] Cheyenne Islas MD Primary Care Provider Reason for Visit * Reason Comments Obesity Bariatric # 1 today' s weight 328.0 lb * Consultation (Routine) - Closed Specialty Diagnoses / Procedures Referred By Contac t Referred To Contact General Surgery Diagnoses Morbid obesity (HCC) Cheyenne Islas MD [address] [place] [address] Phone: tel: fax: Tirso Toledo MD [address] [place] [address] [address] [place] [address] Phone: tel: fax: Referral ID Status Reason Start Date Expiration Date V isits Requested Visits Authorized [id number] Closed Specialty Services Required 09/26/2022 10/26/2023 1 1 Encounter Details Date Type Department Care Team (Late Contact Info) Description 10/30/2022 9:00 AM CDT Office Visit [facility] [address] [facility] [address] [place] [id number] Tirso Toledo MD [address] [place] [address] [facility] [address] [place] [address] BMI 45.0-49.9, adult (CMS/HCC) (HCC) (Primary Dx); Morbid obesity (CMS/HCC) (HCC) Social History Tobacco Use Types Packs/Day Years Used Date Smoking Tobacco: Former Cigarettes 0.5 11 S tarted: 2013 Smokeless Tobacco: Never Tobacco Cessation:Counseling Given: Not [...] on file Legal Sex Female 3:31 AM VENEER JOINTER OFFBEARER Gender Identity Not on file Sexual Orientation Not on file 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 Not on file Not on file documented as of this encounter Last Filed Vital Signs Vital Sign Reading Time Taken Comments Blood Pressure 132/78 10/30/2022 9:27 AM CDT Pulse 83 10/30/2022 9:27 AM CDT Temperature 36.3 ??C (97.3 ??F) 10/30/2022 9:27 AM CD T Respiratory Rate - - Oxygen Saturation 99% 10/30/2022 9:27 AM CDT Inhaled Oxygen Concentration - - Weight 148.8 kg (328 lb) 10/30/2022 9:27 AM CDT Height 157.5 cm (5' 2 ) 10/30/2022 9:27 AM CDT Body Mass Index 59.99 10/30/2022 9:27 AM CDT documented in this encounter Progress Notes * Tirso Toledo MD - 10/30/2022 9:00 AM CDT Images from the original note were not included. Surgery Consult Subjective: Patient Name: Morenita Burdick Date of Visit: 10/30/22 HPI: Morenita Burdick is a 27 y.o. female presenting for surgical evaluation of morbid obesity. Thepatient has tried various regimens in the past. She is been on phentermine on 2 separate occasions with a 30 lb weight loss. She is also tried a diet and exercise regimen on her own having lost 15 lb. Her mother also has undergone the sleeve gastrectomy roughly 3 years ago and has done well with regards to weight loss. She denies any personal family history of blood clots or clotting disorders. She denies any issues with reflux disease. Chief Complaint: Obesity (Bariatric # 1 today's weight 328.0 lb ) Referred by: Cheyenne Islas MD Allergies as of 10/30/2022 - Reviewed 10/30/2022 Allergen Reaction Noted Latex Swelling and Hives 07/11/2019 Current Outpatient Medications: acetaminophen 500 mg capsule albuterol HFA (PROVENTIL HFA,VENTOLIN HFA,PROAIR HFA) 90 mcg/actuation inhaler ARIPiprazole (ABILIFY) 10 mg tablet Flovent Diskus 100 mcg/actuation diskus inhaler Past Medical History: Diagnosis Date ADHD (attention deficit hyperactivity disorder) Anemia Depression Female infertility GERD (gastroesophageal reflux disease) [...] Sexual Activity Drug use: No Sexual activity: Yes Partners: Male Alcohol Use: Unknown Frequency of Alcohol Consumption: Monthly or less Average Number of Drinks: Not on file Frequency of Binge Drinking: Less than monthly Review of Systems Constitutional: Negative for activity change. HENT: Negative for hearing loss and sore throat. Eyes: Negative for visual disturbance. Respiratory: Negative for cough and shortness of breath. Cardiovascular: Negative for chest pain. Gastrointestinal: Negative for abdominal pain, constipation Genitourinary: Negative for dysuria. Musculoskeletal: Negative for back pain. Neurological: Negative for dizziness and syncope. Psychiatric/Behavioral: Negative for agitation and confusion. \ Objective: Vitals BP 132/78 (BP Location: Right arm, Patient Position: Sitting) Pulse 83 Temp 36.3 ??C (97.3 ??F) Ht 157.5 cm (5' 2 ) Wt (!) 148.8 kg (328 lb) SpO2 99% BMI 59.99 kg/m?? Physical Exam Constitutional: The patient is oriented to person, place, and time. Obese Head: Normocephalic and atraumatic. Eyes: Pupils are [...] orders for this visit: BMI 45.0-49.9, adult ([facility]) ([facility]) (Primary) Assessment & Plan: Given their past success the patient would [...] psych. As we get closer to the ti me of surgery we will set him up [...] exercise with regards to her morbid obesity. Morbid obesity (CMS/HCC) ([facility]) - Ambulatory referral to General Surgery Tirso Toledo MD 9:52 AM 10/30/2022 documented in this encounter Miscellaneous Notes * Assessment & Plan Note - Tirso Toledo MD - 10/30/2022 9:52 AM CDTAssociated Problem(s): BMI 45.0-49.9, adult (HCC) (Resolved 07/12/2024) Given their past success the patient would [...] psych. As we get closer to the ti me of surgery we will set him up [...] exercise with regards to her morbid obesity. documented in this encounter Plan of Treatment Not on file documented as of this encounter Visit Diagnoses Diagnosis BMI 45.0-49.9, adult (HCC)- Primary Morbid obesity (HCC) Morbid obesity documented in this encounter Historical Medications * This list may reflect changes made after this encounter. acetaminophen 500 mg capsule Take 2 capsules (1,000 mg total) by mouth every 8 (eight) hours as needed 08/20/2021 12/26/2022 Flovent Diskus 100 mcg/actuation diskus inhaler 10/28/2022 11/27/2022 ARIPiprazole (ABILIFY) 10 mg tablet Take 1 tablet (10 mg total) by mouth daily 10/27/2022 04/21/2023 albuterol HFA (PROVENTIL HFA,VENTOLIN HFA,PROAIR HFA) 90 mcg/actuation inhaler INHALE 2 PUFFS VIA SPACER EVERY 6 HRS FOR 1 WEEK, NEEDED UNTIL SYMPTOMS IMPROVE 10/15/2022 07/12/2024 added in this encounter Orders Outpatient Referral Count Last Ordered Date Fir st Ordered Date AMB REFERRAL TO GENERAL SURGERY 1 3 documented in this encounter Care Teams Artist Woodblock Relationship Specialty Start Date End Date Cheyenne Islas MD [address] [place] [address] PCP - General Family Medicine 09/26/22 11/06/22 Leonard Hunter MD [address] [place] [address] DR DO B [address] [address] Boatswains Mate Obstetrics and Gynecology 01/12/20 documented as of this encounter
--- OUTSIDE RECORDS SUMMARY | 2024-08-05 00:59 | XMS_ITS | Encounter Summary ---
Author Organization [facility] Healthcare Address [address] [place] [address] Care Team Providers Care Traffic Sign Supervisor Name Role Phone Leonard Hunter MD Unavailable [phone] No, Physician Primary Care Provider [phone] Reason for Visit * Reason Comments Decreased Movement Encounter Details Date Type Department Care Team (Latest Contact Info) Description 07/03/2021 11:16 AM GREEN BUILDING ENERGY ENGINEER - 07/03/2021 12:16 PM GREEN BUILDING ENERGY ENGINEER Hospital Encounter [facility] [address] [place] [address] Leonard Hunter MD [address] [place] [address] DR DO B [address] [address] Discharge Disposition: Discharge to home or self care Social History Tobacco Use Types Packs/Day Years Used Date Smoking Tobacco: Former Cigarettes 0.3 11 S tarted: 2014 Smokeless Tobacco: Never Comments:Smoking History Pac ks/day: 0.25 Packs Alcohol Use Standard Drinks/Week Comments Yes 0 (1 standard drink = 0.6 oz pur e alcohol) rarely AUDIT-C Answer Date Recorded Q1: How often do you have a drink containing alc ohol? 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 on file Not on file Not on file documented as of this encounter Last Filed Vital Signs Vital Sign Reading Time Taken Comments Blood Pressure 120/61 07/03/2021 11:35 AM GREEN BUILDING ENERGY ENGINEER Pulse 101 07/03/2021 11:35 AM GREEN BUILDING ENERGY ENGINEER Temperature 36.8 ??C (98.3 ??F) 07/03/2021 11:[address] Respiratory Rate 18 07/03/2021 11:35 AM GREEN BUILDING ENERGY ENGINEER Oxygen Saturation - - Inhaled Oxygen Concentration - - Weight - - Height - - Body Mass Index - - documented in this encounter Discharge Diagnoses Diagnosis Encounter for supervision of other normal , unspecified trimester - ENCOUNTER FOR SUPERVISION OF OTHER NORMAL , UNSPECIFIED TRIMESTER Weeks of gestation of not specified - WEEKS OF GESTATION OF NOT SPECIFIED documented in this encounter Discharge Instructions * Attachments The following attachments cannot be sent through Care Everywhere. * at 31 to 34 Weeks (General Information) (Botswanan) documented in this encounter Discharge Disposition Disposition Code Departure Means Destination Discharge to home or self care documented in this encounter Plan of Treatment Not on file documented as of this encounter Visit Diagnoses Not on filedocumented in this encounter Discontinued Medications Medication Sig Discontinue Reason Start Date End Da te cephalexin (KEFLEX) 500 mg capsule Take 500 mg by mouth 3 (three) times a day Started 01/06 Therapy completed 07/03/2021 HYDROcodone-acetaminoph en (NORCO) 5-325 mg per tabletIndications:Pain Take 1-2 tablets by mouth every 4 (four) hours as needed for pain Therapy completed 01/12/2020 07/03/2021 ibuprofen (ADVIL,MOTRIN) 600 mg tablet Take 1 tablet (600 mg total) by mouth every 6 (six) hours as needed for pain Therapy completed 01/12/2020 07/03/2021 phentermine (ADIPEX-P) 37.5 mg tabletIndications:Weigh t Loss Management for Obese Patient (BMI >= 30),stopped on 01/05 Take 37.5 mg by mouth daily before breakfast Therapy completed 07/03/2021 topiramate (TOPAMAX) 50 mg tablet Take 50 mg by mouth 2 (two) times a day Therapy completed 07/03/2021 documented as of this encounter Care Teams Traffic Sign Supervisor Relationship Specialty Start Date End Date No, Physician PCP - General 05/08/21 09/25/22 Leonard Hunter MD [address] [facility] [place] [address] Kitchen Assistant Obstetrics and Gynecology 01/12/20 documented as of this encounter
--- OUTSIDE RECORDS SUMMARY | 2024-08-05 00:59 | XMS_ITS | Encounter Summary ---
Author Organization [facility] Healthcare Address [address] [place] [address] Care Team Providers Care Metal Solderer Name Role Phone eLonard Hunter MD Unavailable [phone] Graciela Antoine Primary Care Provider Reason for Visit * Consultation (Routine) - Closed Specialty Diagnoses / Procedures Referred By Amada ro Referred To Contact Diabetes and Nutrition Services Diagnoses Encounter for nutrition evaluation prior to bariatric surgery Morbid obesity (HCC) Tirso Toledo MD Phone: tel: fax: [address] [address] Referral ID Status Reason Start Date Expiration Date V isits Requested Visits Authorized [id number] Closed Specialty Services Required 10/30/2022 11/29/2023 10 10 Encounter Details Date Type Department Care Team (Latest Contact Info) Description 01/15/2023 1:00 PM CDT - 01/15/2023 11:59 PM CDT Hospital Encounter [facility] Nutrition and Diabetic Education [address] [place] [address] Room [address] [place] [address] [place] [address] [place] [address] Discharge Disposition: Discharge to home or self [...] on file Legal Sex Female 3:31 AM 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 Gender Identity Not on file Sexual Orientation Not on file 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 Not on file Not on file documented as of this encounter Last Filed Vital Signs Vital Sign Reading Time Taken Comments Blood Pressure - - Pulse - - Temperature - - Respiratory Rate - - Oxygen Saturation - - Inhaled Oxygen Concentration - - Weight - - Height 157.5 cm (5' 2 ) 01/15/2023 2:26 PM CDT Body Mass Index - - documented in this encounter Medications at Time [...] this encounter Progress Notes * Sandra Geiger, YASMANI - 01/15/2023 1:00 PM CDT Outpatient Nutrition Counseling Assessment Patient Name: Morenita Burdick : 1995 Sex: female Encounter Date: 01/15/2023 Time Calculation (min): 60 min Visit #: [address] Musielak to nutrition counseling for Morbid Obesity/ Bariatric Surgery Program . She has a past medical history of ADHD (attention deficit hyperactivity disorder), Anemia, Asthma, Depression, Female infertility, GERD (gastroesophageal reflux disease), History of adverse effect ofanesthesia, Miscarriage, Motion sickness, Obesity, and Polycystic ovary syndrome. Assessment: Pt was here alone today for nutritional counseling visit. She is 5'2 and weigh 322.3 lbs. Patient reports her mom had weight loss surgery and loss 200 lbs. Pt feels that she cannot zoom in to any bariatric support groups d/t working. RDN asked that she try to log in for a little while. Pt reports I won't get fired trying to log in to support group . RDN suggested that she tell her boss it's a part of the program and ask to log in for 5-10 minutes. Pt states I have family support I don't need a support group . Correct portion sizes shown. Food labels read. Hands on carb counting demonstrated for a meal by this patient. Pt doesn't exercise at all. RDN suggested that she start walking 20 minutes/ twice a day. Blank food diary given. Weight loss goal sheet was started with 5 goals chosenby this patient. Reena support group flyer was given. Bariatric packet #1 was given. RDN encouraged patients to eat more lean protein, veggies, salad and fresh fruit. Diet Recall: Breakfast: protein shake Lunch: ham and a cheese stick, water Dinner: spaghetti and water. Snacks: blueberries Beverages: protein shake, water. Personal Goals: lose weight Support System: family. Barriers to change: motivation and willingness to make changes Exercise: none Anthropometrics: Ht 157.5 cm (5' 2 ) BMI 60.25 kg/m?? IBW/kg (Calculated) : 49.9 kg. Today's weight = 322.3 lbs. Wt Readings from Last 3 Encounters: 12/25/22 (!) 149.4 kg (329 lb 6.4 oz) 11/27/22 (!) 148.8 kg (328 lb) 10/30/22 (!) 148.8 kg (328 lb) No results found for: CALCBMI Relevant Medications and Lab Review: HOME MEDICATIONS : Advair Diskus 100-50 mcg/dose diskus inhaler albuterol HFA (PROVENTIL HFA,VENTOLIN HFA,PROAIR HFA) 90 mcg/actuation inhaler ARIPiprazole (ABILIFY) 10 mg tablet Food/Medication interactions: na MVI use: yes No results found for: HGBA1C Lab Results Component Value Date CREATININE 0.46 (L) 09/13/2018 BUNSER 5 (L) 09/13/2018 SODIUM 134 (L) 09/13/2018 POTASSIUM 3.6 09/13/2018 [facility] and [facility] Diagnosis 1: Food and nutrition-related knowledge deficit Related to: Food choices, Lack of education, Lack of adherence, Lack of activity Evidenced by: BMI 40 or more, Patient interview, Physical finding Nutritional Needs: Total Kcal/kg Estimated Needs : 1461.94 Kcal/k Total Protein Estimated Needs (gm): 146.19 Protein Needs Based on g/k.0 Total Daily Carbohydrates Recommended (gm): 150 Total Fat Estimated Needs (gm): 32.49 Fat Needs Based on % of Calories: 20 Total Fluid Estimated Needs: 1461.94 Fluid Needs Based on : 1 ml/kcal Intervention: Education given 1st visit: Weight Loss Surgery Diet Packet Goals to Prepare for Weight Loss Surgery (updated every visit with 4 more goals added at each visit) Bariatric Shopping Guide List of Assorted Protein Beverages, Cost and Where to Purchase these Products Blank Food & Activity Food Record Educated and counseled pt on basics of [...] ordering kids or lunch meals, and asking patient observer for to-go box at beginning of meal. Primary teaching and session discussion focused on basics of health and nutrition, what foods contain carbohydrates, how to read nutrition facts labels, carbohydrate counting, and meal planning. Pt provided with sample meal plan, recipes, grocery shopping list, carbohydrate counting booklet and relevant handouts. Recommended Morenita Burdick consume 45 grams carbohydrate choices per meal and 5 grams carb choiceplus lean protein per snack. Provided meal plan with example carbohydrate choice serving sizes, protein recommendations 6-11 oz/day, non starchy vegetable recommendations 3-5 servings/day & recommendations for fat intakes 3 servings/day. Discussed choosing lean protein and opting for unsaturated fats over saturated fats. Encouraged Morenita Burdick to incorporate physical activity as permitted by MD with overall goal of 150 minutes per week. Patient Center Goals: lose weight Monitoring/Evaluation: Keep a food diary Measure/decrease portion sizes. Count carb and protein grams. Start walking for 20 minutes/ twice/day Avoid fried food Evaluation of Learning: Pt Morenita Burdick needs further instruction and needs review/assistance Pt is in Contemplation stage of change. Expect adherence to recommendations to be fair. Pt to follow up in January 2023 for support/reinforcement. Communication sent to referring provider with education provided and desired outcomes Sandra Geiger RDN, LDN. documented in this encounter Plan of Treatment Not on file documented as of this encounter Visit Diagnoses Not on filedocumented in this encounter Care Teams Metal Solderer Relationship Specialty Start Date End Date Graciela Antoine PA [address] [place] [address] PCP - General Physician Linen Grader 11/07/22 Leonard Hunter MD [address] [place] [address] DR DO B [address] [address] Medical Office Manager Obstetrics and Gynecology 01/12/20 documented as of this encounter
--- OUTSIDE RECORDS SUMMARY | 2024-08-05 00:59 | XMS_ITS | Encounter Summary ---
Author Organization [facility] Medical Group Address [address] [place] [address] Care Team Providers Care Remodeler Name Role Phone Leonard Hunter MD Unavailable [phone] Elving-Cheyenne Bender MD Primary Care Provider Reason for Referral * Consultation (Routine) - Closed Specialty Diagnoses / Procedures Referred By Amada ro Referred To Contact Diabetes and Nutrition Services Diagnoses Encounter for nutrition evaluation prior to bariatric surgery Morbid obesity (HCC) Tirso Toledo MD Phone: tel: fax: [facility] [address] [place] [address] Referral ID Status Reason Start Date Expiration Date V isits Requested Visits Authorized [id number] Closed Specialty Services Required 10/30/2022 11/29/2023 10 10 Question Answer [id number] Initial / Annual Follow-up MNT Please select the performing region: [facility] [[id number]] # of visits: 10 Comments Please schedule initial visit in December Encounter Details Date Type Department Care Team (Late st Contact Info) Description 10/30/2022 Orders Only [facility] [address] [facility] [address] [place] [address] Tirso Toledo MD [address] [place] [address] [address] [place], [place] [id number] Encounter for nutrition evaluation prior to bariatric surgery (Primary Dx); Morbid obesity (CMS/HCC) (HCC) Social [...] on file Legal Sex Female 3:31 AM TRADE SHOW COORDINATOR Gender Identity Not on file Sexual Orientation Not on file 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 Not on file Not on file documented as of this encounter Plan of Treatment Scheduled Referrals Name Type Priority Associated Diagnoses Order Schedule Ambulatory referral to Nutrition Services Outpatient Referral Routine Encounter for nutrition evaluation prior to bariatric surgery Morbid obesity (CMS/HCC) (HCC) Expected: 11/13/2022 (Approximate), Expires: 10/31/2023 documented as of this encounter Visit Diagnoses Diagnosis Encounter for nutrition evaluation prior to bariatric surgery- Primary Morbid obesity (HCC) Morbid obesity documented in this encounter Care Teams Remodeler Relationship Specialty Start Date End Date Cheyenne Islas MD [address] [place] [address] PCP - General Family Medicine 09/26/22 11/06/22 Leonard Hunter MD [address] [place] [address] DR DO [address] [address] Bottle Feeder Obstetrics and Gynecology 01/12/20 documented as of this encounter
--- OUTSIDE RECORDS SUMMARY | 2024-08-05 00:59 | XMS_ITS | Encounter Summary ---
Author Organization [facility] Healthcare Address [address] [place] [address] Care Team Providers Care Senior Ui Software Engineer Name Role Phone Leonard Hunter MD Unavailable No, Physician Primary Care Provider [phone] Reason for Visit * Reason Onset Date Comments Appointment 09/25/2022 Encounter Details Date Type Department Care Team (Late st Contact Info) Description 09/25/2022 Telephone [facility] Patient Access [address] [place] [address] Luis Foster, RN Appointment Social History Tobacco Use Types Packs/Day Years [...] Binge Drinking Not on file 07/05 Comments No Sex and Gender Information Value Date Recorded Sex Assigned at Not on file Legal Sex Female 3:31 AM VOLUNTEER COORDINATOR Gender Identity Not on file Sexual Orientation Not on file 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 She No Showed for her New Pt appt last year due to extenuating circumstances. Advised pt to get a new referral from PCP and we will call her to schedule appt. NTEER COORDINATOR documented in this encounter Plan of Treatment Not on file documented as of this encounter Visit Diagnoses Not on filedocumented in this encounter Care Teams Senior Ui Software Engineer Relationship Specialty Start Date End Date No, Physician PCP - General 05/08/21 09/25/22 Leonard Hunter MD [address] [place] [address] DR DO [address] [address] Sander Hand Obstetrics and Gynecology 01/12/20 documented as of this encounter
--- OUTSIDE RECORDS SUMMARY | 2024-08-05 00:59 | XMS_ITS | Encounter Summary ---
Author Organization [facility] Healthcare Address [address] [place] [address] Care Team Providers Care Blood Bank Technician Name Role Phone Leonard Hunter MD Unavailable [phone] Graciela Antoine Primary Care Provider Reason for Visit * Reason Comments PT Initial Eval * Consultation (Routine) - Closed Specialty Diagnoses / Procedures Referred By Amada ro Referred To Contact Physical Therapy Diagnoses Morbid obesity (HCC) Tirso Toledo MD Phone: tel: fax: [address] [address] Referral ID Status Reason Start Date Expiration Date V isits Requested Visits Authorized [id number] Closed Specialty Services Required 10/30/2022 11/29/2023 24 24 Encounter Details Date Type Department Care Team (Late st Contact Info) Description 02/02/2023 10:45 AM CDT Therapy [facility] Physical Therapy [address] [place] [address] Haleigh Singh PT Morbid obesity (HCC) (Primary Dx) Social History [...] on file 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 Pt does not belong to a gym atthis time. Pt does not have any home equipment but does sometimes look up exercise videos on the internet. Pt does not have any physical limitations that prevent her from exercising. Pt is planning on having the gastric sleeve procedure. Goal weight: pt does not have a specific goal weight, just wants to feel healthy Physical limitations: none Hand dominance: right History of falls in the past 6 months: no OBJECTIVE: Gait: WNL Manual Muscle tests: all UE/LE 5/5 General ROM: all UE/LE WNL Resting Vitals: SpO2 - 96% HR - 67 bpm Initial Weight: 327lbs BMI: 59.90 kg/m^2 Six minute walk test: Minute: SpO2 % HR (bpm) RR* Liters of O2 Comments 1 97 102 0 2 97 111 1 3 97 114 2 4 97 115 3-4 5 97 109 4 6 97 114 5 After 5 min rest 97 68 0 Speed: 2.5 mph. Distance: 0.12 miles. Number of rest breaks: 0 *Modified Dyspnea Scale ASSESSMENT: The pt presented for a PT consult prior to bariatric surgery. The pt was educated on exercise, how to begin/progress/maintain a routine, parameters for cardiovascular and strength training, and how exercise can help with their weight loss. The pt acknowledged their understanding of the education and is cleared by PT at this time. Goal: Pt to acknowledged their understanding of the education. Met PLAN: The pt is discharged from physical therapy at this time. Start Time: 1046 End Time: 1144 Thank you, Haleigh Singh, PT, MPT documented in this encounter Plan of Treatment Not on file documented as of this encounter Visit Diagnoses Diagnosis Morbid obesity (HCC)- Primary Morbid obesity documented in this encounter Orders Outpatient Referral Count Last Ordered Date st Ordered Date AMB REFERRAL ORDER TO PHYSICAL THERAPY 1 documented in this encounter Care Teams Blood Bank Technician Relationship Specialty Start Date End Date Graciela Antoine PA [address] [place] [address] PCP - General Physician Generalist 11/07/22 Leonard Hunter MD [address] [place] [address] DR DO [address] [address] Test Operator Obstetrics and Gynecology 01/12/20 documented as of this encounter
--- OUTSIDE RECORDS SUMMARY | 2024-08-05 00:59 | XMS_ITS | Encounter Summary ---
Author Organization [facility] Medical Group Address [address] [place] [address] Care Team Providers Care Sexton Helper Name Role Phone Leonard Hunter MD Unavailable [phone] Graciela Antoine Primary Care Provider Reason for Visit * Reason Comments Obesity Bariatric 4 Encounter Details Date Type Department Care Team (Late st Contact Info) Description 01/29/2023 11:00 AM CDT Office Visit [facility] [address] [facility] [address] [place] [phone] Susan Ontiveros, RETORT SETTER [address] [facility] [address] [place], [place] [id number] BMI 45.0-49.9, adult (HCC) (Primary Dx) Social History Tobacco Use Types Packs/Day Years Used Date Smoking Tobacco: Former Cigarettes 0.5 11 S tarted: 2014 Smokeless Tobacco: Never Tobacco Cessation:Counseling Given: Not [...] file Legal 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 Gender Identity Not on file Sexual Orientation Not on file 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 on file Not on file Not on file documented as of this encounter Last Filed Vital Signs Vital Sign Reading Time Taken Comments Blood Pressure 133/85 01/29/2023 11:51 AM CDT Pulse 59 01/29/2023 11:51 AM CDT Temperature 36.3 ??C (97.3 ??F) 01/29/2023 11:51 AM C DT Respiratory Rate - - Oxygen Saturation 97% 01/29/2023 11:51 AM CDT Inhaled Oxygen Concentration - - Weight 148.6 kg (327 lb 8 oz) 01/29/2023 11:51 A M CDT Height 157.5 cm (5' 2 ) 01/29/2023 11:51 AM CDT Body Mass Index 59.9 01/29/2023 11:51 AM CDT documented in this encounter Progress Notes * Ssuan Ontiveros RETORT SETTER - 01/29/2023 11:00 AM CDT Images from the original note were not included. Progress Note Subjective: Patient Name: Morenita Burdick Date of Visit: 01/29/2023 HPI: Morenita Burdick is a 27 y.o. female presents for bariatric visit #4 for consideration of laparoscopic sleeve gastrectomy. Lost 2 lbs since last visit. She is following the diet. She has seen Professor Of Poultry Science and bariatric psychiatrist. She is going to visit the PT on 02/02/23. Attending the bariatric support group. Chief Complaint: Obesity (Bariatric 4) Allergies as of 01/29/2023 - Reviewed 01/29/2023 Allergen Reaction Noted Latex Swelling and Hives [...] Negative for back pain. Objective: Vitals BP 133/85 (BP Location: Left arm, Patient Position: Sitting) Pulse 59 Temp 36.3 ??C (97.3 ??F) Ht 157.5 cm (5' 2 ) Wt (!) 148.6 kg (327 lb 8 oz) SpO2 97% BMI 59.90 kg/m?? Physical Exam Constitutional: The patient is [...] this visit: BMI 45.0-49.9, adult (HCC) (Primary) Doing well. Discussed her diet and exercise program. She is following the diet and exercising. She will RTC in 1 month. Susan A. Ontiveros, RETORT SETTER documented in this encounter Plan of Treatment Not on file documented as of this encounter Visit Diagnoses Diagnosis BMI 45.0-49.9, adult (HCC)- Primary documented in this encounter Care Teams Sexton Helper Relationship Specialty Start Date End Date Graciela Antoine PA [address] [place] [address] PCP - General Physician Leather Cutter 11/07/22 Leonard Hunter MD [address] [place] [address] DR DO [address] [address] House Mover Obstetrics and Gynecology 01/12/20 documented as of this encounter
--- OUTSIDE RECORDS SUMMARY | 2024-08-05 00:59 | XMS_ITS | Encounter Summary ---
Author Organization [facility] Healthcare Address [address] [place] [address] Care Team Providers Care Mechanical Intern Name Role Phone Leonard Hunter MD Unavailable + [phone] Graciela Antoine Primary Care Provider Encounter Details Date Type Department Care Team (Latest Contact Info) Description 03/09/2023 2:00 PM CDT - 03/09/2023 11:59 PM CDT Hospital Encounter [facility] Nutrition and Diabetic Education 1 [facility] [address] [place] [address] [place] [address] Discharge Disposition: Discharge to home or self [...] on file 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 Gender Identity Not on file Sexual Orientation Not on file 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 Not on file Not on file documented as of this encounter Last Filed Vital Signs Vital Sign Reading Time Taken Comments Blood Pressure - - Pulse - - Temperature - - Respiratory Rate - - Oxygen Saturation - - Inhaled Oxygen Concentration - - Weight - - Height 157.5 cm (5' 2 ) 03/09/2023 4:24 PM CDT Body Mass Index - - [...] Progress Notes * Sandra Geiger, YASMANI - 03/09/2023 2:00 PM CDT Outpatient Nutrition Counseling Assessment Patient Name: Morenita Burdick : 1995 Sex: female Encounter Date: 03/09/2023 Time Calculation (min): 20 min Visit #: [address] Toledo to nutrition counseling for Morbid Obesity . She has a past medical history of ADHD (attention deficit hyperactivity disorder), Anemia, Asthma, Depression, Female infertility, GERD (gastroesophageal reflux disease), History of adverse effect ofanesthesia, Miscarriage, Motion sickness, Obesity, and Polycystic ovary syndrome. Assessment: Pt is alone for nutritional counseling visit. Today's weight 322.8 lbs. Wt is up 1 lb/ week. Bariatric packet # 4 given. The last five goals were added to patients goal sheet. Bariatric support groupinformation provided for March support group. Pt reports she was on zoom for January, but it kept kicking her off. RDN reminded the patient she should have called my number or our office number during the time of the meeting, so we could have place her on speaker phone. Pt to f/u one month post op Diet Recall: Breakfast: 2 eggs, 2 sausage links, lemon propel Lunch: Grilled buffalo chicken wrap, Diet Mountain Dew Dinner: Hot dog, Black Silvestre Propel Snacks: Cashews Beverages: Diet Mountain Dew, propel , Personal Goals: lose weight Support System: Barriers to change: need to stop drinking soda and increase time of walking to 40-45 minutes. Exercise: walk 3 times/week for 20 minutes. Anthropometrics: Ht 157.5 cm (5' 2 ) BMI 59.26 kg/m?? IBW/kg (Calculated) : 49.9 kg. Wt goal= 322.8 lbs. Wt is up 1 lb/ week. Wt Readings from Last 3 Encounters: 02/19/23 [...] Overweight/Obesity Related to: Food choices, Lack of education, Lack of activity, Lack of adherence Evidenced by: BMI 40 or more, Patient interview, Physical finding Nutritional Needs: Total Kcal/kg Estimated Needs : 1464.21 Kcal/k Total Protein Estimated Needs (gm): 146.42 Protein Needs Based on g/k.0 Total Daily Carbohydrates Recommended (gm): 150 Total Fat Estimated Needs (gm): 32.54 Fat Needs Based on % of Calories: 20 Total Fluid Estimated Needs: 1464.21 Fluid Needs Based on : 1 ml/kcal Intervention: Previously educated and counseled pt on basics of health and nutrition, how to read nutrition factslabels, mindfulness, meal planning. Pt provided with sample meal plan, recipes, grocery shopping list, and relevant handouts. Previously discussed importance of making heart healthy diet choices. [...] ordering kids or lunch meals, and asking observer electrical prospecting for to-go box at beginning of meal. Primary teaching and session discussion focused on basics of health and nutrition , what foods contain carbohydrates, how to read nutrition facts labels, carbohydrate counting, and meal planning. Pt provided with sample meal plan, recipes, grocery shopping list, carbohydrate counting booklet and relevant handouts. Recommended Morenita Burdick consume 45 grams carbohydrate choices plus lean protein per meal and 5grams carb choice plus lean protein per snack. Previously provided meal plan with example carbohydrate choice serving sizes, protein recommendations 6-11 oz/day, non starchy vegetable recommendations 3-5 servings/day & recommendations for fatintakes 3 servings/day. Discussed choosing lean protein and opting for unsaturated fats over saturated fats. Encouraged Morenita Burdick to incorporate physical activity as permitted by MD with overall goal of 150 minutes per week. Patient Center Goals: lose more weight Monitoring/Evaluation: Weekly weigh ins Evaluation of Learning: Pt Morenita Burdick needs further instruction and needs review/assistance Pt is in Action stage of change. Expect adherence to recommendations to be fair. Pt to follow up one month post op for support/reinforcement. Communication sent to referring provider with education provided and desired outcomes Sandra Geiger RDN, LDN. documented in this encounter Plan of Treatment Not on file documented as of this encounter Visit Diagnoses Not on filedocumented in this encounter Care Teams Mechanical Intern Relationship Specialty Start Date End Date Graciela Antoine PA [address] [place] [address] PCP - General Physician Digital Account Supervisor 11/07/22 Leonard Hunter MD [address] [place] [address] DR DO [address] [address] Refrigerating Machine Operator Obstetrics and Gynecology 01/12/20 documented as of this encounter
--- OUTSIDE RECORDS SUMMARY | 2024-08-05 00:59 | XMS_ITS | Encounter Summary ---
Author Organization [facility] Address [address] [facility] [address] [place] [address] Care Team Providers Care Shoe Worker Name Role Phone Leonard Hunter MD Unavailable + [phone] Graciela Antoine Primary Care Provider Reason for Visit * Reason Comments Obesity Bariatric 4 Encounter Details Date Type Department Care Team (Late st Contact Info) Description 02/19/2023 9:50 AM CDT Office Visit [facility] [address] [facility] [address] [place] [phone] Susan Ontiveros, MECHANICAL ENGINEER 2 [facility] [address] [place], [place] [id number] BMI 45.0-49.9, adult (HCC) (Primary Dx) Social [...] on file 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 Gender Identity Not on file Sexual Orientation Not on file 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 Not on file Not on file documented as of this encounter Last Filed Vital Signs Vital Sign Reading Time Taken Comments Blood Pressure 137/77 02/19/2023 10:04 AM CDT Pulse 67 02/19/2023 10:04 AM CDT Temperature 36.2 ??C (97.1 ??F) 02/19/2023 10:04 AM C DT Respiratory Rate - - Oxygen Saturation 96% 02/19/2023 10:04 AM CDT Inhaled Oxygen Concentration - - Weight 147 kg (324 lb) 02/19/2023 10:04 AM CDT Height 157.5 cm (5' 2 ) 02/19/2023 10:04 AM CDT Body Mass Index 59.26 02/19/2023 10:04 AM CDT documented in this encounter Progress Notes * Susan Ontiveros, MECHANICAL ENGINEER - 02/19/2023 9:50 AM CDT Images from the original note were not included. Progress Note Subjective: Patient Name: Morenita Burdick Date of Visit: 02/19/2023 HPI: Morenita Burdick is a 27 y.o. [...] a few more visits set up with electronics technician. She is walking for exercise. Chief Complaint: [...] with H pylori testing.RTC in 1 month Susan Ontiveros NP documented in this encounter Plan of Treatment Not on file documented as of this encounter Visit Diagnoses Diagnosis BMI 45.0-49.9, adult (HCC)- Primary documented in this encounter Care Teams Shoe Worker Relationship Specialty Start Date End Date Graciela Antoine PA [address] [place] [address] PCP - General Physician Editorial Director 11/07/22 Leonard Hunter MD [address] [place] [address] [address] DO [address] [address] Early Intervention School Psychologist Obstetrics and Gynecology 01/12/20 documented as of this encounter
--- OUTSIDE RECORDS SUMMARY | 2024-08-05 00:59 | XMS_ITS | Encounter Summary ---
Author Organization [facility] Address [address] [facility] [address] [place] [address] Care Team Providers Care Ammunition Assembly Laborer Name Role Phone Leonard Hunter MD Unavailable + [phone] Graciela Antoine Primary Care Provider Reason for Visit * Reason Comments Obesity Bariatric 2 Encounter Details Date Type Department Care Team (Late st Contact Info) Description 11/27/2022 9:10 AM CDT Office Visit [facility] 4 [facility] [address] [place] [address] Susan Ontiveros, RESIDENT MANAGER 2 [facility] [address] [place] [address] BMI 45.0-49.9, adult (HCC) (Primary Dx) Social [...] on file 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 Gender Identity Not on file Sexual Orientation Not on file 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 Not on file Not on file documented as of this encounter Last Filed Vital Signs Vital Sign Reading Time Taken Comments Blood Pressure 127/87 11/27/2022 9:29 AM CDT Pulse 79 11/27/2022 9:29 AM CDT Temperature 36.3 ??C (97.3 ??F) 11/27/2022 9:29 AM CD T Respiratory Rate - - Oxygen Saturation 97% 11/27/2022 9:29 AM CDT Inhaled Oxygen Concentration - - Weight 148.8 kg (328 lb) 11/27/2022 9:29 AM CDT Height 157.5 cm (5' 2 ) 11/27/2022 9:29 AM CDT Body Mass Index 59.99 11/27/2022 9:29 AM CDT documented in this encounter Progress Notes * Susan Ontiveros, RESIDENT MANAGER - 11/27/2022 9:10 AM CDT Images from the original note were not included. Progress Note Subjective: Patient Name: Morenita Burdick Date of Visit: 11/27/2022 HPI: Morenita Burdick is a 27 y.o. female Her weight remained stable. She doesn't know why because she has cut out all sweets and eating better. She has her appointments for government gauger and PT set up. Chief Complaint: Obesity (Bariatric 2) Allergies as of 11/27/2022 - Reviewed 11/27/2022 Allergen Reaction Noted Latex Swelling and Hives [...] Negative for back pain. Objective: Vitals BP 127/87 (BP Location: Left arm, Patient Position: Sitting) Pulse 79 Temp 36.3 ??C (97.3 ??F) Ht 157.5 cm (5' 2 ) Wt (!) 148.8 kg (328 lb) SpO2 97% BMI 59.99 kg/m?? Physical Exam Constitutional: The [...] visit: BMI 45.0-49.9, adult (HCC) (Primary) Discussed diet and exercise and ways she can incorporate this into her life. She is going to make changes for next month and she should show weight loss. RTC in 4 weeks Susan Ontiveros NP documented in this encounter Plan of Treatment Not on file documented as of this encounter Visit Diagnoses Diagnosis BMI 45.0-49.9, adult (HCC)- Primary documented in this encounter Discontinued Medications Medication Sig Discontinue Reason Start Date End Da te Flovent Diskus 100 mcg/actuation diskus inhaler 10/28/2022 11/27/2022 documented as of this encounter Historical Medications * This list may reflect changes made after this encounter. hydrocortisone (ANUSOL-HC) 2.5 % rectal cream 2 (two) times a day APPLY TO AFFECTED AREA 10/27/2022 12/26/2022 Advair Diskus 100-50 mcg/dose diskus inhaler Inhale 1 puff 2 (two) times a day 11/07/2022 07/12/2024 added in this encounter Care Teams Ammunition Assembly Laborer Relationship Specialty Start Date End Date Graciela Antoine PA [address] [place] [address] PCP - General Physician Medical Editor 11/07/22 Leonard Hunter MD [address] [place] [address] DR DO B [address] [address] Flotation Tender Helper Obstetrics and Gynecology 01/12/20 documented as of this encounter
--- OUTSIDE RECORDS SUMMARY | 2024-08-05 00:59 | XMS_ITS | Encounter Summary ---
Author Organization [facility] Address [address] [facility] [address] [place] [address] Care Team Providers Care Chocolatier Name Role Phone Leonard Hunter MD Unavailable + [phone] Cheyenne Islas MD Primary Care Provider Encounter Details Date Type Department Care Team (Late st Contact Info) Description 10/30/2022 Orders Only [facility] 4 [facility] [address] [place] [phone] Tirso Toledo MD 4 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
--- OUTSIDE RECORDS SUMMARY | 2024-08-05 00:59 | XMS_ITS | Encounter Summary ---
Author Organization [facility] Medical [facility] Address [address] [facility] [address] [place] [address] Care Team Providers Care Health Promotion Educator Name Role Phone Leonard Hunter MD Unavailable + [phone] Elving-Cheyenne Bender MD Primary Care Provider Reason for Referral * Consultation (Routine) - Closed Specialty Diagnoses / Procedures Referred By Amada ro Referred To Contact Physical Therapy Diagnoses Morbid obesity (HCC) Tirso Toledo MD Phone: tel: fax: [address] [phone] Referral ID Status Reason Start Date Expiration Date V isits Requested Visits Authorized [id number] Closed Specialty Services Required 10/30/2022 11/29/2023 24 24 Question Answer PTRFR PT Evaluate and Treat Reason for Visit encounter for bariatric sleeve Therapy options discussed with patient? 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 Gender Identity Not on file Sexual Orientation Not on file 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 Not on file Not on file documented as of this encounter Plan of Treatment Scheduled Referrals Name Type Priority Associated Diagnoses Order Schedule Ambulatory referral order to Physical Therapy - Outpatient Referral Routine Morbid obesity (CMS/HCC) (HCC) Expected: 11/13/2022 (Approximate), Expires: 10/31/2023 documented as of this encounter Visit Diagnoses Diagnosis Morbid obesity (HCC)- Primary Morbid obesity documented in this encounter Care Teams Health Promotion Educator Relationship Specialty Start Date End Date Cheyenne Islas MD [address] [place] [address] PCP - General Family Medicine 09/26/22 11/06/22 Leonard Hunter MD [address] [place] [address] DR DO [address] [address] Paint Line Supervisor Obstetrics and Gynecology 01/12/20 documented as of this encounter
--- OUTSIDE RECORDS SUMMARY | 2024-08-05 00:59 | XMS_ITS | Encounter Summary ---
Author Organization [facility] Address [address] [facility] [address] [place] [address] Care Team Providers Care Hoop Machine Operator Name Role Phone Leonard Hunter MD Unavailable + [phone] Graciela Antoine Primary Care Provider Reason for Visit * Reason Comments Obesity Bariatric #6 Encounter Details Date Type Department Care Team (Late st Contact Info) Description 03/19/2023 10:30 AM CDT Office Visit [facility] 4 [facility] [address] [place] [address] Tirso Toledo MD [address] [place] [address] [address] [place] [address] BMI 45.0-49.9, adult (HCC) (Primary Dx) Social [...] on file Legal Sex Female 3:31 AM INSPECTOR OUTSIDE PRODUCTION Gender Identity Not on file Sexual Orientation Not on file 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 Not on file Not on file Not on file documented as of this encounter Last Filed Vital Signs Vital Sign Reading Time Taken Comments Blood Pressure 134/86 03/19/2023 9:57 AM CDT Pulse 55 03/19/2023 9:57 AM CDT Temperature 35.8 ??C (96.4 ??F) 03/19/2023 9:57 AM CD T Respiratory Rate - - Oxygen Saturation 98% 03/19/2023 9:57 AM CDT Inhaled Oxygen Concentration - - Weight 144.1 kg (317 lb 11.2 oz) 03/19/2023 9:57 AM CDT Height 157.5 cm (5' 2 ) 03/19/2023 9:57 AM CDT Body Mass Index 58.11 03/19/2023 9:57 AM CDT documented in this encounter Progress Notes * Tirso Toledo MD - 03/19/2023 10:30 AM [...] group meetings. Prior to surgery will also recreational counselor her on avoiding in the 18 months to follow surgery. Tirso Toledo MD 12:47 PM 04/10/2023 documented in this encounter Miscellaneous Notes * Assessment & Plan Note - Tirso Toledo MD - 03/19/2023 10:19 AM CDTAssociated Problem(s): BMI 45.0-49.9, adult (HCC) (Resolved 07/12/2024) Continue small frequent meals. Continue exercise as [...] group meetings. Prior to surgery will also recreational counselor her on avoiding in the 18 months to follow surgery. documented in this encounter Plan of Treatment Not on file documented as of this encounter Visit Diagnoses Diagnosis BMI 45.0-49.9, adult (HCC)- Primary documented in this encounter Care Teams Hoop Machine Operator Relationship Specialty Start Date End Date Graciela Antoine PA [address] [place] [address] PCP - General Physician Skip Miner 11/07/22 Leonard Hunter MD [address] [place] [address] DR DO [address] [address] Restaurant Hospitality Manager Obstetrics and Gynecology 01/12/20 documented as of this encounter
--- OUTSIDE RECORDS SUMMARY | 2024-08-05 00:59 | XMS_ITS | Encounter Summary ---
Author Organization [facility] Healthcare Address [address] [place] [address] Care Team Providers Care Engineering Job Titles Name Role Phone Leonard Hunter MD Unavailable + [phone] Graciela Antoine Primary Care Provider Encounter Details Date Type Department Care Team (Latest Contact Info) Description 03/02/2023 2:00 PM CDT - 03/02/2023 11:59 PM CDT Hospital Encounter [facility] Nutrition and Diabetic Education 1 [facility] [address] [place] [address] [place] [address] Discharge Disposition: Discharge to home or self [...] on file Legal Sex Female 3:31 AM PUBLIC BATH ATTENDANT Gender Identity Not on file Sexual Orientation Not on file 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 Not on file Not on file documented as of this encounter Last Filed Vital Signs Vital Sign Reading Time Taken Comments Blood Pressure - - Pulse - - Temperature - - Respiratory Rate - - Oxygen Saturation - - Inhaled Oxygen Concentration - - Weight - - Height 157.5 cm (5' 2 ) 03/02/2023 3:26 PM CDT Body Mass Index - - [...] Progress Notes * Sandra Geiger, RD - 03/02/2023 2:00 PM CDT Outpatient Nutrition Counseling Assessment Patient Name: Morenita Burdick : 1995 Sex: female Encounter Date: 03/02/2023 Time Calculation (min): 20 min Visit #: [address] Toledo to nutrition counseling for Morbid Obesity/ Bariatric Surgery Program. She has a past medical history of ADHD (attention deficit hyperactivity disorder), Anemia, Asthma, Depression, Female infertility, GERD (gastroesophageal reflux disease), History of adverse effect ofanesthesia, Miscarriage, Motion sickness, Obesity, and Polycystic ovary syndrome. Assessment: Pt was alone for today's nutritional counseling visit. Today's weight was 321.8 lbs. This was a 1.2lb wt loss/ week. Bariatric packet # 3 given briefly discussed. Five more goals were added her goalsheet today. Bariatric support group information was given for March 2023. Diet Recall: Breakfast: protein shake Lunch:Cottage cheese and string cheese Dinner: Chicken oshea ranch wrap. Snacks: none Beverages: water. Personal Goals: lose more weight Support System: family Barriers to change: none Exercise: usually walks for 20 minutes. 3 times/week. Anthropometrics: Ht 157.5 cm (5' 2 ) BMI 59.26 kg/m?? IBW/kg (Calculated) : 49.9 kg Wt Readings from Last 3 Encounters: 02/19/23 [...] 1 Nutrition Diagnosis 1: Overweight/Obesity Related to: Lack of education, Food choices Evidenced by: BMI 40 or more, Physical finding, Patient interview Nutritional Needs: Total Kcal/kg Estimated Needs : 1459.68 Kcal/k Total Protein Estimated Needs (gm): 145.97 Protein Needs Based on g/k.0 Total Daily Carbohydrates Recommended (gm): 150 Total Fat Estimated Needs (gm): 32.44 Fat Needs Based on % of Calories: 20 Total Fluid Estimated Needs: 1459.68 Fluid Needs Based on : 1 ml/kcal [...] kids or lunch meals, and asking server administrator for to-go box at beginning of meal. Discussed choosing lean protein and opting for unsaturated fats over saturated fats. Encouraged Morenita Burdick to incorporate physical activity as permitted by MD with overall goal of 150 minutes per week. Patient Center Goals: lose more weight Push lean protein intake Continue exercising Drink more water Measure portion sizes Monitoring/Evaluation: Weekly weigh ins Evaluation of Learning: Pt Morenita Burdick needs further instruction and needs review/assistance Pt is in Action stage of change. Expect adherence to recommendations to be good. Pt to follow up in 1 week for support/reinforcement. Communication sent to referring provider with education provided and desired outcomes Sandra Geiger RDN, LDN. documented in this encounter Plan of Treatment Not on file documented as of this encounter Visit Diagnoses Not on filedocumented in this encounter Care Teams Engineering Job Titles Relationship Specialty Start Date End Date Graciela Antoine PA [address] [place] [address] PCP - General Physician Software Consultant 11/07/22 Leonard Hunter MD [address] [place] [address] [address] DO [address] [address] Plasma Processor Obstetrics and Gynecology 01/12/20 documented as of this encounter
--- OUTSIDE RECORDS SUMMARY | 2024-08-05 01:00 | XMS_ITS | Encounter Summary ---
Author Organization [facility] Address [address] [place] [address] Care Team Providers Care Lead Refiner Name Role Phone Amalia Rizvi MD Primary Care Provider [phone] No, Physician Primary Care Provider [phone] Eugene Bangura MD Primary Care Provider [phone] No, Physician Primary Care Provider [phone] No, Physician Primary Care Provider [phone] Leonard Hunter MD Unavailable [phone] Amalia Rizvi MD Primary Care Provider [phone] Encounter Details Date Type Department Care Team (Late st Contact Info) Description 04/16/2017 Orders Only [facility] [address] [place] [address] Scanning, Provider Social History Tobacco Use Types Packs/Day Years Used Date Smoking Tobacco: Former Comments:Smoking History Pac ks/day: 0.25 Packs Alcohol Use Standard Drinks/Week Comments No 0 (1 standard drink = 0.6 oz pur e alcohol) Comments No Sex and Gender Information Value Date Recorded Sex Assigned at Not on file Legal Sex Female 3:31 AM WARDROBE IMAGE CONSULTANT Gender Identity Not on file Sexual Orientation Not on file 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 Not on file Not on file documented as of this encounter Plan of Treatment Not on file documented as of this encounter Procedures Procedure Name Priority Date/Time Associated Diagnosis Comments SCAN - LABS 04/16/2017 12:54 PM CDT documented in this encounter Results * SCAN - LABS (04/16/2017 12:54 PM CDT) us Provider Scanning Final Result documented in this encounter Visit Diagnoses Not on filedocumented in this encounter Care Teams Lead Refiner Relationship Specialty Start Date End Date Amalia Rizvi MD [address] [place] [address] PCP - General 10/31/16 03/03/18 No, Physician PCP - General 03/04/18 09/12/18 Eugene Bangura MD PCP - General 09/13/18 09/16/18 No, Physician PCP - General 09/17/18 01/11/20 No, Physician PCP - General 01/12/20 03/07/20 Amalia Rizvi MD [address] [place] [address] PCP - General 03/08/20 05/07/21 Leonard Hunter MD [address] ERNESTINA Jose [address] [address] Educational Administrator Obstetrics and Gynecology 01/12/20 documented as of this encounter
--- OUTSIDE RECORDS SUMMARY | 2024-08-05 01:00 | XMS_ITS | Encounter Summary ---
Author Organization [facility] Address [address] [email or web address] [address] Phone Care Team Providers Care Correction Lieutenant Name Role Phone Amalia Rizvi MD Primary Care Provider [phone] Encounter Details Date Type Department Care Team (Late st Contact Info) Description 02/27/2017 Telephone [facility] [address] [email or web address] [address] Nancy Villegas MD [address] [place] [address] Social History Tobacco Use Types Packs/Day Years Used Date Smoking Tobacco: Former Comments:Smoking History Pac ks/day: 0.25 Packs Alcohol Use Standard Drinks/Week Comments No 0 (1 standard drink = 0.6 oz pur e alcohol) Comments No Sex and Gender Information Value Date Recorded Sex Assigned at Not on file Legal Sex Female 3:31 AM MEDICAL SCREENER Gender Identity Not on file Sexual Orientation Not on file Occupation Industry Job Start Date Job End Date [employer] Not on file Not on file Not on file documented as of this encounter Ordered Prescriptions Prescription Sig Dispense Quantity Refills Last Filled Start Date End Date clomiPHENE (CLOMID) 50 mg tablet Take 1 tablet (50 mg total) by mouth as directed. Take 1 tablet cycle day 5-9 5 tablet 02/27/2017 04/16/2017 documented in this encounter Miscellaneous Notes * Telephone Encounter - Mena Ibarra LPN - 02/27/2017 3:58 PM CDT Patient notified and order faxed to [facility] for serum progesterone level on 03/20/17. * Telephone Encounter - Nancy Villegas MD - 02/27/2017 3:49 PM CDT Yes, please order serum progesterone for 03/20. * Telephone Encounter - Mena Ibarra LPN - 02/27/2017 12:34 PM CDT Patient notified that she has refills on her metformin. She states she started her cycle yesterday. States pharmacy would not give her clomid last month so this will be the first month taking both meds. ERX'd clomid 50mg to [facility] Do you want any labs to be done? * Telephone Encounter - Britt Riley - 02/27/2017 12:21 PM CDT RED pt: Morenita called and says she needs refills on her Metformin and clomid medications. [facility] [phone] with any questions. She uses the [facility] in [place] documented in this encounter Plan of Treatment Scheduled Orders Name Type Priority Associated Diagnoses Orde r Schedule Progesterone Lab Routine Ovulation bleeding Expected: 03/20/2017, Expires: 02/27/2018 documented as of this encounter Visit Diagnoses Diagnosis Ovulation bleeding- Primary documented in this encounter Discontinued Medications Medication Sig Discontinue Reason Start Date End Da te clomiPHENE (CLOMID) 50 mg tablet TAKE 1 TABLET BY MOUTH DAILY FOR DAYS 5 THROUGH 9 OF CYCLE Reorder 02/06/2017 02/27/2017 documented as of this encounter Care Teams Correction Lieutenant Relationship Specialty Start Date End Date Amalia Rizvi MD [address] [place] [address] PCP - General 10/31/16 03/03/18 documented as of this encounter
--- OUTSIDE RECORDS SUMMARY | 2024-08-05 01:00 | XMS_ITS | Encounter Summary ---
Author Organization [facility] Healthcare Address [address] [place] [address] Care Team Providers Care Residential Property Consultant Name Role Phone No, Physician Primary Care Provider Reason for Referral * Diagnostic Imaging (Routine) - Closed Specialty Diagnoses / Procedures Referred By Amada ro Referred To Contact Diagnoses Encounter for supervision of normal , antepartum, unspecified Procedures US Ob Under 14 Weeks Leonard Hunter MD Phone: tel: fax: [address] [address] Referral ID Status Reason Start Date Expiration Date Visits Re quested Visits Authorized [id number] Closed 03/04/2018 09/13/2019 1 1 Reason for Visit * Diagnostic Imaging (Routine) - Closed Specialty Diagnoses / Procedures Referred By Amada ro Referred To Contact Diagnoses Encounter for supervision of normal , antepartum, unspecified Procedures US Ob Under 14 Weeks Leonard Hunter MD Phone: tel: fax: [address] [address] Referral ID Status Reason Start Date Expiration Date Visits Re quested Visits Authorized [id number] Closed 03/04/2018 09/13/2019 1 1 Encounter Details Date Type Department Care Team (Latest Contact Info) Description 03/18/2018 2:00 PM CDT - 03/18/2018 11:59 PM CDT Hospital Encounter [facility] [address] [place] [address] Leonard Hunter MD [address] [place] [address] Encounter for supervision of normal , antepartum, unspecified Discharge Disposition: Discharge to home or self care Social History Tobacco Use Types Packs/Day Years Used Date Smoking Tobacco: Former Comments:Smoking History Pac ks/day: 0.25 Packs Alcohol Use Standard Drinks/Week Comments No 0 (1 standard drink = 0.6 oz pur e alcohol) Comments No Sex and Gender Information Value Date Recorded Sex Assigned at Not on file Legal Sex Female 3:31 AM PROFESSOR OF MARKETING Gender Identity Not on file Sexual Orientation Not on file 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 Take 1 tablet cycle day 5-9 5 tablet 10/13/2017 05/29/2018 documented as of this encounter Discharge Disposition Disposition Code Departure Means Destination Discharge to home or self care documented in this encounter Plan of Treatment Not on file documented as of this encounter Procedures Procedure Name Priority Date/Time Associated Diagnosis Comments US OB UNDER 14 WEEKS Schedule Routine, Read Routine (OP Routine) 03/18/2018 2:38 PM CDT Encounter for supervision of normal , antepartum, unspecified documented in this encounter Results * US Ob Under 14 Weeks (03/18/2018 2:38 PM CDT) Anatomical Region Laterality Modality Abdomen N/A Ultrasound 03/18/2018 2:42 PM CDT Impressions 03/18/2018 2:44 PM CDT 1. ??Live intrauterine with mean gestational age of 10 weeks 1 day and estimated due date of 10/13/2017. 2. ??Evidence of small subchorionic bleed. Electronically signed by: Ravindra Gay M.D. Narrative 03/18/2018 2:44 PM CDT EXAM: US OB UNDER 14 WEEKS HISTORY: Encounter for supervision of normal , unspecified, unspecified trimester COMPARISON: None FINDINGS: A live intrauterine measuring 3.27 cm crown-rump length is seen consistent with estimated gestational age of 10 weeks 1 day. Estimated due date is 10/13/2017 based on this exam. ??The heart rate is 171 bpm. ??A small subchronic bleed is noted. ??The right ovary appears to contain a corpus luteum. ??No free pelvic fluid is seen. Procedure Note Ravindra Gay MD - 03/18/2018 EXAM: US OB UNDER 14 WEEKS HISTORY: Encounter for supervision of normal , unspecified, unspecified trimester COMPARISON: None FINDINGS: A live intrauterine measuring 3.27 cm crown-rump length is seen consistent with estimated gestational age of 10 weeks 1 day. Estimated due date is 10/13/2017 based on this exam. The heart rate is 171 bpm. A small subchronic bleed is noted. The right ovary appears to contain a corpus luteum. No free pelvic fluid is seen. IMPRESSION: 1. Live intrauterine with mean gestational age of 10 weeks 1 day and estimated due date of 10/13/2017. 2. Evidence of small subchorionic bleed. Electronically signed by: Ravindra Gay M.D. Leonard Hunter MD IM OB US PROCEDURES F inal Result documented in this encounter Visit Diagnoses Diagnosis Encounter for supervision of normal , antepartum, unspecified documented in this encounter Care Teams Residential Property Consultant Relationship Specialty Start Date End Date No, Physician PCP - General 03/04/18 09/12/18 documented as of this encounter
--- OUTSIDE RECORDS SUMMARY | 2024-08-05 01:00 | XMS_ITS | Encounter Summary ---
Author Organization [facility] Facility Care Team Providers Care Materials Technician Name Role Phone Amalia Rizvi MD Primary Care Provider [phone] Encounter Details Date Type Department Care Team (Late st Contact Info) Description 10/31/2015 - 10/31/2015 11:59 PM CDT [facility] [address] [place] [address] Encounter for supervision of normal first in first trimester Social History Tobacco Use Types Packs/Day Years Used Date Smoking Tobacco: Never Assessed Comments Unknown Sex and Gender Information Value Date Recorded Sex Assigned at Not on file Legal Sex Female 3:31 AM OIL EXPELLER Gender Identity Not on file Sexual Orientation Not on file documented as of this encounter Medications at Time of Discharge acetaminophen (TYLENOL) 325 mg tablet take 1 tablet by oral route every 4 hours as needed 0 0 10/31/2015 05/29/2018 prenat.vits,carlie,m sb-gqoj-yjobq ( VITAMIN) tablet take 1 tablet by oral route every day 0 0 10/31/2015 01/28/2017 documented as of this encounter Plan of Treatment Not on file documented as of this encounter Procedures Procedure Name Priority Date/Time Associated Diagnosis Comments SERUM VARICELLA ZOSTER VIRUS (VZV) AB, IGG Routine 10/31/2015 2:35 PM CDT documented in this encounter Results * (ABNORMAL) Serum Varicella zoster virus (VZV) ab, IgG (10/31/2015 2:35 PM CDT) VZV ab Positive(A ) HISTORICAL RESULTS Serum 10/31/2015 2:35 PM CDT us Historical Provider LAB BLOOD ORDERABLES Miriam l Result HISTORICAL RESULTS documented in this encounter Visit Diagnoses Diagnosis Encounter for supervision of normal first in first trimester documented in this encounter Care Teams Materials Technician Relationship Specialty Start Date End Date Amalia Rizvi MD [address] [place] [address] PCP - General 08/28/15 10/30/16 documented as of this encounter
--- OUTSIDE RECORDS SUMMARY | 2024-08-05 01:00 | XMS_ITS | Encounter Summary ---
Author Organization [facility] Healthcare Address [address] [place] [address] Care Team Providers Care Certified Alcohol Drug Counselor Name Role Phone No, Physician Primary Care Provider [phone] Reason for Visit * Reason Comments Decreased Movement Encounter Details Date Type Department Care Team (Latest Contact Info) Description 08/25/2018 3:14 PM FOUNDATION ASSISTANT - 08/25/2018 4:47 PM FOUNDATION ASSISTANT Hospital Encounter [facility] [address] [place], [place] [id number] Leonard Hunter MD [address] [place] [address] [place] [address] [place] [address] Discharge Disposition: Discharge to home or self care Social History Tobacco Use Types Packs/Day Years Used Date Smoking Tobacco: Former Cigarettes Q uit: 08/15/2016 Smokeless Tobacco: Never Comments:Smoking History Pac ks/day: 0.25 Packs Alcohol Use Standard Drinks/Week Comments No 0 (1 standard drink = 0.6 oz pur e alcohol) Comments Yes Sex and Gender Information Value Date Recorded Sex Assigned at Not on file Legal Sex Female 3:31 AM FOUNDATION ASSISTANT Gender Identity Not on file Sexual Orientation Not on file 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 * Kick Counts in (AfterCare(R) Instructions(ER/ED)) (Scottish) * Labor (Clinical Programmer) (Scottish) documented in this encounter Discharge Disposition Disposition Code Departure Means Destination Discharge to home or self care documented in this encounter Plan of Treatment Not on file documented as of this encounter Procedures Procedure Name Priority Date/Time Associated Diagnosis Comments US BIOPHYSICAL PROFILE W TEST STAT 08/25/2018 4:27 PM FOUNDATION ASSISTANT documented in this encounter Results * US Biophysical Profile W Test (08/25/2018 4:27 PM FOUNDATION ASSISTANT) Anatomical Region Laterality Modality N/A Ultrasound 08/25/2018 6:22 PM FOUNDATION ASSISTANT Impressions 08/25/2018 6:25 PM FOUNDATION ASSISTANT 1. ??SINGLE LIVE INTRAUTERINE FETUS IN VERTEX POSITION. 2. ??AMNIOTIC FLUID VOLUME WITHIN THE NORMAL RANGE. 3. ??BIOPHYSICAL PROFILE SCORE IS A TOTAL SCORE OF 8 OUT OF 8 POINTS. THE PATIENT WAS REFERRED TO LABOR AND DELIVERY FOR THE NONSTRESS TEST COMPONENT OF THIS EXAM WHICH WILL BE REPORTED SEPARATELY. Electronically signed by: Morales Mortensen 08/25/2018 6:25 PM FOUNDATION ASSISTANT US BIOPHYSICAL PROFILE W TEST HISTORY: decreased movement. TECHNIQUE: Longitudinal transverse real-time scans are obtained. COMPARISON: 03/18/2018. FINDINGS: Single live intrauterine fetus in vertex position. Amniotic fluid volume within the normal range. ??Amniotic fluid index is 15.2 cm. ??Placenta is posterior to fundal in location, grade 2. Maternal cervical length is 5.4 cm. ?? heart rate of 139 bpm and regular. ??Estimated age is 33 weeks 6 days with JUNIOR of 10/07/2018 based on prior study. ??Biophysical profile exclusive nonstress test gives a total score of 8 out of 8 points, with 2 points given for breathing, body movements, tone, and amniotic fluid volume. Procedure Note Ye Harley MD - 08/25/2018 US BIOPHYSICAL PROFILE W TEST HISTORY: decreased movement. TECHNIQUE: Longitudinal transverse real-time scans are obtained. COMPARISON: 03/18/2018. FINDINGS: Single live intrauterine fetus in vertex position. Amniotic fluid volume within the normal range. Amniotic fluid index is 15.2 cm. Placenta is posterior to fundal in location, grade 2. Maternal cervical length is 5.4 cm. heart rate of 139 bpm and regular. Estimated age is 33 weeks 6 days with JUNIOR of 10/07/2018 based on prior study. Biophysical profile exclusive nonstress test gives a total score of 8 out of 8 points, with 2 points given for breathing, body movements, tone, and amniotic fluid volume. IMPRESSION: 1. SINGLE LIVE INTRAUTERINE FETUS IN VERTEX POSITION. 2. AMNIOTIC FLUID VOLUME WITHIN THE NORMAL RANGE. 3. BIOPHYSICAL PROFILE SCORE IS A TOTAL SCORE OF 8 OUT OF 8 POINTS. THE PATIENT WAS REFERRED TO LABOR AND DELIVERY FOR THE NONSTRESS TEST COMPONENT OF THIS EXAM WHICH WILL BE REPORTED SEPARATELY. Electronically signed by: Ye Harley M.D us Shawna Kapoor MD IMG OB US PROCEDURES Final Result documented in this encounter Visit Diagnoses Not on filedocumented in this encounter Care Teams Certified Alcohol Drug Counselor Relationship Specialty Start Date End Date No, Physician PCP - General 03/04/18 09/12/18 documented as of this encounter
--- OUTSIDE RECORDS SUMMARY | 2024-08-05 01:00 | XMS_ITS | Encounter Summary ---
Author Organization [facility] Healthcare Address [address] [place] [address] Care Team Providers Care Needle Felt Making Machine Operator Name Role Phone Leonard Hunter MD Unavailable No, Physician Primary Care Provider [phone] Reason for Visit * Reason Comments Problem Encounter Details Date Type Department Care Team (Latest Contact Info) Description 06/19/2021 3:44 PM NETWORK SUPPORT ENGINEER - 06/19/2021 4:57 PM NETWORK SUPPORT ENGINEER Hospital Encounter [facility] [address] [place] [address] Leonard Hutner MD [address] [place] [address] [address] [facility] [address] [place] [address] Discharge Disposition: Discharge to home or self care Social History Tobacco Use Types Packs/Day Years Used Date Smoking Tobacco: Former Cigarettes 0.3 11 S tarted: 2013 Smokeless Tobacco: Never Comments:Smoking History Pac ks/day: 0.25 Packs Alcohol Use Standard Drinks/Week Comments Yes 0 (1 standard drink = 0.6 oz pur e alcohol) rarely Comments Yes Sex and Gender Information Value Date Recorded Sex Assigned at Not on file Legal Sex Female 3:31 AM NETWORK SUPPORT ENGINEER Gender Identity Not on file Sexual Orientation Not on file 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 Not on file Not on file documented as of this encounter Last Filed Vital Signs Vital Sign Reading Time Taken Comments Blood Pressure - - Pulse - - Temperature 36.7 ??C (98 ??F) 06/19/2021 4:14 PM NETWORK SUPPORT ENGINEER Respiratory Rate 18 06/19/2021 4:14 PM NETWORK SUPPORT ENGINEER Oxygen Saturation - - Inhaled Oxygen Concentration - - Weight - - Height 160 cm (5' 3 ) 06/19/2021 4:14 PM NETWORK SUPPORT ENGINEER Body Mass Index - - documented in this encounter Discharge Diagnoses Diagnosis Encounter for supervision of other normal , third trimester - ENCOUNTER FOR SUPERVISION OF OTHER NORMAL , THIRD TRIMESTER 31 weeks gestation of - 31 WEEKS GESTATION OF documented in this encounter Discharge Instructions * Attachments The following attachments cannot be sent through Care Everywhere. * Vulvovaginal Candidiasis (AfterCare(R) Instructions(ER/ED)) (British) * Labor (General Information) (British) documented in this encounter Medications at Time of Discharge cephalexin (KEFLEX) 500 mg capsule Take 500 mg by mouth 3 (three) times a day Started 01/06 1 HYDROcodone-acet aminophen (NORCO) 5-325 mg per tabletIndication s:Pain Take 1-2 tablets by mouth every 4 (four) hours as needed for pain 5 tablet 01/12/2020 1 ibuprofen (ADVIL,MOTRIN) 600 mg tablet Take 1 tablet (600 mg total) by mouth every 6 (six) hours as needed for pain 20 tablet 01/12/2020 1 phentermine (ADIPEX-P) 37.5 mg tabletIndication s:Weight Loss Management for Obese Patient (BMI >= 30),stopped on 01/05 Take 37.5 mg by mouth daily before breakfast 1 topiramate (TOPAMAX) 50 mg tablet Take 50 mg by mouth 2 (two) times a day 1 documented as of this encounter Discharge Disposition Disposition Code Departure Means Destination Discharge to home or self care documented in this encounter Nursing Notes * Nancy Zhou RN - 06/19/2021 4:57 PM CST Discharge instructions given and reviewed with patient. Patient made aware that RX was sent to [facility] pharmacy to treat yeast infection. All questions answered. Patient ambulatory from unit. ORK SUPPORT ENGINEER documented in this encounter Plan of Treatment Not on file documented as of this encounter Procedures Procedure Name Priority Date/Time Associated Diagnosis Comments PAMG-1 PROTEIN MARKER (ROM) Routine 06/19/2021 4:09 PM NETWORK SUPPORT ENGINEER URINALYSIS AND REFLEX TO MICROSCOPIC AND CULTURE STAT 06/19/2021 4:09 PM NETWORK SUPPORT ENGINEER URINALYSIS, MICROSCOPIC ONLY STAT 06/19/2021 4:09 PM NETWORK SUPPORT ENGINEER documented in this encounter Results * (ABNORMAL) Urinalysis, microscopic only (06/19/2021 4:09 PM NETWORK SUPPORT ENGINEER) WBC, ur 0-5 0 - 5 /HPF [facility] ([facility]) RBC, ur 0-2 0 - 2 /HPF [facility] ([facility]) Epithelial cells, squamous, ur 1-5 0 - 5 /HPF [facility] ([facility]) Bacteria, ur 1+(A) [facility] ([facility]) Mucous, ur Present(A) [facility] ([facility]) Culture Reflex Comment Reflex conditions for urine culture (WBC >10) not met. [facility] ([facility]) Urine, clean voided 06/19/2021 4:09 PM NETWORK SUPPORT ENGINEER 06/19/2021 4:17 PM NETWORK SUPPORT ENGINEER us Leonard Hunter MD LAB URINE ORDERABLES F inal Result [facility] ([facility]) 1 [facility] Department [place] [address] * (ABNORMAL) Urinalysis reflex to microscopic and culture Urine, clean voided (06/19/2021 4:09 PM NETWORK SUPPORT ENGINEER) Color, ur Yellow Yellow [facility] ([facility]) Clarity, ur Clear Clear [facility] ([facility]) Specific gravity, ur 1.028 1.003 - 1.030 [facility] ([facility]) pH, urine 6.5 [facility] ([facility]) Protein, ur ql Trace Negative [facility] ([facility]) Glucose, ur ql Negative Negative [facility] ([facility]) Ketones, ur Negative Negative [facility] ([facility]) Bilirubin, ur Negative Negative [facility] ([facility]) Blood, ur Negative Negative [facility] ([facility]) Urobilinogen, ur <2.0 <2.0 mg/dL [facility] ([facility]) Nitrite, ur Negative Negative [facility] ([facility]) Leukocyte esterase, ur 1+(A) Negative [facility] ([facility]) UA reflex comment Reflex to microscopic UA will be performed. [facility] ([facility]) Urine, clean voided 06/19/2021 4:09 PM NETWORK SUPPORT ENGINEER 06/19/2021 4:17 PM NETWORK SUPPORT ENGINEER Narrative [facility] ([facility]) - 06/19/2021 4:31 PM NETWORK SUPPORT ENGINEER ?? Urine pH is affected by diet, medications, systemic acid-base disturbances, and renal tubular function. ??pH may affect urinary stone formation. ??For example, urine pH below 6.0 may help reduce the tendency for calcium phosphate stones and pH greater than 6.0 may reduce the tendency for uric acid stone formation. Source: [email or web address]. Last revised 08-13-2017 Leonard Hunter MD LAB MICROBIOLOGY - GEN ERAL ORDERABLES Final Result [facility] ([facility]) 1 [facility] [place] [address] * ROM Plus (IGFBP-1/AFP) (06/19/2021 4:09 PM NETWORK SUPPORT ENGINEER) IFG Binding Protein-1 / AFP Negative [facility] ([facility]) Swab 06/19/2021 4:09 PM NETWORK SUPPORT ENGINEER 06/19/2021 4:21 PM NETWORK SUPPORT ENGINEER Leonard Hunter MD LAB BODY FLUIDS AND ST OOLS ORDERABLES Final Result [facility] ([facility]) 1 [facility] Department [place] [address] [place] [address] documented in this encounter Visit Diagnoses Not on filedocumented in this encounter Care Teams Needle Felt Making Machine Operator Relationship Specialty Start Date End Date No, Physician PCP - General 05/08/21 09/25/22 Leonard Hunter MD [address] [place] [address] French Binder Obstetrics and Gynecology 01/12/20 documented as of this encounter
--- OUTSIDE RECORDS SUMMARY | 2024-08-05 01:00 | XMS_ITS | Encounter Summary ---
Author Organization [facility] Healthcare Address [address] [place] [address] Care Team Providers Care Nail Puller Name Role Phone Leonard Hunter MD Unavailable [phone] No, Physician Primary Care Provider [phone] Encounter Details Date Type Department Care Team (Latest Contact Info) Description 05/08/2021 2:43 PM CDT - 05/08/2021 3:30 PM CDT Hospital Encounter [facility] [address] [place] [address] Leonard Hunter MD [address] [place] [address] [address] [facility] [address] [place] [address] Discharge Disposition: Discharge to home or self [...] on file Legal Sex Female 3:31 AM LOG CHIPPER OPERATOR Gender Identity Not on file Sexual Orientation Not on file 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 Not on file Not on file documented as of this encounter Last Filed Vital Signs Vital Sign Reading Time Taken Comments Blood Pressure 117/54 05/08/2021 3:23 PM CDT Pulse 93 05/08/2021 3:23 PM CDT Temperature - - Respiratory Rate - - Oxygen Saturation - - Inhaled Oxygen Concentration - - Weight - - Height - - Body Mass Index - - documented in this encounter Discharge Diagnoses Diagnosis Decreased movements, unspecified trimester, not applicable or unspecified - DECREASED MOVEMENTS, UNSPECIFIED TRIMESTER, NOT APPLICABLE OR UNSPECIFIED Weeks of gestation of not specified - WEEKS OF GESTATION OF NOT SPECIFIED documented in this encounter Discharge Instructions * Attachments The following attachments cannot be sent through Care Everywhere. * at 23 to 26 Weeks (Discharge Care) (Romanian) documented in this encounter Medications at Time [...] documented in this encounter Nursing Notes * Kaity Mensah RN - 05/08/2021 3:30 PM CDT Patient came to OB with complaints of decreased movement. Pt placed on monitor and movement noted, NST performed. Report called to Dr. Brambila and orders given for discharge. Patient educated on discharge instructions and indicated understanding. Patient stable and ambulated off of unit. Kaity Mensah RN 05/08/2021 documented in this encounter Plan of Treatment Not on file documented as of this encounter Visit Diagnoses Not on filedocumented in this encounter Care Teams Nail Puller Relationship Specialty Start Date End Date No, Physician PCP - General 05/08/21 09/25/22 Leonard Hunter MD [address] [place] [address] [place] [address] Occupational Ther Obstetrics and Gynecology 01/12/20 documented as of this encounter
--- OUTSIDE RECORDS SUMMARY | 2024-08-05 01:00 | XMS_ITS | Encounter Summary ---
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 10/09/2017 Encounter Details Date Type Department Care Team (Late st Contact Info) Description 10/09/2017 Telephone [facility] [address] [place] [id number] Nancy Villegas MD [address] [place] [address] SPRING REPAIRER HELPER HAND Problem Social History Tobacco Use Types Packs/Day Years Used Date Smoking Tobacco: Former Comments:Smoking History Pac ks/day: 0.25 Packs Alcohol Use Standard Drinks/Week Comments No 0 (1 standard drink = 0.6 oz pur e alcohol) Comments No Sex and Gender Information Value Date Recorded Sex Assigned at Not on file Legal Sex Female 3:31 AM TRIMMER AND REINFORCER Gender Identity Not on file Sexual Orientation Not on file 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 for [facility]. MER AND REINFORCER * Telephone Encounter - Nancy Villegas MD - 10/09/2017 11:03 AM TRIMMER AND REINFORCER Please order quantitative HCG, dx: missed menses. MER AND REINFORCER * Telephone Encounter - Mena Ibarra LPN - 10/09/2017 10:54 AM TRIMMER AND REINFORCER LMP- 09/06/17. Today should be the 5th day of her cycle and she did not start yet. Took EPT test this morning and there is a faint line down the middle which should be positive but not sure since she has had positive tests before and was not . Currently not taking any clomid or metformin since Jun 2017. Advise please. MER AND REINFORCER * Telephone Encounter - Maddie Baldwin - 10/09/2017 10:44 AM CST PT called and stated that she took a test but line was barely there and wanted to know ifDr. Villegas would order a blood test to see and pt would like order sent to [facility] and pt CBN#[phone] MER AND REINFORCER documented in this encounter Plan of Treatment Scheduled Orders Name Type Priority Associated Diagnoses Orde r Schedule hCG, blood, quantitative Lab Routine Missed menses Expected: 10/09/2017, Expires: 10/09/2018 documented as of this encounter Visit Diagnoses Diagnosis Missed menses- Primary documented in this encounter Care Teams Orchard Pruner Relationship Specialty Start Date End Date Aamlia Rizvi MD [address] [place] [id number] PCP - General 10/31/16 03/03/18 documented as of this encounter
--- OUTSIDE RECORDS SUMMARY | 2024-08-05 01:00 | XMS_ITS | Encounter Summary ---
Author Organization [facility] Address [address] [place] [address] Care Team Providers Care Geologist Name Role Phone No, Physician Primary Care Provider [phone] Reason for Visit * Reason Comments Rupture of Membranes Encounter Details Date Type Department Care Team (Latest Contact Info) Description 09/17/2018 11:19 AM ROLLER LEVELER OPERATOR - 09/20/2018 2:00 PM ROLLER LEVELER OPERATOR Hospital Encounter [facility] [address] [place] [address] Leonard Hunter MD [address] [facility] [address] [place] [address] Shawna Kapoor MD [address] 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 on file Not on file Not on file documented as of this encounter Last Filed Vital Signs Vital Sign Reading Time Taken Comments Blood Pressure 129/53 09/19/2018 9:20 PM ROLLER LEVELER OPERATOR Pulse 99 09/19/2018 9:20 PM ROLLER LEVELER OPERATOR Temperature 37.3 ??C (99.2 ??F) 09/19/2018 9:20 PM CS T Respiratory Rate 18 09/19/2018 9:20 PM ROLLER LEVELER OPERATOR Oxygen Saturation 98% 09/18/2018 3:00 PM ROLLER LEVELER OPERATOR Inhaled Oxygen Concentration - - Weight - - Height - - Body Mass Index - - documented in this encounter Discharge Summaries * Shawna Kapoor MD - 09/20/2018 12:03 PM CST Obstetrical Discharge Form Primary OB Clinician: Shawna Kapoor MD EDC: Estimated Date of Delivery: 10/07/18 Gestational Age:37w2d Antepartum complications: PROM Date of Delivery: 09/18/2017 Delivered By: Shawna Kapoor MD Delivery Type: spontaneous vaginal delivery Tubal Ligation: n/a Baby: Liveborn female, Shelby Burdick [[id number]] Mcdaniel Assessment Living status: Living Apgars: 1 Minute: 5 Minute: 10 Minute: 15 Minute: 20 Minute: Skin Color: 0 1 Heart Rate: 2 2 Reflex Irritability: 2 2 Muscle Tone: 2 2 Respiratory Effort: 2 2 Total: 8 9 Apgars Assigned By: Chris VALENTINE RN , weight 3037g Anesthesia: epidural Intrapartum complications: Hemorrhage Laceration: left sulcus tear Episiotomy: none, Placenta: spontaneous Feeding method: bottlefeeding Rh Immune globulin given: no Rubella vaccine given: yes Discharge Date: 09/20/2018 Early Discharge: NO Plan: Address and phone number verified and same. Follow-up appointment with Dr. Hunter in 2 weeks. ER LEVELER OPERATOR documented in this encounter Discharge Instructions * Discharge Instr - Activity* Jayne River RN - 09/20/2018 1:29 PM ROLLER LEVELER OPERATOR .See page 5 in Mother Baby care booklet in your My Health Information folder ER LEVELER OPERATOR ER LEVELER OPERATOR * Discharge Instr - Diet* Jayne River RN - 09/20/2018 1:31 PM ROLLER LEVELER OPERATOR .See page 5 in Mother Baby care booklet in your My Health Information folder ER LEVELER OPERATOR * Attachments The following attachments cannot be sent through Care Everywhere. * Vaginal Delivery (Discharge Care) (Frisian) documented in this encounter Medications at Time of Discharge docusate sodium (COLACE) 100 mg capsuleIndications:c onstipation Take 1 capsule (100 mg total) by mouth 2 (two) times a day. 60 capsule 2 09/20/2018 0 ferrous sulfate 325 mg (65 mg of elemental iron) tabletIndications:Ir on Deficiency Anemia Take 1 tablet (325 mg total) by mouth 3 (three) times a day with meals. 60 tablet 2 09/20/2018 0 ondansetron ODT (ZOFRAN-ODT) 4 mg disintegrating tablet Dissolve 1 tablet oral every 4 hours as needed for nausea or vomiting. 15 tablet 09/13/2018 0 documented as of this encounter Ordered Prescriptions Prescription Sig Dispense Quantity Refills Last Filled Start Date End Date docusate sodium (COLACE) 100 mg capsuleIndications :constipation Take 1 capsule (100 mg total) by mouth 2 (two) times a day. 60 capsule 2 09/20/2018 0 ferrous sulfate 325 mg (65 mg of elemental iron) tabletIndications: Iron Deficiency Anemia Take 1 tablet (325 mg total) by mouth 3 (three) times a day with meals. 60 tablet 2 09/20/2018 0 documented in this encounter Discharge Disposition Disposition Code Departure Means Destination Discharge to home or self care documented in this encounter Progress Notes * Shawna Kapoor MD - 09/20/2018 11:28 AM CST OB Progress Notepartum Progress Note Subjective HPI: Morenita Burdick is a 23 y.o. day 2 s/p Vaginal, Spontaneous Delivery at 37 weeks and 2 days over episiotomy: none . Delivery was complicated by hemorrhage. Lacerations included: Sulcus: left Interval History: Patient refers difficulty defecating. Will give a suppository. Morenita reports that she quit smoking about 2 years ago. She has never used smokeless tobacco. (Smoking History Packs/day: 0.25 Packs) She reports that she does not use drugs or drink alcohol. Labor/Delivery Complications: Premature Rupture of Membranes Indications for Section: n/a Labor: No Forcep Assisted Delivery: No Vacuum Assisted Delivery: No Shoulder Dystocia Present: 0 Pain: Controlled Bleeding: lochia minimal PO's: taking regular diet Voiding: without difficulty Passing Flatus/bowel movement: flatus Ambulating: yes Mood: stable Feeding: bottlefeeding Objective Vitals [min-max]most recent: Temp: [36.6 ??C (97.8 ??F)-37.3 ??C (99.2 ??F)] 37.3 ??C (99.2 ??F) Pulse: [99-103] 99 BP: (129-133)/(53-75) 129/53 Resp: [18] 18 I/O last 2 completed shifts: In: - Out: 1999 [Urine:1999] Physical Exam General: well Cardiovascular: regular rate and rhythm, S1, S2 normal, no murmur, click, rub or gallop Lungs: clear to auscultation bilaterally Abdomen: non-tender and soft Fundus: firm Incision: not applicable, (vaginal delivery) Vulvar/Perineum: pad is dry Extremities: symmetric Other: Breasts: normal appearance, no masses or tenderness Data Laboratory review: CBC: Lab Results Component Value Date WBC 12.6 (H) 09/19/2018 RBC 2.61 (L) 09/19/2018 HGB 7.5 (L) 09/19/2018 HCT 22.7 (L) 09/19/2018 MCV 87.0 09/19/2018 MCH 28.7 09/19/2018 MCHC 33.0 09/19/2018 RDWCV 14.6 09/19/2018 RDWSD 46.2 09/19/2018 MPV 11.4 09/19/2018 NRBCABS 0.00 09/19/2018 Current Facility-Administered Medications Medication Dose Route Frequency Provider Last Rate Last Dose ??? ascorbic acid (VITAMIN C) tablet/chewable tablet 500 mg 500 mg oral TID Shawna Kapoor MD 500 mg at 09/20/18 0848 ??? benzocaine-menthol (DERMOPLAST) 20-0.5 % topical spray 1 spray 1 spray topical PRN Shawna Kapoor MD 1 spray at 09/18/18 0812 ??? bisacodyl (DULCOLAX) suppository 10 mg 10 mg rectal Once Shawna Kapoor MD ??? docusate sodium (COLACE) capsule 100 mg 100 mg oral BID Shawna Kapoor MD 100 mg at 09/19/18 1743 ??? ferrous sulfate tablet 325 mg 65 mg of elemental iron oral TID with meals Shawna Kapoor MD 325 mg at 09/20/18 0848 ??? ibuprofen (ADVIL,MOTRIN) tablet 600 mg 600 mg oral Q6H PRN Shawna Kapoor MD 600 mg at 09/19/18 1519 ??? Lactated Ringer's (LR) infusion 125 mL/hr intravenous Continuous Shawna Kapoor MD 125 mL/hr at 09/18/18 2200 125 mL/hr at 09/18/18 2200 ??? axxylda-mubga-hpxuvcs (MMR) 1,000-12,500 TCID50/0.5 mL vaccine 0.5 mL 0.5 mL subcutaneous During hospitalization Shawna Kapoor MD ??? oxyCODONE-acetaminophen (PERCOCET) 5-325 mg per tablet 1 tablet 1 tablet oral Q6H PRN Shawna Kapoor MD 1 tablet at 09/19/18 0931 ??? vit-iron fum-folic ac tablet 1 tablet 1 tablet oral Daily Shawna Kapoor MD 1 tablet at 09/19/18 0805 ??? sodium chloride 0.9% flush 0.5-20 mL 0.5-20 mL intra-catheter Q8H [facility] Simon Eubanks CRNA ??? sodium chloride 0.9% flush 0.5-20 mL 0.5-20 mL intra-catheter PRN Simon Eubanks CRNA Status Information for the patient's : Shelby Burdick [[id number]] [id number] Problem-based Assessment and Plan Morenita Burdick is a 23 y.o. day 2 s/p Vaginal, Spontaneous Delivery at 37 weeks and 2 days over episiotomy: none complicated by hemorrhage. 1. Continue routine post care. 2. Hemodynamics: stable 3. Cardiovascular/Pulmonary: VS stable 4. Pain: controlled 5. GI/: voiding spontaneously without difficulty 6. Method of Feeding: plans to bottle feed 7. Mood:stable, bonding with baby 8. Endocrine: n/a Assisted Delivery:Forcep Assisted Delivery: No Vacuum Assisted Delivery:No 9. Delivery Complications with Risks for Future Pregnancies: Premature Rupture of Membranes 10. Method of Contraception: nothing 11. Immunizations: There is no immunization history for the selected administration types on file for this patient. 12. Rh + 13. Feeding:bottlefeeding 14. Disposition: likely home day 2 Shawna Kapoor MD 09/20/2018 ER LEVELER OPERATOR * Shawna Kapoor MD - 09/19/2018 8:29 AM CST OB Progress Notepartum Progress Note Subjective HPI: Morenita Burdick is a 23 y.o. day1 s/p Vaginal, Spontaneous Delivery at 37 weeksand 2 days over episiotomy: none . Delivery was complicated by hemorrhage. Lacerations included: Perineal degree: 1 Sulcus: left Interval History: Patient offers no complaints. Morenita reports that she quit smoking about 2 years ago. She has never used smokeless tobacco. (Smoking History Packs/day: 0.25 Packs) She reports that she does not use drugs or drink alcohol. Labor/Delivery Complications: Premature Rupture of Membranes Indications for Section: n/a Labor: No Forcep Assisted Delivery: No Vacuum Assisted Delivery: No Shoulder Dystocia Present: 0 Pain: Controlled Bleeding: lochia minimal PO's: taking regular diet Voiding: without difficulty Passing Flatus/bowel movement: flatus Ambulating: yes Mood: stable Feeding: Objective Vitals [min-max]most recent: Temp: [36.7 ??C (98.1 ??F)-37.2 ??C (98.9 ??F)] 36.8 ??C (98.3 ??F) Pulse: [84-107] 85 BP: (110-141)/(49-78) 126/49 Resp: [18-20] 18 SpO2: [98 %] 98 % I/O last 2 completed shifts: In: 8911 [P.O.:900; I.V.:8011] Out: 1985 [Urine:1800; Blood:186] Physical Exam General: well Cardiovascular: regular rate and rhythm, S1, S2 normal, no murmur, click, rub or gallop Lungs: clear to auscultation bilaterally Abdomen: non-tender and soft Fundus: firm Incision: not applicable, (vaginal delivery) Vulvar/Perineum: well approximated Extremities: symmetric Other: Breasts: normal appearance, no masses or tenderness Data Laboratory review: CBC: Lab Results Component Value Date WBC 12.6 (H) 09/19/2018 RBC 2.61 (L) 09/19/2018 HGB 7.5 (L) 09/19/2018 HCT 22.7 (L) 09/19/2018 MCV 87.0 09/19/2018 MCH 28.7 09/19/2018 MCHC 33.0 09/19/2018 RDWCV 14.6 09/19/2018 RDWSD 46.2 09/19/2018 MPV 11.4 09/19/2018 NRBCABS 0.00 09/19/2018 Current Facility-Administered Medications Medication Dose Route Frequency Provider Last Rate Last Dose ??? ascorbic acid (VITAMIN C) tablet/chewable tablet 500 mg 500 mg oral TID Shawna Kapoor MD 500 mg at 09/19/18804 ??? benzocaine-menthol (DERMOPLAST) 20-0.5 % topical spray 1 spray 1 spray topical PRN Shawna Kapoor MD 1 spray at 09/18/18811 ??? docusate sodium (COLACE) capsule 100 mg 100 mg oral BID Shawna Kapoor MD 100 mg at 09/19/18804 ??? ferrous sulfate tablet 325 mg 65 mg of elemental iron oral TID with meals Shawna Kapoor MD 325 mg at 09/19/18804 ??? ibuprofen (ADVIL,MOTRIN) tablet 600 mg 600 mg oral Q6H PRN Shawna Kapoor MD 600 mg at 09/19/18 0444 ??? Lactated Ringer's (LR) infusion 125 mL/hr intravenous Continuous Shawna Kapoor MD 125 mL/hr at 09/18/182199 125 mL/hr at 09/18/182199 ??? oforadg-ealkm-lzsncak (MMR) 1,000-12,500 TCID50/0.5 mL vaccine 0.5 mL 0.5 mL subcutaneous During hospitalization Shawna Kapoor MD ??? oxyCODONE-acetaminophen (PERCOCET) 5-325 mg per tablet 1 tablet 1 tablet oral Q6H PRN Shawna Kapoor MD 1 tablet at 09/18/18 0812 ??? vit-iron fum-folic ac tablet 1 tablet 1 tablet oral Daily Shawna Kapoor MD 1 tablet at 09/19/18 0805 ??? sodium chloride 0.9% flush 0.5-20 mL 0.5-20 mL intra-catheter Q8H [facility] Simon Eubanks CRNA ??? sodium chloride 0.9% flush 0.5-20 mL 0.5-20 mL intra-catheter PRN Simon Eubanks CRNA Status Information for the patient's : Shelby Burdick [[id number]] [id number] Problem-based Assessment and Plan Morenita Burdick is a 23 y.o. day @ s/p Vaginal, Spontaneous Delivery over episiotomy: none complicated by Perineal degree: 1 1. Continue routine post care. 2. Hemodynamics: stable 3. Cardiovascular/Pulmonary: VS stable 4. Pain: controlled 5. GI/: reports urinary frequency 6. Method of Feeding: plans to breastfeed 7. Mood:stable, bonding with baby 8. Endocrine: n/a Assisted Delivery:Forcep Assisted Delivery: No Vacuum Assisted Delivery:No 9. Delivery Complications with Risks for Future Pregnancies: Premature Rupture of Membranes 10. Method of Contraception: will discuss with primary provider 11. Immunizations: There is no immunization history for the selected administration types on file for this patient. 12. Rh + 13. Feeding:bottlefeeding 14. Disposition: likely home day 2 Shawna Kapoor MD 09/19/2018 ER LEVELER OPERATOR * Mattie Vance RN - 09/18/2018 4:[address] Kapoor called. Informed of elevated FHT's and elevating temperature. Informed of LR bolus and no longer actively pushing to allow recovery. Informed MD that fetus is without pushing. Dr. Kapoor instructed me to let the patient labor down. RN informed MD again that patient was without pushing and has large urge to push. RN instructed MD that I really needed him to come in for delivery now. Mattie Vance RN ER LEVELER OPERATOR ER LEVELER OPERATOR * Mattei Vance RN - 09/18/2018 4:00 AM CST Pt instructed to not actively push at this time. Pt involuntarily grunting with each contraction.Mattie Vance RN ER LEVELER OPERATOR * Shawna Kapoor MD - 09/18/2018 1:58 AM CST OB Labor Progress Note Subjective Chief complaint of IOL for PROM Interval History: Patient is on Pitocin for induction of labor. Pain:Controlled Bleeding:Not present Objective Vitals Most Recent : Vitals: 09/17/18 2300 BP: Pulse: Resp: 18 Temp: 36.9 ??C (98.5 ??F) SpO2: Average, Minimum, and Maxium Vitals over the past 24 hours: Temp Min: 36.8 ??C (98.2 ??F) Max: 37.4 ??C (99.3 ??F) Pulse Min: 70 Max: 156 BP Min: 106/53 Max: 159/70 Resp Min: 18 Max: 18 SpO2 Min: 79 % Max: 100 % Intake/Output Summary (Last 24 hours) at 09/18/18 0158 Last data filed at 09/17/18 2123 Gross per 24 hour Intake 2000 ml Output 0 ml Net 2000 ml I/O this shift: In: 1000 [I.V.:1000] Out: - Physical Exam VE: 9/100/0 membranes absent Monitoring: External monitor: category 1 tracing External [place]: contractions q 2 - 4 mins Assessment /Plan Morenita Burdick is a 23 y.o. female at who presents at 37w2d weeks gestation undergoing IOL for PROM. 1. Labor: Anticipate 2. Well Being: Category I. 3. Pain: Controlled PNL: ABO/RH. Date Value Ref Range Status 09/17/2018 O Positive Final HBV surface ag Date Value Ref Range Status 10/31/2015 Negative Negative 4. GBS Status: neg )Shawna Kapoor MD 09/18/2018 ER LEVELER OPERATOR documented in this encounter Procedure Notes * Shawna Kapoor MD - 09/18/2018 5:44 AM CST I was called by the nurses for the vaginal delivery of 23 yo at 37 weeks and 2 days undergoingIOL for PROM. On my arrival at 0437hrs. I met a vibrant live female on her mothers chest. I then proceeded to deliver the placenta. Placenta was expressed spontaneously intact at 0443hrs. Three vessel cord was noted. Pitocin was started. Uterus was still atonic and the patient developed brisk bleeding. The uterus was massaged. Patient received 1 dose of IM Methergine. APGARs were later found to be 8/9, weight was 3037g, left sulcus laceration was repaired with 2-0 chromic and 4 -0 vicryl after redosing of the epidural analgesia and infiltration with lidocaine. Patient's QBL was 20 31cc. Cord blood and cord gas was sent. 2units of RBC was type and crossed in anticipation of a need for blood transfusion. ER LEVELER OPERATOR documented in this encounter Nursing Notes * Jayne River RN - 09/20/2018 2:00 PM CST Discharged ambulatory with infant in car seat and escorted by and our staff member. ER LEVELER OPERATOR * Jessica Mlaone RN - 09/18/2018 11:30 PM CST After reporting she feels like she has to urinate and just can't, patient soaked in sitz bath for approximately 15 minutes and reports she voided about 5 times and feels much better now . ER LEVELER OPERATOR * Jessica Malone RN - 09/18/2018 12:00 AM CST Anesthesia notified of patient's pain level and need for pain management. ER LEVELER OPERATOR * Jessica Malone RN - 09/17/2018 5:00 PM CST Report received from Omar Mijares RN and care assumed. ER LEVELER OPERATOR documented in this encounter Miscellaneous Notes * Plan of Care - Jayne River RN - 09/20/2018 1:18 PM CST Activity: ??? Will verbalize the importance of balancing activity with adequate rest periods Completed Coping: ??? Ability to cope will improve Completed ??? Ability to identify and utilize available resources and services will improve Completed Health Behavior: ??? Understanding of discharge needs will improve Completed Lack of Knowledge: ??? Verbalization of understanding the information provided will improve Completed Lack of Knowledge: ??? Will have increased knowledge of Care Completed Life Cycle: ??? Ability to maintain clinical measurements within normal limits will improve Completed Life Cycle: ??? Risk for hemorrhage will decrease Completed ??? Chance of risk for complications during the period will decrease Completed Nutritional: ??? Dietary intake will improve Completed ??? Mother's verbalization of comfort with process will improve Completed Role Relationship: ??? Ability to demonstrate positive interaction with the child will improve Completed Role Relationship: ??? Ability to interact appropriately with will improve Completed Sensory: ??? General experience of comfort will improve Completed Goals: Clinical Goals for the Shift: VSS, have BM and plan for discharge Summary: VSS, Has had small BM and ready for discharge ER LEVELER OPERATOR * Plan of Care - Ruby Ha RN - 09/20/2018 2:40 AM CST Activity: ??? Will verbalize the importance of balancing activity with adequate rest periods Progressing Coping: ??? Ability to cope will improve Progressing ??? Ability to identify and utilize available resources and services will improve Progressing Health Behavior: ??? Understanding of discharge needs will improve Progressing Lack of Knowledge: ??? Verbalization of understanding the information provided will improve Progressing Lack of Knowledge: ??? Will have increased knowledge of Care Progressing Life Cycle: ??? Ability to maintain clinical measurements within normal limits will improve Progressing Life Cycle: ??? Risk for hemorrhage will decrease Progressing ??? Chance of risk for complications during the period will decrease Progressing Nutritional: ??? Dietary intake will improve Progressing ??? Mother's verbalization of comfort with process will improve Progressing Role Relationship: ??? Ability to demonstrate positive interaction with the child will improve Progressing Role Relationship: ??? Ability to interact appropriately with will improve Progressing Sensory: ??? General experience of comfort will improve Progressing Goals: Clinical Goals for the Shift: VSS, up and about, preparing to go home Summary: encouraged parents to watch baby care video and hand expression video, to notify staff when they are done for any questions, assistance given earlier with breast feeding, mom seems to be doing better getting baby to latch, parents sent baby to nurse for part of night to get some sleep ER LEVELER OPERATOR * Plan of Care - Aurora Hancock RN - 09/19/2018 3:51 PM CST Activity: ??? Will verbalize the importance of balancing activity with adequate rest periods Progressing Coping: ??? Ability to cope will improve Progressing ??? Ability to identify and utilize available resources and services will improve Progressing Health Behavior: ??? Understanding of discharge needs will improve Progressing Lack of Knowledge: ??? Verbalization of understanding the information provided will improve Progressing Lack of Knowledge: ??? Will have increased knowledge of Care Progressing Life Cycle: ??? Ability to maintain clinical measurements within normal limits will improve Progressing Life Cycle: ??? Risk for hemorrhage will decrease Progressing ??? Chance of risk for complications during the period will decrease Progressing Nutritional: ??? Dietary intake will improve Progressing ??? Mother's verbalization of comfort with process will improve Progressing Role Relationship: ??? Ability to demonstrate positive interaction with the child will improve Progressing Role Relationship: ??? Ability to interact appropriately with will improve Progressing Sensory: ??? General experience of comfort will improve Progressing Goals: Clinical Goals for the Shift: VSS, pain control, rest, sitz bath Summary: pain well controlled, resting, sitz bath taken, pt up in halls walking, asymptomatic of blood loss ER LEVELER OPERATOR * Plan of Care - Jessica Malone RN - 09/19/2018 3:40 AM CST Goals: Clinical Goals for the Shift: VSS, pain controlled, rest and meza with baby Summary: Activity: ??? Will verbalize the importance of balancing activity with adequate rest periods Progressing Coping: ??? Ability to cope will improve Progressing ??? Ability to identify and utilize available resources and services will improve Progressing Health Behavior: ??? Understanding of discharge needs will improve Progressing Lack of Knowledge: ??? Verbalization of understanding the information provided will improve Progressing Lack of Knowledge: ??? Will have increased knowledge of Care Progressing Life Cycle: ??? Ability to maintain clinical measurements within normal limits will improve Progressing Life Cycle: ??? Risk for hemorrhage will decrease Progressing ??? Chance of risk for complications during the period will decrease Progressing Nutritional: ??? Dietary intake will improve Progressing ??? Mother's verbalization of comfort with process will improve Progressing Role Relationship: ??? Ability to demonstrate positive interaction with the child will improve Progressing Role Relationship: ??? Ability to interact appropriately with will improve Progressing Sensory: ??? General experience of comfort will improve Progressing ER LEVELER OPERATOR * Plan of Care - Taylor Choi RN - 09/18/2018 5:32 PM CST Activity: ??? Will verbalize the importance of balancing activity with adequate rest periods Progressing Coping: ??? Ability to cope will improve Progressing ??? Ability to identify and utilize available resources and services will improve Progressing Health Behavior: ??? Understanding of discharge needs will improve Progressing Lack of Knowledge: ??? Verbalization of understanding the information provided will improve Progressing Lack of Knowledge: ??? Will have increased knowledge of Care Progressing Life Cycle: ??? Ability to maintain clinical measurements within normal limits will improve Progressing Life Cycle: ??? Risk for hemorrhage will decrease Progressing ??? Chance of risk for complications during the period will decrease Progressing Nutritional: ??? Dietary intake will improve Progressing ??? Mother's verbalization of comfort with process will improve Progressing Role Relationship: ??? Ability to demonstrate positive interaction with the child will improve Progressing Role Relationship: ??? Ability to interact appropriately with will improve Progressing Sensory: ??? General experience of comfort will improve Progressing Goals: Clinical Goals for the Shift: pain well controlled, tolerate PO well, bleeding controlled, meza with and breastfeed infant. Summary: pain has been well controlled. Pt tolerating PO well. Pt ambulates in room frequently. Pt providing pericare per self without assistance needed. Bonding well with , improving. 09/18/2018 5:33 PM Taylor Choi RN ER LEVELER OPERATOR * Plan of Care - Jessica Malone RN - 09/18/2018 4:54 AM CST Goals: VSS, pain controlled, rest and meza with baby Summary: Activity: ??? Will verbalize the importance of balancing activity with adequate rest periods Progressing Coping: ??? Ability to cope will improve Progressing ??? Ability to identify and utilize available resources and services will improve Progressing Lack of Knowledge: ??? Verbalization of understanding the information provided will improve Progressing Lack of Knowledge: ??? Will have increased knowledge of Care Progressing Life Cycle: ??? Ability to maintain clinical measurements within normal limits will improve Progressing Life Cycle: ??? Risk for hemorrhage will decrease Progressing ??? Chance of risk for complications during the period will decrease Progressing Nutritional: ??? Dietary intake will improve Progressing ??? Mother's verbalization of comfort with process will improve Progressing Role Relationship: ??? Ability to demonstrate positive interaction with the child will improve Progressing Role Relationship: ??? Ability to interact appropriately with will improve Progressing Sensory: ??? General experience of comfort will improve Progressing ER LEVELER OPERATOR * Plan of Care - Jessica Malone RN - 09/18/2018 4:52 AM CST Goals: Clinical Goals for the Shift: healthy vaginal delivery Summary: Coping: ??? Ability to identify appropriate support needs for the childbearing process will improve Completed ??? Ability to verbilize concerns and feelings about labor and delivery improve Completed Life Cycle: ??? Ability to make normal progression through stages of labor will improve Completed ??? Ability to effectively push during vaginal delivery will improve Completed Safety: ??? Chance of risk for complications during labor and delivery will decrease Completed Sensory: ??? Relief or control of pain from uterine contractions will improve Completed ER LEVELER OPERATOR * Plan of Care - Tonia Mijares RN - 09/17/2018 5:11 PM CST Goals: Clinical Goals for the Shift: healthy vaginal delivery Coping: ??? Ability to identify appropriate support needs for the childbearing process will improve Progressing ??? Ability to verbilize concerns and feelings about labor and delivery improve Progressing Lack of Knowledge: ??? Verbalization of understanding the information provided will improve Progressing Life Cycle: ??? Ability to maintain clinical measurements within normal limits will improve Progressing ??? Ability to make normal progression through stages of labor will improve Progressing ??? Ability to effectively push during vaginal delivery will improve Progressing Role Relationship: ??? Ability to demonstrate positive interaction with the child will improve Progressing Safety: ??? Chance of risk for complications during labor and delivery will decrease Progressing Sensory: ??? Relief or control of pain from uterine contractions will improve Progressing Summary: Patient progressing well in labor, vss, pain under control. Report given to Chris Malone RN 09/17/2018 Tonia Mijares, RN ER LEVELER OPERATOR documented in this encounter Plan of Treatment Not on file documented as of this encounter Procedures Procedure Name Priority Date/Time Associated Diagnosis Comments URINALYSIS AND REFLEX TO MICROSCOPIC STAT 09/19/2018 9:42 AM ROLLER LEVELER OPERATOR URINALYSIS, MICROSCOPIC ONLY STAT 09/19/2018 9:42 AM ROLLER LEVELER OPERATOR DIFFERENTIAL AUTO Routine 09/19/2018 6:2 5 AM ROLLER LEVELER OPERATOR CBC WITH AUTO DIFFERENTIAL Routine 09/19/2018 6:25 AM ROLLER LEVELER OPERATOR CBC WITHOUT DIFFERENTIAL STAT 09/18/2018 8:48 AM ROLLER LEVELER OPERATOR PREPARE RBC STAT 09/18/2018 5:08 AM ROLLER LEVELER OPERATOR BLOOD GAS, VENOUS, CORD STAT 09/18/2018 4:44 AM ROLLER LEVELER OPERATOR DIFFERENTIAL AUTO STAT 09/17/2018 2:5 2 PM ROLLER LEVELER OPERATOR CBC WITH AUTO DIFFERENTIAL STAT 09/17/2018 2:52 PM ROLLER LEVELER OPERATOR ABO/RH Timed 09/17/2018 2:52 PM ROLLER LEVELER OPERATOR CROSSMATCH Timed 09/17/2018 2:52 PM ROLLER LEVELER OPERATOR ANTIBODY SCREEN Timed 09/17/2018 2:52 PM ROLLER LEVELER OPERATOR TYPE AND SCREEN Timed 09/17/2018 2:52 PM ROLLER LEVELER OPERATOR RAPID HIV 1/2 AG/AB COMBO STAT 09/17/2018 2:51 PM ROLLER LEVELER OPERATOR US BIOPHYSICAL PROFILE W TEST ED Urgent/IP Urgent 09/17/2018 12:48 PM ROLLER LEVELER OPERATOR PAMG-1 PROTEIN MARKER (ROM) Routine 09/17/2018 11:40 AM ROLLER LEVELER OPERATOR documented in this encounter Results * (ABNORMAL) Urinalysis, microscopic only (09/19/2018 9:42 AM ROLLER LEVELER OPERATOR) WBC, ur >50(A) 0 - 5 /HPF [facility] ([place]) RBC, ur >50(A) 0 - 2 /HPF [facility] ([place]) Epithelial cells, squamous, ur 1-5 0 - 5 /HPF [facility] ([place]) Bacteria, ur Negative [facility] ([place]) Hyaline casts, ur 1-5 0 - 10 /LPF [facility] ([place]) Urine, clean voided 09/19/2018 9:42 AM ROLLER LEVELER OPERATOR 09/19/2018 9:45 AM ROLLER LEVELER OPERATOR Narrative [facility] ([place]) - 09/19/2018 9:59 AM ROLLER LEVELER OPERATOR Shawna Kapoor MD LAB URINE ORDERABLES Final Result [facility] ([place]) 1 [facility] Department of [place] [address] * (ABNORMAL) Urinalysis reflex to microscopic (09/19/2018 9:42 AM ROLLER LEVELER OPERATOR) Color, ur Red(A) Yellow [facility] ([place]) Comment:Due to the presence of Urine Chromagens and/or Gross Blood, only a microscopic examination was performed. Please order culture if clinically indicated. Clarity, ur Turbid(A) Clear [facility] Kayla ([place]) Comment:Due to the presence of Urine Chromagens and/or Gross Blood, only a microscopic examination was performed. Please order culture if clinically indicated. Specific gravity, ur See Comment 1.010 - 1.025 [facility] ([place]) Comment:Due to the presence of Urine Chromagens and/or Gross Blood, only a microscopic examination was performed. Please order culture if clinically indicated. pH, urine See Comment [facility] ([place]) Comment:Due to the presence of Urine Chromagens and/or Gross Blood, only a microscopic examination was performed. Please order culture if clinically indicated. Protein, ur ql See Comment Negative [facility] ([place]) Comment:Due to the presence of Urine Chromagens and/or Gross Blood, only a microscopic examination was performed. Please order culture if clinically indicated. Glucose, ur ql See Comment Negative [facility] ([place]) Comment:Due to the presence of Urine Chromagens and/or Gross Blood, only a microscopic examination was performed. Please order culture if clinically indicated. Ketones, ur See Comment Negative [facility] ([place]) Comment:Due to the presence of Urine Chromagens and/or Gross Blood, only a microscopic examination was performed. Please order culture if clinically indicated. Bilirubin, ur See Comment Negative [facility] ([place]) Comment:Due to the presence of Urine Chromagens and/or Gross Blood, only a microscopic examination was performed. Please order culture if clinically indicated. Blood, ur See Comment Negative [facility] ([place]) Comment:Due to the presence of Urine Chromagens and/or Gross Blood, only a microscopic examination was performed. Please order culture if clinically indicated. Urobilinogen, ur See Comment mg/dL [facility] ([place]) Comment:Due to the presence of Urine Chromagens and/or Gross Blood, only a microscopic examination was performed. Please order culture if clinically indicated. Nitrite, ur See Comment Negative [facility] ([place]) Comment:Due to the presence of Urine Chromagens and/or Gross Blood, only a microscopic examination was performed. Please order culture if clinically indicated. Leukocyte esterase, ur See Comment Negative [facility] ([place]) Comment:Due to the presence of Urine Chromagens and/or Gross Blood, only a microscopic examination was performed. Please order culture if clinically indicated. Urine, clean voided 09/19/2018 9:42 AM ROLLER LEVELER OPERATOR 09/19/2018 9:45 AM ROLLER LEVELER OPERATOR Narrative [facility] ([place]) - 09/19/2018 9:59 AM ROLLER LEVELER OPERATOR ?? Urine pH is affected by diet, medications, systemic acid-base disturbances, and renal tubular function. ??pH may affect urinary stone formation. ??For example, urine pH below 6.0 may help reduce the tendency for calcium phosphate stones and pH greater than 6.0 may reduce the tendency for uric acid stone formation. Source: [employer]. Last revised 08-13-2017 Shawna Kapoor MD LAB URINE ORDERABLES Final Result [facility] ([place]) 1 [facility] Department of [place] [address] * (ABNORMAL) Differential, auto (09/19/2018 6:25 AM ROLLER LEVELER OPERATOR) Neutrophil abs 9.4(H) 1.7 - 6.5 K/cumm [facility] ([place]) Imm gran abs 0.2(H) 0.0 - 0.1 K/cumm [facility] ([place]) Lymphocyte abs 2.2 0.8 - 3.3 K/cumm [facility] ([place]) Monocyte abs 0.6 0.2 - 0.8 K/cumm [facility] ([place]) Eosinophil abs 0.2 0.0 - 0.5 K/cumm [facility] ([place]) Basophil abs 0.0 0.0 - 0.1 K/cumm [facility] ([place]) Neutrophil pct 75.2 % [facility] ([place]) Comment: Interpretive Data Percent cell count reference ranges are not reported, since discordance with absolute values may lead to misinterpretation of CBC data. Current Interpretive Data was last revised on 2017. Imm gran pct 1.4 % [facility] ([place]) Comment: Interpretive Data Percent cell count reference ranges are not reported, since discordance with absolute values may lead to misinterpretation of CBC data. Current Interpretive Data was last revised on 2017. Lymphocyte pct 17.1 % [facility] ([place]) Comment: Interpretive Data Percent cell count reference ranges are not reported, since discordance with absolute values may lead to misinterpretation of CBC data. Current Interpretive Data was last revised on 2017. Monocyte pct 4.9 % [facility] ([place]) Comment: Interpretive Data Percent cell count reference ranges are not reported, since discordance with absolute values may lead to misinterpretation of CBC data. Current Interpretive Data was last revised on 2017. Eosinophil pct 1.2 % [facility] ([place]) Comment: Interpretive Data Percent cell count reference ranges are not reported, since discordance with absolute values may lead to misinterpretation of CBC data. Current Interpretive Data was last revised on 2017. Basophil pct 0.2 % [facility] ([place]) Comment: Interpretive Data Percent cell count reference ranges are not reported, since discordance with absolute values may lead to misinterpretation of CBC data. Current Interpretive Data was last revised on 2017. Blood specimen (specimen) 09/19/2018 6:25 AM ROLLER LEVELER OPERATOR 09/19/2018 6:39 AM ROLLER LEVELER OPERATOR Narrative [facility] ([place]) - 09/19/2018 6:42 AM ROLLER LEVELER OPERATOR us Shawna Kapoor MD LAB BLOOD ORDERABLES Final Result [facility] ([place]) 1 [facility] Department of [place] [address] * (ABNORMAL) CBC with auto differential (09/19/2018 6:25 AM ROLLER LEVELER OPERATOR) WBC 12.6(H) 3.8 - 9.9 K/cumm [facility] ([place]) Hgb 7.5(L) 11.9 - 15.5 g/dL [facility] ([place]) Hct 22.7(L) 35.6 - 45.5 % [facility] ([place]) Plt 199 150 - 400 K/cumm [facility] ([place]) MPV 11.4 9.1 - 12.3 fL [facility] ([place]) RBC 2.61(L) 3.90 - 5.20 M/cumm [facility] ([place]) MCV 87.0 81.3 - 96.4 fL [facility] ([place]) MCH 28.7 27.1 - 33.3 pg [facility] ([place]) MCHC 33.0 32.3 - 35.7 g/dL [facility] ([place]) RDW CV 14.6 11.1 - 14.9 % [facility] ([place]) RDW SD 46.2 35.7 - 48.1 fL [facility] ([place]) NRBC abs 0.00 0.00 - 0.01 K/cumm [facility] ([place]) Blood specimen (specimen) 09/19/2018 6:25 AM ROLLER LEVELER OPERATOR 09/19/2018 6:39 AM ROLLER LEVELER OPERATOR Narrative [facility] ([place]) - 09/19/2018 6:42 AM ROLLER LEVELER OPERATOR us Shawna Kapoor MD LAB BLOOD ORDERABLES Final Result [facility] ([place]) 1 [facility] Department of [place] [address] * (ABNORMAL) CBC without differential (09/18/2018 8:48 AM ROLLER LEVELER OPERATOR) WBC 19.7(H) 3.8 - 9.9 K/cumm [facility] ([place]) Hgb 9.5(L) 11.9 - 15.5 g/dL [facility] ([place]) Hct 28.0(L) 35.6 - 45.5 % [facility] ([place]) Plt 202 150 - 400 K/cumm [facility] ([place]) MPV 11.4 9.1 - 12.3 fL [facility] ([place]) RBC 3.31(L) 3.90 - 5.20 M/cumm [facility] ([place]) MCV 84.6 81.3 - 96.4 fL [facility] ([place]) MCH 28.7 27.1 - 33.3 pg [facility] ([place]) MCHC 33.9 32.3 - 35.7 g/dL [facility] ([place]) RDW CV 14.5 11.1 - 14.9 % [facility] ([place]) RDW SD 44.5 35.7 - 48.1 fL [facility] ([place]) NRBC abs 0.00 0.00 - 0.01 K/cumm [facility] ([place]) Blood specimen (specimen) 09/18/2018 8:48 AM ROLLER LEVELER OPERATOR 09/18/2018 8:52 AM ROLLER LEVELER OPERATOR Narrative [facility] ([place]) - 09/18/2018 8:55 AM ROLLER LEVELER OPERATOR us Leonard Hunter MD LAB BLOOD ORDERABLES F inal Result [facility] ([place]) [address] Department of [place] [address] * Prepare RBC: 2 Units (09/18/2018 5:08 AM ROLLER LEVELER OPERATOR) Units requested 2 [facility] ([place]) Units requested Ready [facility] ([place]) Blood specimen (specimen) 09/18/2018 5:08 AM ROLLER LEVELER OPERATOR 09/18/2018 5:08 AM ROLLER LEVELER OPERATOR Narrative [facility] ([place]) - 09/18/2018 5:10 AM ROLLER LEVELER OPERATOR Other indication->post hemorrhage Are special requirements needed? (all products are leukoreduced)->No Shawna Kapoor MD BLOOD BANK PRODUCT ORDERABL ES Final Result Performing Organization Address [facility]/ZIP Co de Phone Number [facility] ([place]) 1 [facility] [employer] [place] [address] * (ABNORMAL) Blood gas, venous, cord (09/18/2018 4:44 AM ROLLER LEVELER OPERATOR) pH Cord Sigifredo 7.37 7.10 - 7.40 [facility] ([place]) pCO2 Cord Sigifredo 34 mmHg [facility] ([place]) pO2 Cord Sigifredo 45 mmHg [facility] ([place]) Base Excess Cord Sigifredo -5 mmol/L [facility] ([place]) HCO3 Cord Sigifredo (Calc) 19 13 - 28 mmol/L [facility] ([place]) O2 sat, sigifredo 86 [facility] ([place]) CO2, total calculated, venous 20(L) 25 - 29 mmol/L [facility] ([place]) Cord blood 09/18/2018 4:44 AM ROLLER LEVELER OPERATOR 09/18/2018 4:53 AM ROLLER LEVELER OPERATOR Narrative [facility] ([place]) - 09/18/2018 4:58 AM ROLLER LEVELER OPERATOR Shawna Kapoor MD LAB BLOOD ORDERABLES Final Result Performing Organization Address City/[facility]/ZIP Co de Phone Number [facility] ([place]) 1 [place] [address] * Crossmatch (09/17/2018 2:52 PM ROLLER LEVELER OPERATOR) Crossmatch Compatible [facility] ([place]) Unit number for crossmatch [id number] [facility] ([place]) Crossmatch Compatible [facility] ([place]) Unit number for crossmatch [id number] [facility] ([place]) Blood specimen (specimen) 09/17/2018 2:52 PM ROLLER LEVELER OPERATOR 09/17/2018 3:01 PM ROLLER LEVELER OPERATOR Narrative [facility] ([place]) - 09/18/2018 5:10 AM ROLLER LEVELER OPERATOR us Leonard Hunter MD LAB BLOOD BANK TEST OR DERABLES Final Result [facility] 1 [facility] Department of [place] [address] * (ABNORMAL) Differential, auto (09/17/2018 2:52 PM ROLLER LEVELER OPERATOR) Neutrophil abs 7.2(H) 1.7 - 6.5 K/cumm [facility] ([place]) Imm gran abs 0.1 0.0 - 0.1 K/cumm [facility] ([place]) Lymphocyte abs 1.6 0.8 - 3.3 K/cumm [facility] ([place]) Monocyte abs 0.6 0.2 - 0.8 K/cumm [facility] ([place]) Eosinophil abs 0.1 0.0 - 0.5 K/cumm [facility] ([place]) Basophil abs 0.0 0.0 - 0.1 K/cumm [facility] ([place]) Neutrophil pct 75.4 % [facility] ([place]) Comment: Interpretive Data Percent cell count reference ranges are not reported, since discordance with absolute values may lead to misinterpretation of CBC data. Current Interpretive Data was last revised on 2017. Imm gran pct 0.8 % [facility] ([place]) Comment: Interpretive Data Percent cell count reference ranges are not reported, since discordance with absolute values may lead to misinterpretation of CBC data. Current Interpretive Data was last revised on 2017. Lymphocyte pct 16.9 % [facility] ([place]) Comment: Interpretive Data Percent cell count reference ranges are not reported, since discordance with absolute values may lead to misinterpretation of CBC data. Current Interpretive Data was last revised on 2017. Monocyte pct 5.7 % [facility] ([place]) Comment: Interpretive Data Percent cell count reference ranges are not reported, since discordance with absolute values may lead to misinterpretation of CBC data. Current Interpretive Data was last revised on 2017. Eosinophil pct 1.0 % [facility] ([place]) Comment: Interpretive Data Percent cell count reference ranges are not reported, since discordance with absolute values may lead to misinterpretation of CBC data. Current Interpretive Data was last revised on 2017. Basophil pct 0.2 % [facility] ([place]) Comment: Interpretive Data Percent cell count reference ranges are not reported, since discordance with absolute values may lead to misinterpretation of CBC data. Current Interpretive Data was last revised on 2017. Blood specimen (specimen) 09/17/2018 2:52 PM ROLLER LEVELER OPERATOR 09/17/2018 3:01 PM ROLLER LEVELER OPERATOR Narrative [facility] ([place]) - 09/17/2018 3:04 PM ROLLER LEVELER OPERATOR Shawna Kapoor MD LAB BLOOD ORDERABLES Final Result [facility] ([place]) 1 [facility] Department of [place] [address] * Antibody screen (09/17/2018 2:52 PM ROLLER LEVELER OPERATOR) William, indirect, Gel Interpretation Negative ABSC [facility] ([place]) Blood specimen (specimen) 09/17/2018 2:52 PM ROLLER LEVELER OPERATOR 09/17/2018 3:01 PM ROLLER LEVELER OPERATOR Narrative [facility] ([place]) - 09/17/2018 4:01 PM ROLLER LEVELER OPERATOR Has the patient had Daratumumab (Darzalex) in the past 6 months?->Unknown Shawna Kapoor MD LAB BLOOD BANK TEST ORDERAB LES Final Result Performing Organization Address City/[facility]/ZIP Co de Phone Number [facility] ([place]) 1 [facility] Department of [employer] [place] [address] * ABO/Rh (09/17/2018 2:52 PM ROLLER LEVELER OPERATOR) Pathologist [facility] ABO/Rh O Positive [facility] ([place]) Blood specimen (specimen) 09/17/2018 2:52 PM ROLLER LEVELER OPERATOR 09/17/2018 3:01 PM ROLLER LEVELER OPERATOR Narrative [facility] ([place]) - 09/17/2018 4:01 PM ROLLER LEVELER OPERATOR Has the patient had Daratumumab (Darzalex) in the past 6 months?->Unknown Shawna Kapoor MD LAB BLOOD BANK TEST ORDERAB LES Final Result Performing Organization Address City/[facility] Co de Phone Number [facility] ([place]) 1 [facility] Department of [employer] [place] [address] * (ABNORMAL) CBC with auto differential (09/17/2018 2:52 PM ROLLER LEVELER OPERATOR) Pathologist [facility] WBC 9.6 3.8 - 9.9 K/cumm [facility] ([place]) Hgb 11.8(L) 11.9 - 15.5 g/dL [facility] ([place]) Hct 35.0(L) 35.6 - 45.5 % [facility] ([place]) Plt 235 150 - 400 K/cumm [facility] ([place]) MPV 11.5 9.1 - 12.3 fL [facility] ([place]) RBC 4.06 3.90 - 5.20 M/cumm [facility] ([place]) MCV 86.2 81.3 - 96.4 fL [facility] ([place]) MCH 29.1 27.1 - 33.3 pg [facility] ([place]) MCHC 33.7 32.3 - 35.7 g/dL [facility] ([place]) RDW CV 14.5 11.1 - 14.9 % [facility] ([place]) RDW SD 45.2 35.7 - 48.1 fL [facility] ([place]) NRBC abs 0.00 0.00 - 0.01 K/cumm [facility] ([place]) Blood specimen (specimen) 09/17/2018 2:52 PM ROLLER LEVELER OPERATOR 09/17/2018 3:01 PM ROLLER LEVELER OPERATOR Narrative [facility] ([place]) - 09/17/2018 3:04 PM ROLLER LEVELER OPERATOR Shawna Kapoor MD LAB BLOOD ORDERABLES Final Result Performing Organization Address [facility] de Phone Number [facility] ([place]) 1 [facility] [employer] [place] [address] * HIV-1 and HIV-2 antibody and P24 antigen, rapid (09/17/2018 2:51 PM ROLLER LEVELER OPERATOR) [facility] HIV 1/2 Ab Nonreactive Nonreactive [facility] ([place]) Rapid HIV p24 ag Nonreactive Nonreactive [facility] ([place]) Comment: Interpretive Data All reactive results with this rapid screening assay are considered preliminary and require confirmation testing. Confirmation testing is sent out automatically and is reported separately. Current Interpretive Data was last revised on 2016 Blood specimen (specimen) 09/17/2018 2:51 PM ROLLER LEVELER OPERATOR 09/17/2018 4:30 PM ROLLER LEVELER OPERATOR Narrative [facility] ([place]) - 09/17/2018 4:51 PM ROLLER LEVELER OPERATOR Shawna Kapoor MD LAB BLOOD ORDERABLES Final Result Performing Organization Address [facility] Co de Phone Number [facility] ([place]) 1 [facility] [employer] [place] [address] * US Biophysical Profile W Test (09/17/2018 12:48 PM ROLLER LEVELER OPERATOR) Anatomical Region Laterality Modality N/A Ultrasound 09/17/2018 12:5 4 PM ROLLER LEVELER OPERATOR Impressions 09/17/2018 12:57 PM ROLLER LEVELER OPERATOR 1. ??SINGLE LIVE INTRAUTERINE FETUS IN VERTEX POSITION. 2. ??AMNIOTIC FLUID INDEX OF 5.4 CM IS BELOW THE NORMAL RANGE, CONSISTENT WITH OLIGOHYDRAMNIOS. 3. ??BIOPHYSICAL PROFILE SCORE GIVES A TOTAL SCORE OF 8 OUT OF 8 POINTS. 4. ??SUBOPTIMAL EXAMINATION DUE TO MATERNAL BODY HABITUS. THE PATIENT WAS REFERRED TO LABOR AND DELIVERY FOR THE NONSTRESS TEST COMPONENT OF THIS EXAM, WHICH WILL BE REPORTED SEPARATELY. REPORT CALLED TO TRACY MOE 09/17/2018 AT 1247 P.M. Electronically signed by: Morales Mortensen 09/17/2018 12:57 PM ROLLER LEVELER OPERATOR US BIOPHYSICAL PROFILE W TEST HISTORY: OTHER possible rupture of membranes, decreased movement. TECHNIQUE: Longitudinal transverse real-time scans are obtained. COMPARISON: 09/09/2018, 08/25/2018. FINDINGS: Suboptimal examination due to maternal body habitus. Single live fetus in vertex position. ??Volume of amniotic fluid is below the normal range. ??Amniotic fluid index is 5.4 cm, below the normal range, consistent with oligohydramnios. ??Placenta is lateral to the left, grade 3. ?? heart rate 148 271 bpm. ??Estimated age is 36 weeks 2 days with JUNIOR of 10/13/2018 based on prior study. Biophysical profile exclusive nonstress test is a total score of 8 out of 8 points, with 2 points given for breathing, body movements, tone, and amniotic fluid volume. Procedure Note Ye Harley MD - 09/17/2018 US BIOPHYSICAL PROFILE W TEST HISTORY: OTHER possible rupture of membranes, decreased movement. TECHNIQUE: Longitudinal transverse real-time scans are obtained. COMPARISON: 09/09/2018, 08/25/2018. FINDINGS: Suboptimal examination due to maternal body habitus. Single live fetus in vertex position. Volume of amniotic fluid is below the normal range. Amniotic fluid index is 5.4 cm, below the normal range, consistent with oligohydramnios. Placenta is lateral to the left, grade 3. heart rate 148 271 bpm. Estimated age is 36 weeks 2 days with JUNIOR of 10/13/2018 based on prior study. Biophysical profile exclusive nonstress test is a total score of 8 out of 8 points, with 2 points given for breathing, body movements, tone, and amniotic fluid volume. IMPRESSION: 1. SINGLE LIVE INTRAUTERINE FETUS IN VERTEX POSITION. 2. AMNIOTIC FLUID INDEX OF 5.4 CM IS BELOW THE NORMAL RANGE, CONSISTENT WITH OLIGOHYDRAMNIOS. 3. BIOPHYSICAL PROFILE SCORE GIVES A TOTAL SCORE OF 8 OUT OF 8 POINTS. 4. SUBOPTIMAL EXAMINATION DUE TO MATERNAL BODY HABITUS. THE PATIENT WAS REFERRED TO LABOR AND DELIVERY FOR THE NONSTRESS TEST COMPONENT OF THIS EXAM, WHICH WILL BE REPORTED SEPARATELY. REPORT CALLED TO TRACY MOE 09/17/2018 AT 1247 P.M. Electronically signed by: Ye Harley M.D us Shawna Kpaoor MD IMG OB US PROCEDURES Final Result * PAMG-1 protein marker (ROM) (09/17/2018 11:40 AM ROLLER LEVELER OPERATOR) IFG Binding Protein-1 / AFP Positive [facility] ([facility]) Swab 09/17/2018 11:4 0 AM ROLLER LEVELER OPERATOR 09/17/2018 1:14 PM ROLLER LEVELER OPERATOR Narrative [facility] ([facility] - 09/17/2018 1:38 PM ROLLER LEVELER OPERATOR us Leonard Hunter MD LAB BODY FLUIDS AND ST OOLS ORDERABLES Final Result [facility] ([facility]) 1 [facility] Department of Laboratories [place], [place] [id number] documented in this encounter Visit Diagnoses Diagnosis premature rupture of membranes in third trimester, unspecified duration to onset of labor- Primary documented in this encounter Administered Medications Inactive Administered Medications - up to 3 most recent administrations Medication Order MAR Action Action Date Dose Rate Site ascorbic acid (VITAMIN C) tablet/chewable tablet 500 mg 500 mg, oral, 3 times daily, First dose on 09/18/18 at 1015 Given 09/20/2018 12:56 PM ROLLER LEVELER OPERATOR 500 mg Given 09/20/2018 8:48 AM ROLLER LEVELER OPERATOR 500 mg Given 09/19/2018 5:43 PM ROLLER LEVELER OPERATOR 500 mg benzocaine-menthol (DERMOPLAST) 20-0.5 % topical spray 1 spray 1 spray, topical, As needed, other, perianal area for pain, Starting on 09/18/18 at 0658, Up to 6 times a day., Apply to affected area: perineum, Indications: Minor Skin Wound PainIndications:Minor Skin Wound Pain Given 09/18/2018 8:12 AM ROLLER LEVELER OPERATOR 1 spray bisacodyl (DULCOLAX) suppository 10 mg 10 mg, rectal, Once, On Thu09/20/18 at 1200, For 1 dose, Indications: constipationIndications:constipatio n Given 09/20/2018 11:34 AM ROLLER LEVELER OPERATOR 10 mg butorphanol (STADOL) 1 mg/mL injection 2 mg 2 mg, intravenous, Administer over 1 Minutes, Every 2 hours PRN, 1st line for pain, Starting on Thu09/17/18 at 1748 Given 09/17/2018 5:59 PM ROLLER LEVELER OPERATOR 2 mg diphenhydrAMINE (BENADRYL) injection 25 mg 25 mg, intravenous, Administer over 2 Minutes, Every 6 hours PRN, itching, Starting on Thu09/17/18 at 1940, May switch to nalbuphine if itching not resolved in 30 minutes. , Indications: ItchingIndications:Itching Given 09/17/2018 9:22 PM ROLLER LEVELER OPERATOR 25 mg Left Hand docusate sodium (COLACE) capsule 100 mg 100 mg, oral, 2 times daily, First dose on 09/18/18 at 1015, Indications: constipationIndications:constipatio n Given 09/20/2018 11:34 AM ROLLER LEVELER OPERATOR 100 mg Given 09/19/2018 5:43 PM ROLLER LEVELER OPERATOR 100 mg Given 09/19/2018 8:05 AM ROLLER LEVELER OPERATOR 100 mg fentaNYL 2 mcg/ml and bupivacaine 0.1% preservative free in sodium chloride 0.9% Continuous Rate: 8 mL/hr, Patient Bolus Dose: 5 mL, Lockout Interval: 15 Minutes, epidural, Continuous, Starting on Thu09/17/18 at 2015, Until 09/18/18 at 0939, 100 mL, Indications: Pain, RoutineIndications:Pain New Syringe/Cartridge 09/17/2018 8:00 PM ROLLER LEVELER OPERATOR 100 mL ferrous sulfate tablet 325 mg 325 mg (65 mg of elemental iron), oral, 3 times daily with meals, First dose on 09/18/18 at 1015, Indications: Iron Deficiency AnemiaIndications:Iron Deficiency Anemia Given 09/20/2018 12:56 PM ROLLER LEVELER OPERATOR 325 mg Given 09/20/2018 8:48 AM ROLLER LEVELER OPERATOR 325 mg Given 09/19/2018 5:43 PM ROLLER LEVELER OPERATOR 325 mg ibuprofen (ADVIL,MOTRIN) tablet 600 mg 600 mg, oral, Every 6 hours PRN, 1st line for pain, Starting on 09/18/18 at 0658, Indications: PainIndications:Pain Given 09/20/2018 12:56 PM ROLLER LEVELER OPERATOR 600 mg Given 09/19/2018 3:19 PM ROLLER LEVELER OPERATOR 600 mg Given 09/19/2018 4:44 AM ROLLER LEVELER OPERATOR 600 mg influenza quadrivalent [id number] (FLULAVAL,FLUARIX) 60 mcg (15 mcg x 4)/0.5 mL vaccine (STANDARD age 6 months and up) 0.5 mL 0.5 mL, intramuscular, During hospitalization, immunization, Starting on 09/20/18 at 1240, For 1 dose, Indications: Influenza PreventionIndications:Influ stefania Prevention Given 09/20/2018 12:56 PM ROLLER LEVELER OPERATOR 0.5 mL Left Deltoid Lactated Ringer's (LR) bolus 1,000 mL 1,000 mL, intravenous, Once, On Thu09/17/18 at 2015, For 1 dose, 15 to 30 minutes before epidural placement. New Bag 09/18/2018 8:22 AM ROLLER LEVELER OPERATOR 500 mL Lactated Ringer's (LR) bolus 3,000 mL 3,000 mL, intravenous, at 1,000 mL/hr, Administer over 3 Hours, Once, On 09/18/18 at 0545, For 1 dose New Bag 09/18/2018 6:57 AM ROLLER LEVELER OPERATOR 1,000 mL 1000 mL/hr New Bag 09/18/2018 5:30 AM ROLLER LEVELER OPERATOR 1,000 mL 1000 mL/hr Rate/Dose Change 09/18/2018 4:45 AM ROLLER LEVELER OPERATOR 1,000 mL 1000 mL /hr Lactated Ringer's (LR) bolus 500 mL 500 mL, intravenous, As needed, for nonreassuring heart rate, variable decelerations, or late deceleration., Starting on Thu09/17/18 at 1444, For 1 dose, L&D Pre-Delivery New Bag 09/18/2018 3:35 AM ROLLER LEVELER OPERATOR 500 mL Lactated Ringer's (LR) infusion 125 mL/hr, intravenous, Continuous, Starting on Thu09/17/18 at 1515, L&D Pre-Delivery New Bag 09/17/2018 9:25 PM ROLLER LEVELER OPERATOR 125 mL/hr 125 mL/hr Left Hand New Bag 09/17/2018 6:52 PM ROLLER LEVELER OPERATOR 125 mL/hr 125 mL/hr Le ft Hand New Bag 09/17/2018 2:05 PM ROLLER LEVELER OPERATOR 125 mL/hr 125 mL/hr Lactated Ringer's (LR) infusion 125 mL/hr, intravenous, Continuous, Starting on 09/18/18 at 1015 Rate/Dose Verify 09/18/2018 10:00 PM ROLLER LEVELER OPERATOR 125 mL/hr 125 mL/hr Rate/Dose Verify 09/18/2018 8:30 PM ROLLER LEVELER OPERATOR 125 mL/hr 125 mL/ hr New Bag 09/18/2018 5:28 PM ROLLER LEVELER OPERATOR 125 mL/hr 125 mL/hr lidocaine PF (XYLOCAINE) 10 mg/mL (1 %) preservative free injection 10-300 mg 10-300 mg (1-30 mL), other, Once as needed, local analgesia, Starting on Thu09/17/18 at 1444, For 1 dose, L&D Pre-Delivery, Administration of local anesthesia per MD direction, Indications: Administration of Local AnesthesiaIndications:Administ ration of Local Anesthesia Given 09/18/2018 5:04 AM ROLLER LEVELER OPERATOR 300 mg Other (Comment) twladuw-fkazh-tzqkhrs (MMR) 1,000-12,500 TCID50/0.5 mL vaccine 0.5 mL 0.5 mL, subcutaneous, During hospitalization, immunization, Starting on 09/18/18 at 0658, For 1 dose, If not rubella immune. Refrigerate, Indications: Untlhpb-Lqfbz-Oswcdvy VaccinationIndications:Measles -Mumps-Rubella Vaccination Given 09/20/2018 12:57 PM ROLLER LEVELER OPERATOR 0.5 mL Right Upper Arm methylergonovine (METHERGINE) injection 0.2 mg 0.2 mg, intramuscular, Once, On 09/18/18 at 0530, For 1 dose, Refrigerate Given 09/18/2018 4:45 AM ROLLER LEVELER OPERATOR 0.2 mg Left Anterior Thigh oxyCODONE-acetaminophen (PERCOCET) 5-325 mg per tablet 1 tablet 1 tablet, oral, Every 6 hours PRN, 2nd line for pain, Starting on 09/18/18 at 0658, May administer 1 hour after 1st line agent for uncontrolled or increasing pain. May repeat in 1 hour for uncontrolled or increasing pain. Max 2 doses within 1 dosing interval., Indications: PainIndications:Pain Given 09/19/2018 9:31 AM ROLLER LEVELER OPERATOR 1 tablet Given 09/18/2018 8:12 AM ROLLER LEVELER OPERATOR 1 tablet oxytocin 30 unit/500 mL (0.06 unit/mL) in sodium chloride 0.9% (premix) solution 0.5-20 milliunits/min (0.5-20 mL/hr), 0.06 units/mL, intravenous, Titrated, Starting on Thu09/17/18 at 1515, Until 09/18/18 at 0939, L&D Pre-Delivery, Indications: Induction of Labor, Start at 2 nathalia-units/min and increase by 2 nathalia-units/minutes every 30 minutes until contraction frequency is every 2-3 minutes. Discontinue for distress or uterine hyperstimulation., RoutineIndications:Inductio n of Labor New Bag 09/18/2018 5:00 AM ROLLER LEVELER OPERATOR 333 milliunits/min 333 mL/hr Rate/Dose Change 09/17/2018 8:24 PM ROLLER LEVELER OPERATOR 10 milliunits/min 10 mL/hr Left Hand Rate/Dose Change 09/17/2018 5:00 PM ROLLER LEVELER OPERATOR 8 milliunits/min 8 mL/hr vit-iron fum-folic ac tablet 1 tablet 1 tablet, oral, Daily, First dose on 09/18/18 at 0900, Begin when normal bowel activity resumes., Indications: Vitamin Deficiency PreventionIndications:Vitamin Deficiency Prevention Given 09/20/2018 11:33 AM ROLLER LEVELER OPERATOR 1 tablet Given 09/19/2018 8:05 AM ROLLER LEVELER OPERATOR 1 tablet Given 09/18/2018 8:12 AM ROLLER LEVELER OPERATOR 1 tablet sodium chloride 0.9% flush 0.5-20 mL 0.5-20 mL, intra-catheter, Every 8 hours scheduled, First dose on Thu09/17/18 at 2200, Flush volume based on line type and size. , Indications: FlushingIndications:Flushing sodium chloride 0.9% flush 0.5-20 mL 0.5-20 mL, intra-catheter, As needed, line care, Starting on Thu09/17/18 at 1940, Flush volume based on line type and size. Flush before and after each use. , Indications: FlushingIndications:Flushing documented in this encounter Active and Recently Administered Medications Times are shown in ROLLER LEVELER OPERATOR. Scheduled Medication Order 09/18/2018 09/19/2018 09/20/2018 ascorbic acid (VITAMIN C) tablet/chewable tablet 500 mg 500 mg, oral, 3 times daily, First dose on 09/18/18 at 1015 0948 (Given - Provider: Taylor Choi RN)1805 (Given - Provider: Jessica Malone RN - Comment: Not given by previous nurse) 0805 (Given - Provider: Aurora Hancock RN)1518 (Given - Provider: Aurora Hancock RN)1743 (Given - Provider: Ruby Ha RN) 0848 (Given - Provider: Jayne River RN)1256 (Given - Provider: Jayne River RN) bisacodyl (DULCOLAX) suppository 10 mg (COMPLETED) 10 mg, rectal, Once, On Thu09/20/18 at 1200, For 1 dose, Indications: constipation 1134 (Given - Provider: Jayne River RN) docusate sodium (COLACE) capsule 100 mg 100 mg, oral, 2 times daily, First dose on 09/18/18 at 1015, Indications: constipation 0948 (Given - Provider: Taylor Choi RN)203 (Given - Provider: Jessica Malone RN) 0805 (Given - Provider: Aurora Hancock RN)1743 (Given - Provider: Ruby Ha RN)2135 (Not Given - Provider: Ruby Ha RN - Reason: Contraindicated - Comment: given recently) 1134 (Given - Provider: Jayne River RN) ferrous sulfate tablet 325 mg 325 mg (65 mg of elemental iron), oral, 3 times daily with meals, First dose on 09/18/18 at 1015, Indications: Iron Deficiency Anemia 0948 (Given - Provider: Taylor Choi RN)1312 (Given - Provider: Taylor Choi RN - Comment: needs tid weals)1805 (Given - Provider: Jessica Malone RN) 0805 (Given - Provider: Aurora Hancock RN)1518 (Given - Provider: Aurora Hancock RN)1743 (Given - Provider: Ruby Ha RN) 0848 (Given - Provider: Jayne River RN)1256 (Given - Provider: Jayne River RN) Lactated Ringer's (LR) bolus 1,000 mL (COMPLETED) 1,000 mL, intravenous, Once, On Thu09/17/18 at 2015, For 1 dose, 15 to 30 minutes before epidural placement. 0822 (New Bag - Provider: Taylor Choi RN - Comment: to equal 3000ml)0850 (Stopped - Provider: Taylor Choi RN) Lactated Ringer's (LR) bolus 3,000 mL (COMPLETED) 3,000 mL, intravenous, at 1,000 mL/hr, Administer over 3 Hours, Once, On 09/18/18 at 0545, For 1 dose 0445 (Rate/Dose Change - Provider: Taylor Choi RN)0530 (New Bag - Provider: Taylor Choi RN)0657 (New Bag - Provider: Taylor Choi RN) methylergonovine (METHERGINE) injection 0.2 mg (COMPLETED) 0.2 mg, intramuscular, Once, On 09/18/18 at 0530, For 1 dose, Refrigerate 0445 (Given - Provider: Mattie Vance RN) vit-iron fum-folic ac tablet 1 tablet 1 tablet, oral, Daily, First dose on 09/18/18 at 0900, Begin when normal bowel activity resumes., Indications: Vitamin Deficiency Prevention 0812 (Given - Provider: Taylor Choi RN) 0805 (Given - Provider: Auorra Hancock RN) 1133 (Given - Provider: Jayne River RN) sodium chloride 0.9% flush 0.5-20 mL 0.5-20 mL, intra-catheter, Every 8 hours scheduled, First dose on Thu09/17/18 at 2200, Flush volume based on line type and size. , Indications: Flushing 0705 (Not Given - Provider: Taylor Choi RN - Reason: Other - Comment: IVF Infusing)1400 (Due)2200 (Due) 0600 (Due)1400 (Due)2136 (Not Given - Provider: Ruby Ha RN - Reason: Loss of IV access) 0841 (Not Given - Provider: Jayne River RN - Reason: Order parameters not met)1400 (Due) Continuous Medication Order 09/18/2018 09/19/2018 09/20/2018 Lactated Ringer's (LR) infusion 125 mL/hr, intravenous, Continuous, Starting on 09/18/18 at 1015 1001 (New Bag - Provider: Taylor Choi RN)1728 (New Bag - Provider: Dee Valentine RN)2030 (Rate/Dose Verify - Provider: Jessica Malone RN)2200 (Rate/Dose Verify - Provider: Jessica Malone RN) oxytocin 30 unit/500 mL (0.06 unit/mL) in sodium chloride 0.9% (premix) solution (CANCELED) 0.5-20 milliunits/min (0.5-20 mL/hr), 0.06 units/mL, intravenous, Titrated, Starting on Thu09/17/18 at 1515, Until 09/18/18 at 0939, L&D Pre-Delivery, Indications: Induction of Labor, Start at 2 nathalia-units/min and increase by 2 nathalia-units/minutes every 30 minutes until contraction frequency is every 2-3 minutes. Discontinue for distress or uterine hyperstimulation., Routine 0500 (New Bag - Provider: Taylor Choi RN)0658 (Stopped - Provider: Taylor Choi RN) PRN Medication Order 09/18/2018 09/19/2018 09/20/2018 benzocaine-menthol (DERMOPLAST) 20-0.5 % topical spray 1 spray 1 spray, topical, As needed, other, perianal area for pain, Starting on 09/18/18 at 0658, Up to 6 times a day., Apply to affected area: perineum, Indications: Minor Skin Wound Pain 0812 (Given - Provider: Taylor Choi RN) 1439 (Due) ibuprofen (ADVIL,MOTRIN) tablet 600 mg 600 mg, oral, Every 6 hours PRN, 1st line for pain, Starting on 09/18/18 at 0658, Indications: Pain 0714 (Given - Provider: Taylor Choi RN)1311 (Given - Provider: Taylor Choi RN)2039 (Given - Provider: Jessica Malone, RN) 0444 (Given - Provider: Jessica Malone RN)1519 (Given - Provider: Aurora Hancock, ABHI) 1256 (Given - Provider: Jayne River, RN) influenza quadrivalent [id number] (FLULAVAL,FLUARIX) 60 mcg (15 mcg x 4)/0.5 mL vaccine (STANDARD age 6 months and up) 0.5 mL (COMPLETED) 0.5 mL, intramuscular, During hospitalization, immunization, Starting on 09/20/18 at 1240, For 1 dose, Indications: Influenza Prevention 1256 (Given - Provider: Jayne River RN) Lactated Ringer's (LR) bolus 500 mL (COMPLETED) 500 mL, intravenous, As needed, for nonreassuring heart rate, variable decelerations, or late deceleration., Starting on Thu09/17/18 at 1444, For 1 dose, L&D Pre-Delivery 0335 (New Bag - Provider: Mattie Vance, ABHI) lidocaine PF (XYLOCAINE) 10 mg/mL (1 %) preservative free injection 10-300 mg (COMPLETED) 10-300 mg (1-30 mL), other, Once as needed, local analgesia, Starting on Thu09/17/18 at 1444, For 1 dose, L&D Pre-Delivery, Administration of local anesthesia per MD direction, Indications: Administration of Local Anesthesia 0504 (Given - Provider: Mattie Vance RN - Comment: perineum per md) tydsghc-beozh-wnzppvs (MMR) 1,000-12,500 TCID50/0.5 mL vaccine 0.5 mL (COMPLETED) 0.5 mL, subcutaneous, During hospitalization, immunization, Starting on 09/18/18 at 0658, For 1 dose, If not rubella immune. Refrigerate, Indications: Tlybsub-Cxuto-Clphtix Vaccination 1257 (Given - Provider: Jayne River, ABHI) oxyCODONE-acetaminophen (PERCOCET) 5-325 mg per tablet 1 tablet 1 tablet, oral, Every 6 hours PRN, 2nd line for pain, Starting on 09/18/18 at 0658, May administer 1 hour after 1st line agent for uncontrolled or increasing pain. May repeat in 1 hour for uncontrolled or increasing pain. Max 2 doses within 1 dosing interval., Indications: Pain 0812 (Given - Provider: Taylor Choi, ABHI) 0931 (Given - Provider: Aurora Hancock RN) sodium chloride 0.9% flush 0.5-20 mL 0.5-20 mL, intra-catheter, As needed, line care, Starting on Thu09/17/18 at 1940, Flush volume based on line type and size. Flush before and after each use. , Indications: Flushing documented in this encounter Orders Medications Ordered That Juan Carlos ht Not Have Been Administered Count Last Ordered Date First Ordered Date fentaNYL (SUBLIMAZE) 50 mcg/ mL preservative free injection - ADS Override Pull 3 09/18/2018 09/17/2018 Rho(D) immune globulin (Hype rRHO S/D, RhoGAM) injection 300 mcg 1 09/18/2018 sodium chloride 0.9% IVPB 0-500 mL 1 2018 nalbuphine (NUBAIN) injection 5 mg 1 2018 naloxone (NARCAN) 0.4 mg/mL injection 0.04-0.4 mg 1 09/17/2018 ondansetron (ZOFRAN) injection 4 mg 1 09/17 oxytocin 30 unit/500 mL (0.0 6 unit/mL) in sodium chloride 0.9% (premix) solution 1 09/17/2018 sodium chloride 0.9% flush 0.5-20 mL 4 09/03 Admission Count Last Ordered Date First Orde red Date ASSIGN PATIENT STATUS 1 09/17/2018 Transfer Count Last Ordered Date First Orde red Date TRANSFER PATIENT 1 09/18/2018 CORE MEASURES Count Last Ordered Date First Ord ered Date REASON FOR NO VTE PROPHYLAXI S - HOSPITAL ADMISSION - MEDICATIONS 1 09/18/2018 REASON FOR NO VTE PROPHYLAXIS AT ADMISSION 1 09/17/2018 documented in this encounter Care Teams Geologist Relationship Specialty Start Date End Date No, Physician PCP - General 09/17/18 01/11/20 documented as of this encounter
--- OUTSIDE RECORDS SUMMARY | 2024-08-05 01:00 | XMS_ITS | Encounter Summary ---
Author Organization [facility] Healthcare Address [address] [place] [address] Care Team Providers Care Nurse Staff Community Health Name Role Phone No, Physician Primary Care Provider [phone] Reason for Visit * Reason Comments Vaginal Bleeding Large amount of brow n discharge on tissue. Encounter Details Date Type Department Care Team (Latest Contact Info) Description 06/02/2018 2:13 PM CDT - 06/02/2018 3:20 PM CDT Hospital Encounter [facility] [address] [place] [id number] Leonard Hunter MD [address] [place] [address] [place] [address] Discharge Disposition: Discharge to home or self care Social History Tobacco Use Types Packs/Day Years Used Date Smoking Tobacco: Former Smokeless Tobacco: Never Comments:Smoking History Pac ks/day: 0.25 Packs Alcohol Use Standard Drinks/Week Comments No 0 (1 standard drink = 0.6 oz pur e alcohol) Comments Yes Sex and Gender Information Value Date Recorded Sex Assigned at Not on file 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 Gender Identity Not on file Sexual Orientation Not on file 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 * Movement (Discharge Care) (Dutch) * at 19 to 22 Weeks (Discharge Care) (Dutch) * at 23 to 26 Weeks (Discharge Care) (Dutch) documented in this encounter Discharge Disposition Disposition Code Departure Means Destination Discharge to home or self care documented in this encounter Plan of Treatment Not on file documented as of this encounter Procedures Procedure Name Priority Date/Time Associated Diagnosis Comments URINALYSIS AND REFLEX TO MICROSCOPIC STAT 06/02/2018 2:45 PM CDT documented in this encounter Results * (ABNORMAL) Urinalysis reflex to microscopic Urine (06/02/2018 2:45 PM CDT) Color, ur Keiko Yellow [facility] Clarity, ur Clear Clear [facility] ([facility]) Specific gravity, ur 1.029(H) 1.010 - 1.025 [facility] ([facility] pH, urine 6.0 [facility] ([facility]) Protein, ur ql Negative Negative [facility] ([facility]) Glucose, ur ql Negative Negative [facility] ([facility]) Ketones, ur 3+(A) Negative [facility] ([facility]) Bilirubin, ur Negative Negative [facility] ([facility]) Blood, ur Negative Negative [facility] ([facility]) Urobilinogen, ur 1.0 mg/dL [facility] ([facility]) Nitrite, ur Negative Negative [facility] ([facility]) Leukocyte esterase, ur Negative Negative [facility] ([facility]) Urine 06/02/2018 2:45 PM CDT 06/02/2018 2:49 PM CDT Narrative [facility] ([facility]) - 06/02/2018 2:58 PM CDT us Shawna Kapoor MD LAB URINE ORDERABLES Final Result [facility] ([facility] Department [place] [address] documented in this encounter Visit Diagnoses Not on filedocumented in this encounter Care Teams Nurse Staff Community Health Relationship Specialty Start Date End Date No, Physician PCP - General 03/04/18 09/12/18 documented as of this encounter
--- OUTSIDE RECORDS SUMMARY | 2024-08-05 01:00 | XMS_ITS | Encounter Summary ---
Author Organization [facility] Facility Care Team Providers Care Slot Machine Floor Person Name Role Phone No, Physician Primary Care Provider [phone] Encounter Details Date Type Department Care Team (Latest Contact Info) Description 07/10/2019 Travel Social History Tobacco Use Types Packs/Day Years Used Date Smoking Tobacco: Former Cigarettes Q uit: 08/15/2016 Smokeless Tobacco: Never Comments:Smoking History Pac ks/day: 0.25 Packs Alcohol Use Standard Drinks/Week Comments No 0 (1 standard drink = 0.6 oz pur e alcohol) Comments Yes Sex and Gender Information Value Date Recorded Sex Assigned at Not on file 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
--- OUTSIDE RECORDS SUMMARY | 2024-08-05 01:00 | XMS_ITS | Encounter Summary ---
Author Organization [facility] Healthcare Address [address] [place] [address] Care Team Providers Care Events Associate Name Role Phone Eugene Bangura MD Primary Care Provider Reason for Visit * Reason Comments Vomiting Diarrhea Encounter Details Date Type Department Care Team (Late st Contact Info) Description 09/13/2018 4:41 PM WEB OFFSET PRESS FEEDER - 09/13/2018 7:16 PM WEB OFFSET PRESS FEEDER Emergency [facility] Emergency Department [address] [place] [id number] Dion Morgan MD [facility] [place] [address] Vomiting and diarrhea (Primary Dx) Discharge Disposition: Discharge to home [...] on file Legal Sex Female 3:31 AM WEB OFFSET PRESS FEEDER Gender Identity Not on file Sexual Orientation Not on file Occupation Industry Job Start Date Job End Date [employer] Not on file Not on file Not on file documented as of this encounter Last Filed Vital Signs Vital Sign Reading Time Taken Comments Blood Pressure 124/63 09/13/2018 6:45 PM WEB OFFSET PRESS FEEDER Pulse 102 09/13/2018 6:45 PM WEB OFFSET PRESS FEEDER Temperature 36.6 ??C (97.9 ??F) 09/13/2018 4:32 PM CS T Respiratory Rate 18 09/13/2018 4:32 PM WEB OFFSET PRESS FEEDER Oxygen Saturation 99% 09/13/2018 6:45 PM WEB OFFSET PRESS FEEDER Inhaled Oxygen Concentration - - Weight 145.6 kg (321 lb) 09/13/2018 4:32 PM WEB OFFSET PRESS FEEDER Height 157.5 cm (5' 2 ) 09/13/2018 4:32 PM WEB OFFSET PRESS FEEDER Body Mass Index 58.71 09/13/2018 4:32 PM WEB OFFSET PRESS FEEDER documented in this encounter Discharge Instructions * Attachments The following attachments cannot be sent through Care Everywhere. * Vomiting and Diarrhea, Nonspecific (Adult) (Liberian) documented in this encounter Medications at Time [...] Refills Last Filled Start Date End Date ondansetron ODT (ZOFRAN-ODT) 4 mg disintegrating tablet Dissolve 1 tablet oral every 4 hours as needed for nausea or vomiting. 15 tablet 09/13/2018 0 documented in this encounter Discharge Disposition Disposition Code Departure Means Destination Discharge to home or self care documented in this encounter ED Notes * Dion Morgan MD - 09/13/2018 5:09 PM CST HPI Chief Complaint Patient presents with ??? Vomiting ??? Diarrhea (09/13/18 @ 1650) Patient is a 23 y.o. female (reports a gestational age of 37 weeks; A0), with a history of PCOS, presents to the ED today complaining of nausea with projectile vomiting and diarrhea for the last 21 hours. She reports that she has been unable to tolerate any PO intake. No blood in the emesis or stools. She notes profuse diaphoresis and chills. No vaginal bleeding, leakage of fluid, or abdominal pain. She did not receive a flu shot this year. She reports that her sister and nieces were sick when she saw them approximately 2 weeks ago. Patient History Patient Active Problem List Diagnosis Date Noted ??? PCOS (polycystic ovarian syndrome) 01/28/2017 ??? Infertility, anovulation 01/28/2017 ??? BMI 45.0-49.9, adult ([facility]) 11/01/2015 Class: Temporary Past Medical History: Diagnosis Date ??? Depression ??? Female infertility ??? Polycystic ovary syndrome History reviewed. No pertinent surgical history. Family History Problem Relation Age of Onset ??? Heart disease Maternal Grandfather Heart disease; ??? Hyperlipidemia Maternal Grandfather Hyperlipidemia; ??? Hypertension Maternal Grandfather Hypertension; ??? Hyperlipidemia Maternal Grandmother Hyperlipidemia; ??? Hypertension Maternal Grandmother Hypertension; ??? Breast cancer Mother 35 Cancer, breast; /Cancer, breast; ??? Uterine cancer Mother Cancer, uterine; ??? Asthma Mother Asthma; ??? Diabetes type II Mother Diabetes mellitus type 2; ??? Hypertension Father Hypertension; Social History Substance Use Topics ??? Smoking status: Former Smoker Quit date: 08/15/2016 ??? Smokeless tobacco: Never Used Comment: Smoking History Packs/day: 0.25 Packs ??? Alcohol use No Social History Social History Narrative ??? No narrative on file Review of Systems Review of Systems Constitutional: Positive for chills and diaphoresis. Negative for fatigue and fever. HENT: Negative for congestion, ear pain, rhinorrhea, sneezing and sore throat. Respiratory: Negative for cough, shortness of breath and wheezing. Cardiovascular: Negative for chest pain and palpitations. Gastrointestinal: Positive for diarrhea, nausea and vomiting. Negative for abdominal pain and bloodin stool. Genitourinary: Negative for dysuria, frequency and vaginal bleeding. Musculoskeletal: Negative for arthralgias, back pain, myalgias and neck pain. Skin: Negative for rash and wound. Neurological: Negative for dizziness, syncope, weakness, light-headedness and headaches. All other systems reviewed and are negative. Physical Exam ED Triage Vitals [09/13/18 1632] Temp Pulse Resp BP SpO2 36.6 ??C (97.9 ??F) 114 18 145/93 97 % Temp src Heart Rate Source Patient Position BP Location FiO2 (%) Temporal -- -- -- -- Physical Exam Constitutional: She is oriented to person, place, and time. She appears well- developed and well-nourished. No distress. HENT: Head: Normocephalic and atraumatic. TM's are normal bilaterally. Mildly erythematous pharynx. Eyes: Conjunctivae and EOM are normal. Neck: Normal range of motion. Neck supple. Cardiovascular: Regular rhythm, normal heart sounds and intact distal pulses. Tachycardia present. Exam reveals no gallop and no friction rub. No murmur heard. Pulmonary/Chest: Effort normal and breath sounds normal. No respiratory distress. She has no wheezes. She has no rales. Abdominal: Soft. She exhibits distension (gravid uterus). There is no tenderness. Musculoskeletal: Normal range of motion. She exhibits no edema, tenderness or deformity. Neurological: She is alert and oriented to person, place, and time. Skin: Skin is warm and dry. Capillary refill takes less than 2 seconds. No rash noted. Nursing note and vitals reviewed. MDM MDM Number of Diagnoses or Management Options Vomiting and diarrhea: Diagnosis management comments: 23-year-old female with flu-like symptoms. Negative flu test. Doing better after some Zofran. Her IV infiltrated and she wants to try oral rehydration. Tolerating p.o. In the ER. Discharge home with a prescription for Zofran and close follow-up with her OBGYN. Amount and/or Complexity of Data Reviewed Clinical lab tests: reviewed and ordered Tests in the radiology section of CPT??: ordered and reviewed Vitals: 09/13/18 1835 BP: Pulse: 104 Resp: Temp: SpO2: 97% Labs Reviewed CBC WITH AUTO DIFFERENTIAL - Abnormal Result Value WBC 10.3 (*) Hgb 12.1 Hct 35.6 Plt 224 MPV 10.8 RBC 4.16 MCV 85.6 MCH 29.1 MCHC 34.0 RDW CV 14.6 RDW SD 45.3 NRBC Abs 0.00 Narrative: COMPREHENSIVE METABOLIC PANEL - Abnormal Sodium 134 (*) Potassium, pl 3.6 Chloride 101 CO2 19 (*) Anion Gap 14 BUN 5 (*) Creatinine 0.46 (*) Glucose 121 Calcium 8.7 Bilirubin, total 0.4 Protein, pl 6.7 Albumin 3.4 (*) Alk phos 140 (*) ALT 7 AST 17 Narrative: DIFFERENTIAL AUTO - Abnormal Neutrophil absolute 8.8 (*) Immature granulocyte absolute 0.1 Lymphocytes absolute 0.8 Monocyte absolute 0.6 Eosinophils absolute 0.0 Basophils, abs 0.0 Neutrophils 85.6 Immature granulocytes 1.3 Lymphocytes 7.3 Monocytes 5.3 Eosinophils 0.4 Basophils 0.1 Narrative: INFLUENZA A/B AND RSV PCR Influenza A RNA Not Detected Influenza B RNA Not Detected RSV RNA Not Detected Narrative: EGFR GFR 142 Narrative: No orders to display ED Course as of Sep 13 1908 Time: 09/13 1708 Value: BP: 145/93 Comment: Pre-hypertension/Hypertension: The patient has been informed that they may have pre-hypertension or Hypertension based on a blood pressure reading in the Emergency Department. I recommend that the patient call the primary care provider listed on their discharge instructions or a physician of their choice this week to arrange follow up for further evaluation of possible pre- hypertension or Hypertension. By: Marion Leon This note was prepared by Marion Leon, acting as a Scribe for Dion Morgan MD. I electronically signed this note at 5:17 PM on 09/13/2018. I, Dion Morgan MD, have personally performed the services described in the documentation, reviewed the documentation, as recorded by the scribe in my presence, and it accurately and completely records my words and actions. Vomiting and diarrhea Dion Morgan MD 09/13/181908 OFFSET PRESS FEEDER * Eve Shelby RN - 09/13/2018 4:30 PM CST Pt presents with complaints of N/V/D that started last night around 20:00. Pt states that she has been unable to keep anything down since then. Pt states that she is 37 weeks and called her OB who told her to come in to ER. OFFSET PRESS FEEDER documented in this encounter Plan of Treatment Not on file documented as of this encounter Procedures Procedure Name Priority Date/Time Associated Diagnosis Comments INFLUENZA A/B AND RSV PCR STAT 09/13/2018 5:21 PM WEB OFFSET PRESS FEEDER EGFR STAT 09/13/2018 4:56 PM WEB OFFSET PRESS FEEDER DIFFERENTIAL AUTO STAT 09/13/2018 4:5 6 PM WEB OFFSET PRESS FEEDER CBC WITH AUTO DIFFERENTIAL STAT 09/13/2018 4:56 PM WEB OFFSET PRESS FEEDER COMPREHENSIVE METABOLIC PANEL STAT 09/13/2018 4:56 PM WEB OFFSET PRESS FEEDER documented in this encounter Results * Influenza A/B and RSV PCR Nasopharyngeal (09/13/2018 5:21 PM WEB OFFSET PRESS FEEDER) Pathologist [facility] Influenza A RNA Not Detected Not Detected [facility] Influenza B RNA Not Detected Not Detected [facility] RSV RNA Not Detected Not Detected [facility] ([place]) Nasopharyngeal 09/13/2018 5: 21 PM WEB OFFSET PRESS FEEDER 09/13/2018 5:23 PM WEB OFFSET PRESS FEEDER Narrative [facility] - 09/13/2018 6:07 PM WEB OFFSET PRESS FEEDER us Dion Morgan MD LAB MICROBIOLOGY - NERAL ORDERABLES Final Result [facility] 1 [facility] [place] [address] * eGFR (09/13/2018 4:56 PM WEB OFFSET PRESS FEEDER) Pathologist [facility] eGFR 142 mL/min/1.7 3 m2 [facility] ([place]) Comment: Interpretive Data Reference Interval Normal ?>/= 90 mL/min/1.73m2 Mildly decreased* ? 60 - 89 mL/min/1.73m2 Mildly to moderately decreased ?45 - 59 mL/min/1.73m2 Moderately to severely decreased ??30 - 44 mL/min/1.73m2 Severely decreased ?15 - 29 mL/min/1.73m2 Kidney Failure ?< 15 ??mL/min/1.73m2 *Relative to young adult level If -Algerian multiply value by 1.16. Estimated glomerular filtration rate is determined by the CKD-EPI equation recommended by the National Kidney Foundation (KDIGO 2012 Clinical Practice Guideline for the Evaluation and Management of Chronic Kidney Disease. Kidney Intnl Suppl Aug 2012;3:1). The CKD-EPI equation should not be used for patients with unstable renal function and has not been validated in children and those over 70. Current interpretive data was last reviewed 2016. Blood specimen (specimen) 09/13/2018 4:56 PM WEB OFFSET PRESS FEEDER 09/13/2018 4:59 PM WEB OFFSET PRESS FEEDER Narrative [facility] ([place] - 09/13/2018 5:17 PM WEB OFFSET PRESS FEEDER us Dion Morgan MD LAB BLOOD ORDERABLES Final Result [facility] ([place] 1 [facility] [place] [address] * (ABNORMAL) Differential, auto (09/13/2018 4:56 PM WEB OFFSET PRESS FEEDER) Neutrophil abs 8.8(H) 1.7 - 6.5 K/cumm [facility] ([place]) Imm gran abs 0.1 0.0 - 0.1 K/cumm [facility] ([place]) Lymphocyte abs 0.8 0.8 - 3.3 K/cumm [facility] ([place]) Monocyte abs 0.6 0.2 - 0.8 K/cumm [facility] ([place]) Eosinophil abs 0.0 0.0 - 0.5 K/cumm [facility] ([place]) Basophil abs 0.0 0.0 - 0.1 K/cumm [facility] ([place]) Neutrophil pct 85.6 % [facility] ([place]) Comment: Interpretive Data Percent cell count reference ranges are not reported, since discordance with absolute values may lead to misinterpretation of CBC data. Current Interpretive Data was last revised on 2017. Imm gran pct 1.3 % [facility] ([place]) Comment: Interpretive Data Percent cell count reference ranges are not reported, since discordance with absolute values may lead to misinterpretation of CBC data. Current Interpretive Data was last revised on 2017. Lymphocyte pct 7.3 % [facility] ([place]) Comment: Interpretive Data Percent cell count reference ranges are not reported, since discordance with absolute values may lead to misinterpretation of CBC data. Current Interpretive Data was last revised on 2017. Monocyte pct 5.3 % [facility] ([place]) Comment: Interpretive Data Percent cell count reference ranges are not reported, since discordance with absolute values may lead to misinterpretation of CBC data. Current Interpretive Data was last revised on 2017. Eosinophil pct 0.4 % [facility] ([place]) Comment: Interpretive Data Percent cell count reference ranges are not reported, since discordance with absolute values may lead to misinterpretation of CBC data. Current Interpretive Data was last revised on 2017. Basophil pct 0.1 % [facility] ([place]) Comment: Interpretive Data Percent cell count reference ranges are not reported, since discordance with absolute values may lead to misinterpretation of CBC data. Current Interpretive Data was last revised on 2017. Blood specimen (specimen) 09/13/2018 4:56 PM WEB OFFSET PRESS FEEDER 09/13/2018 4:59 PM WEB OFFSET PRESS FEEDER Narrative [facility] ([place] - 09/13/2018 5:02 PM WEB OFFSET PRESS FEEDER us Dion Morgan MD LAB BLOOD ORDERABLES Final Result [facility] ([place]) 1 [facility] Department [place] [address] * (ABNORMAL) Comprehensive metabolic panel (09/13/2018 4:56 PM WEB OFFSET PRESS FEEDER) Sodium 134(L) 135 - 145 mmol/L [facility] ([place]) Potassium, pl 3.6 3.3 - 4.9 mmol/L [facility] ([place]) Chloride 101 97 - 110 mmol/L [facility] ([place]) CO2 19(L) 22 - 32 mmol/L [facility] ([place]) Anion gap 14 2 - 15 mmol/L [facility] ([place]) BUN 5(L) 8 - 25 mg/dL [facility] ([place]) Creatinine 0.46(L) 0.60 - 1.10 mg/dL [facility] ([place]) Glucose 121 70 - 199 mg/dL [facility] ([place]) [...] classification and Diagnosis of Diabetes Diabetes Care 2017;40 (Suppl. 1):S11. Current interpretive data was last revised 2017. Calcium 8.7 8.5 - 10.3 mg/dL [facility] ([place]) Bilirubin, total 0.4 0.1 - 1.2 mg/dL [facility] ([place]) Protein, pl 6.7 6.5 - 8.5 g/dL [facility] ([place]) Albumin 3.4(L) 3.5 - 5.0 g/dL [facility] ([place]) Alk phos 140(H) 40 - 130 Units/L [facility] ([place]) ALT 7 7 - 45 Units/L [facility] ([place]) AST 17 10 - 45 Units/L [facility] ([place]) Blood specimen (specimen) 09/13/2018 4:56 PM WEB OFFSET PRESS FEEDER 09/13/2018 4:59 PM WEB OFFSET PRESS FEEDER Narrative [facility] ([place]) - 09/13/2018 5:17 PM WEB OFFSET PRESS FEEDER us Dion Morgan MD LAB BLOOD ORDERABLES Final Result [facility] ([place]) 1 [facility] [employer] [place] [address] * (ABNORMAL) CBC with auto differential (09/13/2018 4:56 PM WEB OFFSET PRESS FEEDER) WBC 10.3(H) 3.8 - 9.9 K/cumm [facility] ([place]) Hgb 12.1 11.9 - 15.5 g/dL [facility] ([place]) Hct 35.6 35.6 - 45.5 % [facility] ([place]) Plt 224 150 - 400 K/cumm [facility] ([place]) MPV 10.8 9.1 - 12.3 fL [facility] ([place] RBC 4.16 3.90 - 5.20 M/cumm [facility] ([place]) MCV 85.6 81.3 - 96.4 fL [facility] ([place]) MCH 29.1 27.1 - 33.3 pg [facility] ([place]) MCHC 34.0 32.3 - 35.7 g/dL [facility] ([place]) RDW CV 14.6 11.1 - 14.9 % [facility] ([place]) RDW SD 45.3 35.7 - 48.1 fL [facility] ([place]) NRBC abs 0.00 0.00 - 0.01 K/cumm [facility] ([place]) Blood specimen (specimen) 09/13/2018 4:56 PM WEB OFFSET PRESS FEEDER 09/13/2018 4:59 PM WEB OFFSET PRESS FEEDER Narrative [facility] ([place]) - 09/13/2018 5:01 PM WEB OFFSET PRESS FEEDER us Dion Morgan MD LAB BLOOD ORDERABLES Final Result [facility] ([place]) 1 [facility] [place] [address] documented in this encounter Visit Diagnoses Diagnosis Vomiting and diarrhea- Primary documented in this encounter Administered Medications Inactive Administered Medications - up to 3 most recent administrations Medication Order MAR Action Action Date Dose Rate Site ondansetron (ZOFRAN) injection 4 mg 4 mg, intravenous, Administer over 2 Minutes, Once, On Thu09/13/18 at 1655, For 1 dose, Indications: Nausea, VomitingIndications:Nausea, Vomiting Given 09/13/2018 5:15 PM WEB OFFSET PRESS FEEDER 4 mg sodium chloride 0.9% bolus 1,000 mL 1,000 mL, intravenous, at 1,000 mL/hr, Administer over 1 Hours, Once, On Thu09/13/18 at 1655, For 1 dose New Bag 09/13/2018 5:15 PM WEB OFFSET PRESS FEEDER 1,000 mL 100 0 mL/hr documented in this encounter Active and Recently Administered Medications Times are shown in WEB OFFSET PRESS FEEDER. Scheduled Medication Order 09/11/2018 09/12/2018 09/13/2018 ondansetron (ZOFRAN) injection 4 mg (COMPLETED) 4 mg, intravenous, Administer over 2 Minutes, Once, On Thu09/13/18 at 1655, For 1 dose, Indications: Nausea, Vomiting 1715 (Given - Provid er: Anahi Marvin RN) sodium chloride 0.9% bolus 1,000 mL (COMPLETED) 1,000 mL, intravenous, at 1,000 mL/hr, Administer over 1 Hours, Once, On Thu09/13/18 at 1655, For 1 dose 1715 (New Bag - Prov ider: Anahi Marvin RN)1751 (Stopped - Provider: Anahi Marvin RN) documented in this encounter Orders IV Count Last Ordered Date First Orde red Date INSERT PERIPHERAL IV 1 09/13/2018 documented in this encounter Care Teams Events Associate Relationship Specialty Start Date End Date Eugene Bagnura MD PCP - General 09/13/18 09/16/18 documented as of this encounter
--- OUTSIDE RECORDS SUMMARY | 2024-08-05 01:00 | XMS_ITS | Encounter Summary ---
Author Organization [facility] Address [address] [place] [address] Phone Care Team Providers Care Contract Forester Name Role Phone Amalia Rizvi MD Primary Care Provider [phone] Encounter Details Date Type Department Care Team (Late st Contact Info) Description 04/16/2017 Telephone [facility] [address] [place] [address] Nancy Villegas MD [address] [place] [address] Social History Tobacco Use Types Packs/Day Years Used Date Smoking Tobacco: Former Comments:Smoking History Pac ks/day: 0.25 Packs Alcohol Use Standard Drinks/Week Comments No 0 (1 standard drink = 0.6 oz pur e alcohol) Comments No Sex and Gender Information Value Date Recorded Sex Assigned at Not on file Legal Sex Female 3:31 AM LINE SERVICE ATTENDANT Gender Identity Not on file Sexual Orientation Not on file 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 Take 1 tablet cycle day 5-9 5 tablet 04/16/2017 10/13/2017 documented in this encounter Miscellaneous Notes * Telephone Encounter - Mena Ibarra LPN - 04/16/2017 4:31 PM CDT Left message for patient on voicemail. ERX'd clomid 50mg to [facility]. * Telephone Encounter - Nancy Villegas MD - 04/16/2017 4:23 PM CDT Recommend keep metformin at current dose. F/u if unable to conceive and interested in other options. * Telephone Encounter - Britt Riley - 04/16/2017 4:09 PM CDT Morenita called back and says she didn't take the clomid last month she was taking the metformin. She wants to do another cycle with that medication since she did ovulate but she is requesting a higher dose of the metformin. She uses [facility] in [place] pharmacy. * Telephone Encounter - Mena Ibarra LPN - 04/16/2017 8:59 AM CDT LMOM to return call. * Telephone Encounter - Nancy Villegas MD - 04/16/2017 8:36 AM CDT Please notify patient her labs last month confirmed she ovulated with clomid. Is she still interested in another cycle, or would she prefer [facility] referral (Joan) now? documented in this encounter Plan of Treatment Not on file documented as of this encounter Visit Diagnoses Not on filedocumented in this encounter Discontinued Medications Medication Sig Discontinue Reason Start Date End Da te clomiPHENE (CLOMID) 50 mg tablet Take 1 tablet (50 mg total) by mouth as directed. Take 1 tablet cycle day 5-9 Reorder 02/27/2017 04/16/2017 documented as of this encounter Care Teams Contract Forester Relationship Specialty Start Date End Date Amalia Rizvi MD [address] [place] [id number] PCP - General 10/31/16 03/03/18 documented as of this encounter
--- OUTSIDE RECORDS SUMMARY | 2024-08-05 01:00 | XMS_ITS | Encounter Summary ---
Author Organization [facility] Address [address] [place] [address] Care Team Providers Care Application Support Intern Name Role Phone No, Physician Primary Care Provider [phone] Encounter Details Date Type Department Care Team (Late st Contact Info) Description 09/17/2018 7:34 PM SIDE PIECE COVERER Anesthesia Event [facility] [address] [place] [address] Shawna Kapoor MD 2 [facility] [address] [address] Simon Eubanks CRNA 1 [facility] [place] [address] Anesthesia Record Procedure Summary Procedure Name Responsible Anesthesiologist Anesthesia Start Time Anesthesia Stop Time Labor Analgesia Shawna Kapoor MD 09/17/18 1934 0 09/18/18 0525 Events Date Time Event Comment 09/17/2018 1851 Face Time 1934 An Start 1934 Face Time 1944 Time out - Regional 1953 Epidural Placed 2355 Face Time 09/18/2018 0015 Face Time 0015 Face Time 0502 Quick Note Patient's Vagin a sustained a tear during delivery. Dr. Kapoor has attempted to repair the tear, but patient states she can feel everything. 2% lidocaine bolus given to allow for repair. 0525 Handoff to RN I completed my handoff [...] the time of handoff: No value filed. 0525 An Stop Meds Name Total fentaNYL 300 mcg lidocaine 0.5% PF 16 mL bupivacaine (MARCAINE) 2.5 mL in sodium chloride 0.9% 10 mL epidural 8 mL lidocaine (cardiac) syringe 2 % 20 mL * Agents No agents on file. * Blood No blood administrations on file. Lines, Drains, and Airways Type Details Placement Removal Intrauterine Pressure Catheter Placement Date: 09/17/18; Placement Time: 160; Inserted by: Omar Mijares RN 09/17/18 160 by Tonia Mijares RN Peripheral IV Placement Date: 09/17/18; Placement Time: 1400; Catheter Size: 18 G; Orientation: Left; Location: Hand; Site Prep: Chlorhexidine, Alcohol; Technique: Anatomical landmarks; Inserted by: Chris Oquendo RN ; Insertion Attempts: 1; Patient Tolerance: Tolerated well; Removal Date: 09/18/18; Removal Time: 2320; Removal Reason: Other (Comment) 09/17/18 1400 by Tonia Mijares RN 09/18/182320 by Jessica Malone RN Epidural Placement Date: 09/17/18; Placement Time: 1947 (created via procedure documentation); 09/18/18; [id number] by Simon Eubanks CRNA 09/18/18829 by Taylor Choi RN Urethral Catheter Placement Date: 09/17/18; Placement Time: 2039; Inserted by: HAFSA Barajas; Type: Non-latex; Size: 16 Fr.; Balloon Size: 10 mL; Urine Returned: Yes; Removal Date: 09/18/18; Removal Time: 319; Removal Reason: Therapy complete 09/17/182039 by Jessica Malone RN 09/18/18319 by Mattie Vance RN documented in this encounter Social History [...] on file Legal Sex Female 3:31 AM SIDE PIECE COVERER Gender Identity Not on file Sexual Orientation Not on file 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 Not on file Not on file documented as of this encounter OR Notes * Anesthesia Postprocedure Evaluation - Simon Eubanks CRNA - 09/18/2018 5:25 AM CST Patient: Morenita Burdick Procedure Summary Date: 09/17/18 Room / Location: Anesthesia Start: 1933 Anesthesia Stop: 09/18/18524 Procedure: Labor Analgesia Diagnosis: Scheduled Providers: Responsible Provider: Shawna Kapoor MD Anesthesia Type: epidural ASA Status: 3 Anesthesia Type: epidural Last vitals BP 111/56 Pulse 114 Temp 37.7 ??C (99.9 ??F) (Tympanic) Resp 18 SpO2 97% Anesthesia Post Evaluation Patient location during evaluation: floor Patient participation: complete - patient participated Level of consciousness: fully awake Pain score: 0 Pain management: adequate Airway patency: adequate Evidence of recall: unable to evaluate Anesthetic complications: no Cardiovascular status: acceptable (Patietn sustained blood loss during vaginal tear repair. Patiient remains stable.) Respiratory status: acceptable Hydration status: hypovolemic (fluid boluses and blood products ordered by Dr. Kapoor. Pateiint is currently hemodynamically stable. ) Pt is: normothermic Nausea/Vomiting status: none PIECE COVERER * Anesthesia Procedure Notes - Simon Eubanks CRNA - 09/17/2018 8:12 PM SIDE PIECE COVERER Associated Order(s): ANESTHESIA EPIDURAL BLOCK Epidural Block Patient location: OR Start time: 09/17/2018 7:48 PM End time: 09/17/2018 8:02 PM Reason for block: labor analgesia Staff: Placed by: BOARD HANDLER: SIMON EUBANKS Procedure prep: Preprocedure checklist: patient identified, procedure contraindications assessed, procedure consentobtained, surgical consent, IV checked, risks, benefits and alternatives discussed, monitors and equipment checked and timeout performed Patient Position: sitting Procedure performed while patient: awake Monitoring: ECG Prep solution: chlorhexadine/alcohol PPE: provider hat/mask, sterile gloves, sterile gown and sterile drape Skin infiltrated with lidocaine 1%: yes Epidural: Approach: midline Location: L3-4 Number of attempts:2 Other sites attempted: initial attempt resulted in intravascular cath. placement. Needle pulled outand another attempt made. Epidural needle: Injection technique: SANTOS saline Needle type: Tuohy Needle gauge: 18 G Needle length: 13 cm Loss of resistance: 10 cm Catheter: Catheter type: multi-orifice. Catheter at skin depth: 15 cm Aspiration of blood: yes Aspiration of CSF: yes Test dose: negative. Subarachnoid catheter placed: yes Assessment: Sensory level - left: T8 Sensory level - right: T8 Events: patient tolerated procedure well with no complications and blood aspirated PIECE COVERER * Anesthesia Preprocedure Evaluation - Simon Eubanks CRNA - 09/17/2018 7:32 PM CST Anesthesia Evaluation Morenita Burdick is a 23 y.o. female * No procedures listed * HISTORY Past Medical History Neurological Neuro/Psych system: negative Cardiovascular Cardiac system: negative Respiratory Respiratory system: negative Hepatic / Heme Hepatic/Heme system: negative Gastrointestinal GI system: negative Renal / Renal/ system: negative Musculoskeletal/Pain Musculoskeletal/Pain system: negative Endocrine / Other + Obesity (BMI >30) Day of Surgery assessments + Possibility of assessed - known to be . Patient Active Problem List Diagnosis ??? BMI 45.0-49.9, adult (CMS/HCC) ??? PCOS (polycystic ovarian syndrome) ??? Infertility, anovulation Past Medical History: Diagnosis Date ??? Depression ??? Female infertility ??? Polycystic ovary syndrome History reviewed. No pertinent surgical history. OB History Para Term AB Living 2 0 0 0 1 0 SAB TAB Ectopic Multiple Live Births Allergies Allergen Reactions ??? Latex Swelling HOME MEDICATIONS : ondansetron ODT (ZOFRAN-ODT) 4 mg disintegrating tablet Current Facility-Administered Medications: ??? butorphanol (STADOL) 1 mg/mL injection 2 mg, 2 mg, intravenous, Q2H PRN, 2 mg at 09/17/18 1759 ??? Lactated Ringer's (LR) bolus 500 mL, 500 mL, intravenous, PRN ??? Lactated Ringer's (LR) infusion, 125 mL/hr, intravenous, Continuous, Last Rate: 125 mL/hr at 09/17/18 185, 125 mL/hr at 09/17/18 185 ??? lidocaine PF (XYLOCAINE) 10 mg/mL (1 %) preservative free injection 10-300 mg, 1-30 mL, other, Once PRN ??? oxytocin 30 unit/500 mL (0.06 unit/mL) in sodium chloride 0.9% (premix) solution, 0.5-20 milliunits/min, intravenous, Titrated, Last Rate: 8 mL/hr at 09/17/18 1700, 8 milliunits/min at 09/17/18 1700 ??? sodium chloride 0.9% flush 0.5-20 mL, 0.5-20 mL, intra-catheter, Q8H PERFECTO ??? sodium chloride 0.9% flush 0.5-20 mL, 0.5-20 mL, intra-catheter, PRN Social History Smoking Status ??? Former Smoker ??? Quit date: 08/15/2016 Smokeless Tobacco ??? Never Used Comment: Smoking History Packs/day: 0.25 Packs Alcohol Use No Drug Use No Family History Problem Relation [...] mellitus type 2; ??? Hypertension Father Hypertension; PAT Physical Exam Vitals: 09/17/18 1705 09/17/18 1720 09/17/18 1745 BP: 139/79 145/76 Pulse: 88 93 Resp: 18 Temp: 37.2 ??C (99 ??F) PT: No results found for requested labs within last 720 hours. INR: No results found for requested labs within last 720 hours. APTT: No results found for requested labs within last 720 hours. Hgb A1C: No results found for requested labs within last 720 hours. CBC RBC: 09/17/2018: 4.06 M/cumm RDW: No results found for requested labs within last 720 hours. MCHC: 09/17/2018: 33.7 g/dL MCH: 09/17/2018: 29.1 pg MCV: 09/17/2018: 86.2 fL Hct: 09/17/2018: 35.0 %* Hgb: 09/17/2018: 11.8 g/dL* WBC: 09/17/2018: 9.6 K/cumm MPV: 09/17/2018: 11.5 fL Platelets: 09/17/2018: 235 K/cumm RDW CV: 09/17/2018: 14.5 % RDW Sd: 09/17/2018: 45.2 fL BMP Glucose: 09/13/2018: 121 mg/dL Calcium: 09/13/2018: 8.7 mg/dL Sodium: 09/13/2018: 134 mmol/L* Potassium: 09/13/2018: 3.6 mmol/L CO2: 09/13/2018: 19 mmol/L* Chloride: 09/13/2018: 101 mmol/L BUN: 09/13/2018: 5 mg/dL* Creatinine: 09/13/2018: 0.46 mg/dL* DOS Physical Exam Medical history, medications, and allergies reviewed. Attestation: I endorse the findings of the anesthesia pre-evaluation assessment dated: 09/17/2018. Airway Exam: Mallampati: I Cervical ROM: FROM TM distance: >4 Jaw ROM: full Cardiovascular Exam: Rate: regular Rhythm: regular Pulmonary Exam: LCTA, bilat EENT Exam: trachea midline Dental Exam: Appears intact Skin Exam: Skin is warm and dry. Capillary refill is < 3 seconds. Turgor is normal. Abdominal Exam: Abdomen is soft. Bowel sounds are present. Current state: Patient's current state is cooperative and interactive. Anesthesia Plan ASA 3 Planned anesthesia: Epidural Postoperative Plan: Postoperative administration opioids intended. No postoperative mechanical ventilation intended. Patient's planned disposition post procedure is Obs. unit. Informed Consent: Discussed plan with attending. Anesthesia plan and risks discussed with patient. Consent and Attending signature: I and/or my designee have discussed the anesthesia plan, benefits, possible alternatives, parental presence at time of induction (if indicated), and clinically relevant risks that may include dental injury, unintentional awareness, and/or other complications. The patient and/or parent/legal guardian understand, and agree to proceed. All questions answered. PIECE COVERER documented in this encounter Plan of Treatment Not on file documented as of this encounter Procedures Procedure Name Priority Date/Time Associated Diagnosis Comments ANESTHESIA EPIDURAL BLOCK Routine 09/17/2018 8:12 PM SIDE PIECE COVERER Procedure Note - Simon Eubanks CRNA - 09/17/2018 8:12 PM CSTThis note is in progress. Epidural Block Patient location: OR Start time: 09/17/2018 7:48 PM End time: 09/17/2018 8:02 PM Reason for block: labor analgesia Staff: Placed by: BOARD HANDLER: SIMON EUBANKS Procedure prep: Preprocedure checklist: patient identified, procedure contraindicationsassessed, procedure consent obtained, surgical consent, IV checked, risks,benefits and alternatives discussed, monitors and equipment checked andtimeout performed Patient Position: sitting Procedure performed while patient: awake Monitoring: ECG Prep solution: chlorhexadine/alcohol PPE: provider hat/mask, sterile gloves, sterile gown and sterile drape Skin infiltrated with lidocaine 1%: yes Epidural: Approach: midline Location: L3-4 Number of attempts:2 Other sites attempted: initial attempt resulted in intravascular cath.placement. Needle pulled out and another attempt made. Epidural needle: Injection technique: SANTOS saline Needle type: Tuohy Needle gauge: 18 G Needle length: 13 cm Loss of resistance: 10 cm Catheter: Catheter type: multi-orifice. Catheter at skin depth: 15 cm Aspiration of blood: yes Aspiration of CSF: yes Test dose: negative. Subarachnoid catheter placed: yes Assessment: Sensory level - left: T8 Sensory level - right: T8 Events: patient tolerated procedure well with no complications and bloodaspirated documented in this encounter Visit Diagnoses Not on filedocumented in this encounter Administered Medications Inactive Administered Medications - up to 3 most recent administrations Medication Order MAR Action Action Date Dose Rate Site bupivacaine (MARCAINE) 2.5 mL in sodium chloride 0.9% 10 mL epidural Continuous PRN, Starting on 09/18/18 at 0137, Anesthesia Intra-op New Bag 09/18/2018 1:37 AM SIDE PIECE COVERER 8 mL fentaNYL (SUBLIMAZE) preservative free injection epidural, As needed, Starting on Thu09/17/18 at 2002, Anesthesia Intra-op Given 09/18/2018 1:58 AM SIDE PIECE COVERER 100 mcg Given 09/18/2018 12:02 AM SIDE PIECE COVERER 100 mcg Given 09/17/2018 8:02 PM SIDE PIECE COVERER 100 mcg lidocaine (cardiac) (XYLOCAINE) preservative free injection As needed, Starting on 09/18/18 at 0500, Anesthesia Intra-op, Indications: Ventricular ArrhythmiasIndications:Ventricular Arrhythmias Given 09/18/2018 5: 10 AM SIDE PIECE COVERER 5 mL Given 09/18/2018 5:06 AM SIDE PIECE COVERER 5 mL Given 09/18/2018 5:03 AM SIDE PIECE COVERER 5 mL lidocaine (XYLOCAINE) 5 mg/mL (0.5 %) preservative free injection As needed, Starting on Thu09/17/18 at 2001, Anesthesia Intra-op, Indications: Administration of Local AnesthesiaIndications:Administration of Local Anesthesia Given 09/18/2018 12:02 AM SIDE PIECE COVERER 8 mL Given 09/17/2018 8:02 PM SIDE PIECE COVERER 8 mL documented in this encounter Orders Procedures Count Last Ordered Date First Orde red Date ANESTHESIA EPIDURAL BLOCK 1 09/17/2018 documented in this encounter Care Teams Application Support Intern Relationship Specialty Start Date End Date No, Physician PCP - General 09/17/18 01/11/20 documented as of this encounter
--- OUTSIDE RECORDS SUMMARY | 2024-08-05 01:00 | XMS_ITS | Encounter Summary ---
Author Organization [facility] Address [address] [place] [address] Phone Care Team Providers Care Compactor Driver Name Role Phone Leonard Hunter MD Unavailable [phone] Amalia Rizvi MD Primary Care Provider [phone] Encounter Details Date Type Department Care Team (Late st Contact Info) Description 05/02/2021 Telephone [facility] Obstetrics and Gynecology [address] [place] [address] Tonia Thomas Social History Tobacco Use Types Packs/Day Years [...] on file Legal Sex Female 3:31 AM BULB INSPECTOR Gender Identity Not on file Sexual Orientation Not on file 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 Messaged hrob pool to schedule patient and referral placed in media. documented in this encounter Plan of Treatment Not on file documented as of this encounter Visit Diagnoses Not on filedocumented in this encounter Care Teams Compactor Driver Relationship Specialty Start Date End Date Amalia Rizvi MD [address] [place] [id number] PCP - General 03/08/20 05/07/21 Leonard Hunter MD [address] [place] [address] DR DO [address] [address] Equipment Operator Obstetrics and Gynecology 01/12/20 documented as of this encounter
--- OUTSIDE RECORDS SUMMARY | 2024-08-05 01:00 | XMS_ITS | Encounter Summary ---
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 Not on file Not on file documented as of this encounter Discharge Disposition Disposition Code Departure Means Destination Discharge to home or self care documented in this encounter Plan of Treatment Not on file documented as of this encounter Procedures Procedure Name Priority Date/Time Associated Diagnosis Comments COVID-19 CORONAVIRUS RNA Routine 01/11/2020 2:36 PM CDT documented in this encounter Results * COVID-19 Coronavirus RNA Nasopharyngeal (01/11/2020 2:36 PM CDT) COVID-19 RNA Negative Negative ATA FERNÁNDEZ (FRANCIS) Comment: Testing performed by [facility] ([phone]). This test is performed using the [employer] Xpert Xpress SARS-CoV-2 assay. ??This is a real-time RT-PCR test intended for the qualitative detection of nucleic acid from the SARS-CoV-2. ??This assay has been reviewed by the FDA for Emergency Use Authorization (EUA). The performance characteristics have been verified by the [facility]. ??Results must be considered in the clinical context and a negative result does not rule out infection. Testing performed by: [facility], [address] [place] [address]., [id number] Nasopharyngeal 01/11/2020 2: 36 PM CDT 01/11/2020 4:06 PM CDT us Leonard Hunter MD LAB MICROBIOLOGY - GEN ERAL ORDERABLES Final Result ATA FERNÁNDEZ (FRANCIS) 1 [facility] Department [place] [address] documented in this encounter Visit Diagnoses Not on filedocumented in this encounter Care Teams Gutter Installer Relationship Specialty Start Date End Date No, Physician PCP - General 09/17/18 01/11/20 documented as of this encounter
--- OUTSIDE RECORDS SUMMARY | 2024-08-05 01:00 | XMS_ITS | Encounter Summary ---
Author Organization [facility] Address [address] [place] [address] Care Team Providers Care Sock Drier Name Role Phone No, Physician Primary Care Provider [phone] Reason for Visit * Reason Comments Rupture of Membranes been leaking fluid for 1.5-2 weeks; has been cramping for a month but getting worse last week and a half Encounter Details Date Type Department Care Team (Latest Contact Info) Description 08/15/2018 5:22 PM LACQUER POLISHER - 08/15/2018 7:50 PM LACQUER POLISHER Hospital Encounter [facility] [address] [place] [address] Leonard Hunter MD [address] [place] [address] DR DO [address] [address] Discharge Disposition: Discharge to home or self [...] on file Legal Sex Female 3:31 AM LACQUER POLISHER Gender Identity Not on file Sexual Orientation Not on file 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 Not on file Not on file documented as of this encounter Last Filed Vital Signs Vital Sign Reading Time Taken Comments Blood Pressure - - Pulse - - Temperature 36.9 ??C (98.5 ??F) 08/15/2018 6:20 PM CS T Respiratory Rate - - Oxygen Saturation - - Inhaled Oxygen Concentration - - Weight 141.1 kg (311 lb) 08/15/2018 6:20 PM LACQUER POLISHER Height 154.9 cm (5' 1 ) 08/15/2018 6:20 PM LACQUER POLISHER Body Mass Index 58.76 08/15/2018 6:20 PM LACQUER POLISHER documented in this encounter Discharge Instructions * Discharge Instructions* Mattie Castellanos RN - 08/15/2018 7:38 PM LACQUER POLISHER If pain gets worse, call to be seen before your scheduled appointment. UER POLISHER * Attachments The following attachments cannot be sent through Care Everywhere. * at 31 to 34 Weeks (Discharge Care) (Danish) * Round Ligament Pain (Watch Technician) (Danish) documented in this encounter Discharge Disposition Disposition Code Departure Means Destination Discharge to home or self care documented in this encounter Plan of Treatment Not on file documented as of this encounter Procedures Procedure Name Priority Date/Time Associated Diagnosis Comments PAMG-1 PROTEIN MARKER (ROM) Routine 08/15/2018 6:11 PM LACQUER POLISHER URINALYSIS AND REFLEX TO MICROSCOPIC AND CULTURE STAT 08/15/2018 5:52 PM LACQUER POLISHER DRUGS OF ABUSE SCREEN, URINE WITHOUT CONFIRMATION Routine 08/15/2018 5:52 PM LACQUER POLISHER documented in this encounter Results * PAMG-1 protein marker (ROM) (08/15/2018 6:11 PM LACQUER POLISHER) IFG Binding Protein-1 / AFP Negative ATA FERNÁNDEZ (FRANCIS) Swab 08/15/2018 6:11 PM LACQUER POLISHER 08/15/2018 6:15 PM LACQUER POLISHER Narrative ATA FERNÁNDEZ (FRANCIS) - 08/15/2018 6:43 PM LACQUER POLISHER us Leonard Hunter MD LAB BODY FLUIDS AND ST OOLS ORDERABLES Final Result ATA FERNÁNDEZ (FRANCIS) 1 [facility] Department [place] [address] * Drug screen, urine (08/15/2018 5:52 PM LACQUER POLISHER) Amphetamines, Class Negative Screen Negative Screen ATA FERNÁNDEZ (BABB) Comment: Interpretive Data Amphetamines cut off value 1000 ng/mL Current interpretive data was last revised on 2014. Barbiturates, Class Negative Screen Negative Screen ATA FERNÁNDEZ (FRANCIS) Comment: Interpretive Data Barbiturates cut off value 200 ng/mL Current interpretive data was last revised on 2015. Benzodiazepines, ur Negative Screen Negative Screen ATA FERNÁNDEZ (FRANCIS) Comment: Interpretive Data Benzodiazepines cut off value 200 ng/mL Current interpretive data was last revised on 2014. Cannabinoids, Screen Negative Screen Negative Screen ATA FERNÁNDEZ (BABB) Comment: Interpretive Data THC/Marijuana cut off value 50 ng/mL Current interpretive data was last revised on 2014. Cocaine metabolite Negative Screen Negative Screen ATA FERNÁNDEZ (FRANCIS) Comment: Interpretive Data Cocaine cut off value 300 ng/mL Current interpretive data was last revised on 2014. Opiates, Class Negative Screen Negative Screen ATA FERNÁNDEZ (FRANCIS) Comment: Interpretive Data Opiates cut off value 2000 ng/mL Current interpretive data was last revised on 2014. Phencyclidine, ur Negative Screen Negative Screen ATA FERNÁNDEZ (BABB) Comment: Interpretive Data PCP cut off value 25 ng/mL All drugs included in this panel are screening testing only. All positive urines will be confirmed upon Doctor request only. Unconfirmed screening results must not be used for non-medical purposes. Current interpretive data was last revised on 2015. Urine 08/15/2018 5:52 PM LACQUER POLISHER 08/15/2018 5:56 PM LACQUER POLISHER Narrative ATA FERNÁNDEZ (FRANCIS) - 08/15/2018 6:13 PM LACQUER POLISHER us Leonard Hunter MD LAB URINE ORDERABLES F inal Result ATA FERNÁNDEZ (FRANCIS) 1 [facility] Department [place] [address] * Urinalysis reflex to microscopic and culture Urine, clean voided (08/15/2018 5:52 PM LACQUER POLISHER) Color, ur Yellow Yellow [facility] (FRANCIS) Clarity, ur Clear Clear [facility] (FRANCIS) Specific gravity, ur 1.020 1.010 - 1.025 [facility] (FRANCIS) pH, urine 6.0 [facility] (FRANCIS) Protein, ur ql Negative Negative [facility] (FRANCIS) Glucose, ur ql Negative Negative [facility] (FRANCIS) Ketones, ur Negative Negative [facility] (FRANCIS) Bilirubin, ur Negative Negative [facility] (FRANCIS) Blood, ur Negative Negative [facility] (FRANCIS) Urobilinogen, ur 0.2 mg/dL [facility] (FRANCIS) Nitrite, ur Negative Negative [facility] (FRANCIS) Leukocyte esterase, ur Negative Negative [facility] (FRANCIS) Urine, clean voided 08/15/2018 5:52 PM LACQUER POLISHER 08/15/2018 5:56 PM LACQUER POLISHER Narrative [facility] (FRANCIS) - 08/15/2018 6:00 PM LACQUER POLISHER ?? Urine pH is affected by diet, medications, systemic acid-base disturbances, and renal tubular function. ??pH may affect urinary stone formation. ??For example, urine pH below 6.0 may help reduce the tendency for calcium phosphate stones and pH greater than 6.0 may reduce the tendency for uric acid stone formation. Source: [employer]. Last revised 08-13-2017 us Leonard Hunter MD LAB MICROBIOLOGY - GEN ERAL ORDERABLES Final Result ATA FERNÁNDEZ (BABB) 1 [facility] [place] [address] documented in this encounter Visit Diagnoses Not on filedocumented in this encounter Care Teams Sock Drier Relationship Specialty Start Date End Date No, Physician PCP - General 03/04/18 09/12/18 documented as of this encounter
--- OUTSIDE RECORDS SUMMARY | 2024-08-05 01:00 | XMS_ITS | Encounter Summary ---
Author Organization [facility] Address [address] 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 Take 1 tablet cycle day 5-9 5 tablet 10/13/2017 05/29/2018 documented in this encounter Miscellaneous Notes * Telephone Encounter - Mena Ibarra LPN - 10/13/2017 3:21 PM CDT LMOM to return call. Clomid 50mg ERX'd to [facility] and she still has refills at / for the metformin 500mg 1 BID with meals until the end of January, she can call the pharmacy for that. * Telephone Encounter - Nancy Villegas MD - 10/13/2017 2:38 PM CDT Yes - okay to reorder at previous dose. * Telephone Encounter - Mena Ibarra LPN - 10/13/2017 12:06 PM CDT Patient states she has not taken metformin or clomid since Jun 2017. Ok to reorder? * Telephone Encounter - Maddie Baldwin - 10/13/2017 11:53 AM CDT Pt called and had Dr. Villegas order a blood test to get done at [facility] and pt states that since then she has had a negative test and has started her cycle pt asked if should still getpregnancy test informed pt that since got negative and cycle started she is probably not but could go ahead in get blood work if she fells the need to confirm pt voiced understanding and want ed to know if Dr. Villegas would reorder clomid and metformin for pt states Dr put her on it and thenwent off of it and wanted to see about restarting please advise and [id number] documented in this encounter Plan of Treatment Not on file documented as of this encounter Visit Diagnoses Not on filedocumented in this encounter Discontinued Medications Medication Sig Discontinue Reason Start Date End Da te clomiPHENE (CLOMID) 50 mg tablet Take 1 tablet (50 mg total) by mouth as directed. Take 1 tablet cycle day 5-9 Reorder 04/16/2017 10/13/2017 documented as of this encounter Care Teams Mesh Cutter Relationship Specialty Start Date End Date Amalia Rizvi MD [address] [place] [address] PCP - General 10/31/16 03/03/18 documented as of this encounter
--- OUTSIDE RECORDS SUMMARY | 2024-08-05 01:00 | XMS_ITS | Encounter Summary ---
Author Organization [facility] Healthcare Address [address] [place] [address] Care Team Providers Care Senior Grant Writer Name Role Phone No, Physician Primary Care Provider [phone] Reason for Visit * Reason Comments Back Pain middle of back down in to hip area, also groin pain Encounter Details Date Type Department Care Team (Latest Contact Info) Description 05/29/2018 4:44 PM CDT - 05/29/2018 6:20 PM CDT Hospital Encounter [facility] [address] [place] [address] Leonard Hunter MD [address] [place] [address] DR DO B MICHAEL [address] [place] [address] Discharge Disposition: Discharge to home or self [...] file 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 Gender Identity Not on file Sexual Orientation Not on file 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 * Early Labor Signs (General Information) (Togolese) documented in this encounter Discharge Disposition Disposition Code Departure Means Destination Discharge to home or self care documented in this encounter Plan of Treatment Not on file documented as of this encounter Procedures Procedure Name Priority Date/Time Associated Diagnosis Comments URINALYSIS AND REFLEX TO MICROSCOPIC AND CULTURE STAT 05/29/2018 5:09 PM CDT documented in this encounter Results * (ABNORMAL) Urinalysis reflex to microscopic and culture Urine, clean voided (05/29/2018 5:09 PM CDT) Color, ur Yellow Yellow [facility] ([facility]) Clarity, ur Clear Clear [facility] ([facility]) Specific gravity, ur 1.026(H) 1.010 - 1.025 [facility] ([facility]) pH, urine 6.5 [facility] ([facility]) Protein, ur ql Negative [...] Negative [facility] ([facility]) Urine, clean voided 05/29/2018 5:09 PM CDT 05/29/2018 5:21 PM CDT Narrative [facility] ([facility]) - 05/29/2018 5:22 PM CDT ?? Urine pH is affected by diet, medications, systemic acid-base disturbances, and renal tubular function. ??pH may affect urinary stone formation. ??For example, urine pH below 6.0 may help reduce the tendency for calcium phosphate stones and pH greater than 6.0 may reduce the tendency for uric acid stone formation. Source: [facility]. Last revised 08-13-2017 us Leonard Hunter MD LAB MICROBIOLOGY - GEN ERAL ORDERABLES Final Result [facility]A [facility]ERN[facility]DE[facility] (ADAIR) 1 [facility] Department [place] [address] documented in this encounter Visit Diagnoses Not on filedocumented in this encounter Discontinued Medications Medication Sig Discontinue Reason Start Date End Da te acetaminophen (TYLENOL) 325 mg tablet take 1 tablet by oral route every 4 hours as needed Therapy completed 10/31/2015 05/29/2018 clomiPHENE (CLOMID) 50 mg tablet Take 1 tablet (50 mg total) by mouth as directed. Take 1 tablet cycle day 5-9 Therapy completed 10/13/2017 05/29/2018 documented as of this encounter Care Teams Senior Grant Writer Relationship Specialty Start Date End Date No, Physician PCP - General 03/04/18 09/12/18 documented as of this encounter
--- OUTSIDE RECORDS SUMMARY | 2024-08-05 01:00 | XMS_ITS | Encounter Summary ---
Author Organization [facility] Healthcare Address [address] [place] [address] Care Team Providers Care Brusher Name Role Phone No, Physician Primary Care Provider [phone] Leonard Hunter MD Unavailable [phone] Encounter Details Date Type Department Care Team (Late st Contact Info) Description 01/12/2020 1:17 PM CDT Anesthesia Event [facility] Operating Room 1 [place] [address] Sandro Golden MD [address] [place] [address] Iris Rahman CRNA [address] [place] [address] Anesthesia Record Procedure Summary Procedure Name Responsible Anesthesiologist Anesthesia Start Time Anesthesia Stop Time SUCTION DILATION AND CURETTAGE (Perineum) Sandro Golden MD 01/12/20 1317 01/12/20 1354 Events Date Time Event Comment 01/12/2020 1218 1317 In Room 1317 An Start 1317 An Start Data 1321 An Induction The patient was reevaluated immediately before moderate or deep sedation use and before anesthesia induction. 1324 An LMA 1325 Anesthesia Ready 1334 Proc Start 1334 Incision Start 1341 Proc Fin 1342 Quick Note ..Two or more P rophylactic Antiemetics given 1347 Airway Removed 1348 Out of Room 1354 An Stop 1354 Handoff to RN I completed my handoff [...] Patient disposition at the time of handoff: PACU Meds Name Total fentaNYL 100 mcg propofol 200 mg lidocaine (cardiac) syringe 2 % 100 mg dexamethasone 10 mg ondansetron 4 mg Lactated Ringer's (LR) infusion 700 mL * Agents Name O2 Sevoflurane Inspired Sevoflurane * Blood No blood administrations on file. Lines, Drains, and Airways Type Details Placement Removal Intrauterine Pressure Catheter Placement Date: 09/17/18; Placement Time: 1602; Inserted by: Omar Mijares RN 09/17/18 1602 by Tonia Mijares RN Peripheral IV Placement Date: 01/12/20; Placement Time: 1145; Catheter Size: 20 G; Orientation: Left; Location: Hand; Site Prep: Chlorhexidine; Insertion Attempts: 1; Patient Tolerance: Tolerated well; Removal Date: 01/12/20; Removal Time: 1510 01/12/20 1145 by Ashlie Burrell RN 01/12/20 1510 by Ashlie Burrell RN Supraglottic Airway Placement Date: 01/12/20; Placement Time: 1324 (created via procedure documentation); Mask Ventilation: 1; Size: 4; Insertion Attempts: 1; Removal Date: 01/12/20; Removal Time: 1347 01/12/20 1324 by Luis F Enriquez CRNA 01/12/20 1347 by Luis F Enriquez CRNA Urethral Catheter Placement Date: 01/12/20; Placement Time: 1328; Inserted by: Narda Che RN; Type: Non-latex; Size: 16 Fr.; Urine Returned: Yes; Removal Date: 01/12/20; Removal Time: 1329; Removal Reason: (in and out catheter to drain bladder) 01/12/20 1328 by Farrah Jansen, ABHI 01/12/20 1329 by Farrah Jansen, ABHI RETIRED Surgical Site 01/12/20; 1347; Vagina; 07/05/24 (Retired LDA, Removed/Completed by CME with LDA Utility); 1213 (Retired LDA, Removed/Completed by [facility] with LDA Utility) 01/12/20 1347 by Farrah [...] on file 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 Gender Identity Not on file Sexual Orientation Not on file 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 file Not on file Not on file documented as of this encounter OR Notes * Anesthesia Postprocedure Evaluation - Luis F Enriquez CRNA - 01/12/2020 1:55 PM CDT Patient: Morenita Burdick Procedure Summary Date: 01/12/20 Room / Location: [facility] OR [address] [place] [address] OPERATING ROOM Anesthesia Start: 1317 Anesthesia Stop: 1354 Procedure: SUCTION DILATION AND CURETTAGE (N/A Perineum) Diagnosis: Provider: Leonard Hunter MD Responsible Provider: Sandro Golden MD Anesthesia Type: general ASA Status: 3 Anesthesia Type: general Last vitals BP 146/90 Pulse 80 Temp 36.4 ??C (97.5 ??F) (Temporal) Resp 20 SpO2 99% Anesthesia Post Evaluation Patient location during evaluation: PACU Patient participation: complete - patient participated Level of consciousness: fully awake Pain management: inadequate Airway patency: adequate Evidence of recall: no Anesthetic complications: no Cardiovascular status: acceptable Respiratory status: acceptable Hydration status: acceptable Pt is: normothermic Nausea/Vomiting status: none * Anesthesia Procedure Notes - Luis F Enriquez CRNA - 01/12/2020 1:25 PM CDTAssociated Order(s): Airway Airway Patient location: OR Urgency: elective Date/time: 01/12/2020 1:24 PM Indications for airway management: anesthesia Difficult airway: no Staff: Placed by: ACCOUNT DEVELOPMENT REPRESENTATIVE: Luis F Enriquez CRNA Emergent airway documentation: Risks and benefits discussed: yes Consent obtained: yes Consent given by: patient Airway prep: Preoxygenated: yes Mask difficulty assessment: 1 - vent by mask Spontaneous ventilation during airway: absent Sedation level during airway: GA Final airway details: Final airway type: supraglottic airway Final supraglottic airway: classic SGA size: 4 Number of attempts: 1 Ventilation between attempts: none * Anesthesia Preprocedure Evaluation - Sandro Golden MD - 01/12/2020 12:02 PM CDT Anesthesia Evaluation Morenita Burdick is a 24 y.o. female Procedure(s): SUCTION DILATION AND CURETTAGE HISTORY Past Medical History Information obtained from: patient and chart. Neurological + Psychiatric history (ADHD) - depression Cardiovascular Cardiac system: negative Respiratory Respiratory system: negative Hepatic / Heme Hepatic/Heme system: negative Gastrointestinal + GERD - does not use medication. Renal / Renal/ system: negative Musculoskeletal/Pain Musculoskeletal/Pain system: negative Endocrine / Other + Obesity (BMI >30)- morbid obesity (BMI>40). Day of Surgery assessments + Possibility of assessed - HCG negative (see labs). Patient Active Problem List Diagnosis ??? BMI 45.0-49.9, adult ([facility]) ??? PCOS (polycystic ovarian syndrome) ??? Infertility, anovulation Past Medical History: Diagnosis Date ??? ADHD (attention deficit hyperactivity disorder) ??? Anemia ??? Depression ??? Female infertility ??? GERD (gastroesophageal reflux disease) ??? History of adverse effect of anesthesia freaking out pulling at IV, crying, anxious, scared ??? Miscarriage ??? Motion sickness ??? Obesity ??? Polycystic ovary syndrome Past Surgical History: Procedure Laterality Date ??? COLONOSCOPY 2014 OB History 4 Para 1 Term 1 0 AB 1 Living 1 SAB TAB Ectopic Multiple 0 Live Births 1 Allergies Allergen Reactions ??? Latex Swelling HOME MEDICATIONS : cephalexin (KEFLEX) 500 mg capsule phentermine (ADIPEX-P) 37.5 mg tablet predniSONE (DELTASONE) 20 mg tablet topiramate (TOPAMAX) 50 mg tablet No current facility-administered medications for this visit. No current outpatient medications on file. Facility-Administered Medications Ordered in Other Visits: ??? Lactated Ringer's (LR) infusion, 30 mL/hr, intravenous, Continuous, Last Rate: 30 mL/hr at 01/12/20 1150, 30 mL/hr at 01/12/20 1150 ??? sodium chloride 0.9% flush 0.5-20 mL, 0.5-20 mL, intra-catheter, PRN ??? sodium chloride 0.9% flush 0.5-20 mL, 0.5-20 mL, intra-catheter, PRN Social History Tobacco Use Smoking Status Former Smoker ??? Packs/day: 0.25 ??? Years: 6.00 ??? Pack years: 1.50 ??? Start date: 2013 Smokeless Tobacco Never Used Tobacco Comment Smoking History Packs/day: 0.25 Packs Substance and Sexual Activity Alcohol Use Yes Comment: rarely Substance and Sexual Activity Drug Use No [...] mellitus type 2; ??? Hypertension Father Hypertension; There were no vitals filed for this visit. PT: No results found for requested labs within last 720 hours. INR: No results found for requested labs within last 720 hours. APTT: No results found for requested labs within last 720 hours. Hgb A1C: No results found for requested labs within last 720 hours. CBC RBC: 01/12/2020: 4.66 M/cumm RDW: No results found for requested labs within last 720 hours. MCHC: 01/12/2020: 32.6 g/dL MCH: 01/12/2020: 27.3 pg MCV: 01/12/2020: 83.5 fL Hct: 01/12/2020: 38.9 % Hgb: 01/12/2020: 12.7 g/dL WBC: 01/12/2020: 10.4 K/cumm* MPV: 01/12/2020: 11.4 fL Platelets: 01/12/2020: 297 K/cumm RDW CV: 01/12/2020: 15.8 %* RDW Sd: 01/12/2020: 47.6 fL BMP Glucose: No results found for requested labs within last 720 hours. Calcium: No results found for requested labs within last 720 hours. Sodium: No results found for requested labs within last 720 hours. Potassium: No results found for requested labs within last 720 hours. CO2: No results found for requested labs within last 720 hours. Chloride: No results found for requested labs within last 720 hours. BUN: No results found for requested labs within last 720 hours. Creatinine: No results found for requested labs within last 720 hours. DOS Physical Exam Medical history, medications, and allergies reviewed. Attestation: I endorse the findings of the anesthesia pre-evaluation assessment dated: 01/12/2020. Airway Exam: Mallampati: I Cervical ROM: FROM TM distance: >4 Jaw ROM: full Cardiovascular Exam: Rate: regular Rhythm: regular Pulmonary Exam: LCTA, bilat Dental Exam: Appears intact Current state: Patient's current state is cooperative and interactive. Anesthesia Plan ASA 3 My patient is approved for the Anesthesia Controlled Medication protocol when under care of a ACCOUNT DEVELOPMENT REPRESENTATIVE Planned anesthesia: General Team communication plan: LMA and oral ET tube Comments: no versed Postoperative Plan: Postoperative administration opioids intended. No postoperative mechanical ventilation intended. Patient's planned disposition post procedure is Outpatient. Informed Consent: Discussed plan with attending and ACCOUNT DEVELOPMENT REPRESENTATIVE. Anesthesia plan and risks discussed with patient. [...] Procedure Name Priority Date/Time Associated Diagnosis Comments MN AN ELECTIVE SUPRAGLOTTIC AIRWAY Routine 01/12/2020 1:25 PM CDT documented in this encounter Results * MN AN ELECTIVE SUPRAGLOTTIC AIRWAY (01/12/2020 1:25 PM CDT) Luis F Ryan CRNA - 01/12/2020 1:25 PM CDT Luis F Enriquez CRNA ? 01/12/2020 ??1:26 PM Airway Patient location: OR Urgency: elective Date/time: 01/12/2020 1:24 PM Indications for airway management: anesthesia Difficult airway: no Staff: Placed by: ACCOUNT DEVELOPMENT REPRESENTATIVE: Luis F Enriquez CRNA Emergent airway documentation: Risks and benefits discussed: yes Consent obtained: yes Consent given by: patient Airway prep: Preoxygenated: yes Mask difficulty assessment: 1 - vent by mask Spontaneous ventilation during airway: absent Sedation level during airway: GA Final airway details: Final airway type: supraglottic airway Final supraglottic airway: classic SGA size: 4 Number of attempts: 1 Ventilation between attempts: none Sandro Golden MD ANESTHESIA ORDERABLES Final Result documented in this encounter Visit Diagnoses Not on filedocumented in this encounter Administered Medications Inactive Administered Medications - up to 3 most recent administrations Medication Order MAR Action Action Date Dose Rate Site dexAMETHasone (DECADRON) injection solution intravenous, Administer over 2 Minutes, As needed, Starting on Sheree 01/12/20 at 1331, Anesthesia Intra-op Given 01/12/2020 1:31 PM CDT 10 mg fentaNYL (SUBLIMAZE) preservative free injection intravenous, As needed, Starting on Sheree 01/12/20 at 1318, Anesthesia Intra-op Given 01/12/2020 1:25 PM CDT 50 mcg Given 01/12/2020 1:18 PM CDT 50 mcg lidocaine (cardiac) (XYLOCAINE) preservative free injection intravenous, As needed, Starting on Sheree 01/12/20 at 1322, Anesthesia Intra-op, Indications: Ventricular ArrhythmiasIndications:Ventricular Arrhythmias Given 01/12/2020 1:22 PM CDT 100 mg ondansetron (ZOFRAN) injection intravenous, Administer over 2 Minutes, As needed, Starting on Sheree 01/12/20 at 1340, Anesthesia Intra-op Given 01/12/2020 1:40 PM CDT 4 mg propofoL (DIPRIVAN) IV intravenous, As needed, Starting on Sheree 01/12/20 at 1322, Anesthesia Intra-op Given 01/12/2020 1:22 PM CDT 200 mg documented in this encounter Care Teams Brusher Relationship Specialty Start Date End Date No, Physician PCP - General 01/12/20 03/07/20 Leonard Hunter MD 4 [facility] DR DO [address] [address] Lab Analyst Obstetrics and Gynecology 01/12/20 documented as of this encounter
--- OUTSIDE RECORDS SUMMARY | 2024-08-05 01:00 | XMS_ITS | Encounter Summary ---
Author Organization [facility] Address [address] [place] [address] Phone Care Team Providers Care Universal Grinder Tool Name Role Phone Amalia Rizvi MD Primary Care Provider [phone] Reason for Visit * Reason Comments Other Discuss medication Encounter Details Date Type Department Care Team (Late st Contact Info) Description 01/28/2017 3:10 PM CDT Office Visit [facility] [address] [place] [phone] Nancy Villegas MD [address] [place] [address] PCOS (polycystic ovarian syndrome) (Primary Dx); Infertility, anovulation; BMI 45.0-49.9, adult ([facility]) Social History Tobacco Use Types Packs/Day Years Used Date Smoking Tobacco: Former Comments:Smoking History Pac ks/day: 0.25 Packs Alcohol Use Standard Drinks/Week Comments No 0 (1 standard drink = 0.6 oz pur e alcohol) Comments No Sex and Gender Information Value Date Recorded Sex Assigned at Not on file Legal Sex Female 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 CLERK Gender Identity Not on file Sexual Orientation Not on file 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 Not on file Not on file documented as of this encounter Last Filed Vital Signs Vital Sign Reading Time Taken Comments Blood Pressure 110/80 01/28/2017 3:17 PM CDT Pulse - - Temperature - - Respiratory Rate - - Oxygen Saturation - - Inhaled Oxygen Concentration - - Weight 123.4 kg (272 lb) 01/28/2017 3:17 PM CDT Height - - Body Mass Index 49.75 08/08/2016 3:16 PM 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 CLERK documented in this encounter Ordered Prescriptions Prescription Sig Dispense Quantity Refills Last Filled Start Date End Date metFORMIN (GLUCOPHAGE) 500 mg tabletIndications: PCOS (polycystic ovarian syndrome) Take 1 tablet (500 mg total) by mouth 2 (two) times a day with meals. 60 tablet 11 01/28/2017 01/28/2018 documented in this encounter Progress Notes * Nancy Villegas MD - 01/28/2017 3:10 PM CDT Subjective/Objective Patient ID: Morenita Nguyễn is a 21 y.o. female. Chief Complaint Other (Discuss medication) HPI presents to f/u infertility. She is s/p SAB 11/2015. Menses usually q 28 days. After SAB had a normal cycle in early December but not again until March and now q 24-35 days. Cycles are heavy bleeding x 7-10 days, changing super tampons and pads q 1.5 -2 hours. Dysmenorrhea relieved somewhat with ibuprofen. She used OCPs in the past, 2012-early 2014, after diagnosed with PCOS. She reports hair growth on chin, neck and lower abdomen. HCG, TSH, FT4, testosterone, PRL were WNL. Luteal phase progesterone was 1.6. Management options were previously discussed and she elected for clomid. She is s/p 3 cycles (August - October-December). She has not used home OPK, but luteal phase progesterone with second cycle was 15.3. Same partner as first . Review of Systems Constitutional: Positive for unexpected weight change. Genitourinary: Negative for menstrual problem. Physical Exam Constitutional: She is oriented to person, place, and time. She appears well- developed and well-nourished. Neurological: She is alert and oriented to person, place, and time. Assessment/Plan 1. PCOS (polycystic ovarian syndrome) - metFORMIN (GLUCOPHAGE) 500 mg tablet; Take 1 tablet (500 mg total) by mouth 2 (two) times a day with meals. Dispense: 60 tablet; Refill: 11 2. Infertility, anovulation Failed clomid cycles x 3. Discussed decreased success with time and offered [facility] referral, which shedeclines. Plan for combination clomid/metformin cycles x 3-4 and then reassess. She will call with start of cycles to schedule luteal phase progesterone levels. 3. BMI 45.0-49.9, adult ([facility]) Referral made to grades 9 through 12 teacher. documented in this encounter Plan of Treatment Not on file documented as of this encounter Visit Diagnoses Diagnosis PCOS (polycystic ovarian syndrome)- Primary Polycystic ovaries Infertility, anovulation BMI 45.0-49.9, adult ([facility]) documented in this encounter Discontinued Medications Medication Sig Discontinue Reason Start Date End Da te prenat.vits,carlie,min-iron -folic ( VITAMIN) tablet take 1 tablet by oral route every day 10/31/2015 01/28/2017 documented as of this encounter Historical Medications * This list may reflect changes made after this encounter. clomiPHENE (CLOMID) 50 mg tablet Take 50 mg by mouth daily. 01/31/2017 added in this encounter Care Teams Universal Grinder Tool Relationship Specialty Start Date End Date Amalia Rizvi MD [address] [place] [address] PCP - General 10/31/16 03/03/18 documented as of this encounter
--- OUTSIDE RECORDS SUMMARY | 2024-08-05 01:00 | XMS_ITS | Encounter Summary ---
Author Organization [facility] Healthcare Address [address] [place] [address] Care Team Providers Care Self Pay Collector Name Role Phone No, Physician Primary Care Provider [phone] Reason for Visit * Reason Comments Decreased Movement Encounter Details Date Type Department Care Team (Latest Contact Info) Description 08/24/2018 5:02 PM MONOTYPE KEYBOARD OPERATOR - 08/24/2018 7:00 PM MONOTYPE KEYBOARD OPERATOR Hospital Encounter [facility] [address] [place] [id number] Leonard Hunter MD [address] [place] [address] DR DO B [facility] [address] [place] [address] Discharge Disposition: Discharge to home or self [...] on file Legal Sex Female 3:31 AM MONOTYPE KEYBOARD OPERATOR Gender Identity Not on file Sexual Orientation Not on file Occupation Industry Job Start Date Job End Date Last Dipper Not on file Not on file Not on file documented as of this encounter Last Filed Vital Signs Vital Sign Reading Time Taken Comments Blood Pressure 120/73 08/24/2018 6:43 PM MONOTYPE KEYBOARD OPERATOR Pulse 92 08/24/2018 6:43 PM MONOTYPE KEYBOARD OPERATOR Temperature 37.1 ??C (98.8 ??F) 08/24/2018 6:12 PM CS T Respiratory Rate 18 08/24/2018 6:12 PM MONOTYPE KEYBOARD OPERATOR Oxygen Saturation - - Inhaled Oxygen Concentration - - Weight - - Height - - Body Mass Index - - documented in this encounter Discharge Instructions * Discharge Instructions* Dee Valentine RN - 08/24/2018 6:54 PM MONOTYPE KEYBOARD OPERATOR Get BBP done tomorrow TYPE KEYBOARD OPERATOR * Attachments The following attachments cannot be sent through Care Everywhere. * Early Labor Signs (General Information) ([place]) documented in this encounter Discharge Disposition Disposition Code Departure Means Destination Discharge to home or self care documented in this encounter Nursing Notes * Dee Valentine RN - 08/24/2018 6:[address] Kapoor called and given OB history on patient. Dr. Kapoor notified that patient has been feeling decreased movement for the past couple days. Pt denied bleeding, leaking of fluid, and pain.Dr. Kapoor notified that baby is reactive, and of UA results. Discharge order received with patientto follow up tomorrow for a BPP. Pt given discharge and BPP instructions. Pt verbalized understanding and denied any questions. TYPE KEYBOARD OPERATOR documented in this encounter Plan of Treatment Not on file documented as of this encounter Procedures Procedure Name Priority Date/Time Associated Diagnosis Comments URINALYSIS AND REFLEX TO MICROSCOPIC AND CULTURE STAT 08/24/2018 6:16 PM MONOTYPE KEYBOARD OPERATOR DRUGS OF ABUSE SCREEN, URINE WITHOUT CONFIRMATION STAT 08/24/2018 6:16 PM MONOTYPE KEYBOARD OPERATOR documented in this encounter Results * Drug screen, urine (08/24/2018 6:16 PM MONOTYPE KEYBOARD OPERATOR) Amphetamines, Class Negative Screen Negative Screen [facility] ([place]) Comment: Interpretive Data Amphetamines cut off value 1000 ng/mL Current interpretive data was last revised on 2014. Barbiturates, Class Negative Screen Negative Screen [facility] ([place]) Comment: Interpretive Data Barbiturates cut off value 200 ng/mL Current interpretive data was last revised on 2015. Benzodiazepines, ur Negative Screen Negative Screen [facility] ([place]) Comment: Interpretive Data Benzodiazepines cut off value 200 ng/mL Current interpretive data was last revised on 2014. Cannabinoids, Screen Negative Screen Negative Screen [facility] ([place]) Comment: Interpretive Data THC/Marijuana cut off value 50 ng/mL Current interpretive data was last revised on 2014. Cocaine metabolite Negative Screen Negative Screen [facility] ([place]) Comment: Interpretive Data Cocaine cut off value 300 ng/mL Current interpretive data was last revised on 2014. Opiates, Class Negative Screen Negative Screen [facility] ([place]) Comment: Interpretive Data Opiates cut off value 2000 ng/mL Current interpretive data was last revised on 2014. Phencyclidine, ur Negative Screen Negative Screen [facility] ([place]) Comment: Interpretive Data PCP cut off value 25 ng/mL All drugs included in this panel are screening testing only. All positive urines will be confirmed upon Doctor request only. Unconfirmed screening results must not be used for non-medical purposes. Current interpretive data was last revised on 2015. Urine 08/24/2018 6:16 PM MONOTYPE KEYBOARD OPERATOR 08/24/2018 6:19 PM MONOTYPE KEYBOARD OPERATOR Narrative [facility] ([place]) - 08/24/2018 6:38 PM MONOTYPE KEYBOARD OPERATOR Shawna Kapoor MD LAB URINE ORDERABLES Final Result [facility] ([place]) [facility] Department [place] [address] * (ABNORMAL) Urinalysis reflex to microscopic and culture Urine, clean voided (08/24/2018 6:16 PM MONOTYPE KEYBOARD OPERATOR) Color, ur Yellow Yellow [facility] ([place]) Clarity, ur Cloudy(A) Clear [facility] ([place]) Specific gravity, ur 1.019 1.010 - 1.025 [facility] ([place]) pH, urine 7.0 [facility] ([place]) Protein, ur ql Negative Negative [facility] ([place]) Glucose, ur ql Negative Negative [facility] ([place]) Ketones, ur Negative Negative [facility] ([place]) Bilirubin, ur Negative Negative [facility] ([place]) Blood, ur Negative Negative [facility] ([place]) Urobilinogen, ur 1.0 mg/dL [facility] ([place]) Nitrite, ur Negative Negative [facility] ([place]) Leukocyte esterase, ur Negative Negative [facility] ([place]) Urine, clean voided 08/24/2018 6:16 PM MONOTYPE KEYBOARD OPERATOR 08/24/2018 6:19 PM MONOTYPE KEYBOARD OPERATOR Narrative [facility] ([place]) - 08/24/2018 6:25 PM MONOTYPE KEYBOARD OPERATOR ?? Urine pH is affected by diet, medications, systemic acid-base disturbances, and renal tubular function. ??pH may affect urinary stone formation. ??For example, urine pH below 6.0 may help reduce the tendency for calcium phosphate stones and pH greater than 6.0 may reduce the tendency for uric acid stone formation. Source: [employer]. Last revised 08-13-2017 us Shawna Kapoor MD LAB MICROBIOLOGY - GENERAL ORDERABLES Final Result [facility] ([place] [address] [facility] Department [place] [address] documented in this encounter Visit Diagnoses Not on filedocumented in this encounter Care Teams Self Pay Collector Relationship Specialty Start Date End Date No, Physician PCP - General 03/04/18 09/12/18 documented as of this encounter
--- OUTSIDE RECORDS SUMMARY | 2024-08-05 01:00 | XMS_ITS | Encounter Summary ---
Author Organization [facility] Healthcare Address [address] [place] [address] Care Team Providers Care Lens Cleaner Name Role Phone No, Physician Primary Care Provider [phone] Leonard Hunter MD Unavailable [phone] Encounter Details Date Type Department Care Team (Latest Contact Info) Description 01/12/2020 11:07 AM CDT - 01/12/2020 3:18 PM CDT Hospital Encounter [facility] Operating Room [address] [place] [address] Leonard Hunter MD [address] DO B MICHAEL [address] [place] [address] Menorrhagia with irregular cycle Discharge Disposition: Discharge to home or self [...] file Legal Sex Female 3:31 AM ROLL CARRIER Gender Identity Not on file Sexual Orientation Not on file 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 Not on file Not on file Not on file documented as of this encounter Last Filed Vital Signs Vital Sign Reading Time Taken Comments Blood Pressure 128/67 01/12/2020 3:10 PM CDT Pulse 70 01/12/2020 3:10 PM CDT Temperature 36.1 ??C (97 ??F) 01/12/2020 3:10 PM CDT Respiratory Rate 20 01/12/2020 3:10 PM CDT Oxygen Saturation 99% 01/12/2020 3:10 PM CDT Inhaled Oxygen Concentration - - Weight 137.8 kg (303 lb 12.7 oz) 2019 11:36 AM CDT Height - - Body Mass Index 55.56 09/13/2018 4:32 PM ROLL CARRIER documented in this encounter Discharge Diagnoses Diagnosis Excessive and frequent menstruation with regular cycle - EXCESSIVE AND FREQUENT MENSTRUATION WITH REGULAR CYCLE Polyp of corpus uteri - POLYP OF CORPUS UTERI Gastro-esophageal reflux disease without esophagitis - GASTRO-ESOPHAGEAL REFLUX DISEASE WITHOUT ESOPHAGITIS Obesity, unspecified - OBESITY, UNSPECIFIED Personal history of nicotine dependence - PERSONAL HISTORY OF NICOTINE DEPENDENCE Family history of malignant neoplasm of breast - FAMILY HISTORY OF MALIGNANT NEOPLASM OF BREAST documented in this encounter Discharge Instructions * Attachments The following attachments cannot be sent through Care Everywhere. * General Anesthesia (Discharge Care) (Montenegrin) * Dilation and Curettage (Discharge Care) (Montenegrin) * Narcotic-Analgesic/Acetaminophen (By mouth) (Montenegrin) * Doxycycline (By mouth) (Montenegrin) * Ibuprofen (By mouth) (Montenegrin) documented in this encounter Medications at Time of Discharge doxycycline (VIBRAMYCIN) 100 mg capsule Take 1 tablet/capsule (100 mg total) by mouth 2 (two) times a day for 7 days 14 tablet/capsule 01/12/2020 0 cephalexin (KEFLEX) 500 mg capsule Take 500 [...] day 1 documented as of this encounter Ordered Prescriptions Prescription Sig Dispense Quantity Refills Last Filled Start Date End Date doxycycline (VIBRAMYCIN) 100 mg capsule Take 1 tablet/capsul e (100 mg total) by mouth 2 (two) times a day for 7 days 14 tablet/capsule 01/12/2020 0 HYDROcodone-acetam inophen (NORCO) 5-325 mg per tabletIndications: Pain Take 1-2 tablets by mouth every 4 (four) hours as needed for pain 5 tablet 01/12/2020 1 ibuprofen (ADVIL,MOTRIN) 600 mg tablet Take 1 tablet (600 mg total) by mouth every 6 (six) hours as needed for pain 20 tablet 01/12/2020 1 documented in this encounter Discharge Disposition Disposition Code Departure Means Destination Discharge to home or self care documented in this encounter H&P Notes * Leonard Hunter MD - 01/12/2020 12:16 PM CDT SALES COMMISSIONS ANALYST History and Physical Subjective Patient is 24 y.o., with chief complaint of prolonged heavy vaginal bleeding. HPI: The patient was seen in the office with prolonged heavy vaginal bleeding. The patient has a spontaneous in July and states that her bleeding slowed down significantly. However over the past month her menstrual bleeding is constant, is very heavy and painful. Pertinent SALES COMMISSIONS ANALYST History: Non- contributory OB History Para Term AB Living 4 1 1 0 1 1 SAB TAB Ectopic Multiple Live Births 0 1 # Outcome Date GA Lbr Keith/2nd Weight Sex Delivery Anes PTL Lv 4 Current 3 Term 09/18/18 37w2d 03:31 / 02:15 3.037 kg (6 lb 11.1 oz) F Vag-Spont EPI, Local N JARRED Complications: Premature Rupture of Membranes 2 1 AB Social History Substance and Sexual Activity Sexual Activity Yes ??? Partners: Male Past Medical History: Diagnosis Date ??? ADHD (attention deficit hyperactivity disorder) ??? Anemia ??? Depression ??? Female infertility ??? GERD (gastroesophageal reflux disease) ??? History of adverse effect of anesthesia freaking out pulling at IV, crying, anxious, scared ??? Miscarriage ??? Motion sickness ??? Obesity ??? Polycystic ovary syndrome Past Surgical History: Procedure Laterality Date ??? COLONOSCOPY 2014 Medications Prior to Admission Medication Sig Dispense Refill Last Dose ??? cephalexin (KEFLEX) 500 mg capsule Take 500 mg by mouth 3 (three) times a day Started 01/06 ??? phentermine (ADIPEX-P) 37.5 mg tablet Take 37.5 mg by mouth daily before breakfast ??? predniSONE (DELTASONE) 20 mg tablet Take 20 mg by mouth 1 daily for 4days, 1/2 tab daily for 4 days, 1/4 tab daily for 4 days ??? topiramate (TOPAMAX) 50 mg tablet Take 50 mg by mouth 2 (two) times a day Current Facility-Administered Medications Medication Dose Route Frequency Provider Last Rate Last Dose ??? Lactated Ringer's (LR) infusion 30 mL/hr intravenous Continuous Christy Henson MD 30 mL/hr at 01/12/20 1150 30 mL/hr at 01/12/20 1150 ??? sodium chloride 0.9% flush 0.5-20 mL 0.5-20 mL intra-catheter PRN Christy Henson MD ??? sodium chloride 0.9% flush 0.5-20 mL 0.5-20 mL intra-catheter PRN Leonard Hunter MD Allergies Allergen Reactions ??? Latex Swelling Social History Tobacco Use ??? Smoking status: Former Smoker Packs/day: 0.25 Years: 6.00 Pack years: 1.50 Start date: 2013 ??? Smokeless tobacco: Never Used ??? Tobacco comment: Smoking History Packs/day: 0.25 Packs Substance Use Topics ??? Alcohol use: Yes Comment: rarely Family History Problem Relation Age of Onset [...] mellitus type 2; ??? Hypertension Father Hypertension; Review of Systems: Review of systems per HPI and otherwise all other systems are negative Objective Vitals: 24hr Min/Max: Temp Min: 97.5 ??F Max: 97.5 ??F Pulse Min: 80 Max: 80 BP Min: 146/90 Max: 146/90 Resp Min: 20 Max: 20 SpO2 Min: 99 % Max: 99 % Most Recent : Vitals: 01/12/20 1136 BP: 146/90 Pulse: 80 Resp: 20 Temp: 97.5 ??F SpO2: 99% Weight: (!) 303 lb 12.7 oz (137.8 kg) No intake/output data recorded. No intake/output data recorded. Physical Exam: GEN: NAD : Heavy vaginal bleeding noted in posterior vaginal vault Extremities: No edema, Homans absent Assessment /Plan 1. Menorrhagia with thickened endometrium- suction D&C Leonard Hunter MD 01/12/2020 1:15 PM documented in this encounter Miscellaneous Notes * Brief Op Note - Leonard Hunter MD - 01/12/2020 1:34 PM CDT Operative Progress Note Surgical Team: Surgeon(s) and Role: * Leonard Hunter MD - Primary Anesthesiologist: Sandro Golden MD CEPHALOMETRIC ANALYST: uLis F Enriquez CRNA Veterinary Epidemiologist: Farrah Jansen RN Scrub: Marla Hawk RN PILE DRIVER ENGINEER: Emily Che RN DATE OF SURGERY : 01/12/2020 Preoperative Diagnosis: Menorrhagia Postoperative Diagnosis: Menorrhagia Procedure(s): Procedure(s) (LRB): SUCTION DILATION AND CURETTAGE (N/A) Operative Findings: 9 week anteverted uterus Minimal endometrial tissue Estimated Blood Loss: 5mL Intraoperative Fluids: 700 mls UOP: 50mL Specimens: ID Type Source Tests Collected by Time A : endometrial biopsy Tissue Endometrial biopsy SURGICAL PATHOLOGY Leonard Hunter MD 01/12/2020 1342 Implants: Nothing was implanted during the procedure Blood/Blood Products Transfused: none Complications: None Condition on Discharge from the operating room was stable Leonard Hunter MD Date: 01/12/2020 Time: 1:43 PM No Resident involved on case * Op Note - Leonard Hunter MD - 01/12/2020 12:00 AM CDT Surgeon Leonard Hunter MD. Preoperative Diagnosis Menorrhagia with thickened endometrium. Postoperative Diagnosis Menorrhagia with thickened endometrium. Procedure Suction dilation and curettage. Findings A 9-week anteverted uterus with open cervical os. EBL 5 mL. IV Fluids 700 mL. Urine Output 50 mL. Complications None. Condition Discharged from the operating room. Procedure in Detail The risks, benefits, alternatives, and indication of the procedure were discussed with the patient.She voiced an understanding of the procedure and signed the consent. The patient was taken to the operating room where general anesthesia was administered without difficulty. She was placed in the dorsal lithotomy position with Jaden stirrups. An examination under anesthesia revealed a 9-week anteverted uterus with the cervical os open. The patient was prepped and draped in the normal sterile fashion. A bivalve speculum was inserted into the posterior aspect of the vagina. A single-tooth tenaculum was used to grasp the anterior lip of the cervix. The uterus was then carefully sounded to 9 cm. The cervix was then dilated using Nicho dilators to accommodate a 9 mm curved suction curette which was advanced to the uterine fundus. The suction was then started and the uterus was evacuated. A gentle sharp curette was then performed with a large curette, and the suction was then reintroduced to clear the uterus. The tenaculum was removed from the cervix, and good hemostasis was noted. The patient tolerated the procedure well. Instrument and sponge counts were correct x2. The patient was awakened from general anesthesia and taken to the recovery room in stable condition. The patient will go home after recovery from anesthesia and if meeting all criteria for discharge. She was given instruction regarding a followup with myself in 2 weeks as well as prescriptions for ibuprofen, Cecil, and doxycycline. Job ID/VF Job ID: [id number] * Pre-Procedure Instructions - Mattie Rebolledo RN - 01/11/2020 2:55 PM CDT We are pleased that you and your doctor have chosen [facility] for your surgery. We hope that the following information will help make your visit a pleasant one. Surgery Date: 01/12/2020 Before your surgery: ?? Notify your doctor of ANY change in your health such as a cold, sore throat, fever, any infection or a change in the problem for which you are having your surgery. ?? Follow any instructions given to you by your doctor or surgeon. Check with your doctor if you need to STOP taking: ?? Aspirin (ordered by your doctor One week before surgery STOP taking: ?? All herbal supplements ?? Aspirin (not ordered by your doctor) ?? Aleve, Advil, Motrin, Ibuprofen, or other similar medications (Tylenol is okay). 24 hours before your surgery: ?? No smoking or alcoholic drinks Night before your surgery: ?? Do not eat or drink anything after midnight. ?? Follow surgeon's instructions for anti-bacterial shower night before and morning of surgery. Day of surgery: ?? Do not swallow any water when you brush your teeth ?? Use no make-up, nail sami, lotions, oils or powders on your skin. ?? Wear comfortable clothes that will not be tight in the area of your surgery. ?? Leave all valuables and jewelry (including all body piercing jewelry) at home. ?? If you use a CPAP machine, please bring it with you to wear after your surgery. ?? Please bring your a photo ID and insurance cards with you. ?? Check in at the Registration Desk. ?? If you are 17 years old or younger, a parent or guardian must come with you. After your Outpatient Surgery: ?? You must have a responsible adult to drive you home, you will not be allowed to drive or take a cab home. ?? We recommend you have someone stay with you for 24 hours after your surgery. Questions or concerns: ?? If you have any questions or concerns regarding your procedure, contact your surgeon as soon as possible. ?? If you have questions regarding your Pre-Admission Testing, please call us. We can be reached atthe number posted at the top of the page. documented in this encounter Plan of Treatment Not on file documented as of this encounter Procedures Procedure Name Priority Date/Time Associated Diagnosis Comments SURGICAL PATHOLOGY Routine 01/12/2020 2: 04 PM CDT Menorrhagia with irregular cycle SUCTION DILATION AND CURETTAGE 01/12/2020 1:02 PM CDT DIFFERENTIAL AUTO STAT 01/12/2020 11: 49 AM CDT CBC WITH AUTO DIFFERENTIAL STAT 01/12/2020 11:49 AM CDT ABO/RH STAT 01/12/2020 11:49 AM CDT ANTIBODY SCREEN STAT 01/12/2020 11:49 AM CDT TYPE AND SCREEN STAT 01/12/2020 11:49 AM CDT HCG, BLOOD, QUANTITATIVE STAT 01/12/2020 11:49 AM CDT documented in this encounter Results * Surgical pathology (01/12/2020 2:04 PM CDT) Tissue (Endometrial biopsy) 01/12/2020 1:42 PM CDT Narrative [facility] - 01/16/2020 10:25 AM CDT [facility] results best viewed via link to PDF [facility] Department of Pathology [address] [place], [place] [address] Final Report Patient Name: ??REED BURDICKSridhar Address: ??[address], ??[place], [place] ??[address] Gender: ??F : ??1995 (Age: 24) Service: ??Surgery Location: ??[facility] #: ??[id number] Patient Type: ??[facility] SDS Accession # ?[id number] Taken: ??01/12/2020 Received: ??01/12/2020 Accessioned: ??01/12/2020 Reported: ??01/16/2020 Physician(s):Leonard Hunter M.D. Diagnosis: Uterus, endometrium, biopsy: ? - Polyp, mixed - Breakdown pattern, consistent with recent uterine bleeding Jessica Irizarry M.D. Report Electronically Reviewed and Signed Out By ??Jessica Irizarry M.D. ??01/16/2020 10:25:38 Specimen(s) Received: A: Endometrial biopsy Microscopic Description: Microscopic examination reveals benign tissue that includes endometrium and endocervical mucosa. ??Some of the endometrial tissue has a breakdown pattern that includes fragmented and collapsed stromal tissue associated with stromal fibrin thrombi. ??The specimen additionally includes one relatively large piece of tissue that has a fibrotic stroma, a few thick-walled vessels and a haphazard arrangement of mucinous, endocervical type as well as endometrial glands. ??These findings would be most consistent a mixed polyp. ?? Clinical History: Menorrhagia with irregular cycle. Endometrial biopsy. Gross Description: The specimen is submitted in a single container labeled Reed Burdick and endometrial biopsy . ??It is an approximate 1 cc aggregate of red-chamorro mucosal tissue. ??All submitted in one cassette. ??Blessing Mariano M.D./Makayla Calloway PMaren REPORT IMAGES AND SCANNED DOCUMENTS, IF INCLUDED, ONLY VIEWABLE IN PDF VERSION OF REPORT The performance characteristics of some immunohistochemical stains, fluorescence in-situ hybridization tests and immunophenotyping by flow cytometry cited in this report (if any) were determined by the Surgical Pathology Department at [facility] as part of an ongoing quality assurance manager program and in compliance with federally [...] characteristics determined by the Surgical Pathology Department [facility]. ??It has not been cleared or approved by the U. S. Food and Drug Administration. us Leonard Hunter MD LAB PATHOLOGY ORDERABL ES Final Result [facility] [address] [place] [address] * (ABNORMAL) Differential, auto (01/12/2020 11:49 AM CDT) Neutrophil abs 6.7(H) 1.7 - 6.5 K/cumm [facility] Imm gran abs 0.1 0.0 - 0.1 K/cumm [facility] Lymphocyte abs 2.8 0.8 - 3.3 K/cumm [facility] Monocyte abs 0.5 0.2 - 0.8 K/cumm [facility] Eosinophil abs 0.3 0.0 - 0.5 K/cumm [facility] Basophil abs 0.1 0.0 - 0.1 K/cumm [facility] Neutrophil pct 63.9 % [facility] Comment: Interpretive [...] was last revised on 2017. Lymphocyte pct 27.3 % [facility] Comment: Interpretive Data Percent cell count reference ranges are not reported, since discordance with absolute values may lead to misinterpretation of CBC data. Current Interpretive Data was last revised on 2017. Monocyte pct 4.7 % [facility] Comment: Interpretive Data Percent cell count reference ranges are not reported, since discordance with absolute values may lead to misinterpretation of CBC data. Current Interpretive Data was last revised on 2017. Eosinophil pct 2.6 % [facility] Comment: Interpretive Data Percent cell count reference ranges are not reported, since discordance with absolute values may lead to misinterpretation of CBC data. Current Interpretive Data was last revised on 2017. Basophil pct 0.7 % [facility] Comment: Interpretive Data Percent cell count reference ranges are not reported, since discordance with absolute values may lead to misinterpretation of CBC data. Current Interpretive Data was last revised on 2017. Blood specimen (specimen) 01/12/2020 11:49 AM CDT 01/12/2020 11:51 AM CDT Leonard Hunter MD LAB BLOOD ORDERABLES F inal Result [facility] [address] [facility] [place] [address] * Antibody screen (01/12/2020 11:49 AM CDT) William, indirect, Gel Interpretation Negative [facility] Blood specimen (specimen) 01/12/2020 11:49 AM CDT 01/12/2020 11:51 AM CDT Narrative [facility] - 01/12/2020 12:47 PM CDT Has the patient had Daratumumab (Darzalex) in the past 6 months?->Unknown Leonard Hunter MD LAB BLOOD BANK TEST OR DERABLES Final Result [facility] [address] [facility] [place] [address] * ABO/Rh (01/12/2020 11:49 AM CDT) ABO/Rh O Positive [facility] Blood specimen (specimen) 01/12/2020 11:49 AM CDT 01/12/2020 11:51 AM CDT Narrative [facility] ([facility]) - 01/12/2020 12:47 PM CDT Has the patient had Daratumumab (Darzalex) in the past 6 months?->Unknown Leonard Hunter MD LAB BLOOD BANK TEST OR DERABLES Final Result Performing Organization Address [facility] Co de Phone Number [facility] [address] [facility] [place] [address] * hCG, blood, quantitative (01/12/2020 11:49 AM CDT) hCG, quant <5.0 0.0 - 5.0 IUnits/L [facility] Comment: Interpretive Data Non- Female premenopausal: < or = 5.0 IUnits/L Men: < 5.0 IUnits/L Weeks of Gestation ? Reference Interval ?? 3 to 6 ? 5.8-31,795 IUnits/L ?? 7 to 10 ? 3,697-186,977 IUnits/L ??12 to 15 ?27,832- 70,791 IUnits/L ??16 to 18 ? 9,040- 58,179 IUnits/L Current Interpretive Data was last revised on 2018. Blood specimen (specimen) 01/12/2020 11:49 AM CDT 01/12/2020 11:51 AM CDT us eLonard Hunter MD LAB BLOOD ORDERABLES F inal Result Performing Organization Address City/[facility]/ZIP Co de Phone Number [facility] [address] [facility] [place] [address] * (ABNORMAL) CBC with auto differential (01/12/2020 11:49 AM CDT) WBC 10.4(H) 3.8 - 9.9 K/cumm [facility] Hgb 12.7 11.9 - 15.5 g/dL [facility] Hct 38.9 35.6 - 45.5 % [facility] Plt 297 150 - 400 K/cumm [facility] MPV 11.4 9.1 - 12.3 fL [facility] RBC 4.66 3.90 - 5.20 M/cumm [facility] MCV 83.5 81.3 - 96.4 fL [facility] MCH 27.3 27.1 - 33.3 pg [facility] MCHC 32.6 32.3 - 35.7 g/dL [facility] RDW CV 15.8(H) 11.1 - 14.9 % [facility] RDW SD 47.6 35.7 - 48.1 fL [facility] NRBC abs 0.00 0.00 - 0.01 K/cumm [facility] Blood specimen (specimen) 01/12/2020 11:49 AM CDT 01/12/2020 11:51 AM CDT Leonard Hunter MD LAB BLOOD ORDERABLES F inal Result [facility] [address] [facility] [place] [address] documented in this encounter Visit Diagnoses Diagnosis Menorrhagia with irregular cycle documented in this encounter Administered Medications Inactive Administered Medications - up to 3 most recent administrations Medication Order MAR Action Action Date Dose Rate Site acetaminophen (TYLENOL) tablet 1,000 mg 1,000 mg, oral, Once, On Sheree 01/12/20 at 1215, For 1 dose, Pre-Op, Indications: Pre-Emptive AnalgesiaIndications:Pre-Emp tive Analgesia Given 01/12/2020 11:55 AM CDT 1,000 mg celecoxib (CeleBREX) capsule 200 mg 200 mg, oral, Once, On Sheree 01/12/20 at 1215, For 1 dose, Pre-Op, Indications: Pre-Emptive AnalgesiaIndications:Pre-Emp tive Analgesia Given 01/12/2020 11:54 AM CDT 200 mg Lactated Ringer's (LR) infusion 30 mL/hr, intravenous, Continuous, Starting on Sheree 01/12/20 at 1215, Pre-Op New Bag 01/12/2020 11:50 AM CDT 30 mL/hr 30 mL/ hr documented in this encounter Discontinued Medications Medication Sig Discontinue Reason Start Date End Da te docusate sodium (COLACE) 100 mg capsuleIndications:const ipation Take 1 capsule (100 mg total) by mouth 2 (two) times a day. Therapy completed 09/20/2018 01/11/2020 ferrous sulfate 325 mg (65 mg of elemental iron) tabletIndications:Iron Deficiency Anemia Take 1 tablet (325 mg total) by mouth 3 (three) times a day with meals. Therapy completed 09/20/2018 01/11/2020 ondansetron ODT (ZOFRAN-ODT) 4 mg disintegrating tablet Dissolve 1 tablet oral every 4 hours as needed for nausea or vomiting. Therapy completed 09/13/2018 01/11/2020 predniSONE (DELTASONE) 20 mg tablet Take 20 mg by mouth 1 daily for 4days, 1/2 tab daily for 4 days, 1/4 tab daily for 4 days Stop Taking at Discharge 01/12/2020 documented as of this encounter Historical Medications * This list may reflect changes made after this encounter. predniSONE (DELTASONE) 20 mg tablet Take 20 mg by mouth 1 daily for 4days, 1/2 tab daily for 4 days, 1/4 tab daily for 4 days 0 cephalexin (KEFLEX) 500 mg capsule Take 500 mg by mouth 3 (three) times a day Started 01/06 1 topiramate (TOPAMAX) 50 mg tablet Take 50 mg by mouth 2 (two) times a day 1 phentermine (ADIPEX-P) 37.5 mg tabletIndication s:Weight Loss Management for Obese Patient (BMI >= 30),stopped on 01/05 Take 37.5 mg by mouth daily before breakfast 1 added in this encounter Active and Recently Administered Medications Times are shown in CDT. Scheduled Medication Order 01/10/2020 01/11/202001/12/2020 acetaminophen (TYLENOL) tablet 1,000 mg (COMPLETED) 1,000 mg, oral, Once, On Sheree 01/12/20 at 1215, For 1 dose, Pre-Op, Indications: Pre-Emptive Analgesia 1155 (Given - Provid er: Ashlie Burrell, RN) celecoxib (CeleBREX) capsule 200 mg (COMPLETED) 200 mg, oral, Once, On Sheree 01/12/20 at 1215, For 1 dose, Pre-Op, Indications: Pre-Emptive Analgesia 1154 (Given - Provid er: Ashlie Burrell, RN) Continuous Medication Order 01/10/2020 01/11/2020 01/12/2020 Lactated Ringer's (LR) infusion 30 mL/hr, intravenous, Continuous, Starting on Sheree 01/12/20 at 1215, Pre-Op 1150 (New Bag - Prov ider: Ashlie Burrell RN)1327 (Canceled Entry - Provider: Luis F Enriquez CRNA)1347 (Anesthesia Volume Adjustment - Provider: Luis F Enriquez CRNA) PRN Medication Order 01/10/2020 01/11/2020 01/12/2020 sodium chloride 0.9 % irrigation (CANCELED) As needed, Starting on Sheree 01/12/20 at 1353, Intra-Op 1353 (Given - Provid er: Leonard Hunter MD - Comment: irrigation and cleanup on sterile field) documented in this encounter Orders Medications Ordered That Juan Carlos ht Not Have Been Administered Count Last Ordered Date First Ordered Date diphenhydrAMINE (BENADRYL) i njection 12.5 mg 1 01/12/2020 fentaNYL (SUBLIMAZE) preserv ative free injection 25 mcg 1 01/12/2020 meperidine (DEMEROL) preserv ative free injection 12.5 mg 1 01/12/2020 naloxone (NARCAN) 0.4 mg/mL injection 0.04-0.4 mg 1 01/12/2020 ondansetron (ZOFRAN) injection 4 mg 1 01/11 sodium chloride 0.9 % irrigation 1 01/12/20 20 sodium chloride 0.9% flush 0.5-20 mL 2 01/01 Diet Count Last Ordered Date First Orde red Date ADULT DISCHARGE DIET 1 01/12/2020 Nursing Count Last Ordered Date First Orde red Date DISCHARGE ACTIVITY 1 01/12/2020 DISCHARGE CALL PROVIDER 3 01/12/2020 FOLLOW UP WITH ESTABLISHED PROVIDER 1 01/11 documented in this encounter Care Teams Lens Cleaner Relationship Specialty Start Date End Date No, Physician PCP - General 01/12/20 03/07/20 Leonard Hunter MD [address] [place] [address] [place] [address] Cdl Flatbed Truck Driver Obstetrics and Gynecology 01/12/20 documented as of this encounter
--- OUTSIDE RECORDS SUMMARY | 2024-08-05 01:00 | XMS_ITS | Encounter Summary ---
Author Organization [facility] Healthcare Address [address] [place] [address] Care Team Providers Care Rehabilitation Manager Name Role Phone No, Physician Primary Care Provider [phone] Reason for Visit * Reason Comments Rupture of Membranes Leaking fluid for 2 days Encounter Details Date Type Department Care Team (Latest Contact Info) Description 09/09/2018 9:31 AM CRULLER MAKER - 09/09/2018 11:55 AM CRULLER MAKER Hospital Encounter [facility] [address] [place] [address] Leonard Hunter MD [address] [place] [address] DR DO B MICHAEL [address] [place] [address] Discharge Disposition: Discharge to home or self [...] on file Legal Sex Female 3:31 AM CRULLER MAKER Gender Identity Not on file Sexual Orientation Not on file 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 on file Not on file Not on file documented as of this encounter Last Filed Vital Signs Vital Sign Reading Time Taken Comments Blood Pressure 120/57 09/09/2018 11:41 AM CRULLER MAKER Pulse 90 09/09/2018 11:41 AM CRULLER MAKER Temperature 37.4 ??C (99.4 ??F) 09/09/2018 9:59 AM CS T Respiratory Rate 16 09/09/2018 9:59 AM CRULLER MAKER Oxygen Saturation - - Inhaled Oxygen Concentration - - Weight 146.1 kg (322 lb) 09/09/2018 9:59 AM CRULLER MAKER Height 154.9 cm (5' 1 ) 09/09/2018 9:59 AM CRULLER MAKER Body Mass Index 60.84 09/09/2018 9:59 AM CRULLER MAKER documented in this encounter Discharge Instructions * Attachments The following attachments cannot be sent through Care Everywhere. * Labor (Discharge Care) (Citizen Of [place]) documented in this encounter Medications at Time of Discharge docusate sodium (COLACE) 100 mg capsuleIndication s:constipation Take 1 capsule (100 mg total) by mouth 2 (two) times a day. 60 capsule 2 09/20/2018 01/11/2020 ferrous sulfate 325 mg (65 mg of elemental iron) tabletIndications :Iron Deficiency Anemia Take 1 tablet (325 mg total) by mouth 3 (three) times a day with meals. 60 tablet 2 09/20/2018 01/11/2020 documented as of this encounter Discharge Disposition Disposition Code Departure Means Destination Discharge to home or self care documented in this encounter Nursing Notes * Nancy Zhou RN - 09/09/2018 11:21 AM CST Pt back to room via w/c. EFM/[place] applied and tracing. US results pending. LER MAKER * Nancy Zhou RN - 09/09/2018 10:45 AM CST EFM/[place] removed. Pt taken to US per w/c for LUIS ANTONIO check. LER MAKER * Nancy Zhou RN - 09/09/2018 9:45 AM CST Pt ambulatory to OB unit with c/o leaking fluid for 2 days. Pt also c/o cramping. Denies urinary sx or vaginal bleeding. +FM. EFM/[place] applied and tracing. LER MAKER documented in this encounter Plan of Treatment Not on file documented as of this encounter Procedures Procedure Name Priority Date/Time Associated Diagnosis Comments US OB LIMITED IP Routine 09/09/2018 11:30 AM CRULLER MAKER PAMG-1 PROTEIN MARKER (ROM) STAT 09/09/2018 9:50 AM CRULLER MAKER URINALYSIS AND REFLEX TO MICROSCOPIC AND CULTURE STAT 09/09/2018 9:50 AM CRULLER MAKER documented in this encounter Results * US Ob Limited (09/09/2018 11:30 AM CRULLER MAKER) Anatomical Region Laterality Modality Abdomen N/A Ultrasound 09/09/2018 12:2 4 PM CRULLER MAKER Impressions 09/09/2018 12:25 PM CRULLER MAKER 1. ??VIABLE INTRAUTERINE FETUS. 2. ??MEAN GESTATIONAL AGE OF 35 WEEKS, 1 DAY WITH AN ESTIMATED DATE OF DELIVERY OF 10/13/2018. 3. NORMAL AMNIOTIC FLUID INDEX AT 12.7 CM. Electronically signed by: Devon Aguilera M.D. Narrative 09/09/2018 12:25 PM CRULLER MAKER US OB LIMITED HISTORY: Check LUIS ANTONIO. ??Questionable fluid leak. COMPARISON: 08/25/2018 FINDINGS: Ultrasound reveals a viable single intrauterine fetus with identifiable movement. ??The heart rate is 187 bpm. The placenta is fundal and grade 3. ??The maternal cervical length is 4.1 cm. Based upon the prior study, the mean gestational age is 35 weeks, 1 day with an estimated date of delivery of 10/13/2018. ??Amniotic fluid index is within normal limits at 12.7 cm. Procedure Note Devon Aguilera MD - 09/09/2018 US OB LIMITED HISTORY: Check LUIS ANTONIO. Questionable fluid leak. COMPARISON: 08/25/2018 FINDINGS: Ultrasound reveals a viable single intrauterine fetus with identifiable movement. The heart rate is 187 bpm. The placenta is fundal and grade 3. The maternal cervical length is 4.1 cm. Based upon the prior study, the mean gestational age is 35 weeks, 1 day with an estimated date of delivery of 10/13/2018. Amniotic fluid index is within normal limits at 12.7 cm. IMPRESSION: 1. VIABLE INTRAUTERINE FETUS. 2. MEAN GESTATIONAL AGE OF 35 WEEKS, 1 DAY WITH AN ESTIMATED DATE OF DELIVERY OF 10/13/2018. 3. NORMAL AMNIOTIC FLUID INDEX AT 12.7 CM. Electronically signed by: Devon Aguilera M.D. us Shawna Kapoor MD IMG OB US PROCEDURES Final Result * (ABNORMAL) Urinalysis reflex to microscopic and culture Urine, clean voided (09/09/2018 9:50 AM CRULLER MAKER) Color, ur Yellow Yellow [facility] ([facility]) Clarity, ur Cloudy(A) Clear [facility] ([facility]) Specific gravity, ur 1.020 1.010 - 1.025 [facility] ([facility]) pH, urine 7.5 [facility]) Protein, ur ql Trace Negative [facility]) Glucose, ur ql Negative Negative [facility]) Ketones, ur Trace Negative [facility] ([facility]) Bilirubin, ur Negative Negative [facility] ([facility]) Blood, ur Negative Negative [facility]) Urobilinogen, ur 1.0 mg/dL [facility] ([facility]) Nitrite, ur Negative Negative [facility] ([facility]) Leukocyte esterase, ur Negative Negative [facility] ([facility]) Urine, clean voided 09/09/2018 9:50 AM CRULLER MAKER 09/09/2018 10:03 AM CRULLER MAKER Narrative [facility] ([facility]) - 09/09/2018 10:07 AM CRULLER MAKER ?? Urine pH is affected by diet, medications, systemic acid-base disturbances, and renal tubular function. ??pH may affect urinary stone formation. ??For example, urine pH below 6.0 may help reduce the tendency for calcium phosphate stones and pH greater than 6.0 may reduce the tendency for uric acid stone formation. Source: [employer]. Last revised 08-13-2017 us Leonard Hunter MD LAB MICROBIOLOGY - GEN ERAL ORDERABLES Final Result [facility] ([facility]) 1 [facility] Department [place] [address] * PAMG-1 protein marker (ROM) (09/09/2018 9:50 AM CRULLER MAKER) IFG Binding Protein-1 / AFP Negative [facility] ([facility]) Swab 09/09/2018 9:50 AM CRULLER MAKER 09/09/2018 10:02 AM CRULLER MAKER Narrative [facility] ([facility]) - 09/09/2018 10:25 AM CRULLER MAKER us Leonard Hunter MD LAB BODY FLUIDS AND ST OOLS ORDERABLES Final Result Performing Organization Address [facility] Co de Phone Number [facility] ([facility]) 1 [facility] [place] [address] documented in this encounter Visit Diagnoses Not on filedocumented in this encounter Care Teams Rehabilitation Manager Relationship Specialty Start Date End Date No, Physician PCP - General 03/04/18 09/12/18 documented as of this encounter
--- OUTSIDE RECORDS SUMMARY | 2024-08-05 01:00 | XMS_ITS | Encounter Summary ---
Author Organization [facility] Healthcare Address [address] [place] [address] Care Team Providers Care Advertising Sales Agent Name Role Phone No, Physician Primary Care Provider [phone] Reason for Visit * Reason Comments Vaginal Bleeding - Encounter Details Date Type Department Care Team (Late st Contact Info) Description 07/10/2019 12:38 PM CARBON PAPER MACHINE OPERATOR - 07/10/2019 3:52 PM CARBON PAPER MACHINE OPERATOR Emergency [facility] Emergency Department [address] [place] [id number] Threatened miscarriage (Primary Dx) Discharge Disposition: Discharge to home [...] on file Legal Sex Female 3:31 AM CARBON PAPER MACHINE OPERATOR Gender Identity Not on file Sexual Orientation Not on file 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 Not on file Not on file documented as of this encounter Last Filed Vital Signs Vital Sign Reading Time Taken Comments Blood Pressure 119/57 07/10/2019 3:32 PM CARBON PAPER MACHINE OPERATOR Pulse 77 07/10/2019 3:32 PM CARBON PAPER MACHINE OPERATOR Temperature 36.7 ??C (98 ??F) 07/10/2019 12:50 PM CARBON PAPER MACHINE OPERATOR Respiratory Rate 16 07/10/2019 3:32 PM CARBON PAPER MACHINE OPERATOR Oxygen Saturation 97% 07/10/2019 3:32 PM CARBON PAPER MACHINE OPERATOR Inhaled Oxygen Concentration - - Weight - - Height - - Body Mass Index - - documented in this encounter Discharge Diagnoses Diagnosis Threatened - THREATENED Less than 8 weeks gestation of - LESS THAN 8 WEEKS GESTATION OF Personal history of nicotine dependence - PERSONAL HISTORY OF NICOTINE DEPENDENCE Family history of ischemic heart disease and other diseases of the circulatory system - FAMILY HISTORY OF ISCHEMIC HEART DISEASE AND OTHER DISEASES OF THE CIRCULATORY SYSTEM documented in this encounter Discharge Instructions * Attachments The following attachments cannot be sent through Care Everywhere. * Threatened Miscarriage (AfterCare(R) Instructions(ER/ED)) (Mexican) documented in this encounter Medications at [...] 09/13/2018 0 documented as of this encounter Discharge Disposition Disposition Code Departure Means Destination Discharge to home or self care Other documented in this encounter ED Notes * Kaity Azar, DOCUMENT REVIEW ATTORNEY - 07/10/2019 12:48 PM CST HPI Chief Complaint Patient presents with ??? Vaginal Bleeding - 24-year-old female presents to ED with significant other at bedside. Patient states since yesterdayshe has been having abdominal cramping as well as vaginal bleeding. Patient states she is approximately 8-10 weeks exact date of last menstrual period is unknown. Patient states her menstrual period lasted 2 days the month of May. Patient has seen Dr. Hunter for this and hadan ultrasound 4 weeks however no fetus was detected at this time. Patient denies any dysuria, fevers, chills, back pain, or vomiting. Patient is a A1 Patient History Patient Active Problem List Diagnosis Date Noted ??? PCOS (polycystic ovarian syndrome) 01/28/2017 ??? Infertility, anovulation 01/28/2017 ??? BMI 45.0-49.9, adult ([facility]) 11/01/2015 Class: Temporary Past Medical History: Diagnosis [...] 2; ??? Hypertension Father Hypertension; Social History Tobacco Use ??? Smoking status: Former Smoker Last attempt to quit: 08/15/2016 Years since quittin.9 ??? Smokeless tobacco: Never Used ??? Tobacco comment: Smoking History Packs/day: 0.25 Packs Substance Use Topics ??? Alcohol use: No ??? Drug use: No Social History Patient does not qualify to have social determinant information on file (likely too young). Social History Narrative ??? Not on file Review of Systems Review of Systems Constitutional: Negative. HENT: Negative. Respiratory: Negative. Cardiovascular: Negative. Gastrointestinal: Positive for abdominal pain. Negative for nausea and vomiting. Genitourinary: Positive for vaginal bleeding. Negative for dysuria. Musculoskeletal: Negative. Neurological: Negative. All other systems reviewed and are negative. Physical Exam ED Triage Vitals [07/10/19 1250] Temp Pulse Resp BP SpO2 36.7 ??C (98 ??F) 89 18 133/67 97 % Temp src Heart Rate Source Patient Position BP Location FiO2 (%) Temporal -- -- -- -- Physical Exam Vitals signs and nursing note reviewed. Exam conducted with a laborer vineyard present. Constitutional: Appearance: Normal appearance. She is obese. She is not ill-appearing, toxic- appearing or diaphoretic. HENT: Head: Normocephalic and atraumatic. Nose: Nose normal. Mouth/Throat: Mouth: Mucous membranes are moist. Eyes: Extraocular Movements: Extraocular movements intact. Neck: Musculoskeletal: Normal range of motion. Cardiovascular: Rate and Rhythm: Normal rate. Pulses: Normal pulses. Pulmonary: Effort: Pulmonary effort is normal. No respiratory distress. Breath sounds: Normal breath sounds. Musculoskeletal: Normal range of motion. Skin: General: Skin is warm and dry. Capillary Refill: Capillary refill takes less than 2 seconds. Neurological: General: No focal deficit present. Mental Status: She is alert and oriented to person, place, and time. Psychiatric: Mood and Affect: Mood normal. Behavior: Behavior normal. Thought Content: Thought content normal. Judgment: Judgment normal. MDM MDM Number of Diagnoses or Management Options Threatened miscarriage: new and requires workup Amount and/or Complexity of Data Reviewed Clinical lab tests: ordered and reviewed Tests in the radiology section of CPT??: ordered and reviewed Risk of Complications, Morbidity, and/or Mortality Presenting problems: low Diagnostic procedures: low Management options: minimal Patient Progress Patient progress: stable ED Course as of Jul 10 1644 Time: 07/10 1252 Comment: Patient is opting out of pelvic exam, stating she does not want to disrupt anything. By: Kaity Azar NP Time: 07/10 1419 Value: HCG, quant(!): 3,620.0 Comment: (Reviewed) By: Kaity Azar NP Time: 07/10 1524 Comment: UA showing positive WBCs, patient will be treated for UTI. Ultrasound showing intrauterinegestational sac with no pole. Patient instructed to follow-up with her acetaldehyde converter operator this week. By: Kaity Azar NP Time: 07/10 1531 Comment: Patient stating she has been taking prenatals cousin makes her sick. Patient encouraged totake becoming this will [id number]. Patient her to follow up with her OBGYN this week. Patient gives verbal understanding. By: Kaity Azar NP Threatened miscarriage Kaity Azar NP 07/10/19 1644 Cosigned by Claritza García MD at 07/10/2019 6:17 PM CARBON PAPER MACHINE OPERATOR ON PAPER MACHINE OPERATOR ON PAPER MACHINE OPERATOR Associated attestation - Claritza García MD - 07/10/2019 6:17 PM CARBON PAPER MACHINE OPERATOR ED Attestation Based on the medical record, the care as recorded by the DOCUMENT REVIEW ATTORNEY/PA appears appropriate. O positive * Tabatha Bullock RN - 07/10/2019 12:47 PM CST Pt to ED with low abd cramps and spotting since yesterday. Pt notes slight blood only when wiping. A1. Pt in NAD. Denies injury or heavy lifting. at bedside. ON PAPER MACHINE OPERATOR documented in this encounter Plan of Treatment Not on file documented as of this encounter Procedures Procedure Name Priority Date/Time Associated Diagnosis Comments US OB UNDER 14 WEEKS W ENDOVAGINAL ED 07/10/2019 3:00 PM CARBON PAPER MACHINE OPERATOR URINALYSIS AND REFLEX TO MICROSCOPIC AND CULTURE STAT 07/10/2019 1:34 PM CARBON PAPER MACHINE OPERATOR URINALYSIS, MICROSCOPIC ONLY STAT 07/10/2019 1:34 PM CARBON PAPER MACHINE OPERATOR DIFFERENTIAL AUTO STAT 07/10/2019 12: 52 PM CARBON PAPER MACHINE OPERATOR CBC WITH AUTO DIFFERENTIAL STAT 07/10/2019 12:52 PM CARBON PAPER MACHINE OPERATOR HCG, BLOOD, QUANTITATIVE STAT 07/10/2019 12:52 PM CARBON PAPER MACHINE OPERATOR documented in this encounter Results * US Ob Under 14 Weeks W Endovaginal (07/10/2019 3:00 PM CARBON PAPER MACHINE OPERATOR) Anatomical Region Laterality Modality Abdomen N/A Ultrasound 07/10/2019 3:03 PM CARBON PAPER MACHINE OPERATOR Impressions 07/10/2019 3:06 PM CARBON PAPER MACHINE OPERATOR 1. ??INTRAUTERINE GESTATIONAL SAC CONTAINING A YOLK SAC BUT NO POLE IDENTIFIED. ??MEAN AGE BASED ON SAC DIAMETER IS 5 WEEKS 3 DAYS. Electronically signed by: Thanh Hopson M.D. Narrative 07/10/2019 3:06 PM CARBON PAPER MACHINE OPERATOR US OB UNDER 14 WEEKS W ENDOVAGINAL HISTORY: Vaginal bleeding. ??Pelvic cramping. ??LMP 05/09/2019. Beta-hCG 3620. COMPARISON: None available. Technique: Transabdominal and endovaginal imaging. FINDINGS: There is an intrauterine gestational sac containing a yolk sac but no Pole seen. ??Mean age based on mean sac diameter is 5 weeks 3 days. Both ovaries appear normal. Cervical length is 3.2 cm Procedure Note Thanh Hopson MD - 07/10/2019 US OB UNDER 14 WEEKS W ENDOVAGINAL HISTORY: Vaginal bleeding. Pelvic cramping. LMP 05/09/2019. Beta-hCG 3620. COMPARISON: None available. Technique: Transabdominal and endovaginal imaging. FINDINGS: There is an intrauterine gestational sac containing a yolk sac but no Pole seen. Mean age based on mean sac diameter is 5 weeks 3 days. Both ovaries appear normal. Cervical length is 3.2 cm IMPRESSION: 1. INTRAUTERINE GESTATIONAL SAC CONTAINING A YOLK SAC BUT NO POLE IDENTIFIED. MEAN AGE BASED ON SAC DIAMETER IS 5 WEEKS 3 DAYS. Electronically signed by: Thanh Hopson M.D. Kaity Azar DOCUMENT REVIEW ATTORNEY IMG OB US PROCEDURES Final R esult * (ABNORMAL) Urinalysis, microscopic only (07/10/2019 1:34 PM CARBON PAPER MACHINE OPERATOR) WBC, ur 6-10(A) 0 - 5 /HPF [facility] ([facility]) RBC, ur 21-50(A) 0 - 2 /HPF [facility] ([facility]) Epithelial cells, squamous, ur 1-5 0 - 5 /HPF [facility] ([facility]) Bacteria, ur Negative [facility] ([facility]) Hyaline casts, ur 1-5 0 - 10 /LPF [facility] ([facility]) Culture Reflex Comment Reflex conditions for urine culture (WBC >10) not met. [facility] ([facility]) Urine 07/10/2019 1:34 PM CARBON PAPER MACHINE OPERATOR 07/10/2019 1:36 PM CARBON PAPER MACHINE OPERATOR us Kaity Azar NP LAB URINE ORDERABLES Final R esult [facility] ([facility]) 1 [facility] Department [place] [address] * (ABNORMAL) Urinalysis reflex to microscopic and culture Urine (07/10/2019 1:34 PM CARBON PAPER MACHINE OPERATOR) Color, ur Yellow Yellow [facility] ([facility]) Clarity, ur Clear Clear [facility] ([facility]) Specific gravity, ur 1.022 1.010 - 1.025 [facility] ([place]) pH, urine 6.5 [facility] ([facility]) Protein, ur ql Negative Negative [facility] ([facility]) Glucose, ur ql Negative Negative [facility] ([place]) Ketones, ur Negative Negative [facility] ([facility]) Bilirubin, ur Negative Negative [facility] ([facility]) Blood, ur 3+(A) Negative [facility] ([facility]) Urobilinogen, ur 0.2 mg/dL [facility] ([facility]) Nitrite, ur Negative Negative [facility] ([facility]) Leukocyte esterase, ur Negative Negative [facility] ([facility]) UA reflex comment Reflex to microscopic UA will be performed. [facility] ([facility]) Urine 07/10/2019 1:34 PM CARBON PAPER MACHINE OPERATOR 07/10/2019 1:36 PM CARBON PAPER MACHINE OPERATOR Narrative [facility] ([facility]) - 07/10/2019 1:50 PM CARBON PAPER MACHINE OPERATOR ?? Urine pH is affected by diet, medications, systemic acid-base disturbances, and renal tubular function. ??pH may affect urinary stone formation. ??For example, urine pH below 6.0 may help reduce the tendency for calcium phosphate stones and pH greater than 6.0 may reduce the tendency for uric acid stone formation. Source: [employer]. Last revised 08-13-2017 us Kaity Azar NP LAB MICROBIOLOGY - GENERAL O RDERABLES Final Result [facility] ([facility]) 1 [facility] Department [place] [address] * (ABNORMAL) Differential, auto (07/10/2019 12:52 PM CARBON PAPER MACHINE OPERATOR) Neutrophil abs 7.1(H) 1.7 - 6.5 K/cumm [facility] ([facility]) Imm gran abs 0.1 0.0 - 0.1 K/cumm [facility] ([facility]) Lymphocyte abs 2.3 0.8 - 3.3 K/cumm [facility] ([facility]) Monocyte abs 0.5 0.2 - 0.8 K/cumm [facility] ([facility]) Eosinophil abs 0.2 0.0 - 0.5 K/cumm [facility] ([facility]) Basophil abs 0.0 0.0 - 0.1 K/cumm [facility] ([facility]) Neutrophil pct 69.6 % [facility] ([facility]) Comment: Interpretive Data Percent cell count reference ranges are not reported, since discordance with absolute values may lead to misinterpretation of CBC data. Current Interpretive Data was last revised on 2017. Imm gran pct 0.9 % [facility] ([facility]) Comment: Interpretive Data Percent cell count reference ranges are not reported, since discordance with absolute values may lead to misinterpretation of CBC data. Current Interpretive Data was last revised on 2017. Lymphocyte pct 22.5 % [facility] ([facility]) Comment: Interpretive Data Percent cell count reference ranges are not reported, since discordance with absolute values may lead to misinterpretation of CBC data. Current Interpretive Data was last revised on 2017. Monocyte pct 4.6 % [facility] ([facility]) Comment: Interpretive Data Percent cell count reference ranges are not reported, since discordance with absolute values may lead to misinterpretation of CBC data. Current Interpretive Data was last revised on 2017. Eosinophil pct 1.9 % [facility] ([facility]) Comment: Interpretive Data Percent cell count reference ranges are not reported, since discordance with absolute values may lead to misinterpretation of CBC data. Current Interpretive Data was last revised on 2017. Basophil pct 0.5 % [facility] ([facility]) Comment: Interpretive Data Percent cell count reference ranges are not reported, since discordance with absolute values may lead to misinterpretation of CBC data. Current Interpretive Data was last revised on 2017. Blood specimen (specimen) 07/10/2019 12:52 PM CARBON PAPER MACHINE OPERATOR 07/10/2019 12:54 PM CARBON PAPER MACHINE OPERATOR us Kaity Azar DOCUMENT REVIEW ATTORNEY LAB BLOOD ORDERABLES Final R esult [facility] ([facility] 1 [facility] Department [place] [address] * (ABNORMAL) CBC with auto differential (07/10/2019 12:52 PM CARBON PAPER MACHINE OPERATOR) WBC 10.2(H) 3.8 - 9.9 K/cumm [facility] ([facility]) Hgb 12.2 11.9 - 15.5 g/dL [facility] ([facility]) Hct 37.5 35.6 - 45.5 % [facility] ([facility]) Plt 310 150 - 400 K/cumm [facility]) MPV 11.0 9.1 - 12.3 fL [facility] RBC 4.46 3.90 - 5.20 M/cumm [facility] ([place]) MCV 84.1 81.3 - 96.4 fL [facility] ([facility]) MCH 27.4 27.1 - 33.3 pg [facility] ([place]) MCHC 32.5 32.3 - 35.7 g/dL [facility] ([facility] RDW CV 15.5(H) 11.1 - 14.9 % [facility] ([facility] RDW SD 46.6 35.7 - 48.1 fL [facility] ([facility]) NRBC abs 0.00 0.00 - 0.01 K/cumm [facility] ([facility]) Blood specimen (specimen) 07/10/2019 12:52 PM CARBON PAPER MACHINE OPERATOR 07/10/2019 12:54 PM CARBON PAPER MACHINE OPERATOR us Kaity Azar DOCUMENT REVIEW ATTORNEY LAB BLOOD ORDERABLES Final R esult [facility] ([facility]) 1 [facility] Department [place] [address] * (ABNORMAL) hCG, blood, quantitative (07/10/2019 12:52 PM CARBON PAPER MACHINE OPERATOR) hCG, quant 3,620.0(H ) 0.0 - 5.0 IUnits/L [facility] ([facility]) Comment: Interpretive Data Non- Female premenopausal: < or = 5.0 IUnits/L Men: < 5.0 IUnits/L Weeks of Gestation ? Reference Interval ?? 3 to 6 ? 5.8-31,795 IUnits/L ?? 7 to 10 ? 3,697-186,977 IUnits/L ??12 to 15 ?27,832- 70,791 IUnits/L ??16 to 18 ? 9,040- 58,179 IUnits/L Current Interpretive Data was last revised on 2018. Blood specimen (specimen) 07/10/2019 12:52 PM CARBON PAPER MACHINE OPERATOR 07/10/2019 12:54 PM CARBON PAPER MACHINE OPERATOR us Kaity M. Azar DOCUMENT REVIEW ATTORNEY LAB BLOOD ORDERABLES Final R esult [facility] [place]) 1 [facility] Department of Laboratories [place], [place] [id number] documented in this encounter Visit Diagnoses Diagnosis Threatened miscarriage- Primary Threatened , unspecified as to episode of care documented in this encounter Care Teams Advertising Sales Agent Relationship Specialty Start Date End Date No, Physician PCP - General 09/17/18 01/11/20 documented as of this encounter
--- OUTSIDE RECORDS SUMMARY | 2024-08-05 01:00 | XMS_ITS | Encounter Summary ---
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 documented in this encounter Plan of Treatment Not on file documented as of this encounter Visit Diagnoses Not on filedocumented in this encounter Care Teams Diesel Maintenance Electrician Relationship Specialty Start Date End Date Amalia Rizvi MD [address] [place] [address] PCP - General 03/08/20 05/07/21 Leonard Hunter MD [address] [place] [address] DR DO [address] [address] Portrait Photographer Obstetrics and Gynecology 01/12/20 documented as of this encounter
--- OUTSIDE RECORDS SUMMARY | 2024-08-05 01:00 | XMS_ITS | Encounter Summary ---
Author Organization [facility] Healthcare Address [address] [place] [address] Care Team Providers Care Mold Maker Plaster Name Role Phone Leonard Hunter MD Unavailable + [phone] Amalia Rizvi MD Primary Care Provider +- [phone] Reason for Visit * Reason Comments Migraine Encounter Details Date Type Department Care Team (Late st Contact Info) Description 02/26/2021 5:50 PM CDT - 02/26/2021 8:22 PM CDT Emergency [facility] Emergency Department [address] [place] [address] Discharge Disposition: Left Against Medical Advice Social History Tobacco Use Types Packs/Day Years [...] on file 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 Gender Identity Not on file Sexual Orientation Not on file 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 on file Not on file Not on file documented as of this encounter Last Filed Vital Signs Vital Sign Reading Time Taken Comments Blood Pressure 142/77 02/26/2021 5:45 PM CDT Pulse 92 02/26/2021 5:45 PM CDT Temperature 36.9 ??C (98.4 ??F) 02/26/2021 5:45 PM CD T Respiratory Rate 17 02/26/2021 5:45 PM CDT Oxygen Saturation 98% 02/26/2021 5:45 PM CDT Inhaled Oxygen Concentration - - Weight 136.1 kg (300 lb) 02/26/2021 5:45 PM CDT Height 160 cm (5' 3 ) 02/26/2021 5:45 PM CDT Body Mass Index 53.14 02/26/2021 5:45 PM CDT documented in this encounter Discharge Diagnoses Diagnosis Procedure and treatment not carried out due to patient leaving prior to being seen by health care provider - PROCEDURE AND TREATMENT NOT CARRIED OUT DUE TO PATIENT LEAVING PRIOR TO BEING SEEN BY HEALTH CARE [place] Migraine, unspecified, not intractable, without status migrainosus - MIGRAINE, UNSPECIFIED, NOT INTRACTABLE, WITHOUT STATUS MIGRAINOSUS documented in this encounter Medications at Time [...] Discharge Disposition Disposition Code Departure Means Destination Left Against Medical Advice documented in this encounter ED Notes * Bri Romero RN - 02/26/2021 5:44 PM CDT Patient presents to the ed with c.o. migraine for the past 11 days. Patient was at [facility] Thursday and given fluids and tylenol then sent home. Patient states pain has not gotten any better and now she is getting dizzy. Patient is currently 13 weeks . documented in this encounter Miscellaneous Notes * ED Triage Provider Note - Kaity Azar NP - 02/26/2021 5:50 PM CDT 25-year-old female, 6 para 1, presents to ED with complaints of a migraine times 11 days. Patient states she was seen at [facility] this past Thursday for this but was given fluids and had blood work obtained with no relief or abnormal findings. Patient states she has been taking Tylenol a 1000 mg without relief. Patient is reporting nausea and vomiting. Patient denies any fevers,chills, vaginal bleeding, or abdominal pain. Patient states she does have a soreness to her bilateral hip area. Patient has had 2 ultrasounds showing 1 IUP. documented in this encounter Plan of Treatment Not on file documented as of this encounter Procedures Procedure Name Priority Date/Time Associated Diagnosis Comments URINALYSIS AND REFLEX TO MICROSCOPIC AND CULTURE STAT 02/26/2021 6:18 PM CDT documented in this encounter Results * (ABNORMAL) Urinalysis reflex to microscopic and culture Urine (02/26/2021 6:18 PM CDT) Color, ur Yellow Yellow [facility] Clarity, ur Clear Clear [facility]) Specific gravity, ur 1.031(H) 1.010 - 1.025 [facility] pH, urine 6.0 [facility] Protein, ur ql Trace [...] [facility] UA reflex comment Reflex conditions for microscopic UA and culture not met. [facility] ([place]) Urine 02/26/2021 6:18 PM CDT 02/26/2021 6:30 PM CDT Narrative [facility] - 02/26/2021 6:38 PM CDT ?? Urine pH is affected by diet, medications, systemic acid-base disturbances, and renal tubular function. ??pH may affect urinary stone formation. ??For example, urine pH below 6.0 may help reduce the tendency for calcium phosphate stones and pH greater than 6.0 may reduce the tendency for uric acid stone formation. Source: [employer]. Last revised 08-13-2017 us Kaity Azar NP LAB MICROBIOLOGY - GENERAL O RDERABLES Final Result [facility] 1 [facility] [place] [address] documented in this encounter Visit Diagnoses Not on filedocumented in this encounter Administered Medications Inactive Administered Medications - up to 3 most recent administrations Medication Order MAR Action Action Date Dose Rate Site Lactated Ringer's (LR) infusion 1,000 mL/hr, intravenous, Continuous, Starting on Thu02/26/21 at 1754 New Bag 02/26/2021 7:04 PM CDT 1,000 mL/hr 1000 mL/hr documented in this encounter Active and Recently Administered Medications Times are shown in CDT. Continuous Medication Order 02/24/2021 02/25/2021 02/26/2021 Lactated Ringer's (LR) infusion 1,000 mL/hr, intravenous, Continuous, Starting on Thu02/26/21 at 1754 1904 (New Bag - Prov ider: Marcela Carl, ABHI)2021 (Stopped - Provider: Marcela Carl RN) documented in this encounter Orders Medications Ordered That Juan Carlos ht Not Have Been Administered Count Last Ordered Date First Ordered Date ondansetron (ZOFRAN) injection 4 mg 1 02/26 documented in this encounter Care Teams Mold Maker Plaster Relationship Specialty Start Date End Date Amalia Rizvi MD [address] [place] [address] PCP - General 03/08/20 05/07/21 Leonard Hunter MD [address] [place] [address] DR ERNESTINA Jose [address] [address] Plant Security Guard Obstetrics and Gynecology 01/12/20 documented as of this encounter
--- OUTSIDE RECORDS SUMMARY | 2024-08-05 01:00 | XMS_ITS | Encounter Summary ---
Author Organization [facility] Healthcare Address [address] [place] [address] Care Team Providers Care Rating Officer Name Role Phone No, Physician Primary Care Provider [phone] Leonard Hunter MD Unavailable [phone] Encounter Details Date Type Department Care Team (Late st Contact Info) Description 01/12/2020 1:15 PM CDT - 01/12/2020 2:25 PM CDT Surgery [facility] Operating Room [address] [place] [address] Leonard Hunter MD [address] [place] [address] DR SCHULTZ B [address] [address] SUCTION DILATION AND CURETTAGE Surgery Details Date/Time Status Location OR Service Patient Class Case Class Case Type Trauma Case? 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 on file Not on file Not on file documented as of this encounter Last Filed Vital Signs Vital Sign Reading Time Taken Comments Blood Pressure 128/60 01/12/2020 2:15 PM CDT Pulse 73 01/12/2020 2:15 PM CDT Temperature 36.7 ??C (98 ??F) 01/12/2020 1:55 PM CDT Respiratory Rate 20 01/12/2020 2:15 PM CDT Oxygen Saturation 97% 01/12/2020 2:15 PM CDT Inhaled Oxygen Concentration - - Weight 137.8 kg (303 lb 12.7 oz) 2019 11:36 AM CDT Height - - Body Mass Index 55.56 09/13/2018 4:32 PM BLACK AND WHITE PRINTER OPERATOR documented in this encounter Discharge Instructions * Attachments The following attachments cannot be sent through Care Everywhere. * General Anesthesia (Discharge Care) (Danish) * Dilation and Curettage (Discharge Care) (Danish) * Narcotic-Analgesic/Acetaminophen (By mouth) (Danish) * Doxycycline (By mouth) (Danish) * Ibuprofen (By mouth) (Danish) documented in this encounter Medications at Time [...] Hunter MD - 01/12/2020 12:16 PM CDT LABORER PRESTRESSED CONCRETE History and Physical Subjective Patient is 24 y.o., with chief complaint of prolonged heavy vaginal bleeding. HPI: The patient was seen in the office with prolonged heavy vaginal bleeding. The patient has a spontaneous in July and states that her bleeding slowed down significantly. However over the past month her menstrual bleeding is constant, is very heavy and painful. Pertinent LABORER PRESTRESSED CONCRETE History: Non- contributory OB History Para Term [...] Surgical History: Procedure Laterality Date ??? COLONOSCOPY 2015 Medications Prior to Admission Medication Sig Dispense [...] MD - Primary Anesthesiologist: Sandro Golden MD CUSTOMER SERVICE ADVOCATE: Luis F Enriquez CRNA Director Of Kids: Farrah Jansen RN Scrub: Marla Hawk RN BLOOD BANK LABORATORY TECHNICIAN: Emily Che RN DATE OF SURGERY : [...] weeks as well as prescriptions for ibuprofen, [place], and doxycycline. Job ID/VF Job ID: [id number] * Pre-Procedure Instructions - Mattie Rebolledo RN - 01/11/2020 2:55 PM CDT We are pleased that you and your doctor have chosen [facility] for your surgery. We hope that the [...] your teeth ?? Use no make-up, nail monegasque, lotions, oils or powders on your skin. [...] biopsy) 01/12/2020 1:42 PM CDT Narrative PATHOLOGY [facility] ([place] - 01/16/2020 10:25 AM CDT EPIC results best viewed via link to PDF [facility] Department of Pathology [address] [place], [place] [id number] Final Report Patient Name: ??REED HENDERSON Shari Address: ??[address] [facility], ??[place], [place] ??[address] Gender: ??F : ??1995 (Age: 24) Service: ??Surgery Location: ??[facility] #: ??[id number] Patient Type: ??[facility] Accession # ?[id number] Taken: ??01/12/2020 Received: ??01/12/2020 Accessioned: ??01/12/2020 Reported: [...] submitted in a single container labeled Reed Henderson and endometrial biopsy . ??It is an [...] determined by the Surgical Pathology Department at [facility] as part of an ongoing environmental quality analyst program and in compliance with [...] determined by the Surgical Pathology Department [facility]. ??It has not been cleared or approved by the U. S. Food and Drug Administration. Leonard Hunter MD LAB PATHOLOGY ORDERABL ES Final Result [facility]) 1 [place] [address] * (ABNORMAL) Differential, auto (01/12/2020 11:49 AM [...] BLOOD ORDERABLES F inal Result [facility] ([place] 1 [facility] [address] [address] * Antibody screen (01/12/2020 11:49 AM CDT) William, indirect, Gel Interpretation Negative [facility] Blood specimen (specimen) 01/12/2020 11:49 AM CDT 01/12/2020 11:51 AM CDT Narrative [facility] ([place] - 01/12/2020 12:47 PM CDT Has the patient had Daratumumab (Darzalex) in the past 6 months?->Unknown Leonard Hunter MD LAB BLOOD BANK TEST OR DERABLES Final Result [facility] 1 [facility] [place] [address] * ABO/Rh (01/12/2020 11:49 AM CDT) ABO/Rh O Positive [facility] Blood specimen (specimen) 01/12/2020 11:49 AM CDT 01/12/2020 11:51 AM CDT Narrative [facility] - 01/12/2020 12:47 PM CDT Has the patient had Daratumumab (Darzalex) in the past 6 months?->Unknown Leonard Hunter MD LAB BLOOD BANK TEST OR DERABLES Final Result Performing Organization Address City/[facility]/ZIP Co de Phone Number [facility] ([place] 1 [facility] [place] [address] * hCG, blood, quantitative (01/12/2020 11:49 AM CDT) hCG, quant <5.0 0.0 - 5.0 IUnits/L [facility] ([place]) Comment: Interpretive Data Non- Female premenopausal: < [...] AM CDT 01/12/2020 11:51 AM CDT us Lenoard Hunter MD LAB BLOOD ORDERABLES F inal Result Performing Organization Address City/[facility]/ZIP Co de Phone Number [facility] 1 [facility] [place] [address] * (ABNORMAL) CBC with auto differential (01/12/2020 [...] F inal Result [facility] 1 [facility] Department [place] [address] documented in this encounter Visit Diagnoses Not on filedocumented in this encounter Administered Medications Inactive Administered Medications - up to 3 most recent administrations Medication Order MAR Action Action Date Dose Rate Site acetaminophen (TYLENOL) tablet 1,000 mg 1,000 mg, oral, Once, On Sheree 01/12/20 at 1215, For 1 dose, Pre-Op, Indications: Pre-Emptive AnalgesiaIndications:Pr e-Emptive Analgesia Given 01/12/2020 11:55 AM CDT 1,000 mg celecoxib (CeleBREX) capsule 200 mg 200 mg, oral, Once, On Sheree 01/12/20 at 1215, For 1 dose, Pre-Op, Indications: Pre-Emptive AnalgesiaIndications:Pr e-Emptive Analgesia Given 01/12/2020 11:54 AM CDT 200 mg Lactated Ringer's (LR) infusion 30 mL/hr, intravenous, Continuous, Starting on Sheree 01/12/20 at 1215, Pre-Op New Bag 01/12/2020 11:50 AM CDT 30 mL/hr 30 mL/hr sodium chloride 0.9 % irrigation As needed, Starting on Sheree 01/12/20 at 1353, Intra-Op Given 01/12/2020 1:53 PM CDT 500 mL Surgical Site documented in this encounter [...] shown in CDT. Scheduled Medication Order 01/10/2020 01/11/2020 01/12/2020 acetaminophen (TYLENOL) tablet 1,000 mg (COMPLETED) 1,000 mg, oral, Once, On Sheree 01/12/20 at 1215, For 1 dose, Pre-Op, Indications: Pre-Emptive Analgesia 1155 (Given - Provid er: Ashlie Burrell RN) celecoxib (CeleBREX) capsule 200 mg (COMPLETED) 200 mg, oral, Once, On Sheree 01/12/20 at 1215, For 1 dose, Pre-Op, Indications: Pre-Emptive Analgesia 1154 (Given - Provid er: Ashlie Burrell RN) Continuous Medication Order 01/10/2020 01/11/2020 01/12/2020 [...] injection 4 mg 1 01/11 sodium chloride 0.9% flush 0.5-20 mL 2 01/01 Diet Count Last Ordered Date First Orde red Date ADULT DISCHARGE DIET 1 01/12/2020 Nursing Count Last Ordered Date First Orde red Date DISCHARGE ACTIVITY 1 01/12/2020 DISCHARGE CALL PROVIDER 3 01/12/2020 FOLLOW UP WITH ESTABLISHED PROVIDER 1 01/11 documented in this encounter Care Teams Rating Officer Relationship Specialty Start Date End Date No, Physician PCP - General 01/12/20 03/07/20 Leonard Hunter MD [address] [facility] [address] DO B [address] [address] Lube Attendant Obstetrics and Gynecology 01/12/20 documented as of this encounter
--- OUTSIDE RECORDS SUMMARY | 2024-08-05 01:01 | XMS_ITS | Encounter Summary ---
Author Organization [facility] Healthcare Address [address] [place] [address] Care Team Providers Care Master Glazier Name Role Phone Amalia Rizvi MD Primary Care Provider [phone] Encounter Details Date Type Department Care Team (Late st Contact Info) Description 10/31/2015 2:35 PM CDT - 10/31/2015 11:59 PM CDT Hospital Encounter [facility] Villegas, Nancy Dong MD [address] [place] [address] Encounter for supervision of normal first in first trimester; Less than 8 weeks gestation of Social History Tobacco Use Types Packs/Day Years Used Date Smoking Tobacco: Never Assessed Comments Unknown Sex and Gender Information Value Date Recorded Sex Assigned at Not on file 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 Gender Identity Not on file Sexual Orientation Not on file documented as of this encounter Medications at Time of Discharge acetaminophen (TYLENOL) 325 mg tablet take 1 tablet by oral route every 4 hours as needed 0 0 10/31/2015 05/29/2018 prenat.vits,carlie,m [id number] ( VITAMIN) tablet take 1 tablet by oral route every day 0 0 10/31/2015 01/28/2017 documented as of this encounter Plan of Treatment Not on file documented as of this encounter Procedures Procedure Name Priority Date/Time Associated Diagnosis Comments URINE MICROBIOLOGY Routine 10/31/2015 12 :00 AM CDT documented in this encounter Results * Urine Microbiology (10/31/2015 12:00 AM CDT) 10/31/2015 Narrative HISTORICAL RESULTS - 11/02/2015 5:12 PM CDT [facility] ?Patient Name: ?REED STEWART F ?Med. Rec#: ?? [id number] ?Pt. Acct.#: ??[id number] ?Birthdate: ?? 1995 ?Age / Sex: ?? 20Y / F ?Location: ?[facility] ([facility] ?Admit Date: ??10/31/2015 ?Discharge Date: ? 10/31/2015 ?Doctor: ?Patient Type: ?CH Ref Lab - Insuran Culture, Urine ? Collected: 10/31/2015 14:35 Specimen: Urine ?? Specimen Source: Clean Voided Specimen Status: Final ??Last Update: 11/02/2015 09:57 Organism ?? Less than 10,000 cfu/ml of ?? multiple Gram positive organisms Comment ? This culture result is consistent with contamination ?? by normal genital-perineal lucy. us Historical Provider LAB MICROBIOLOGY - GENERA L ORDERABLES Final Result HISTORICAL RESULTS documented in this encounter Visit Diagnoses Diagnosis Encounter for supervision of normal first in first trimester Less than 8 weeks gestation of documented in this encounter Care Teams Master Glazier Relationship Specialty Start Date End Date Amalia Rizvi MD [address] [place], [place] [id number] PCP - General 08/28/15 10/30/16 documented as of this encounter
--- OUTSIDE RECORDS SUMMARY | 2024-08-05 01:01 | XMS_ITS | Encounter Summary ---
Author Organization [facility] Healthcare Address [address] [place] [address] Care Team Providers Care County Tax Assessor Name Role Phone Unavailable Primary Care Provider Unavailabl e Encounter Details Date Type Department Care Team (Late st Contact Info) Description 12/31/2012 11:18 AM CDT - 12/31/2012 12:20 PM CDT Hospital Encounter [facility] Anisa Pavon MD [address] [place] [id number] Sprain and strain of knee and leg; Accidental fall into other hole or other opening in surface; Unspecified place of occurrence; Activities involving walking, marching and hiking Social History Tobacco Use Types Packs/Day Years Used Date Smoking Tobacco: Never Assessed Comments Unknown Sex and Gender Information Value Date Recorded Sex Assigned at Not on file 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 Gender Identity Not on file Sexual Orientation Not on file documented as of this encounter Plan of Treatment Not on file documented as of this encounter Procedures Procedure Name Priority Date/Time Associated Diagnosis Comments XR KNEE 4+ VW Routine 12/31/2012 11:52 AM CDT documented in this encounter Results * XR Knee 4+ VW (12/31/2012 11:52 AM CDT) Anatomical Region Laterality Modality N/A Radiographic Germania ging 12/31/2012 11:5 2 AM CDT Narrative 12/31/2012 10:55 PM CDT XR Knee Min 4 Views L ??[id number] ??Acc#: ??[id number] DATE OF EXAM: ??Dec 31 2012 CLINICAL HISTORY: Fell in hole on 12/29/12. ??Has left knee pain. RESULT: Four views demonstrate no fracture, dislocation, bone destruction or other bony abnormality. ??Growth plates are fused. ??No knee joint effusion or discrete soft tissue swelling is evident. IMPRESSION: NORMAL LEFT KNEE. Interpreting Physician: ??ASTRID LARSEN M.D. ??Read on: ??Dec 31 2012 3:04P Transcribed by: ??al ??On: Dec 31 2012 ??3:04P Approved Electronically by: ??ASTRID LARSEN M.D. ??on: ??Dec 31 2012 10:54P Ordering DR: DR ANISA CLAUDIO Attending DR: PHYSICIAN NO Procedure Note Provider, Sneha, - 12/08/2016 XR Knee Min 4 Views L [id number] Acc#: [id number] DATE OF EXAM: Dec 31 2012 CLINICAL HISTORY: Fell in hole on 12/29/12. Has left knee pain. RESULT: Four views demonstrate no fracture, dislocation, bone destruction orother bony abnormality. Growth plates are fused. No knee joint effusionor discrete soft tissue swelling is evident. IMPRESSION: NORMAL LEFT KNEE. Interpreting Physician: ASTRID LARSEN M.D. Read on: Dec 31 20123:04P Transcribed by: al On: Dec 31 2012 3:04P Approved Electronically by: ASTRID LARSEN M.D. on: Dec 31 201210:54P Ordering DR: DR ANISA CLAUDIO Attending DR: PHYSICIAN NO Historical Provider IMGeeta XR PROCEDURES Final R esult documented in this encounter Visit Diagnoses Diagnosis Sprain and strain of knee and leg Accidental fall into other hole or other opening in surface Unspecified place of occurrence Activities involving walking, marching and hiking documented in this encounter
--- OUTSIDE RECORDS SUMMARY | 2024-08-05 01:01 | XMS_ITS | Encounter Summary ---
Author Organization [facility] Healthcare Address [address] [place] [address] Care Team Providers Care Steam And Power Superintendent Name Role Phone Geneva Rizvi MD Primary Care Provider [phone]- [phone] Encounter Details Date Type Department Care Team (Late st Contact Info) Description 12/11/2014 11:16 AM CDT - 12/11/2014 11:59 PM CDT Hospital Encounter [facility] Rogelio Ragsdale MD [address] [place] [address] [address] Other and unspecified ovarian cyst Social History Tobacco Use Types Packs/Day Years Used Date Smoking Tobacco: Never Assessed Comments Unknown Sex and Gender Information Value Date Recorded Sex Assigned at Not on file 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 RESULT: Transabdominal and transvaginal scanning was performed. ??The uterus measures 7.5 x 3.8 x 5.2 cm. ??No focal masses are present. ??The endometrial complex is minimally thickened at 8 mm. The right ovary measures 5.3 x 4.2 x 2.9 cm. A 2.3 x 2.0 x 1.3 cm cyst is seen in the right adnexal region between the uterus and ovarian. ??The left ovary measures 3.8 x 3.5 x 2.5 cm and appears normal. ??There is no evidence of adnexal mass or free fluid. IMPRESSION: 1. ??2 CM SIMPLE CYST IN BETWEEN THE RIGHT OVARY AND UTERUS. 2. ??OTHERWISE NORMAL PELVIC SONOGRAM. Interpreting Physician: ??DR DANILO SMITH M.D. ??Read on: ??Dec 11 2014 6:09P Transcribed by: ??ylc ??On: Dec 11 2014 ??6:09P Approved Electronically by: ??LUIS Watson, DR CARRASCO ??on: ??Dec 12 2014 6:22A Attending: ??, Requesting: ??FARAZ ACUNA Requesting Fax: ??-- Attending Fax: ??-- Attending ID: ?? Requesting ID: ??[id number] Report To 1 ID: ??[id number] Report To 1 Name: ??ROGELIO JARAMILLO Report To 1 FAX: ??-- NextGen Order #: Procedure Note Provider, MD Sneha - 12/08/2016 CC: GENEVA RIZVI US Pelvis Acc#: [id number] DATE OF EXAM: Dec 11 2014 CLINICAL HISTORY: Followup ovarian cyst. RESULT: Transabdominal and transvaginal scanning was performed. The uterusmeasures 7.5 x 3.8 x 5.2 cm. No focal masses are present. Theendometrial complex is minimally thickened at 8 mm. The right ovarymeasures 5.3 x 4.2 x 2.9 cm. A 2.3 x 2.0 x 1.3 cm cyst is seen in theright adnexal region between the uterus and ovarian. The left ovarymeasures 3.8 x 3.5 x 2.5 cm and appears normal. There is no evidence ofadnexal mass or free fluid. IMPRESSION: 1. 2 CM SIMPLE CYST IN BETWEEN THE RIGHT OVARY AND UTERUS. 2. OTHERWISE NORMAL PELVIC SONOGRAM. Interpreting Physician: DR DANILO SMITH M.D. Read on: Dec 11 20146:09P Transcribed by: [facility] On: Dec 11 2014 6:09P Approved Electronically by: LUIS Watson, DR CARRASCO on: Dec 12 20146:22A Attending: , Requesting: FARAZ ACUNA Requesting Fax: -- Attending Fax: -- Attending ID: Requesting ID: [id number] Report To 1 ID: [id number] Report To 1 Name: EHSANTREASURE ROGELIO Report To 1 FAX: -- NextGen Order #: us Historical Provider MD CEDENO US PROCEDURES Final R esult documented in this encounter Visit Diagnoses Diagnosis Other and unspecified ovarian cyst documented in this encounter Care Teams Steam And Power Superintendent Relationship Specialty Start Date End Date Geneva Rizvi MD [address] [place] [id number] PCP - General 09/07/14 08/27/15 documented as of this encounter
--- OUTSIDE RECORDS SUMMARY | 2024-08-05 01:01 | XMS_ITS | Encounter Summary ---
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
--- OUTSIDE RECORDS SUMMARY | 2024-08-05 01:01 | XMS_ITS | Encounter Summary ---
Author Organization [facility] Healthcare Address [address] [place] [address] Care Team Providers Care Motors Assembler Name Role Phone Unavailable Primary Care Provider Unavailabl e Encounter Details Date Type Department Care Team (Late st Contact Info) Description 08/15/2014 9:22 AM FURNITURE REPAIRER - 08/15/2014 11:40 AM FURNITURE REPAIRER Hospital Encounter [facility] Rika Santos MD [address] [place] [address] [address] Hemorrhage of rectum and anus; Residual hemorrhoidal skin tags; Obesity Social History Tobacco Use Types Packs/Day Years Used Date Smoking Tobacco: Never Assessed Comments Unknown Sex and Gender Information Value Date Recorded Sex Assigned at Not on file Legal Sex Female 3:31 AM FURNITURE REPAIRER Gender Identity Not on file Sexual Orientation Not on file documented as of this encounter Procedure Notes * Provider, MD Sneha - 08/15/2014 12:00 AM CSTAssociated Order(s): COLONOSCOPY PROCEDURE REPORT Patient: REED STEWART Account: [id number] Room No: : 1995 Patient Type: [facility] Attend.: Rika Hercules M.D. Admit Date: 08/15/2014 Dict.: Rika Hercules M.D. Disch. Date: 08/15/2014 NAME OF PROCEDURE: COLONOSCOPY HISTORY: The patient is a 19-year-old with rectal bleeding. PHYSICAL EXAMINATION: The patient is an obese female. The lungs are clear. Cardiovascular examination is unremarkable. PROCEDURE: Colonoscopy was performed with the Olympus video endoscope. The patient was premedicated by anesthesia. On digital exam, there is an external skin tag. We inserted the endoscope and saw immediately normal mucosa, with really not any inflammatory bowel disease. From there we advanced to the cecum. The colon was adequately prepped and visualized. We carefully searched and could find no evidence of inflammation or neoplasia anywhere through the length of the bowel. The patient tolerated the procedure without difficulty. POSTOPERATIVE DIAGNOSIS: Anal skin tag, otherwise normal. Rika Hercules M.D. DR/jozef TD: 08/16/2014 08:03 CC: Amalia Cherry Electronically Authenticated by: Rika Hercules MD On 08/17/2014 03:12 PM FURNITURE REPAIRER documented in this encounter Plan of Treatment Not on file documented as of this encounter Procedures Procedure Name Priority Date/Time Associated Diagnosis Comments URINE CHORIONIC GONADOTROPIN (HCG) Routine 08/15/2014 9:55 AM FURNITURE REPAIRER COLONOSCOPY IMAGES 08/15/2014 DISCHARGE LABORATORY CUMULATIVE REPORT Routine 08/15/2014 12:00 AM FURNITURE REPAIRER COLONOSCOPY 08/15/2014 12:00 AM FURNITURE REPAIRER documented in this encounter Results * Urine chorionic gonadotropin (HCG) (08/15/2014 9:55 AM FURNITURE REPAIRER) HCG, ur Negative NEGATIVE HISTORICAL RESULTS Urine 08/15/2014 9:55 AM FURNITURE REPAIRER us Rika Hercules MD LAB BLOOD ORDERABLES Final Re sult HISTORICAL RESULTS * Discharge Laboratory Cumulative Report (08/15/2014 12:00 AM FURNITURE REPAIRER) 08/15/2014 Narrative HISTORICAL RESULTS - 08/16/2014 12:39 AM FURNITURE REPAIRER Patient No: [id number] ? [facility] Patient Name: REED STEWART ? [facility] Healthcare Age: 19 YRS ?: 1995 ?Sex:F ?[address] )[phone] ?? Adm Dt: 08/15/2014 ?[place], [place] ??[address] Created: 08/16/2014 ??0039 ?? Pt. Type: O ? Discharge Dt: 08/15/2014 ? Pathologists: Jessica Irizarry MD Admit Attend Dr: RIKA HERCULES MD ? [facility] ?Collection Date: ?08/15/14 ?Collection Time: ?954 ? Ref Range: ?? Units: [NEGATIVE] ?U ? NEGATIVE ?? END OF CHART ? Page: ?? 1 us Historical Provider LAB BLOOD ORDERABLES Miriam l Result HISTORICAL RESULTS * COLONOSCOPY (08/15/2014 12:00 AM FURNITURE REPAIRER) Anatomical Region Laterality Modality Other Narrative 08/15/2014 12:00 AM FURNITURE REPAIRER Ordered by an unspecified provider. Procedure Note Provider, Sneha, - 08/15/2014 12:00 AM CST PROCEDURE REPORT Patient: REED STEWART Account: [id number] Room No: : 1995 Patient Type: SDS Attend.: Rika Hercules M.D. Admit Date: 08/15/2014 Dict.: Rika Hercules M.D. Disch. Date: 08/15/2014 NAME OF PROCEDURE: COLONOSCOPY HISTORY: The patient is a 19-year-old with rectal bleeding. PHYSICAL EXAMINATION: The patient is an obese female. The lungs areclear. Cardiovascular examination is unremarkable. PROCEDURE: Colonoscopy was performed with the Olympus video endoscope.The patient was premedicated by anesthesia. On digital exam, there is anexternal skin tag. We inserted the endoscope and saw immediately normal mucosa,with really not any inflammatory bowel disease. From there we advanced to thececum. The colon was adequately prepped and visualized. We carefully searchedand could find no evidence of inflammation or neoplasia anywhere through thelength of the bowel. The patient tolerated the procedure without difficulty. POSTOPERATIVE DIAGNOSIS: Anal skin tag, otherwise normal. Rika Hercules M.D. /jozef TD: 08/16/2014 08:03 CC: Amalia Cherry Electronically Authenticated by: Rika Hercules MD On 08/17/2014 03:12 PM FURNITURE REPAIRER us Historical Provider ENDOSCOPY PROCEDURES Miriam l Result * COLONOSCOPY IMAGES (08/15/2014) Anatomical Region Laterality Modality Other Narrative 08/15/2014 Ordered by an unspecified provider. us Historical Provider GI PROCEDURE ORDERABLES F inal Result documented in this encounter Visit Diagnoses Diagnosis Hemorrhage of rectum and anus Residual hemorrhoidal skin tags Obesity Obesity, unspecified documented in this encounter
--- OUTSIDE RECORDS SUMMARY | 2024-08-05 01:01 | XMS_ITS | Encounter Summary ---
Author Organization [facility] Healthcare Address [address] [place] [address] Care Team Providers Care Occupational Therapy Assistant Name Role Phone Amalia Rizvi MD Primary Care Provider [phone]- [phone] Encounter Details Date Type Department Care Team (Late st Contact Info) Description 10/31/2015 8:42 PM CDT - 10/31/2015 11:59 PM CDT Hospital Encounter [facility]CON[facility] Marie Villegas, Nancy Dong MD [address] [place] [address] Encounter for supervision of normal first in first trimester; Nonspecific urethritis Social History Tobacco Use Types Packs/Day Years Used Date Smoking Tobacco: Never Assessed Comments Unknown Sex and Gender Information Value Date Recorded Sex Assigned at Not on file Legal 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 Gender Identity Not on file Sexual Orientation Not on file documented as of this encounter Medications at Time of Discharge acetaminophen (TYLENOL) 325 mg tablet take 1 tablet by oral route every 4 hours as needed 0 0 10/31/2015 05/29/2018 prenat.vits,carlie,m vp-ahql-achcp ( VITAMIN) tablet take 1 tablet by oral route every day 0 0 10/31/2015 01/28/2017 documented as of this encounter Plan of Treatment Not on file documented as of this encounter Procedures Procedure Name Priority Date/Time Associated Diagnosis Comments GENITAL FLUID GONORRHEA RNA SCREEN Routine 10/31/2015 8:50 PM CDT GENITAL FLUID CHLAMYDIA RNA SCREEN Routine 10/31/2015 8:50 PM CDT REFERENCE LABORATORY MISCELLANEOUS TESTING 10/31/2015 documented in this encounter Results * Genital fluid Gonorrhea RNA screen (10/31/2015 8:50 PM CDT) Gonorrheae (GC) RNA, genital swab Negative Negative HISTORICAL RESULTS Comment: This test has been developed to maximize the sensitivity of detection of infection while minimizing false positives, with the combined goals of enabling treatment of infection and interrupting the spread of infection, and is intended for medical purposes. Any result should be interpreted together with the clinical presentation and risk assessment, particularly the prevalence of infection in the patient's demographic group. ??Significant discrepancies should be evaluated by additional measures. Genital 10/31/2015 8:50 PM CDT Nancy Villegas MD LAB BLOOD ORDERABLES Final Result Performing Organization Address [facility] Co de Phone Number HISTORICAL RESULTS * Genital fluid Chlamydia RNA screen (10/31/2015 8:50 PM CDT) Chlamydia trachomatis, PCR, genital swab Negative Negative HISTORICAL RESULTS Comment: This test has been developed to maximize the sensitivity of detection of infection while minimizing false positives, with the combined goals of enabling treatment of infection and interrupting the spread of infection, and is intended for medical purposes. Any result should be interpreted together with the clinical presentation and risk assessment, particularly the prevalence of infection in the patient's demographic group. ??Significant discrepancies should be evaluated by additional measures. Genital 10/31/2015 8:50 PM CDT Nancy Villegas MD LAB BLOOD ORDERABLES Final Result Performing Organization Address City/State/[facility] Co de Phone Number HISTORICAL RESULTS * REFERENCE LABORATORY MISCELLANEOUS TESTING (10/31/2015) Narrative 10/31/2015 Ordered by an unspecified provider. Historical Provider LAB BLOOD ORDERABLES Miriam l Result documented in this encounter Visit Diagnoses Diagnosis Encounter for supervision of normal first in first trimester Nonspecific urethritis Unspecified nongonococcal urethritis (LYNN) documented in this encounter Care Teams Occupational Therapy Assistant Relationship Specialty Start Date End Date Amalia Rizvi MD [address] [place] [id number] PCP - General 08/28/15 10/30/16 documented as of this encounter
== END 2024-07-29 15:55 | disposition home or self-care (01) ==
PROVIDERS: Visit Provider Surgery
PROC: 0FT44ZZ Resection of Gallbladder, Percutaneous Endoscopic Approach (ICD-10-PCS; CPT 47562; principal; 2024-07-29 13:00)
DX: K80.10 Calculus of gallbladder with chronic cholecystitis without obstruction (principal); K82.8 Other specified diseases of gallbladder; Z98.890 Other specified postprocedural states; Z98.84 Bariatric surgery status; Z87.891 Personal history of nicotine dependence; Z80.3 Family history of malignant neoplasm of breast; Z80.49 Family history of malignant neoplasm of other genital organs; Z80.41 Family history of malignant neoplasm of ovary
CPT/HCPCS: 47562; 36415; 82150; 88304; A9270; J0330; J0690; J1100; J1885; J2405; J2704; J3010; J7120